=== PATIENT | female | born 1940 | race Caucasian/White ===

== ENCOUNTER → 2016-11-02 | Outpatient (REF) | payer MEDICARE ==
[2016-11-02 20:31] LABS: ALBUMIN 3.7 GM/DL (3.2-5.2); ALBUMIN/GLOBULIN RATIO 1.12 (1.00-1.93); ALKALINE PHOSPHATASE 172 U/L (45-117); ALT/SGPT 28 U/L (12-78); ANION GAP 11 MEQ/L (8-16); AST/SGOT 29 U/L (15-37); BILIRUBIN,TOTAL 0.3 MG/DL (0.2-1.0); BLOOD UREA NITROGEN 19 MG/DL (7-18); CALCIUM LEVEL 9.3 MG/DL (8.8-10.2); CARBON DIOXIDE LEVEL 28 MEQ/L (21-32); CHLORIDE LEVEL 103 MEQ/L (98-107); CHOLESTEROL LEVEL 142 MG/DL (<200); CREATININE FOR GFR 0.83 MG/DL (0.55-1.02); FREE T4 1.26 NG/DL (0.76-1.46); GLOMERULAR FILTRATION RATE > 60.0 (>39); GLUCOSE, FASTING 166 MG/DL (83-110); POTASSIUM SERUM 4.4 MEQ/L (3.5-5.1); SODIUM LEVEL 142 MEQ/L (136-145); TRIGLYCERIDES LEVEL 121 MG/DL (<150)
== END ==
LOC: M SFHCADAM 14:28
PROVIDERS: ATTEND Family Medicine
DX: E11.65 Type 2 diabetes mellitus with hyperglycemia (principal); Z68.42 Body mass index [BMI] 45.0-49.9, adult; E78.2 Mixed hyperlipidemia

== ENCOUNTER → 2016-11-02 | Outpatient (CLI) | payer MEDICARE ==
--- NOTE | 2016-11-02 18:19 | REP ---
RIGHT KNEE SERIES: Five views of the right knee are performed. There is a total knee prosthesis which appears to be in good position with no abnormal surrounding lucency. There is no fracture, dislocation, or malalignment. IMPRESSION: Total knee prosthesis, appears to be in good position. Signed by Denilson Lloyd MD 11/03/2016 04:55 P
== END ==
LOC: M ADAMS 14:32
PROVIDERS: ATTEND Family Medicine
DX: T84.84XA Pain due to internal orthopedic prosthetic devices, implants and grafts, initial encounter (principal); E11.9 Type 2 diabetes mellitus without complications; Z79.82 Long term (current) use of aspirin; Z79.84 Long term (current) use of oral hypoglycemic drugs; Z79.4 Long term (current) use of insulin; Z79.899 Other long term (current) drug therapy; Z96.651 Presence of right artificial knee joint
CPT/HCPCS: 73564; 80053; 80061; 82043; 83036; 84439; 84443; G0463

== ENCOUNTER → 2018-03-19 | Outpatient (REF) | payer MEDICARE ==
[2018-03-19 19:45] LABS: ALBUMIN 3.3 GM/DL (3.2-5.2); ALBUMIN/GLOBULIN RATIO 1.06 (1.00-1.93); ALKALINE PHOSPHATASE 143 U/L (45-117); ALT/SGPT 23 U/L (12-78); ANION GAP 9 MEQ/L (8-16); AST/SGOT 15 U/L (7-37); BILIRUBIN,TOTAL 0.3 MG/DL (0.2-1.0); BLOOD UREA NITROGEN 21 MG/DL (7-18); CARBON DIOXIDE LEVEL 27 MEQ/L (21-32); CHLORIDE LEVEL 107 MEQ/L (98-107); CHOLESTEROL LEVEL 122 MG/DL (<200); CHOLESTEROL RISK RATIO 2.033 (<5); CREATININE FOR GFR 0.85 MG/DL (0.55-1.30); GLOMERULAR FILTRATION RATE > 60.0 (>39); GLUCOSE, FASTING 151 MG/DL (70-100); HDL CHOLESTEROL 60 MG/DL (>40); LDL CHOLESTEROL 40.8 MG/DL (<100); NON-HDL-C 62 MG/DL; POTASSIUM SERUM 4.5 MEQ/L (3.5-5.1); SODIUM LEVEL 143 MEQ/L (136-145); TOTAL PROTEIN 6.4 GM/DL (6.4-8.2); TRIGLYCERIDES LEVEL 106 MG/DL (<150)
[2018-03-19 19:49] LABS: ESTIMATED AVERAGE GLUCOSE 157 MG/DL (60-110); HEMOGLOBIN A1c 7.1 %
[2018-03-19 19:52] LABS: HEMATOCRIT 36.2 % (36.0-47.0); HEMOGLOBIN 11.2 g/dl (12.0-15.5); MEAN CORPUSCULAR HEMOGLOBIN 28.6 pg (27.0-33.0); MEAN CORPUSCULAR HGB CONC 30.9 g/dl (32.0-36.5); MEAN CORPUSCULAR VOLUME 92.3 fl (80.0-96.0); PLATELET COUNT, AUTOMATED 213 10^3/uL (150-450); RED BLOOD COUNT 3.92 10^6/uL (4.00-5.40); RED CELL DISTRIBUTION WIDTH 13.9 % (11.5-14.5); WHITE BLOOD COUNT 8.1 10^3/uL (4.0-10.0)
[2018-03-19 20:26] LABS: MALB URINE SIEMENS 7.5 MG/L; MAU/CREAT RATIO 6.7 MCG/MG (0.0-30.0)
== END ==
LOC: M SFHCADAM 11:27
DX: M15.0 Primary generalized (osteo)arthritis (principal); E11.65 Type 2 diabetes mellitus with hyperglycemia; E78.2 Mixed hyperlipidemia
CPT/HCPCS: 80053

== ENCOUNTER 2018-06-03 10:44 | Emergency (ER) | payer MEDICARE | END 2018-06-03 13:51 | disposition home or self-care (01) | LOC: M ED 10:44 | DX: M16.11 Unilateral primary osteoarthritis, right hip (principal); R26.2 Difficulty in walking, not elsewhere classified; E11.9 Type 2 diabetes mellitus without complications; I10 Essential (primary) hypertension; E78.5 Hyperlipidemia, unspecified; Z88.2 Allergy status to sulfonamides; Z79.82 Long term (current) use of aspirin | CPT/HCPCS: 99283 ==

== ENCOUNTER 2018-08-02 01:55 | Emergency (ER) | payer MEDICARE ==
[2018-08-02 02:22] LABS: BASO % 0.4 % (0.0-1.0); EOS # 0.2 10^3/uL (0.0-0.50); EOS % 1.8 % (0.0-3.0); HEMATOCRIT 32.7 % (36.0-47.0); HEMOGLOBIN 10.7 g/dl (12.0-15.5); IMMATURE GRANULOCYTE % 0.2 % (0-3.0); LYMPH # 1.2 10^3/uL (1.5-4.5); LYMPH % 13.4 % (24.0-44.0); MEAN CORPUSCULAR HEMOGLOBIN 29.2 pg (27.0-33.0); MEAN CORPUSCULAR HGB CONC 32.7 g/dl (32.0-36.5); MEAN CORPUSCULAR VOLUME 89.3 fl (80.0-96.0); MONO # 0.9 10^3/uL (0.0-0.8); MONO % 9.9 % (0.0-5.0); NEUTROPHILS # 6.7 10^3/uL (1.8-7.7); NEUTROPHILS % 74.3 % (36.0-66.0); PLATELET COUNT, AUTOMATED 320 10^3/uL (150-450); RED BLOOD COUNT 3.66 10^6/uL (4.00-5.40); RED CELL DISTRIBUTION WIDTH 14.6 % (11.5-14.5)
[2018-08-02] MEDS: NS 500 ML IV ×2 (02:39→04:00)
[2018-08-02 02:55] LABS: LACTIC ACID SEPSIS PROTOCOL 2.2 MMOL/L (0.4-2.0)
[2018-08-02 03:24] LABS: ALBUMIN 3.1 GM/DL (3.2-5.2); ALBUMIN/GLOBULIN RATIO 0.97 (1.00-1.93); ALKALINE PHOSPHATASE 170 U/L (45-117); ALT/SGPT 18 U/L (12-78); ANION GAP 13 MEQ/L (8-16); AST/SGOT 26 U/L (7-37); BILIRUBIN,DIRECT 0.2 MG/DL (0.0-0.2); BILIRUBIN,TOTAL 0.5 MG/DL (0.2-1.0); BLOOD UREA NITROGEN 36 MG/DL (7-18); CALCIUM LEVEL 9.3 MG/DL (8.8-10.2); CARBON DIOXIDE LEVEL 24 MEQ/L (21-32); CHLORIDE LEVEL 101 MEQ/L (98-107); CPK CREATINE PHOSPHOKINASE 53 U/L (26-192); CREATININE FOR GFR 1.12 MG/DL (0.55-1.30); GLOMERULAR FILTRATION RATE 50.1 (>39); GLUCOSE, FASTING 90 MG/DL (70-100); LIPASE 54 U/L (73-393); MB/CK RELATIVE INDEX 2.83 (< OR =4); POTASSIUM SERUM 4.6 MEQ/L (3.5-5.1); SODIUM LEVEL 138 MEQ/L (136-145); TOTAL PROTEIN 6.3 GM/DL (6.4-8.2); TROPONIN I < 0.02 NG/ML (< 0.10)
[2018-08-02] MEDS: METOCLOPRAMIDE INJ 10MG/2ML VIAL (J2765) IV (04:00)
[2018-08-02 05:06] LABS: AMORPHOUS SEDIMENT RFX SMALL (NEGATIVE); KETONE, URINE AUTO RFX TRACE mg/dL (NEGATIVE); RBC, URINE AUTO RFX 12 /HPF (0-3); SPECIFIC GRAVITY UR AUTO RFX 1.017 (1.002-1.035); SQUAM EPITHELIAL CELL UR AURFX 4 /HPF (0-6)
[2018-08-02 05:07] LABS: LEUKOCYTE ESTERASE UR AUTO RFX 3+ (NEGATIVE); NITRITE, URINE AUTO RFX POSITIVE (NEGATIVE); WBC, URINE AUTO RFX 12 /HPF (0-3)
[2018-08-02] MEDS: cefTRIAXone SOD 1 GM in D5W MINI-BAG PLUS 50 ML IV (05:15)
== END 2018-08-02 06:46 | disposition home or self-care (01) ==
LOC: M ED 01:55
DX: N39.0 Urinary tract infection, site not specified (principal); R11.10 Vomiting, unspecified
CPT/HCPCS: J0696

== ENCOUNTER → 2018-08-09 | Outpatient (REF) | payer MEDICARE ==
[~2018-08-09] MED LIST: ASPI1CHW2 PO; CALC500T36 PO; CEPH500C PO; CIPR-249 PO; IRBE300T12 PO; IRBESAR/HCTZ PO; LANTINJ4 SC; LOVA10TA PO; LOVA40TA PO; METF500T13 PO; MULTCAP PO; NORCOTAB PO; NYST10CR TOP; ZOFR4TAB14 PO
[2018-08-09 12:06] LABS: BASO % 0.3 % (0.0-1.0); EOS # 0.2 10^3/uL (0.0-0.50); EOS % 2.5 % (0.0-3.0); HEMATOCRIT 35.5 % (36.0-47.0); HEMOGLOBIN 11.6 g/dl (12.0-15.5); LYMPH # 1.2 10^3/uL (1.5-4.5); LYMPH % 13.7 % (24.0-44.0); MEAN CORPUSCULAR HEMOGLOBIN 29.4 pg (27.0-33.0); MEAN CORPUSCULAR HGB CONC 32.7 g/dl (32.0-36.5); MEAN CORPUSCULAR VOLUME 89.9 fl (80.0-96.0); MONO # 0.9 10^3/uL (0.0-0.8); MONO % 10.6 % (0.0-5.0); NEUTROPHILS # 6.4 10^3/uL (1.8-7.7); NEUTROPHILS % 72.6 % (36.0-66.0); PLATELET COUNT, AUTOMATED 280 10^3/uL (150-450); RED BLOOD COUNT 3.95 10^6/uL (4.00-5.40); WHITE BLOOD COUNT 8.8 10^3/uL (4.0-10.0)
[2018-08-09 12:57] LABS: ALBUMIN 3.1 GM/DL (3.2-5.2); ALT/SGPT 22 U/L (12-78); BILIRUBIN,TOTAL 0.6 MG/DL (0.2-1.0); BLOOD UREA NITROGEN 27 MG/DL (7-18); CALCIUM LEVEL 9.4 MG/DL (8.8-10.2); CARBON DIOXIDE LEVEL 24 MEQ/L (21-32); CHLORIDE LEVEL 102 MEQ/L (98-107); CREATININE FOR GFR 0.85 MG/DL (0.55-1.30); FREE T4 1.69 NG/DL (0.76-1.46); GLOMERULAR FILTRATION RATE > 60.0 (>39); GLUCOSE, FASTING 57 MG/DL (70-100); POTASSIUM SERUM 4.2 MEQ/L (3.5-5.1); SODIUM LEVEL 137 MEQ/L (136-145); TOTAL PROTEIN 6.8 GM/DL (6.4-8.2)
== END ==
LOC: M SFHCPLAZ 09:23
PROVIDERS: ATTEND Family Medicine
DX: N39.0 Urinary tract infection, site not specified (principal); B96.20 Unspecified Escherichia coli [E. coli] as the cause of diseases classified elsewhere; I11.9 Hypertensive heart disease without heart failure; R25.1 Tremor, unspecified
CPT/HCPCS: 36415; 80053; 84439; 84443; 85025; G0463

== ENCOUNTER 2018-08-11 08:41 | Emergency (ER) | payer MEDICARE ==
[2018-08-11] MEDS ORDERED: DEXTROSE 50% 50 ML SYRINGE As Ordered (08:54)
[2018-08-11] MEDS: DEXTROSE 50% 50 ML SYRINGE IV (08:55)
[2018-08-11 09:16] LABS: BASO % 0.3 % (0.0-1.0); EOS # 0.2 10^3/uL (0.0-0.50); HEMATOCRIT 31.4 % (36.0-47.0); HEMOGLOBIN 10.1 g/dl (12.0-15.5); IMMATURE GRANULOCYTE % 0.3 % (0-3.0); LYMPH # 0.9 10^3/uL (1.5-4.5); LYMPH % 13.9 % (24.0-44.0); MEAN CORPUSCULAR HEMOGLOBIN 28.9 pg (27.0-33.0); MEAN CORPUSCULAR HGB CONC 32.2 g/dl (32.0-36.5); MONO # 0.7 10^3/uL (0.0-0.8); MONO % 10.5 % (0.0-5.0); NEUTROPHILS # 4.9 10^3/uL (1.8-7.7); PLATELET COUNT, AUTOMATED 197 10^3/uL (150-450); RED BLOOD COUNT 3.49 10^6/uL (4.00-5.40); RED CELL DISTRIBUTION WIDTH 14.4 % (11.5-14.5); WHITE BLOOD COUNT 6.8 10^3/uL (4.0-10.0)
[2018-08-11 09:29] LABS: KETONE, URINE AUTO RFX NEGATIVE (NEGATIVE); LEUKOCYTE ESTERASE UR AUTO RFX NEGATIVE (NEGATIVE); MUCUS, URINE RFX SMALL (NEGATIVE); NITRITE, URINE AUTO RFX NEGATIVE (NEGATIVE); RBC, URINE AUTO RFX 0 /HPF (0-3); SQUAM EPITHELIAL CELL UR AURFX 1 /HPF (0-6); WBC, URINE AUTO RFX 1 /HPF (0-3)
[2018-08-11 09:46] LABS: BEDSIDE GLUCOSE 45 MG/DL (83-110)
[2018-08-11 09:49] LABS: BEDSIDE GLUCOSE 146 MG/DL (83-110)
[2018-08-11] MEDS: NS 1,000 ML IV (09:49)
[2018-08-11 09:51] LABS: LACTIC ACID SEPSIS PROTOCOL 1.4 MMOL/L (0.4-2.0)
[2018-08-11 09:57] LABS: ALBUMIN 2.6 GM/DL (3.2-5.2); ALBUMIN/GLOBULIN RATIO 0.96 (1.00-1.93); ALKALINE PHOSPHATASE 146 U/L (45-117); ALT/SGPT 23 U/L (12-78); ANION GAP 9 MEQ/L (8-16); AST/SGOT 40 U/L (7-37); BILIRUBIN,DIRECT 0.2 MG/DL (0.0-0.2); BILIRUBIN,TOTAL 0.3 MG/DL (0.2-1.0); BLOOD UREA NITROGEN 29 MG/DL (7-18); CALCIUM LEVEL 7.9 MG/DL (8.8-10.2); CARBON DIOXIDE LEVEL 25 MEQ/L (21-32); CHLORIDE LEVEL 102 MEQ/L (98-107); CPK CREATINE PHOSPHOKINASE 73 U/L (26-192); CREATININE FOR GFR 0.82 MG/DL (0.55-1.30); GLOMERULAR FILTRATION RATE > 60.0 (>39); GLUCOSE, FASTING 202 MG/DL (70-100); LIPASE 83 U/L (73-393); MB/CK RELATIVE INDEX 2.47 (< OR =4); POTASSIUM SERUM 4.1 MEQ/L (3.5-5.1); SODIUM LEVEL 136 MEQ/L (136-145); TOTAL PROTEIN 5.3 GM/DL (6.4-8.2); TROPONIN I < 0.02 NG/ML (< 0.10)
[2018-08-11 10:58] LABS: BEDSIDE GLUCOSE 188 MG/DL (83-110)
== END 2018-08-11 12:20 | disposition home or self-care (01) ==
LOC: M ED 08:41
DX: E11.649 Type 2 diabetes mellitus with hypoglycemia without coma (principal); E66.9 Obesity, unspecified; I10 Essential (primary) hypertension; Z79.4 Long term (current) use of insulin; Z79.82 Long term (current) use of aspirin; Z79.899 Other long term (current) drug therapy; Z88.1 Allergy status to other antibiotic agents; Z88.2 Allergy status to sulfonamides
CPT/HCPCS: 82550

== ENCOUNTER 2018-08-27 08:34 | Emergency (ER) | payer MEDICARE ==
[~2018-08-27] VITALS: Ht 157.5 cm; Wt 90.9 kg
[~2018-08-27 08:34] MED LIST changes: -CEPH500C PO; -IRBESAR/HCTZ PO; -LOVA40TA PO; -MULTCAP PO; -NYST10CR TOP
[2018-08-27] MEDS ORDERED: ACETAMINOPHEN 325 MG TAB PO ONE (08:45)
[2018-08-27] MEDS ORDERED: METF500T13 PO (09:05)
[2018-08-27] MEDS ORDERED: CEPH500C PO (09:05)
[2018-08-27] MEDS ORDERED: MULTCAP PO (09:05)
[2018-08-27] MEDS ORDERED: NYST10CR TOP (09:05)
[2018-08-27] MEDS ORDERED: LOVA40TA PO (09:05)
[2018-08-27] MEDS ORDERED: IRBESAR/HCTZ PO (09:05)
[2018-08-27] MEDS ORDERED: CALC500T36 PO (09:05)
[2018-08-27 09:08] LABS: BASO % 0.6 % (0.0-1.0); EOS # 0.2 10^3/uL (0.0-0.50); EOS % 3.3 % (0.0-3.0); HEMATOCRIT 30.3 % (36.0-47.0); HEMOGLOBIN 9.7 g/dl (12.0-15.5); LYMPH # 0.8 10^3/uL (1.5-4.5); LYMPH % 11.8 % (24.0-44.0); MEAN CORPUSCULAR VOLUME 90.4 fl (80.0-96.0); MONO # 0.6 10^3/uL (0.0-0.8); MONO % 9.1 % (0.0-5.0); NEUTROPHILS % 74.8 % (36.0-66.0); PLATELET COUNT, AUTOMATED 262 10^3/uL (150-450); RED BLOOD COUNT 3.35 10^6/uL (4.00-5.40); WHITE BLOOD COUNT 6.7 10^3/uL (4.0-10.0)
[2018-08-27 09:35] LABS: ERYTHROCYTE SEDIMENTATION RATE 61 mm/hr (0-30)
[2018-08-27 09:36] LABS: BLOOD UREA NITROGEN 20 MG/DL (7-18); C REACTIVE PROTEIN QUANTITATIV 2.87 MG/DL (0.00-0.30); CALCIUM LEVEL 8.4 MG/DL (8.8-10.2); CARBON DIOXIDE LEVEL 24 MEQ/L (21-32); CHLORIDE LEVEL 104 MEQ/L (98-107); CREATININE FOR GFR 0.75 MG/DL (0.55-1.30); GLOMERULAR FILTRATION RATE > 60.0 (>39); GLUCOSE, FASTING 159 MG/DL (70-100); POTASSIUM SERUM 4.4 MEQ/L (3.5-5.1); SODIUM LEVEL 138 MEQ/L (136-145)
--- NOTE | 2018-08-27 09:40 | REP ---
Clinical: Right lower extremity pain . Technique: Lloyd scale and color Doppler evaluation using linear high frequency transducer. Findings: Ultrasound examination of the right lower extremity deep venous structures from the common femoral vein to the popliteal vein demonstrates normal compressibility flow and wave patterns in response to respiration and augmentation. There is no evidence for deep venous thrombosis. Impression: No evidence for deep venous thrombosis lower extremity. . Electronically Signed by Manfred Andino MD 08/27/2018 09:32 A
[2018-08-27 11:28] VITALS: BP 151/63
--- NOTE | 2018-08-27 11:59 | REP ---
Clinical: Pain without trauma. Technique: AP and lateral views of the right tibia / fibula. Comparison: Right knee dated 11/02/2016. Findings: Right knee replacement remains stable and unchanged in appearance. Degenerative changes at the ankle noted. No acute fracture or dislocation. Peripheral vascular disease identified. Impression: No obvious acute fracture dislocation. Degenerative changes. Electronically Signed by Manfred Andino MD 08/27/2018 09:20 A
== END 2018-08-27 11:30 | disposition home or self-care (01) ==
LOC: M ED 08:34
DX: M79.604 Pain in right leg (principal); G89.29 Other chronic pain; I10 Essential (primary) hypertension; E11.9 Type 2 diabetes mellitus without complications; E78.5 Hyperlipidemia, unspecified

== ENCOUNTER → 2018-09-06 | Outpatient (REF) | payer MEDICARE ==
[~2018-09-06] MED LIST changes: +CEPH500C PO; +IRBESAR/HCTZ PO; +LOVA40TA PO; +MULTCAP PO; +NYST10CR TOP
[2018-09-06 13:48] LABS: HEMATOCRIT 35.2 % (36.0-47.0); HEMOGLOBIN 11.3 g/dl (12.0-15.5); MEAN CORPUSCULAR HEMOGLOBIN 29.2 pg (27.0-33.0); MEAN CORPUSCULAR HGB CONC 32.1 g/dl (32.0-36.5); PLATELET COUNT, AUTOMATED 318 10^3/uL (150-450); RED BLOOD COUNT 3.87 10^6/uL (4.00-5.40); WHITE BLOOD COUNT 12.3 10^3/uL (4.0-10.0)
[2018-09-06 14:20] LABS: PERCENT SATURATION 19.4 % (13.2-45.0)
[2018-09-06 14:24] LABS: HEMOGLOBIN A1c 6.1 %
[2018-09-06 14:26] LABS: ERYTHROCYTE SEDIMENTATION RATE 58 mm/hr (0-30)
== END ==
LOC: M SFHCADAM 10:10
PROVIDERS: ATTEND Physician Assistant
DX: E11.65 Type 2 diabetes mellitus with hyperglycemia (principal); M25.511 Pain in right shoulder; D64.9 Anemia, unspecified
CPT/HCPCS: 82728; 83036; 83550; 85027; 85652; G0463

== ENCOUNTER → 2018-12-03 | Outpatient (REF) | payer MEDICARE ==
[~2018-12-03] MED LIST changes: +CALC12504 PO; -CALC500T36 PO; +HYDR-3715 PO; -NORCOTAB PO
[2018-12-03 13:18] LABS: HEMATOCRIT 32.4 % (36.0-47.0); HEMOGLOBIN 9.8 g/dl (12.0-15.5); MEAN CORPUSCULAR HEMOGLOBIN 28.2 pg (27.0-33.0); MEAN CORPUSCULAR HGB CONC 30.2 g/dl (32.0-36.5); MEAN CORPUSCULAR VOLUME 93.1 fl (80.0-96.0); PLATELET COUNT, AUTOMATED 205 10^3/uL (150-450); RED BLOOD COUNT 3.48 10^6/uL (4.00-5.40); WHITE BLOOD COUNT 9.4 10^3/uL (4.0-10.0)
[2018-12-03 13:34] LABS: ALBUMIN 3.5 GM/DL (3.2-5.2); ALT/SGPT 27 U/L (12-78); BILIRUBIN,TOTAL 0.5 MG/DL (0.2-1.0); BLOOD UREA NITROGEN 30 MG/DL (7-18); CALCIUM LEVEL 8.9 MG/DL (8.8-10.2); CARBON DIOXIDE LEVEL 28 MEQ/L (21-32); CHLORIDE LEVEL 104 MEQ/L (98-107); CREATININE FOR GFR 0.93 MG/DL (0.55-1.30); GLOMERULAR FILTRATION RATE > 60.0 (>39); GLUCOSE, FASTING 210 MG/DL (70-100); POTASSIUM SERUM 5.2 MEQ/L (3.5-5.1); SODIUM LEVEL 139 MEQ/L (136-145); TOTAL PROTEIN 6.6 GM/DL (6.4-8.2)
== END ==
LOC: M SFHCADAM 09:34
PROVIDERS: ATTEND Family Medicine
DX: E11.65 Type 2 diabetes mellitus with hyperglycemia (principal); I11.9 Hypertensive heart disease without heart failure
CPT/HCPCS: 80053; 83036; 85027; G0463

== ENCOUNTER 2019-03-06 08:28 | Day surgery (SDC) | payer MEDICARE ==
[~2019-03-06] VITALS: Ht 157.5 cm; Wt 88.4 kg
[~2019-03-06 08:28] MED LIST changes: +ACET-907 PO; +BALANCED SALT IRRIGATION SOLUTION 500ML BAG (FOR OR EYE MACHINE) As Ordered ONE; -CALC12504 PO; +CALC500T61 PO; +CEFUROXIME 1MG/0.1ML INTRACAMERAL INJ As Ordered ONE; +DUOVISC (0.50ML VISCOAT/0.55ML PROVISC) OPHTH KIT As Ordered ONE; +INSULANT SC; +LIDOCAINE 0.75%/EPINEPHRINE 0.025% IN BSS 1ML SYR INTRACAMERAL (OR ONLY) As Ordered ONE; +MIDAZOLAM INJ 2 MG/2 ML VIAL (J2250) As Ordered ONE; +OFLOXACIN 0.3 % (OCUFLOX) OPTH SOL 5ML OS ONE; +PHENYLEPHRINE 2.5% OPHTH SOL 2ML OS ONE; +POVIDONE-IODINE 5% OPHTH PREP SOL 30ML As Ordered ONE; +PROPARACAINE 0.5% OPHTH SOL 15ML OS ONE; +TROPICAMIDE 1% OPHTH SOLN 2ML OS ONE; +fentaNYL 100 MCG/2 ML INJECTION (J3010) As Ordered ONE
[2019-03-06 10:17] VITALS: BP 114/50
--- NOTE | 2019-03-07 20:52 | RO ---
DATE OF PROCEDURE: 03/06/2019 PREOPERATIVE DIAGNOSIS: 1. Visually significant nuclear sclerotic cataract left eye. POSTOPERATIVE DIAGNOSIS: 1. Visually significant nuclear sclerotic cataract left eye. PROCEDURE: 1. Cataract extraction with use of phacoemulsification and placement of intraocular lens, AU00T0, 18.0 D, left eye, placement of a capsular tension ring SURGEON: Cole Lomas DO SALT WASHER: None. ANESTHESIA: Local with monitored anesthesia care (MAC). COMPLICATIONS: None. POSTOPERATIVE CONDITION: Stable. INDICATIONS FOR SURGERY: 1. Blurred vision affecting patients activities of daily living. DESCRIPTION OF PROCEDURE: The patient was seen in the preoperative area and properly identified. The correct operative eye was identified and marked. The patient received topical anesthetic, antibiotics, and topical dilating drops. The patient was then transferred to the operating room. The correct side was re-identified, and a time-out was performed. The eye was prepped and draped in a sterile fashion. The eyelids were isolated with Tegaderm tape, and the lids were held open with an adjustable speculum. A 1.0 mm paracentesis incision was made. Intraocular preservative-free Shugarcaine was then injected into the anterior chamber. Viscoelastic was then injected into the anterior chamber through the paracentesis. Using a 2.4 mm sharp-tipped keratome, the anterior chamber was entered via a temporal clear cornea incision. A continuous curvilinear capsulorrhexis was created with Utrata forceps. Hydrodissection was performed with balanced salt solution (BSS) on a blunt cannula until the nucleus was able to rotate freely. The crystalline lens was phacoemulsified and aspirated. Irrigation/aspiration was used to remove the cortical material. Cohesive viscoelastic was placed into the capsular bag to deepen it. A capsular tension ring was placed to provide additional support to the capsular bag. The implant was placed into the capsular bag and allowed to unfold. Placement was confirmed by visualizing the anterior capsulorrhexis. Irrigation/aspiration was used to remove the viscoelastic. The clear corneal incision was hydrated with BSS on a blunt cannula. The lens was well positioned. The incisions were then tested for leaks and found to be negative. The eye was then palpated for appropriate pressure and adjusted accordingly with BSS. The eyelid speculum was then carefully removed. A shield was placed over the eye. The patient tolerated the procedure well and was discharged to the recovery unit in a stable condition. [facility]
== END 2019-03-06 10:25 | disposition home or self-care (01) ==
LOC: M SDC 08:28
PROVIDERS: ATTEND Ophthalmology
DX: H25.12 Age-related nuclear cataract, left eye (principal); I10 Essential (primary) hypertension; E78.5 Hyperlipidemia, unspecified; E11.9 Type 2 diabetes mellitus without complications; M12.9 Arthropathy, unspecified; Z88.2 Allergy status to sulfonamides; Z79.899 Other long term (current) drug therapy; Z79.4 Long term (current) use of insulin; Z79.82 Long term (current) use of aspirin; Z90.710 Acquired absence of both cervix and uterus; Z96.653 Presence of artificial knee joint, bilateral; Z96.641 Presence of right artificial hip joint
CPT/HCPCS: 66984; J2250; J3010; L8699; V2632

== ENCOUNTER → 2019-04-30 | Outpatient (CLI) | payer MEDICARE ==
[~2019-04-30] MED LIST changes: -BALANCED SALT IRRIGATION SOLUTION 500ML BAG (FOR OR EYE MACHINE) As Ordered ONE; -CEFUROXIME 1MG/0.1ML INTRACAMERAL INJ As Ordered ONE; -DUOVISC (0.50ML VISCOAT/0.55ML PROVISC) OPHTH KIT As Ordered ONE; -LIDOCAINE 0.75%/EPINEPHRINE 0.025% IN BSS 1ML SYR INTRACAMERAL (OR ONLY) As Ordered ONE; -MIDAZOLAM INJ 2 MG/2 ML VIAL (J2250) As Ordered ONE; -OFLOXACIN 0.3 % (OCUFLOX) OPTH SOL 5ML OS ONE; -PHENYLEPHRINE 2.5% OPHTH SOL 2ML OS ONE; -POVIDONE-IODINE 5% OPHTH PREP SOL 30ML As Ordered ONE; -PROPARACAINE 0.5% OPHTH SOL 15ML OS ONE; -TROPICAMIDE 1% OPHTH SOLN 2ML OS ONE; -fentaNYL 100 MCG/2 ML INJECTION (J3010) As Ordered ONE
--- NOTE | 2019-04-30 15:35 | REP ---
CT RIGHT SHOULDER: Axial CT right shoulder performed with sagittal and coronal reconstruction images, as well as 3D reconstruction images with humeral subtraction. Humeral head is high riding with an apparent full thickness tear of the supraspinatus tendon. Fluid density is seen in the region of the distal infraspinatus tendon with at least a partial full thickness tear of the infraspinatus tendon. There are moderate hypertrophic degenerative changes with joint space narrowing at the acromioclavicular joint. Acromion is type 1. There is no Hill-Sachs deformity. Fluid density extends into the posterolateral deltoid muscle suggesting a partial tear of that muscle. There is mild to moderate narrowing of the glenohumeral joint. Linear calcification is seen in the infraspinatus muscle having a length of 1 cm and a thickness of about 2 to 3 mm. No fracture is seen of the visualized osseous structures. There are diffuse degenerative changes of the spine. There appears to be a moderate joint effusion. This is predominately posteriorly located. IMPRESSION: Full thickness tear supraspinatus tendon. There is at least a partial full thickness tear of the infraspinatus tendon. Moderate hypertrophic degenerative changes acromioclavicular joint. Fluid density in the posterolateral deltoid suggests a partial muscle tear. Moderate joint effusion. Electronically Signed by Denilson Lloyd MD 04/30/2019 03:39 P
== END ==
LOC: M RAD 13:51
PROVIDERS: ATTEND Orthopaedic Surgery
DX: M75.101 Unspecified rotator cuff tear or rupture of right shoulder, not specified as traumatic (principal); M19.011 Primary osteoarthritis, right shoulder; M25.411 Effusion, right shoulder

== ENCOUNTER → 2019-06-23 | Outpatient (CLI) | payer MEDICARE ==
--- NOTE | 2019-06-23 12:29 | REP ---
Clinical: Lower back pain. Technique: AP, lateral, and coned-down views of the lumbosacral spine. Findings: Moderate chronic dextroconvex scoliosis along with moderate multilevel degenerative changes including endplate sclerosis, disc space narrowing, hypertrophic facet changes, and osteophytosis. Impression: Osteopenia and degenerative changes. Electronically Signed by Manfred Andino MD 06/23/2019 12:20 P
== END ==
LOC: M ADAMS 11:51
PROVIDERS: ATTEND Family Medicine
DX: M51.37 Other intervertebral disc degeneration, lumbosacral region (principal); M85.88 Other specified disorders of bone density and structure, other site; M54.5 Low back pain
CPT/HCPCS: 72100; G0463

== ENCOUNTER → 2019-07-01 | Outpatient (REF) | payer MEDICARE ==
[2019-07-01 14:00] LABS: HEMOGLOBIN A1c 6.8 %
[2019-07-01 14:01] LABS: BLOOD UREA NITROGEN 24 MG/DL (7-18); CALCIUM LEVEL 9.1 MG/DL (8.8-10.2); CARBON DIOXIDE LEVEL 25 MEQ/L (21-32); CHLORIDE LEVEL 104 MEQ/L (98-107); GLOMERULAR FILTRATION RATE > 60.0 (>39); GLUCOSE, FASTING 107 MG/DL (70-100); POTASSIUM SERUM 4.8 MEQ/L (3.5-5.1); SODIUM LEVEL 138 MEQ/L (136-145)
== END ==
LOC: M SFHCADAM 10:21
PROVIDERS: ATTEND Family Medicine
DX: E11.65 Type 2 diabetes mellitus with hyperglycemia (principal)
CPT/HCPCS: 80048; 83036; G0463

== ENCOUNTER → 2019-12-03 | Outpatient (REF) | payer MEDICARE ==
[2019-12-03 13:21] LABS: HEMATOCRIT 34.4 % (36.0-47.0); HEMOGLOBIN 10.7 g/dl (12.0-15.5); MEAN CORPUSCULAR HEMOGLOBIN 27.6 pg (27.0-33.0); MEAN CORPUSCULAR HGB CONC 31.1 g/dl (32.0-36.5); MEAN CORPUSCULAR VOLUME 88.7 fl (80.0-96.0); PLATELET COUNT, AUTOMATED 189 10^3/uL (150-450); RED BLOOD COUNT 3.88 10^6/uL (4.00-5.40); WHITE BLOOD COUNT 8.8 10^3/uL (4.0-10.0)
[2019-12-03 13:33] LABS: HEMOGLOBIN A1c 7.5 %
[2019-12-03 13:41] LABS: ALBUMIN 3.4 GM/DL (3.2-5.2); ALT/SGPT 20 U/L (12-78); BILIRUBIN,TOTAL 0.5 MG/DL (0.2-1.0); BLOOD UREA NITROGEN 28 MG/DL (7-18); CALCIUM LEVEL 9.3 MG/DL (8.8-10.2); CARBON DIOXIDE LEVEL 25 MEQ/L (21-32); CHLORIDE LEVEL 106 MEQ/L (98-107); CHOLESTEROL LEVEL 119 MG/DL (<200); CREATININE FOR GFR 0.93 MG/DL (0.55-1.30); FREE T4 1.33 NG/DL (0.76-1.46); GLOMERULAR FILTRATION RATE > 60.0 (>39); GLUCOSE, FASTING 121 MG/DL (70-100); HDL CHOLESTEROL 61 MG/DL (>40); LDL CHOLESTEROL 45 MG/DL (<100); NON-HDL-C 58 MG/DL; POTASSIUM SERUM 5.1 MEQ/L (3.5-5.1); SODIUM LEVEL 139 MEQ/L (136-145); TOTAL PROTEIN 6.8 GM/DL (6.4-8.2); TRIGLYCERIDES LEVEL 65 MG/DL (<150)
[2019-12-03 13:43] LABS: VITAMIN B12 LEVEL 178 PG/ML (247-911)
[2019-12-03 13:44] LABS: FOLATE > 24.0 NG/ML (>5.4)
== END ==
LOC: M SFHCADAM 09:14
PROVIDERS: ATTEND Family Medicine
DX: R41.3 Other amnesia (principal); E11.65 Type 2 diabetes mellitus with hyperglycemia; E78.2 Mixed hyperlipidemia

== ENCOUNTER → 2020-07-05 | Outpatient (REF) | payer MEDICARE ==
[2020-07-05 13:33] LABS: HEMATOCRIT 28.2 % (36.0-47.0); HEMOGLOBIN 7.7 g/dl (12.0-15.5); MEAN CORPUSCULAR HEMOGLOBIN 22.7 pg (27.0-33.0); MEAN CORPUSCULAR HGB CONC 27.3 g/dl (32.0-36.5); MEAN CORPUSCULAR VOLUME 83.2 fl (80.0-96.0); PLATELET COUNT, AUTOMATED 230 10^3/uL (150-450); RED BLOOD COUNT 3.39 10^6/uL (4.00-5.40); WHITE BLOOD COUNT 7.9 10^3/uL (4.0-10.0)
[2020-07-05 14:05] LABS: BLOOD UREA NITROGEN 24 MG/DL (7-18); CALCIUM LEVEL 9.5 MG/DL (8.8-10.2); CARBON DIOXIDE LEVEL 25 MEQ/L (21-32); CHLORIDE LEVEL 107 MEQ/L (98-107); CREATININE FOR GFR 0.82 MG/DL (0.55-1.30); GLOMERULAR FILTRATION RATE > 60.0 (>39); GLUCOSE, FASTING 78 MG/DL (70-100); POTASSIUM SERUM 4.9 MEQ/L (3.5-5.1); SODIUM LEVEL 139 MEQ/L (136-145); VITAMIN B12 LEVEL 763 PG/ML (247-911)
[2020-07-05 15:25] LABS: HEMOGLOBIN A1c 7.1 %
== END ==
LOC: M SFHCADAM 09:47
PROVIDERS: ATTEND Family Medicine
DX: E53.8 Deficiency of other specified B group vitamins (principal); E11.65 Type 2 diabetes mellitus with hyperglycemia

== ENCOUNTER → 2020-07-07 | Outpatient (CLI) | payer MEDICARE ==
[2020-07-07 16:33] LABS: PERCENT SATURATION 5.8 % (13.2-45.0)
== END ==
LOC: M WUC 14:28
PROVIDERS: ATTEND Family Medicine
DX: D50.9 Iron deficiency anemia, unspecified (principal)

== ENCOUNTER → 2020-07-29 | Outpatient (CLI) | payer MEDICARE ==
[2020-07-29 17:18] LABS: HEMATOCRIT 33.1 % (36.0-47.0); HEMOGLOBIN 9.3 g/dl (12.0-15.5); MEAN CORPUSCULAR HEMOGLOBIN 24.3 pg (27.0-33.0); MEAN CORPUSCULAR HGB CONC 28.1 g/dl (32.0-36.5); MEAN CORPUSCULAR VOLUME 86.4 fl (80.0-96.0); PLATELET COUNT, AUTOMATED 209 10^3/uL (150-450); RED BLOOD COUNT 3.83 10^6/uL (4.00-5.40); WHITE BLOOD COUNT 7.9 10^3/uL (4.0-10.0)
[2020-07-29 18:25] LABS: BLOOD UREA NITROGEN 24 MG/DL (7-18); CARBON DIOXIDE LEVEL 24 MEQ/L (21-32); CHLORIDE LEVEL 109 MEQ/L (98-107); CREATININE FOR GFR 0.94 MG/DL (0.55-1.30); FERRITIN 9 NG/ML (8-252); GLOMERULAR FILTRATION RATE > 60.0 (>32); GLUCOSE, FASTING 78 MG/DL (70-100); IRON (FE) 45 UG/DL (50-170); PERCENT SATURATION 10.6 % (13.2-45.0); POTASSIUM SERUM 4.9 MEQ/L (3.5-5.1); SODIUM LEVEL 140 MEQ/L (136-145); TOTAL IRON BINDING CAPACITY 423 UG/DL (250-450)
[2020-07-29 20:14] LABS: HEMOGLOBIN A1c 6.8 %
== END ==
LOC: M WUC 12:06
PROVIDERS: ATTEND Family Medicine
DX: D50.0 Iron deficiency anemia secondary to blood loss (chronic) (principal); E11.65 Type 2 diabetes mellitus with hyperglycemia

== ENCOUNTER 2020-10-17 22:17 | Emergency (ER) | payer MEDICARE ==
--- NOTE | 2020-10-17 22:59 | REPVR ---
PROCEDURE INFORMATION: Exam: CT Head Without Contrast Exam date and time: 10/17/2020 10:33 PM Age: 80 years old Clinical indication: Injury or trauma; Fall; Blunt trauma (contusions or hematomas) TECHNIQUE: Imaging protocol: Computed tomography of the head without contrast. Radiation optimization: All CT scans at this facility use at least one of these dose optimization techniques: automated exposure control; mA and/or kV adjustment per patient size (includes targeted exams where dose is matched to clinical indication); or iterative reconstruction. COMPARISON: No relevant prior studies available. FINDINGS: Brain: Nonspecific hypodensities of the periventricular and deep subcortical white matter, most likely secondary to chronic small vessel ischemic change. No intracranial hemorrhage or extra-axial fluid collection. No evidence of mass effect or midline shift. Lloyd-white matter differentiation is normal. Cerebral ventricles: Prominence of the ventricles and sulci, most likely attributed to parenchymal volume loss. Bones/joints: No acute calvarial fracture. Mastoid air cells: Unremarkable. Soft tissues: Small frontal scalp contusion. IMPRESSION: 1. No acute intracranial pathology. 2. Small frontal scalp contusion. 3. Chronic findings, as above. Electronically signed by: Dale Reid On 10/17/2020 22:59:38 PM
--- NOTE | 2020-10-17 23:00 | REPVR ---
PROCEDURE INFORMATION: Exam: CT Maxillofacial Without Contrast Exam date and time: 10/17/2020 10:33 PM Age: 80 years old Clinical indication: Injury or trauma; Fall; Blunt trauma (contusions or hematomas); Nose TECHNIQUE: Imaging protocol: Computed tomography images of the face without contrast. Radiation optimization: All CT scans at this facility use at least one of these dose optimization techniques: automated exposure control; mA and/or kV adjustment per patient size (includes targeted exams where dose is matched to clinical indication); or iterative reconstruction. COMPARISON: No relevant prior studies available. FINDINGS: Orbital cavity: Orbits are normal. Globes are unremarkable. Bones/joints: Acute nondisplaced nasal bridge fracture. Paranasal sinuses: Normal. No air-fluid levels. Soft tissues: Nasal soft tissue swelling. Left periorbital soft tissue swelling. IMPRESSION: Acute nondisplaced nasal bridge fracture. Electronically signed by: Dale Reid On 10/17/2020 23:01:19 PM
--- NOTE | 2020-10-17 23:01 | REPVR ---
PROCEDURE INFORMATION: Exam: CT Cervical Spine Without Contrast Exam date and time: 10/17/2020 10:33 PM Age: 80 years old Clinical indication: Injury or trauma; Fall; Blunt trauma TECHNIQUE: Imaging protocol: Computed tomography images of the cervical spine without contrast. Radiation optimization: All CT scans at this facility use at least one of these dose optimization techniques: automated exposure control; mA and/or kV adjustment per patient size (includes targeted exams where dose is matched to clinical indication); or iterative reconstruction. COMPARISON: No relevant prior studies available. FINDINGS: Bones/joints: Straightening of the cervical lordosis. Vertebral body heights are maintained. No locked or perched facets. Multilevel facet arthropathy. No acute cervical spine fracture. The dens is intact. Atlanto-axial intervals are normal. Discs/Spinal canal/Neural foramina: Multilevel degenerative changes with intervertebral disc height loss and osteophyte formation, with multilevel areas of mild canal stenosis. Lungs: Lung apices are clear. Soft tissues: Unremarkable. IMPRESSION: No acute cervical spine fracture. Electronically signed by: Dale Reid On 10/17/2020 23:02:14 PM
[2020-10-17] MEDS ORDERED: ACETAMINOPHEN TAB 650MG DOSE (2X325MG) PO ONE (23:30)
[2020-10-17] MEDS ORDERED: BOOSTRIX/ADACEL VACCINE (DIPHTH/PERTUSS/ACELL/TETANUS) 0.5ML SYR IM ONE (23:30)
--- OUTSIDE RECORDS SUMMARY | 2020-10-17 23:46 | CCD ---
Author Author [facility] Syst ems Organization [facility] ems Address Unknown Phone Unavailable Care Team Providers Care Knotter Name Role Phone Dale Winter Unavailable PROBLEMS Type Condition ICD9-CM Code [id number] Code Onset Dates Condition S tatus SNOMED Code Notes Problem Mixed hyperlipidemia E78.2 Active 612498986 Problem BMI 45.0-49.9, adult Z68.42 Active 556833457 Problem Encounter for immunization Z23 Active 78202 6002 Problem Type 2 diabetes mellitus with hyperglycemia E11.65 Active 185536132354005 Problem Other chronic pain G89.29 Active 24479069 Problem Hypertensive heart disease without heart failure I 11.9 Active 44675090 Problem Ulcer of abdomen wall, limited to breakdown of skin L98.491 Active 79511677 Problem Iron deficiency anemia due to chronic blood loss D 50.0 Active 531786451 Problem Presence of unspecified artificial knee joint Z96. 659 Active 448060433100 Problem Microcytic anemia D50.9 Active 540674605 Problem Primary generalized (osteo)arthritis M15.0 Act deanna 942756767 Problem Skin ulcer, limited to breakdown of skin L98.491 Active 28163989 Problem Medicare annual wellness visit, subsequent Z00.00 Active 483036128 Problem Memory loss R41.3 Active 61230572 Problem B12 deficiency E53.8 Active 014048378 prob fr om metformin; started oral B12 12/14, plan f/u level in~ 3 mo ALLERGIES Allergen (clinical drug ingredient) Drug/Non Drug Allergy do cumented on EMR Reaction Allergy Type Onset Date Status Cipro visual hallucinations, falls (08/13) Non Drug A llergy Active Sulfacet Hives Drug Allergy Active CHRIST INHiBITORS COUGH Non Drug Allergy Acti ve PRINIVIL COUGH Non Drug Allergy Active ENCOUNTERS from 1940 to 2020-08-05 Encounter Location Date Provider Diagnosis [facility] [place] [address] [place] [address] Jul, Orlin Winter IMMUNIZATIONS Vaccine Route Administration Date Status Influenza (High Dose 65 & up) IM Intramuscular Jun 21, 2017 A dministered Pneumococcal Adult 0.5mL (Pneumovax 23) IM Intramuscular January 25, 2016 Administered Pneumococcal 0.5mL (Prevnar 13) IM Intramuscular February 10, 2015 Administered Zoster 0.65mL (Zostavax) SC Subcutaneous Jul 25, 2011 Adminis tered Pneumococcal Adult 0.5mL (Pneumovax 23) Unknown Jul 30, 2003 Administered Influenza (6mo & up) Fluzone IM Intramuscular Jul 29, 2013 Ad ministered Influenza (18 yrs & older) Flublok IM Intramuscular Jun 27, 2018 Administered Influenza (6mo & up) Fluzone IM Intramuscular Aug 01, 2012 Ad ministered Influenza (18 yrs & older) Flublok IM Intramuscular Jun 17, 2020 Administered Influenza (6mo & up) Fluzone IM Intramuscular Jul 25, 2011 Ad ministered Influenza (6mo & up) Fluzone IM Intramuscular Jul 18, 2010 Ad ministered SOCIAL HISTORY Sex Assigned At : Social History Observation Description Sex Assigned At Unknown Audit Question Answer Notes Total Score: 1 Interpretation: Alcohol Education Sexual Hx: Question Answer Notes Had sex in the last 12 months (vaginal, oral, or anal)? No Have you ever had an STD? No Drug and Alcohol Question Answer Notes Total Score: 0 Interpretation: No problems reported Alcohol Screening: Question Answer Notes Did you have a drink containing alcohol in the past year? No Points 0 Interpretation Negative BMI Care Goal Follow-Up Question Answer Notes Above Normal BMI Follow-Up Lifestyle education regarding t REASON FOR REFERRAL No Information VITAL SIGNS No information MEDICATIONS Medication SIG (Take, Route, Frequency, Duration) Notes Start Da te End Date Status Nystatin 568451 UNIT/GM 1 application Externally twi ce daily to breast and abd/groin skin folds for 30 Acti ve Solus V2 Test - as directed In Vitro three t imes a day diagnosis e11.65 for 30 day(s) Jun, Active Acetaminophen Active Irbesartan-Hydrochlorothiazide 300-12.5 MG 1 tablet Orally Once a day for 30 Active Calcium 600 + D 600-400 mg 1 tablet twice a day Active Unifine Pentips 31G X 8 MM USE ONE WITH LANTUS PEN TWO TIMES A DAY UNDER THE SKIN for 50 Active Lantus SoloStar 100 UNIT/ML 20 units Subcutaneous once daily for 90 day(s) December, Active Lancet Devices - one touch ultra _daignos e11. bid e11.65 for 50 Active Diflucan 100 MG 1 tablet Orally bid for 7 day(s) Jul, 019 Not-Taking Cephalexin 500 MG 1 capsule Orally every 12 hrs for 7 day(s) Sep, Not-Taking Metformin HCl 1000 mg 1 1/2 tablets in the morning then 1 tablet in the evening Orally 2 times a day for 90 day(s) Active MiraLax - 1 capful Orally once daily as needed for 30 days May, Not-Taking Nystatin 956693 UNIT/GM 1 application to affected ar ea Externally Twice a day for 30 days Jul, Active Multi-Day OTC 1 tablet daily Active Aspir-81 81 mg 1 tablet daily Active One Touch Ultra 2 Lancet _ 1 each in vitro/diag code 2 50.02 three times a day for 90 day(s) Sep, Active Pen Avon 31G X 8 MM 1 each to be used with lantu s pen subcutaneously twice a day/250.02 for 90 day(s) Jun, Active Solus V2 Twist Lancets 30G - as directed _ three times a day diagnosis e11.65 for 30 day(s) Jun, Active iron 1 tab 27mg Oral Active Mevacor 40 mg 1 tablet Orally bedtime for 90 Active Fluconazole 150 MG 1 tablet Orally once weekly for 28 Not-Taking Vitamin B12 1000 MCG 1 tablet Orally Once a day for 90 day(s) Nov, Active WSO2Touch Ultra Test - USE TO TEST BLOOD SUGAR THREE TIMES A DAY for 9 0 Active PROCEDURES No Information RESULTS No Results REASON FOR VISIT iron meds MEDICAL (GENERAL) HISTORY Type Description Date Medical History HTN Medical History OA-- rt hip, Dr Jose Machado SOS Medical History DM2 Medical History hyperlipidemia Medical History morbid obesity Medical History recurrent intertrigo breasts/groin Medical History B12 deficiency 12/14 Surgical History L TKA x 2 1998, 2003 Surgical History R TKA 1997 Surgical History hysterectomy, uterus, cervix. 1968 Surgical History refuses colonoscopy Surgical History Right hip replacement 06/2018 Surgical History Bilateral shoulder steroid injections Surgical History R shoulder 05/19/19 Hospitalization History [facility] ED-N/V/D, UTI 08/02/2018 Goals Section No Information Health Concerns No Information MEDICAL EQUIPMENT No Information MENTAL STATUS No Information FUNCTIONAL STATUS No Information ASSESSMENTS No Information PLAN OF TREATMENT Medication Medication Name Sig Start Date Stop Date Pen Avon 31G X 8 MM 1 each to be used with lantu s pen subcutaneously twice a day/250.02 for 90 day(s) Jun, Lantus SoloStar 100 UNIT/ML 20 units Subcutaneous once daily for 90 day(s) December, Next Appt Details Provider Name:Dale Moy, 2020-10 11:00:00 AM, [address], [place], [address], Insurance Providers Payer Name Payer Address Payer Phone Insured Name Patient Relati onship to Insured Coverage Start Date Coverage End Date [employer] [facility] CLAIM DIV [address] [facility] [id number] SRIRAM JESSICA MEDICARE Part A and B [address] [facility] [address] SRIRAM JESSICA self
--- OUTSIDE RECORDS SUMMARY | 2020-10-17 23:46 | CCD ---
Author Author [facility] Syst ems Organization [facility] ems Address Unknown Phone Unavailable Care Team Providers Care Design Project Manager Name Role Phone Dale Winter Unavailable PROBLEMS Type Condition ICD9-CM Code [id number] Code Onset Dates Condition S tatus SNOMED Code Notes Problem Mixed hyperlipidemia E78.2 Active 041504903 Problem BMI 45.0-49.9, adult Z68.42 Active 146419640 Problem Encounter for immunization Z23 Active 58329 6002 Problem Type 2 diabetes mellitus with hyperglycemia E11.65 Active 406656303743849 Problem Other chronic pain G89.29 Active 94820577 Problem Hypertensive heart disease without heart failure I 11.9 Active 35508309 Problem Ulcer of abdomen wall, limited to breakdown of skin L98.491 Active 41862688 Problem Iron deficiency anemia due to chronic blood loss D 50.0 Active 072062395 Problem Presence of unspecified artificial knee joint Z96. 659 Active 133957005091 Problem Microcytic anemia D50.9 Active 173858142 Problem Primary generalized (osteo)arthritis M15.0 Act deanna 177364491 Problem Skin ulcer, limited to breakdown of skin L98.491 Active 42654486 Problem Medicare annual wellness visit, subsequent Z00.00 Active 871835492 Problem Memory loss R41.3 Active 64308490 Problem B12 deficiency E53.8 Active 514386342 prob fr om metformin; started oral B12 [...] Drug Allergy Active ENCOUNTERS from 1940 to 2020-08-04 Encounter Location Date Provider Diagnosis [facility] [place] [address] [place] [address] Jul, Orlin Winter Iron deficiency anemia due to chronic blood loss D50.0 ; Type 2 diabetes mellitus with hyperglycemia E11.65 and B12 deficiency E53.8 IMMUNIZATIONS Vaccine Route Administration Date Status Influenza (High Dose 65 & up) IM Intramuscular Jun 21, 2017 A dministered Zoster 0.65mL (Zostavax) SC Subcutaneous Jul 25, 2011 Adminis tered Pneumococcal Adult 0.5mL (Pneumovax 23) IM Intramuscular January 25, 2016 Administered Pneumococcal Adult 0.5mL (Pneumovax 23) Unknown Jul 30, 2003 Administered Pneumococcal 0.5mL (Prevnar 13) IM Intramuscular February 10, 2015 Administered Influenza (6mo & up) Fluzone IM [...] Assigned At Unknown Audit Question Answer Notes Interpretation: Alcohol Education Total Score: 1 Sexual Hx: Question Answer Notes Had sex in the last 12 months (vaginal, oral, or anal)? No Have you ever had an STD? No Drug and Alcohol Question Answer Notes Interpretation: No problems reported Total Score: 0 Alcohol Screening: Question Answer Notes Did you have a drink containing alcohol in the past year? No Points 0 Interpretation Negative BMI Care Goal Follow-Up Question Answer Notes Above Normal BMI Follow-Up Lifestyle education regarding t REASON FOR REFERRAL No Information VITAL SIGNS Weight 198 lbs Jul, Height 62 in Jul, BMI 36.21 kg/m2 Jul, Heart Rate 100 /min Jul, Respiratory Rate 18 /min Jul, Temperature 96.9 degrees Fahrenheit Jul, Oximetry 100 Jul, Blood pressure systolic 138 mm Hg Jul, Blood pressure diastolic 74 mm Hg Jul, MEDICATIONS Medication SIG (Take, Route, Frequency, Duration) Notes Start Da te End Date Status Nystatin 181409 UNIT/GM 1 application Externally twi ce daily to breast and abd/groin skin folds for 30 Acti ve Solus V2 Test - as directed In Vitro three t imes a day diagnosis e11.65 for 30 day(s) Jun, Active Acetaminophen Active Irbesartan-Hydrochlorothiazide 300-12.5 MG 1 tablet Orally Once a day for 30 Active Nystatin 702240 UNIT/GM 1 application to affected ar ea Externally Twice a day for 30 days Jul, Active Unifine Pentips 31G X 8 MM USE ONE WITH LANTUS PEN TWO TIMES A DAY UNDER THE SKIN for 50 Active Cephalexin 500 MG 1 capsule Orally every 12 hrs for 7 day(s) Sep, Not-Taking Lancet Devices - one touch ultra _daignos e11. bid e11.65 for 50 Active Diflucan 100 MG 1 tablet Orally bid for 7 day(s) Jul, 019 Not-Taking Pen Hancock 31G X 8 MM 1 each to be used with lantu s pen subcutaneously twice a day/250.02 for 90 day(s) Jun, Active Metformin HCl 1000 mg 1 1/2 tablets in the morning then 1 tablet in the evening Orally 2 times a day for 90 day(s) Active Solus V2 Twist Lancets 30G - as directed _ three times a day diagnosis e11.65 for 30 day(s) Jun, Active MiraLax - 1 capful Orally once daily as needed for 30 days May, Not-Taking Multi-Day OTC 1 tablet daily Active Aspir-81 81 mg 1 tablet daily Active One Touch Ultra 2 Lancet _ 1 each in vitro/diag code 2 50.02 three times a day for 90 day(s) Sep, Active Calcium 600 + D 600-400 mg 1 tablet twice a day Active Lantus SoloStar 100 UNIT/ML 20 units Subcutaneous once daily for 90 day(s) December, Active iron 1 tab 27mg Oral Active Mevacor 40 mg 1 tablet Orally bedtime for 90 Active Fluconazole 150 MG 1 tablet Orally once weekly for 28 Not-Taking Vitamin B12 1000 MCG 1 tablet Orally Once a day for 90 day(s) Nov, Active OneTouch Ultra Test - USE TO TEST BLOOD SUGAR THREE TIMES A DAY for 9 0 Active PROCEDURES No Information RESULTS No Results REASON FOR VISIT 3 week [phone] MEDICAL (GENERAL) HISTORY Type Description Date Medical [...] No Information FUNCTIONAL STATUS No Information ASSESSMENTS Encounter Date Diagnosis Assessment Notes Treatment Notes Treatm ent Clinical Notes Jul, Iron deficiency anemia due to chronic bl ood loss (ICD-10 - D50.0) has refused colonoscopy in past. Agrees today to see GI for EGD/colo. Dtr present/aware of my concerns Jul, Type 2 diabetes mellitus with hyperglycemia (ICD -10 - E11.65) Jul, B12 deficiency (ICD-10 - E53.8) prob fro m metformin; started oral B12 12/14, plan f/u level in~ 3 mo level sufficient on oral therapy PLAN OF TREATMENT Treatment Notes Assessment Notes Clinical Notes Iron deficiency anemia due to chronic blood loss has refused colonoscopy in past. Agrees today to see GI for EGD/colo. Dtr present/aware of my concerns B12 deficiency level sufficient on oral therapy Future Test Test Name Order Date CBC - Complete Blood Count 20201028 FERRITIN 20201028 Reticulocyte Count Sysmex [id number] TOTAL IRON BINDING CAPACIT [id number] HEMOGLOBIN A1c [id number] Comprehensive Metabolic Profile (CMP) 20201028 Next Appt Details 3 Months Reason: Provider Name:Dale Winter, 2020-10 11:00:00 AM, [address], [place], [address], Insurance Providers Payer Name Payer Address Payer Phone Insured Name Patient Relati onship to Insured Coverage Start Date Coverage End Date MEDICARE Part A and B [address] [facility] [phone] SRIRAM JESSICA [facility] HEALTH CARE [facility] CLAIM DIV [address] [facility] [id number] SRIRAM JESSICA self
--- OUTSIDE RECORDS SUMMARY | 2020-10-17 23:46 | CCD ---
Author Author [facility] ems Organization [facility] ems Address Unknown Phone Unavailable Care Team Providers Care Cogeneration Operator Name Role Phone Dale Winter Unavailable PROBLEMS Type Condition ICD9-CM Code [id number] Code Onset Dates Condition S tatus SNOMED Code Notes Problem Mixed hyperlipidemia E78.2 Active 879906652 Problem BMI 45.0-49.9, adult Z68.42 Active 189475304 Problem Encounter for immunization Z23 Active 91054 6002 Problem Type 2 diabetes mellitus with hyperglycemia E11.65 Active 447698433013843 Problem Other chronic pain G89.29 Active 05506873 Problem Hypertensive heart disease without heart failure I 11.9 Active 77500267 Problem Ulcer of abdomen wall, limited to breakdown of skin L98.491 Active 91339783 Problem Iron deficiency anemia due to chronic blood loss D 50.0 Active 141837585 Problem Presence of unspecified artificial knee joint Z96. 659 Active 450184016715 Problem Microcytic anemia D50.9 Active 119737952 Problem Primary generalized (osteo)arthritis M15.0 Act deanna 389348882 Problem Skin ulcer, limited to breakdown of skin L98.491 Active 12219746 Problem Medicare annual wellness visit, subsequent Z00.00 Active 038346874 Problem Memory loss R41.3 Active 33226076 Problem B12 deficiency E53.8 Active 459164480 prob fr om metformin; started oral B12 [...] Drug Allergy Active ENCOUNTERS from 1940 to 2020-08-06 Encounter Location Date Provider Diagnosis [facility] [place] [address] [place] [address] Jul, Orlin Winter Type 2 diabetes mellitus with hyperglycemia E11.65 IMMUNIZATIONS Vaccine Route Administration Date Status Influenza [...] Start Da te End Date Status Nystatin 443381 UNIT/GM 1 application Externally twi ce daily [...] needed for 30 days May, Not-Taking Nystatin 668151 UNIT/GM 1 application to affected ar ea Externally Twice a day for 30 days Jul, Active Multi-Day OTC 1 tablet daily Active Aspir-81 81 mg 1 tablet daily Active One Touch Ultra 2 Lancet _ 1 each in vitro/diag code 2 50.02 three times a day for 90 day(s) Sep, Active Pen [place] 31G X 8 MM 1 each to [...] a day for 90 day(s) Nov, Active Sagent PharmaceuticalsTouch Ultra Test - USE TO TEST BLOOD SUGAR THREE TIMES A DAY for 9 0 Active PROCEDURES No Information RESULTS No Results REASON FOR VISIT lant, needles for lantus MEDICAL (GENERAL) HISTORY Type Description Date Medical History HTN Medical History OA-- rt hip, Dr Jose Machado SOS Medical History DM2 Medical History hyperlipidemia Medical History morbid obesity Medical History recurrent intertrigo breasts/groin Medical History B12 deficiency 12/14 Surgical History L TKA x 2 2003 Surgical History R TKA 1997 Surgical History hysterectomy, uterus, cervix. 1968 Surgical History refuses colonoscopy Surgical History Right hip replacement 06/2018 Surgical History Bilateral shoulder steroid injections 20 19 Surgical History R shoulder 05/19/19 Hospitalization History [facility] ED-N/V/D, UTI 08/02/2018 Goals Section No Information Health Concerns No Information MEDICAL EQUIPMENT No Information MENTAL STATUS No Information FUNCTIONAL STATUS No Information ASSESSMENTS Encounter Date Diagnosis Assessment Notes Treatment Notes Treatm ent Clinical Notes Jul, Type 2 diabetes mellitus with hyperglycemia (ICD -10 - E11.65) PLAN OF TREATMENT Medication Medication Name Sig Start Date Stop Date Pen Allison 31G X 8 MM 1 each to be used with lantu s pen subcutaneously twice a day/250.02 for 90 day(s) Jun, Lantus SoloStar 100 UNIT/ML 20 units Subcutaneous once daily for 90 day(s) December, Next Appt Details Provider Name:Dale Winter, 2020-10 - 11:00:00 AM, [address], [place], [address], Insurance Providers Payer Name Payer Address Payer Phone Insured Name Patient Relati onship to Insured Coverage Start Date Coverage End Date MEDICARE Part A and B [address] [facility] [address] [phone] SRIRAM JESSICA [facility] HEALTH CARE OPTIONS [facility] CLAIM DIV [address] [facility] [address] SRIRAM JESSICA
--- OUTSIDE RECORDS SUMMARY | 2020-10-17 23:46 | CCD ---
Author Author [facility] ems Organization [facility] ems Address Unknown Phone Unavailable Care Team Providers Care Biofuels Manager Name Role Phone Dale Winter Unavailable PROBLEMS Type Condition ICD9-CM Code [id number] Code Onset Dates Condition S tatus SNOMED Code Notes Problem Mixed hyperlipidemia E78.2 Active 171863277 Problem BMI 45.0-49.9, adult Z68.42 Active 566344075 Problem Encounter for immunization Z23 Active 82196 6002 Problem Type 2 diabetes mellitus with hyperglycemia E11.65 Active 853577092903849 Problem Other chronic pain G89.29 Active 23792521 Problem Hypertensive heart disease without heart failure I 11.9 Active 95413573 Problem Ulcer of abdomen wall, limited to breakdown of skin L98.491 Active 93644864 Problem Iron deficiency anemia due to chronic blood loss D 50.0 Active 429813596 Problem Presence of unspecified artificial knee joint Z96. 659 Active 002871043818 Problem Microcytic anemia D50.9 Active 545154244 Problem Primary generalized (osteo)arthritis M15.0 Act deanna 694171023 Problem Skin ulcer, limited to breakdown of skin L98.491 Active 63997085 Problem Medicare annual wellness visit, subsequent Z00.00 Active 699658183 Problem Memory loss R41.3 Active 15799797 Problem B12 deficiency E53.8 Active 016163105 prob fr om metformin; started oral B12 [...] Drug Allergy Active ENCOUNTERS from 1940 to 2020-08-19 Encounter Location Date Provider Diagnosis [facility] [place] [address] [place] [address] [place] [address] Jul, Orlin Winter IMMUNIZATIONS Vaccine Route Administration [...] Notes Start Da te End Date Status Unifine Pentips 31G X 8 MM USE ONE WITH LANTUS PEN TWO TIMES A DAY UNDER THE SKIN for 50 Active Nystatin 919999 UNIT/GM 1 application Externally twi ce daily to breast and abd/groin skin folds for 30 Acti ve Pen [place] 31G X 8 MM 1 each to be used with lantu s pen subcutaneously twice a day/250.02 for 90 day(s) Jun, Active Lancet Devices - one touch ultra _daignos e11. bid e11.65 for 50 Active Nystatin 250392 UNIT/GM 1 application to affected ar ea Externally Twice a day for 30 days Jul, Active Irbesartan-Hydrochlorothiazide 300-12.5 MG 1 tablet Orally Once a day for 30 Active Lantus SoloStar 100 UNIT/ML 20 units Subcutaneous once daily for 90 day(s) December, Active iron 1 tab 27mg Oral Active Diflucan 100 MG 1 tablet Orally [...] Not-Taking Multi-Day OTC 1 tablet daily Active OneTouch Ultra Test - USE TO TEST BLOOD SUGAR THREE TIMES A DAY for 9 0 Active Mevacor 40 mg 1 tablet Orally bedtime for 90 Active Calcium 600 + D 600-400 mg 1 tablet twice a day Active Aspir-81 81 mg 1 tablet daily Active One Touch Ultra 2 Lancet _ 1 each in vitro/diag code 2 50.02 three times a day for 90 day(s) Sep, Active Acetaminophen Active Fluconazole 150 MG 1 tablet Orally once weekly for 28 Not-Taking Vitamin B12 1000 MCG 1 tablet Orally Once a day for 90 day(s) Nov, Active Solus V2 Test - as directed In Vitro three t imes a day diagnosis e11.65 for 30 day(s) Jun, Active PROCEDURES No Information RESULTS No Results REASON FOR VISIT refill MEDICAL (GENERAL) HISTORY Type Description Date Medical [...] Name Sig Start Date Stop Date Pen [place] 31G X 8 MM 1 each to be used with lantu s pen subcutaneously twice a day/250.02 for 90 day(s) Jun, Lantus SoloStar 100 UNIT/ML 20 units Subcutaneous once daily for 90 day(s) December, Next Appt Details Provider Name:Dale Moy, 2020-10 - 11:00:00 AM, [address], [place], [address], Insurance Providers Payer Name Payer Address Payer Phone Insured Name Patient Relati onship to Insured Coverage Start Date Coverage End Date [employer] OPTIONS [facility] CLAIM DIV [address] [facility] [address] SRIRAM JESSICA MEDICARE Part A and B [address] [facility] [phone] SRIRAM JESSICA
--- OUTSIDE RECORDS SUMMARY | 2020-10-17 23:46 | CCD ---
Author Author [facility] em[facility] Organization [facility] ems Address Unknown Phone Unavailable Care Team Providers Care Golf Ball Trimmer Name Role Phone Dede Bardales Unavailable PROBLEMS Type Condition ICD9-CM Code [id number] Code Onset Dates Condition S tatus SNOMED Code Notes Problem Mixed hyperlipidemia E78.2 Active 796583717 Problem BMI 45.0-49.9, adult Z68.42 Active 128380710 Problem Encounter for immunization Z23 Active 71906 6002 Problem Type 2 diabetes mellitus with hyperglycemia E11.65 Active 322683582498997 Problem Other chronic pain G89.29 Active 92501220 Problem Hypertensive heart disease without heart failure I 11.9 Active 48505208 Problem Ulcer of abdomen wall, limited to breakdown of skin L98.491 Active 35745826 Problem Iron deficiency anemia due to chronic blood loss D 50.0 Active 797161422 Problem Presence of unspecified artificial knee joint Z96. 659 Active 414574843300 Problem Microcytic anemia D50.9 Active 245870391 Problem Primary generalized (osteo)arthritis M15.0 Act deanna 883698734 Problem Skin ulcer, limited to breakdown of skin L98.491 Active 99999428 Problem Medicare annual wellness visit, subsequent Z00.00 Active 829919799 Problem Memory loss R41.3 Active 05566304 Problem B12 deficiency E53.8 Active 418342288 prob fr om metformin; started oral B12 [...] Drug Allergy Active ENCOUNTERS from 1940 to 2020-08-03 Encounter Location Date Provider Diagnosis [facility] Mai [address] [place] [phone] Jun, Dede Intorosa iselaia IMMUNIZATIONS Vaccine Route Administration Date Status Influenza [...] Start Da te End Date Status Nystatin 649923 UNIT/GM 1 application Externally twi ce daily to breast and abd/groin skin folds for 30 Acti ve Solus V2 Test - as directed In Vitro three t imes a day diagnosis e11.65 for 30 day(s) Jun, Active Acetaminophen Active Irbesartan-Hydrochlorothiazide 300-12.5 MG 1 tablet Orally Once a day for 30 Active Nystatin 991129 UNIT/GM 1 application to affected ar ea [...] for 7 day(s) Jul, 019 Not-Taking Pen [place] 31G X 8 MM 1 each to [...] a day for 90 day(s) Nov, Active [employer]Touch Ultra Test - USE TO TEST BLOOD SUGAR THREE TIMES A DAY for 9 0 Active PROCEDURES No Information RESULTS No Results REASON FOR VISIT regarding appt MEDICAL (GENERAL) HISTORY Type Description Date Medical [...] Information ASSESSMENTS No Information PLAN OF TREATMENT Next Appt Details Provider Name:Dale Winter, 2020-10 11:00:00 AM, [address], [place], [address], Insurance Providers Payer Name Payer Address Payer Phone Insured Name Patient Relati onship to Insured Coverage Start Date Coverage End Date MEDICARE Part A and B [address] [facility] [id number] [phone] SRIRAM JESSICA [facility] HEALTH CARE OPTIONS [facility] CLAIM DIV [address] [facility] [id number] SRIRAM JESSICA self
--- OUTSIDE RECORDS SUMMARY | 2020-10-17 23:47 | CCD ---
Author Author [facility] Organization [facility] Address Unknown Phone Unavailable Care Team Providers Care Pull Over Name Role Phone Ector BULLOCK Unavailable Unavailable BULLOCKEctor Unavailable Unavailable BULLOCKEctor Unavailable Unavailable BULLOCKEctor Unavailable Unavailable BULLOCKEctor Unavailable Unavailable BULLOCKEctor Unavailable Unavailable BULLOCKEctor Unavailable Unavailable BULLOCKEctor Unavailable Unavailable BULLOCKEctor Unavailable Unavailable Ector BULLOCK Unavailable Unavailable Ector BULLOCK Unavailable Unavailable Ector BULLOCK Unavailable Unavailable Ector BULLOCK Unavailable Unavailable Ector BULLOCK Unavailable Unavailable BULLOCKEctor Unavailable Unavailable BULLOCKEctro Unavailable Unavailable BULLOCK, C LEON PA Unavailable Unavailable BULLOCK, C LEON PA Unavailable Unavailable BULLOCK, C LEON PA Unavailable Unavailable BULLOCK, C LEON PA Unavailable Unavailable BULLOCK, C LEON PA Unavailable Unavailable BULLOCK, C LEON PA Unavailable Unavailable BULLOCK, C LEON PA Unavailable Unavailable BULLOCK, C LEON PA Unavailable Unavailable BULLOCK, C LEON PA Unavailable Unavailable BULLOCK, C LEON PA Unavailable Unavailable BULLOCK, C LEON PA Unavailable Unavailable BULLOCK, C LEON PA Unavailable Unavailable BULLOCK, C LEON PA Unavailable Unavailable BULLOCK, C LEON PA Unavailable Unavailable BULLOCK, C LEON PA Unavailable Unavailable BULLOCK, C LEON PA Unavailable Unavailable BULLOCK, C LEON PA Unavailable Unavailable BULLOCK, C LEON PA Unavailable Unavailable BULLOCK, C LEON PA Unavailable Unavailable BULLOCK, C LEON PA Unavailable Unavailable BULLOCK, C LEON PA Unavailable Unavailable BULLOCK, C LEON PA Unavailable Unavailable BULLOCK, C LEON PA Unavailable Unavailable BULLOCK, C LEON PA Unavailable Unavailable IRA, J PARADISE D[facility] Unavailable Unavailable IRA, J [facility] Unavailable Unavailable IRA, J [facility] Unavailable Unavailable IRA, J [facility] Unavailable Unavailable IRA, J [facility] Unavailable Unavailable IRA, J [facility] Unavailable Unavailable IRA, J [facility] Unavailable Unavailable IRA, J [facility] Unavailable Unavailable IRA, J [facility] Unavailable Unavailable IRA, J [facility] Unavailable Unavailable IRA, J [facility] Unavailable Unavailable IRA, J [facility] Unavailable Unavailable IRA, J [facility] Unavailable Unavailable IRA, J [facility] Unavailable Unavailable IRA, J [facility] Unavailable Unavailable IRA, J [facility] Unavailable Unavailable IRA, [facility] Unavailable Unavailable IRA, [facility] Unavailable Unavailable IRA, [facility] Unavailable Unavailable IRA, J [facility] Unavailable Unavailable IRA, J [facility] Unavailable Unavailable IRA, [facility] Unavailable Unavailable IRA, [facility] Unavailable Unavailable IRA, [facility] Unavailable Unavailable IRA, [facility] Unavailable Unavailable IRA, J [facility] Unavailable Unavailable Dale Winter MD Unavailable Unavailable Dale Winter MD Unavailable Unavailable Dale Winter MD Unavailable Unavailable Dael Winter MD Unavailable Unavailable Dale Winter MD Unavailable Unavailable Dale Winter MD Unavailable Unavailable Wetterhahn, Dale WILLSON Unavailable Unavailable Wetterhahn, Dale WILLSON Unavailable Unavailable Wetterhahn, Dale WILLSON Unavailable Unavailable Wetterhahn, Dale WILLSON Unavailable Unavailable Wetterhahn, Dale WILLSON Unavailable Unavailable Wetterhahn, Dale WILLSON Unavailable Unavailable Wetterhahn, Dale WILLSON Unavailable Unavailable Wetterhahn, Dale WILLSON Unavailable Unavailable Wetterhahn, Dale WILLSON Unavailable Unavailable Wetterhahn, Dale WILLSON Unavailable Unavailable Wetterhahn, Dale WILLSON Unavailable Unavailable Wetterhahn, Dale WILLSON Unavailable Unavailable Wetterhahn, Dale WILLSON Unavailable Unavailable Wetterhahn, Dale WILLSON Unavailable Unavailable Wetterhahn, Dale WILLSON Unavailable Unavailable Wetterhahn, Dale WILLSON Unavailable Unavailable Wetterhahn, Dale WILLSON Unavailable Unavailable Wetterhahn, Dale WILLSON Unavailable Unavailable Wetterhahn, Dale WILLSON Unavailable Unavailable Wetterhahn, Dale WILLSON Unavailable Unavailable Wetterhahn, Dale WILLSON Unavailable Unavailable WetterhahnDale MD Unavailable Unavailable WetterhahnDale MD Unavailable Unavailable Wetterhahn, Dale WILLSON Unavailable Unavailable Wetterhahn, Dale WILLSON Unavailable Unavailable Wetterhahn, Dale WILLSON Unavailable Unavailable Wetterhahn, Dale WILLSON Unavailable Unavailable Wetterhahn, Dale WILLSON Unavailable Unavailable Wetterhahn, Dale WILLSON Unavailable Unavailable Wetterhahn, Dale WILLSON Unavailable Unavailable Wetterhahn, Dale WILLSON Unavailable Unavailable Wetterhahn, Dale WILLSON Unavailable Unavailable Wetterhahn, Dale WILLSON Unavailable Unavailable Wetterhahn, Dale WILLSON Unavailable Unavailable Wetterhahn, Dale WILLSON Unavailable Unavailable WetterhahnDale MD Unavailable Unavailable WetterhahnDale MD Unavailable Unavailable WetterhahnDale MD Unavailable Unavailable Wetterhahn, Dale WILLSON Unavailable Unavailable Wetterhahn, Dale WILLSON Unavailable Unavailable Wetterhahn, Dale WILLSON Unavailable Unavailable Wetterhahn, Dale WILLSON Unavailable Unavailable WetterhahnDale MD Unavailable Unavailable Wetterhahn, Dale WILLSON Unavailable Unavailable Wetterhahn, Dale WILLSON Unavailable Unavailable Wetterhahn, Dale WILLSON Unavailable Unavailable Wetterhahn, Dale WILLSON Unavailable Unavailable Wetterhahn, Dale WILLSON Unavailable Unavailable Wetterhahn, Dale WILLSON Unavailable Unavailable Wetterhahn, Dale WILLSON Unavailable Unavailable WetterhahnDale MD Unavailable Unavailable WetterhahnDale MD Unavailable Unavailable WetterhahnDale MD Unavailable Unavailable WetterhahnDale MD Unavailable Unavailable Wetterhahn, Dale WILLSON Unavailable Unavailable Wetterhahn, Dale WILLSON Unavailable Unavailable Wetterhahn, Dale MD Unavailable Unavailable Dale Winter MD Unavailable Unavailable Dale Winter MD Unavailable Unavailable Dale Winter MD Unavailable Unavailable RaquelterDale hanna MD Unavailable Unavailable GREENKY, B NADIA MD Unavailable Unavailable GREENKY, B NADIA MD Unavailable Unavailable GREENKY, B NADIA MD Unavailable Unavailable GREENKY, B NADIA MD Unavailable Unavailable GREENKY, B NADIA MD Unavailable Unavailable GREENKY, B NADIA MD Unavailable Unavailable GREENKY, B NADIA MD Unavailable Unavailable GREENKY, B NADIA MD Unavailable Unavailable GREENKY, B NADIA MD Unavailable Unavailable GREENKY, B NADIA MD Unavailable Unavailable GREENKY, B NADIA MD Unavailable Unavailable GREENKY, B NADIA MD Unavailable Unavailable GREENKY, B NADIA MD Unavailable Unavailable GREENKY, B NADIA MD Unavailable Unavailable GREENKY, B NADIA MD Unavailable Unavailable GREENKY, B NADIA MD Unavailable Unavailable GREENKY, B NADIA MD Unavailable Unavailable GREENKY, B NADIA MD Unavailable Unavailable GREENKY, B NADIA MD Unavailable Unavailable GREENKY, B NADIA MD Unavailable Unavailable GREENKY, B NADIA MD Unavailable Unavailable GREENKY, B NADIA MD Unavailable Unavailable GREENKY, B NADIA MD Unavailable Unavailable GREENKY, B NADIA MD Unavailable Unavailable GREENKY, B NADIA MD Unavailable Unavailable GREENKY, B NADIA MD Unavailable Unavailable GREENKY, B NADIA MD Unavailable Unavailable GREENKY, B NADIA MD Unavailable Unavailable GREENKY, B NADIA MD Unavailable Unavailable GREENKY, B NADIA MD Unavailable Unavailable GREENKY, B NAIDA MD Unavailable Unavailable GREENKY, B NADIA MD Unavailable Unavailable GREENKY, B NADIA MD Unavailable Unavailable GREENKY, B NADIA MD Unavailable Unavailable GREENKY, B NADIA MD Unavailable Unavailable GREENKY, B NADIA MD Unavailable Unavailable GREENKY, B NADIA MD Unavailable Unavailable GREENKY, B NADIA MD Unavailable Unavailable GREENKY, B NADIA MD Unavailable Unavailable GREENKY, B NADIA MD Unavailable Unavailable GREENKY, B NADIA MD Unavailable Unavailable GREENKY, B NADIA MD Unavailable Unavailable GREENKY, B NADIA MD Unavailable Unavailable GREENKY, B NADIA MD Unavailable Unavailable GREENKY, B NADIA MD Unavailable Unavailable GREENKY, B NADIA MD Unavailable Unavailable GREENKY, B NADIA MD Unavailable Unavailable GREENKY, B NADIA MD Unavailable Unavailable GREENKY, B NADIA MD Unavailable Unavailable GREENKY, B NADIA MD Unavailable Unavailable GREENKY, B NADIA MD Unavailable Unavailable GREENKY, B NADIA MD Unavailable Unavailable GREENKY, B NADIA MD Unavailable Unavailable GREENKY, B NADIA MD Unavailable Unavailable GREENKY, B NADIA MD Unavailable Unavailable GREENKY, B NADIA MD Unavailable Unavailable GREENKY, B NADIA MD Unavailable Unavailable GREENKY, B NADIA MD Unavailable Unavailable GREENKY, B NADIA MD Unavailable Unavailable GREENKY, B NADIA MD Unavailable Unavailable GREENKY, B NADIA MD Unavailable Unavailable GREENKY, B NADIA MD Unavailable Unavailable GREENKY, B NADIA MD Unavailable Unavailable GREENKY, B NADIA MD Unavailable Unavailable GREENKY, B NADIA MD Unavailable Unavailable GREENKY, B NADIA MD Unavailable Unavailable GREENKY, B NADIA MD Unavailable Unavailable GREENKY, B NADIA MD Unavailable Unavailable GREENKY, B NADIA MD Unavailable Unavailable GREENKY, B NADIA MD Unavailable Unavailable GREENKY, B NADIA MD Unavailable Unavailable GREENKY, B NADIA MD Unavailable Unavailable GREENKY, B NADIA MD Unavailable Unavailable GREENKY, B NADIA MD Unavailable Unavailable GREENKY, B NADIA MD Unavailable Unavailable GREENKY, B NADIA MD Unavailable Unavailable GREENKY, B NADIA MD Unavailable Unavailable GREENKY, B NADIA MD Unavailable Unavailable GREENKY, B NADIA MD Unavailable Unavailable GREENKY, B NADIA MD Unavailable Unavailable GREENKY, B NADIA MD Unavailable Unavailable GREENKY, B NADIA MD Unavailable Unavailable GREENKY, B NADIA MD Unavailable Unavailable GREENKY, B NADIA MD Unavailable Unavailable GREENKY, B NADIA MD Unavailable Unavailable GREENKY, B NADIA MD Unavailable Unavailable GREENKY, B NADIA MD Unavailable Unavailable GREENKY, B NADIA MD Unavailable Unavailable GREENKY, B NADIA MD Unavailable Unavailable GREENKY, B NADIA MD Unavailable Unavailable EVERDING, Renan HARPER MD Unavailable Unavailable EVERDING, Renan HARPER MD Unavailable Unavailable EVERDING, Renan HARPER MD Unavailable Unavailable EVERDING, Renan HARPER MD Unavailable Unavailable EVERDING, Renan HARPER MD Unavailable Unavailable EVERDING, Renan HARPER MD Unavailable Unavailable EVERDING, Renan HARPER MD Unavailable Unavailable EVERDING, Renan HARPER MD Unavailable Unavailable EVERDING, Renan HARPER MD Unavailable Unavailable EVERDING, Renan HARPER MD Unavailable Unavailable EVERDING, Renan HARPER MD Unavailable Unavailable EVERDING, Renan HARPER MD Unavailable Unavailable EVERDING, Renan HARPER MD Unavailable Unavailable EVERDING, Renan HARPER MD Unavailable Unavailable EVERDING, Renan HARPER MD Unavailable Unavailable EVERDING, G MEREDITH MD Unavailable Unavailable EVERDING, G MEREDITH MD Unavailable Unavailable EVERDING, G MEREDITH MD Unavailable Unavailable EVERDING, G MEREDITH MD Unavailable Unavailable EVERDING, G MEREDITH MD Unavailable Unavailable EVERDING, G MEREDITH MD Unavailable Unavailable EVERDING, G MEREDITH MD Unavailable Unavailable EVERDING, G MEREDITH MD Unavailable Unavailable EVERDING, G MEREDITH MD Unavailable Unavailable EVERDING, G MEREDITH MD Unavailable Unavailable EVERDING, G MEREDITH MD Unavailable Unavailable EVERDING, G MEREDITH MD Unavailable Unavailable EVERDING, G MEREDITH MD Unavailable Unavailable EVERDING, G MEREDITH MD Unavailable Unavailable EVERDING, G MEREDITH MD Unavailable Unavailable EVERDING, G MEREDITH MD Unavailable Unavailable EVERDING, G MEREDITH MD Unavailable Unavailable EVERDING, G MEREDITH MD Unavailable Unavailable EVERDING, G MEREDITH MD Unavailable Unavailable EVERDING, G MEREDITH MD Unavailable Unavailable EVERDING, G MEREDITH MD Unavailable Unavailable EVERDING, G MEREDITH MD Unavailable Unavailable EVERDING, G MEREDITH MD Unavailable Unavailable EVERDING, G MEREDITH MD Unavailable Unavailable EVERDING, G MEREDITH MD Unavailable Unavailable EVERDING, G MEREDITH MD Unavailable Unavailable EVERDING, G MEREDITH MD Unavailable Unavailable EVERDING, G MEREDITH MD Unavailable Unavailable EVERDING, G MEREDITH MD Unavailable Unavailable EVERDING, G MEREDITH MD Unavailable Unavailable EVERDING, G MEREDITH MD Unavailable Unavailable EVERDING, G MEREDITH MD Unavailable Unavailable EVERDING, G MEREDITH MD Unavailable Unavailable EVERDING, G MEREDITH MD Unavailable Unavailable EVERDING, G MEREDITH MD Unavailable Unavailable EVERDING, G MEREDITH MD Unavailable Unavailable EVERDING, G MEREDITH MD Unavailable Unavailable EVERDING, G MEREDITH MD Unavailable Unavailable EVERDING, G MEREDITH MD Unavailable Unavailable EVERDING, G MEREDITH MD Unavailable Unavailable EVERDING, G MEREDITH MD Unavailable Unavailable EVERDING, G MEREDITH MD Unavailable Unavailable EVERDING, G MEREDITH MD Unavailable Unavailable EVERDING, G MEREDITH MD Unavailable Unavailable EVERDING, G MEREDITH MD Unavailable Unavailable EVERDING, G MEREDITH MD Unavailable Unavailable EVERDING, G MEREDITH MD Unavailable Unavailable EVERDING, G MEREDITH MD Unavailable Unavailable EVERDING, G MEREDITH MD Unavailable Unavailable EVERDING, G MEREDITH MD Unavailable Unavailable EVERDING, G MEREDITH MD Unavailable Unavailable EVERDING, G MEREDITH MD Unavailable Unavailable EVERDING, G MEREDITH MD Unavailable Unavailable EVERDING, G MEREDITH MD Unavailable Unavailable EVERDING, G MEREDITH MD Unavailable Unavailable EVERDING, G MEREDITH MD Unavailable Unavailable EVERDING, G MEREDITH MD Unavailable Unavailable EVERDING, Renan MEREDITH MD Unavailable Unavailable EVERDING, Renan MEREDITH WILLSON Unavailable Unavailable EVERDING, Renan MEREDITH WILLSON Unavailable Unavailable EVERDING, Renan MEREDITH MD Unavailable Unavailable EVERDING, Renan HARPER MD Unavailable Unavailable EVERDING, Renan HARPER MD Unavailable Unavailable Re-disclosure Warning The records that you are about to access may contain information from federally-assisted alcohol or drug abuse programs. If such information is present, then the following federally mandated warning applies: This information has been disclosed to you from records protected by federal confidentiality rules (42 CFR part 2). The federal rules prohibit you from making any further disclosure of this information unless further disclosure is expressly permitted by the written consent of the person to whom it pertains or as otherwise permitted by 42 CFR part 2. A general authorization for the release of medical or other information is NOT sufficient for this purpose. The Federal rules restrict any use of the information to criminally investigate or prosecute any alcohol or drug abuse patient.The records that you are about to access may contain highly sensitive health information, the redisclosure of which is protected by Article 27-F of the [facility] Public Health law. If you continue you may have access to information: Regarding HIV / AIDS; Provided by facilities licensed or operated by the [facility] Office of Mental Health; or Provided by the [facility] Office for People With Developmental Disabilities. If such information is present, then the following [facility] mandated warning applies: This information has been disclosed to you from confidential records which are protected by state law. State law prohibits you from making any further disclosure of this information without the specific written consent of the person to whom it pertains, or as otherwise permitted by law. Any unauthorized further disclosure in violation of state law may result in a fine or senior living sentence or both. A general authorization for the release of medical or other information is NOT sufficient authorization for further disc losure. Allergies and Adverse Reactions Type Description Substance Reaction Status Data Source(s ) Drug allergy Sulfacet Drug allergy Hives Active eCW1 ([facility]) PRINIVIL PRINIVIL PRINIVIL COUGH Active eCW1 ([facility]) CHRIST INHiBITORS CHRIST INHiBITORS CHRIST INHiBITORS COUGH Active eC W1 ([facility]) Cipro Cipro Ciprofloxacin 250 MG Oral Tablet [Cipro] visual hallucinations, falls (08/13) Active [facility]) PRINIVIL PRINIVIL PRINIVIL COUGH Active eCW1 ([facility]) CHRIST INHiBITORS CHRIST INHiBITORS CHRIST INHiBITORS COUGH Active eC W1 ([facility]) Cipro Cipro Cipro visual hallucinations, falls (08/13) Active eCW1 ([facility]) PRINIVIL PRINIVIL PRINIVIL COUGH Active eCW1 ([facility]) CHRIST INHiBITORS CHRIST INHiBITORS CHRIST INHiBITORS COUGH Active eC W1 ([facility]) Cipro Cipro Cipro visual hallucinations, falls (08/13) Active eCW1 ([facility]) Family History Family Member Name Family Member Gender Family Member Status Date o f Status Description Data Source(s) Unknown Female Problem MEDENT ([facility]) Unknown Male Problem MEDENT ([facility]) Encounters Encounter Providers Location Date Indications Data Source(s ) Unknown [address] [facility] [address] 08/18/2020 12:00:00 AM EST eCW1 ([facility]) [place] [address] [facility] [address] 08/04/2020 12:00:00 AM EST eCW1 ([facility]) Unknown [address] [facility] [address] 08/04/2020 12:00:00 AM EST eCW1 ([facility]) [place]patient [address] [facility] [address] 07/30/2020 12:00:00 AM EST eCW1 ([facility]) [place] [address] [facility] [place] [address] 07/16/2020 12:00:00 AM EST eCW1 ([facility]) Unknown [address] [facility] [place] [address] 07/09/2020 12:00:00 AM EST [facility]CW1 [facility]) Unknown [address] [facility] [place] [address] 07/08/2020 12:00:00 AM EST eCW1 ([facility]) Office Visit, Est Pt., Level 4 PC [address] [place] [address] 07/08/2020 12:00:00 AM EST eCW1 ([facility] the [facility]) Unknown [facility] [address] 07/06/2020 12:00:00 AM EST eCW1 ([facility]) Office Visit, Est Pt., Level 3 FC [address] [place] [address] 06/17/2020 12:00:00 AM EDT eCW1 ([facility] includes the [facility]) Outpatient Attender: MEREDITH ELLIOTTeferrer: Dale garcia MD 05/24/2020 08:40:00 PM EDT [facility] [address] [address] 03/30/2020 12:00:00 AM EDT [facility]1 [facility] Unknown [address] [place] [address] 03/15/2020 12:00:00 AM EDT eCW1 ([facility]) Outpatient Attender: PARADISE SWEENEY 02/12/2020 11:05:00 AM EDT - 02/12/2020 11:05:00 AM EDT [facility] Outpatient [address] [place] [phone] 02/02/2020 12:00:00 AM EDT eCW1 ([facility]) [address] [place] [address] 01/15/2020 12:00:00 AM EDT [facility]CW1 ([facility]) [address] [place] [address] 01/01/2020 12:00:00 AM EDT [facility]CW1 [facility] [place] [address] [address] 12/30/2019 12:00:00 AM EDT eCW1 ([facility]) [facility] [place] [address] [place] [address], [place] [address] 12/10/2019 12:00:00 AM EDT eCW1 ([facility]) [facility] [place] [address] [place] [address], [place] [address] 12/05/2019 12:00:00 AM EDT eCW1 ([facility]) [address] [address] 11/24/2019 12:00:00 AM EDT eCW1 ([facility]) [address] [address] 11/24/2019 12:00:00 AM EDT eCW1 ([facility]) [address] [address] 11/24/2019 12:00:00 AM EDT eCW1 ([facility]) [address] [address] 11/19/2019 12:00:00 AM EDT eCW1 ([facility]) Outpatient Attender: LEON BULLOCK PAReferrer: Dale benson MD 10/28/2019 12:47:56 PM EST [facility] Outpatient Attender: NADIA ELLIOTTeferrer: Dale ramirez MD 10/20/2019 01:40:37 PM EST [facility] [address] [address] 10/16/2019 12:00:00 AM EST eCW1 ([facility]) Recurring Patient Referrer: Dale Winter MD 0 12:52:22 PM EST [facility] [address] [address] 10/15/2019 12:00:00 AM EST eCW1 ([facility]) [address] [place] [address] 10/15/2019 12:00:00 AM EST eCW1 ([facility]) [facility] [place] [address] [facility] [address] 10/07/2019 12:00:00 AM EST eCW1 ([facility]) [facility] [place] [address] [facility] [address] 09/23/2019 12:00:00 AM EST eCW1 ([facility]) [facility] [place] [address] [place] [address], [place] [address] 09/16/2019 12:00:00 AM EST eCW1 ([facility]) [facility] Mai [address] [place] [address], [place] [address] 09/10/2019 12:00:00 AM EST eCW1 ([facility]) [facility] [address] [place] [address], [place] [address] 09/04/2019 12:00:00 AM EST eCW1 [facility]) [facility] [address] [place] [address], [place] [address] 08/28/2019 12:00:00 AM EST eCW1 ([facility]) Outpatient Attender: NADIA BAUM MDReferrer: Dale ramirez MD 02/13/2019 08:40:58 AM EDT [facility] Immunizations Vaccine Date Status Description Data Source(s) COVID-19 VACCINE, MRNA, [id number], LNP-S (PFIZER)/PF 10/16/19 12:00:00 AM EST completed [facility] COVID-19 VACCINE, MRNA, [id number], LNP-S (PFIZER)/PF 09/25/19 12:00:00 AM EST completed [facility] influenza, recombinant, quadrIvalent,injectable, prese rvative free 06/17/2020 02:38:00 PM EDT completed eCW1 ([facility]) influenza, recombinant, quadrIvalent,injectable, prese rvative free 06/17/2020 02:38:00 PM EDT completed eCW1 ([facility]) influenza, recombinant, quadrIvalent,injectable, prese rvative free 06/17/2020 02:38:00 PM EDT completed eCW1 ([facility]) influenza, recombinant, quadrIvalent,injectable, prese rvative free 06/17/2020 02:38:00 PM EDT completed eCW1 ([facility]) influenza, recombinant, quadrIvalent,injectable, prese rvative free 06/17/2020 02:38:00 PM EDT completed eCW1 ([facility]) influenza, recombinant, quadrIvalent,injectable, prese rvative free 06/17/2020 02:38:00 PM EDT completed eCW1 ([facility]) influenza, recombinant, quadrIvalent,injectable, prese rvative free 06/17/2020 02:38:00 PM EDT completed eCW1 ([facility]) influenza, recombinant, quadrIvalent,injectable, prese rvative free 06/17/2020 02:38:00 PM EDT completed eCW1 ([facility]) influenza, recombinant, quadrIvalent,injectable, prese rvative free 06/17/2020 02:38:00 PM EDT completed eCW1 ([facility]) influenza, recombinant, quadrIvalent,injectable, prese rvative free 06/17/2020 02:38:00 PM EDT completed eCW1 ([facility]) Medications Medication Brand Name Start Date Product Form Dose Route Admi nistrative Instructions Pharmacy Instructions Status Indications Reaction Description Data Source(s) Vitamin B12 1000 MCG Vitamin B12 1000 MCG 12/03/2019 12:00:00 AM ED T 1.0 {tablet} active Vitamin B12 1000 MCG eC W1 ([facility]) Vitamin B12 1000 MCG Vitamin B12 1000 MCG 12/03/2019 12:00:00 AM ED T 1.0 {tablet} active Vitamin B12 1000 MCG eC W1 ([facility]) Vitamin B12 1000 MCG Vitamin B12 1000 MCG 12/03/2019 12:00:00 AM ED T 1.0 {tablet} active Vitamin B12 1000 MCG eC W1 ([facility]) Vitamin B12 1000 MCG Vitamin B12 1000 MCG 12/03/2019 12:00:00 AM ED T 1.0 {tablet} active Vitamin B12 1000 MCG eC W1 ([facility]) Vitamin B12 1000 MCG Vitamin B12 1000 MCG 12/03/2019 12:00:00 AM ED T 1.0 {tablet} active Vitamin B12 1000 MCG eC W1 ([facility]) Vitamin B12 1000 MCG Vitamin B12 1000 MCG 12/03/2019 12:00:00 AM ED T 1.0 {tablet} active Vitamin B12 1000 MCG eC W1 ([facility]) Vitamin B12 1000 MCG Vitamin B12 1000 MCG 12/03/2019 12:00:00 AM ED T 1.0 {tablet} active Vitamin B12 1000 MCG eC W1 ([facility]) Vitamin B12 1000 MCG Vitamin B12 1000 MCG 12/03/2019 12:00:00 AM ED T 1.0 {tablet} active Vitamin B12 1000 MCG eC W1 ([facility]) Vitamin B12 1000 MCG Vitamin B12 1000 MCG 12/03/2019 12:00:00 AM ED T 1.0 {tablet} active Vitamin B12 1000 MCG eC W1 ([facility]) Vitamin B12 1000 MCG Vitamin B12 1000 MCG 12/03/2019 12:00:00 AM EDT active 1 tablet eCW1 ([facility]) Vitamin B12 1000 MCG Vitamin B12 1000 MCG 12/03/2019 12:00:00 AM ED T 1.0 {tablet} active Vitamin B12 1000 MCG eC W1 ([facility]) Vitamin B12 1000 MCG Vitamin B12 1000 MCG 12/03/2019 12:00:00 AM ED T 1.0 {tablet} active Vitamin B12 1000 MCG eC W1 ([facility]) Vitamin B12 1000 MCG Vitamin B12 1000 MCG 12/03/2019 12:00:00 AM ED T 1.0 {tablet} active Vitamin B12 1000 MCG eC W1 ([facility]) Cephalexin 500 MG Oral Capsule Cephalexin 500 MG 10/16/2019 12:00:0 0 AM EST 1.0 {capsule} suspended Cephalexin 500 M G eCW1 ([facility]) Cephalexin 500 MG Oral Capsule Cephalexin 500 MG 10/16/2019 12:00:0 0 AM EST 1.0 {capsule} suspended Cephalexin 500 M G eCW1 ([facility]) Nystatin 100 UNT/MG Topical Powder Nystatin 286749 UNI T/GM Nystatin 762922 UNIT/GM 10/16/2019 12:00:00 AM EST suspended 1 application eCW1 ([facility]) Cephalexin 500 MG Oral Capsule Cephalexin 500 MG 10/16/2019 12:00:0 0 AM EST 1.0 {capsule} suspended Cephalexin 500 M G eCW1 ([facility]) Cephalexin 500 MG Oral Capsule Cephalexin 500 MG 10/16/2019 12:00:0 0 AM EST 1.0 {capsule} suspended Cephalexin 500 M G eCW1 ([facility]) Cephalexin 500 MG Oral Capsule Cephalexin 500 MG 10/16/2019 12:00:0 0 AM EST 1.0 {capsule} suspended Cephalexin 500 M G eCW1 ([facility]) Cephalexin 500 MG Oral Capsule Cephalexin 500 MG 10/16/2019 12:00:0 0 AM EST 1.0 {capsule} suspended Cephalexin 500 M G eCW1 ([facility]) Cephalexin 500 MG Oral Capsule Cephalexin 500 MG 10/16/2019 12:00:0 0 AM EST 1.0 {capsule} suspended Cephalexin 500 M G eCW1 ([facility]) Cephalexin 500 MG Oral Capsule Cephalexin 500 MG 10/16/2019 12:00:0 0 AM EST 1.0 {capsule} suspended Cephalexin 500 M G eCW1 ([facility]) Cephalexin 500 MG Oral Capsule Cephalexin 500 MG 10/16/2019 12:00:0 0 AM EST 1.0 {capsule} suspended Cephalexin 500 M G eCW1 ([facility]) Cephalexin 500 MG Oral Capsule Cephalexin 500 MG 10/16/2019 12:00:00 AM EST active 1 capsule eCW1 ([facility]) Cephalexin 500 MG Oral Capsule Cephalexin 500 MG 10/16/2019 12:00:00 AM EST suspended 1 capsule eCW1 ([facility]) Nystatin 100 UNT/MG Topical Powder Nystatin 077517 UNI T/GM Nystatin 404928 UNIT/GM 10/16/2019 12:00:00 AM EST 1.0 {application} active Nystatin 035998 UNIT/GM eCW1 ([facility]) Cephalexin 500 MG Oral Capsule Cephalexin 500 MG 10/16/2019 12:00:0 0 AM EST 1.0 {capsule} suspended Cephalexin 500 M G eCW1 ([facility]) Cephalexin 500 MG Oral Capsule Cephalexin 500 MG 10/16/2019 12:00:0 0 AM EST 1.0 {capsule} suspended Cephalexin 500 M G eCW1 ([facility]) Nystatin 100 UNT/MG Topical Powder Nystatin 137895 UNI T/GM Nystatin 245246 UNIT/GM 10/16/2019 12:00:00 AM EST active 1 application eCW1 ([facility]) Nystatin 100 UNT/MG Topical Powder Nystatin 793895 UNI T/GM Nystatin 580974 UNIT/GM 10/16/2019 12:00:00 AM EST 1.0 {application} active Nystatin 096480 UNIT/GM eCW1 ([facility]) Nystatin 100 UNT/MG Topical Powder Nystatin 594551 UNI T/GM Nystatin 825447 UNIT/GM 10/16/2019 12:00:00 AM EST active 1 application eCW1 ([facility]) Cephalexin 500 MG Oral Capsule Cephalexin 500 MG 10/16/2019 12:00:0 0 AM EST 1.0 {capsule} suspended Cephalexin 500 M G eCW1 ([facility]) Insurance Providers Payer name Policy type / Coverage type Policy ID Covered constitution party ID Covered constitution party's relationship to stafford Policy Stafford Plan Information MEDICARE [id number] SP [id number] [employer] OPTIONS [id number] SP [id number] MEDICARE PART A [facility] [id number] 18 [id number] [facility] [place] [id number] 18 [id number] MEDICARE PART A [facility] UNAVAILABLE 18 UNAVAILABLE DME Jurisdiction A NHIC C [id number] SELF [id number] Medicare C [id number] SELF [id number] [facility] AAR Supplemental F [id number] SELF [id number] MEDICARE PART A [facility] [id number] 18 [id number] [facility] [id number] [facility] [id number] Medicare Part B [facility] [id number] AARP O [id number] S [id number] MEDICARE C [id number] S [id number] AARP O [id number] S [id number] [employer] C[employer] OPTIONS [id number] SP [id number] [facility] [id number] Julia [id number] [facility] [id number] MEDICARE [id number] ANSI-Medicare Part B [id number] ANSI-Commercial [id number]-[id number]-[id number]-[id number] ANSI-Commercial [id number]-je89-7e3a-5zi5-[id number] ae5zw378-jx65-8d5i-5cm5-[id number] ANSI-Medicare Part B [id number] ANSI-Medicare Part B [id number] ANSI-Commercial [id number]-36b3-816t-631t-[id number]-43w7-857z-937k-[id number] ANSI-Medicare Part B [id number]-[id number]-807q-626y-[id number] ANSI-Commercial xs7t6zg0-x55d-[id number]-[id number] az7x5kb8-l70d-2x70-0y54-n7clz5760z07 ANSI-Commercial [id number] [id number]63ul3n9 ANSI-Medicare Part B [id number]-l5l5-06799b4yzby9 ANSI-Commercial 725v90g9-e7kb-7x1v-75bd-bi74q2y4075c 943g99m9-u2rg-9a9u-81hu-ah11r6e9933q ANSI-Medicare Part B [id number]-[id number]-30u7-0809786p20us ANSI-Medicare Part B [id number] jh6ze53m-1im7-6046-onkg-0130l5i6k7z0 ANSI-Commercial 93peq224-orp8-8736-c36j-0q52obg43833 94kcc806-qvf4-3555-p29i-7p07hjo01518 ANSI-Medicare Part B [id number]-fnxm-[id number] ANSI-Commercial 20b5r24k-c8l6-45ak-bl2l-6dh568e7j80y 06q6y49f-v8x7-88xa-cq4s-4uy681g7e46d ANSI-Commercial 8vfe31s9-1063-058o-39r5-58a72342sp30 1yvd30f0-6874-777c-17e5-42n52631gk48 ANSI-Medicare Part B [id number]-5012-[id number]-615r-0618-[id number] ANSI-Commercial 01kog94m-534v-7482-o276-p7v320c3a1x4 96qnz03y-035e-3865-o897-q0c737l0r4s3 ANSI-Medicare Part B [id number]-[id number] [id number]-gf2946j19dk9 ANSI-Commercial 24z6r84u-2d91-7a6u-l7v8-3zi3o11f1q01 78q9z32g-8m02-1h6g-a3f5-4qj0v64g0t48 ANSI-Medicare Part B [id number] [id number]-l0y2-[id number] [facility] Health Care Options [facility] Part B [id number] Self [id number] Medicare Natl Gov't Servi Medicare Primary [id number] Self [id number] ANSI-Medicare Part B [id number] ANSI-Commercial 44cl2013-61jn-4sac-129a-dm78762v8rk9 01cq0818-19vb-0clz-093e-mc82973a2wh3 ANSI-Commercial 4853b89v-8q5x-34i1-ekkg-n72a2z115p0e 2209m73t-2s9x-46w8-kpyd-s80j0a633k6e ANSI-Medicare Part B [id number]-[id number]-6on9-6o4d-[id number] ANSI-Medicare Part B [id number]-la500e5g7y6s v3e389w0-9n52-7875-4133-bs889n5x3j7v ANSI-Commercial 38tg2k6p-ch36-4528-0111-p6n7335504yv 06fw6n3d-fs44-6205-0681-x3b4851894co ANSI-Medicare Part B [id number]-hh70-6xw4252tk69a 3643r231-9q06-0z88-fy50-8lo5914kq64i ANSI-Commercial lk7858m5-1e2k-09v5-3cqw-6a4glxlmz3f1 su9835h9-0k5x-14b4-7whh-9q1fxnzyi2z5 ANSI-Commercial 3yve9ue1-lg05-416e-qaq0-w70wl15g6h3e 0pnx8um5-fh96-774s-slt0-e98dh12b1y1a ANSI-Medicare Part B [id number]-2pe9-03a6092x2d6q 7884x509-8o72-8owo-9zx7-16f5309n7b1z ANSI-Medicare Part B 7nemo1el-639i-38h7-fd28-0x61v7k58u13 3wleb8ge-184t-84n5-pt35-4r99x1n64z49 ANSI-Commercial 2m09778b-755s-75pk-wps9-l2003f9x7803 5p32320t-692z-91cl-mjl4-l4190e3q9719 ANSI-Commercial 64a29o23-3552-4ar4-4m76-24cpp425l969 87d35n97-6522-1sp5-2y74-70pmu738r606 ANSI-Medicare Part B [id number]-[id number] 648ku481-79lg-2485-6208-3hul530559k7 ANSI-Medicare Part B [id number]-3i90-l166-3177x6m07m4d 630f8d82-160f-5i14-v466-6666f9a48s4k ANSI-Commercial 50q264s3-02ba-7630-t2l9-63li42b87284 47g975s1-23ze-4396-u4i0-40yx99t38217 [facility] PI PI MEDICARE PI PI ANSI-Commercial 2284u0m6-6wlu-6773-a3k3-0w8r46kk95s5 0253c8c9-6sxm-3152-k5t8-6f0h33vk13a5 ANSI-Medicare Part B c85kb009-w7w4-8a66-d197-8p3v4h425w3u s09kh395-n3g8-8n67-u869-0n6u0u197m7x ANSI-Medicare Part B [id number]-z9826lky75p1 7uvyo649-8554-2121-6ma5-b2864edl42t2 ANSI-Commercial 78971v7h-5e40-2qgd-1624-znr4k5q38832 08075z4k-5d34-9tro-0411-vxj3i3h88790 ANSI-Commercial 57hxv673-7144-983w-u51k-822i8jcxd64o 20mvn941-6411-371o-d97l-467l0mhiy41x ANSI-Medicare Part B [id number]-83i4-ojyz-3589c633gq14 5n29s841-i53m-15j7-uqea-0191a203tu65 ANSI-Medicare Part B [id number]-e1wc-45qw-ihju-e1im37550176 835357s6-o1bc-41yl-nodh-b7sd12211559 ANSI-Commercial 6e1l21z8-503c-39k1-60k3-z81214rt4253 4z6f75i4-432n-81y2-89x7-s11105jd3011 ANSI-Commercial r06p8n0t-615e-1x6l-7539-nx63625p4nm9 f77y2u5t-041u-7n4s-1085-fk22415j5eq7 ANSI-Medicare Part B ly3gj09w-pb7j-84oq-6840-6j4xy583u113 vl8oi73n-zk8m-56lj-7287-8p3al879u932 ANSI-Medicare Part B [id number]-a74b-4gy602292293 68482852-3543-2l35-k60u-0nr019253359 ANSI-Commercial 8si1903y-171r-20hq-m1i3-89e94i88995h 9cx1674y-319i-76fo-u6k7-06i64o58055y ANSI-Medicare Part B [id number]-lvf2-94ym-fa80-xp3kvc059mb3 18234073-fzd7-20dg-yg52-ek4zvp574nf4 ANSI-Commercial 9c71579j-a072-7433-k45y-z5rrrp1pn463 1z43442s-d328-7706-a68z-z5zfng8ta236 ANSI-Commercial 6c53dul1-z01x-02x7-wq9f-r2l00qe98lop 1y21bnu4-q93e-88c4-sj3t-s5v74pc28iqy ANSI-Medicare Part B [id number]-9pf3-9033-h143-6mx761hv2353 98d0o86i-9pw2-9480-m978-5sl927yp2505 ANSI-Medicare Part B [id number]-qo76-98o1-51fa-2420x3053c80 2e46j2bt-jo65-64f0-48dx-0713u8964e87 ANSI-Commercial 93vi8189-2813-8yg9-7sn3-72s923k0217i 92sd7545-2846-3us9-6wd9-32h829x9173l ANSI-Medicare Part B [id number]-971d-97kqw97lw517 [id number]-1737-3w1r-377y-58eel01ye342 ANSI-Commercial dbhl991w-11i1-83a1-4c59-j426s0s4qfag jbbf228z-39x2-09m8-2f31-m759g9s6yguy ANSI-Commercial 8ri0k427-3jo4-8250-6e59-r7234382vv8s 6mw0m168-6di3-7397-5m87-l7746679mx5i ANSI-Medicare Part B [id number]-0j4d-86r7-7m1c-583ogd26jmy7 5zh08brh-4n9n-97g3-9s9c-342veg80nyt0 ANSI-Medicare Part B [id number]-[id number] 3013924q-3n43-9n78-4275-k734341900n7 ANSI-Commercial v747g032-b3j0-327n-9t05-8pwge2t58jv5 n343v510-u0q6-793b-7b09-0vjdr9a22ge3 ANSI-Medicare Part B lmou40v5-7974-5985-s290-cxgc6i4s7229 kuey97g7-2671-0250-q926-hjha5i2e9128 ANSI-Commercial 564ffx72-8ga2-24m2-jhni-n404u207q2g1 550ayj93-7yw1-20b6-zcxx-v254m558b2b2 MEDICARE [id number] ANSI-Commercial tb3esi0s-h133-95a5-u695-w9uuztld9g84 jd0qut5f-z059-60h8-f346-y3lviqpb1t80 ANSI-Medicare Part B [id number]-[id number] cp2f29t0-22q2-8uh7-e012-56lpr8990445 ANSI-Medicare Part B [id number] [id number]-pbx5-82e1-1i59-4562kjo94148 ANSI-Commercial o98va3t8-4w35-80g6-9uju-2bbg2528378k x08vt0n5-6g81-28p5-3olz-8fcv9764347c DME Jurisdiction A [facility] C [id number] SELF [id number] Medicare C [id number] SELF [id number] D [place] Primary Self BS Ifacets Medigap Part B Self EXCELLUS BCBS [id number] Julia VYW [id number] MEDICARE [id number] Julia [id number] A Medicare C [id number] SELF [id number] D DME Jurisdiction A IDIC C [id number] SELF [id number] [facility] AARP Supplemental F [id number] SELF [id number] Medicare C [id number] SELF [id number] B [employer]ARP HE[employer] CARE OPTIONS -O/P [id number] 18 [id number] MEDICARE PART A -O/P [id number] 18 [id number] [employer] C[employer] OPTIONS [id number] SP [id number] B MEDICARE OUTPATIENT M [id number] S [id number] BCBS CNY O [id number] S [id number] MEDICARE 4 [id number] 1 [id number] A [employer]UE [place]OSS CNY 1 [id number] VY [id number] SELFPAY 5 UNAVAILABLE 1 UNAVAILA BLE EXCELLUS C [id number] Self 41 MEDICARE [id number] Julia [id number] MEDICARE A [id number] Self [id number] A EXCELLUS H [id number] Self [id number] BCBS Ppo Medigap Part B Self Medicare Medicare Primary Self [employer] (SECOND[employer]) [id number] BCBS Ppo Medigap Part B Self [employer] HMO/PPO/POS [id number] [employer] [place] HMO/PPO/POS [id number] [facility]POS [id number] Problems, Conditions, and Diagnoses Code Display Name Description Problem Type Effective Dates Data Source(s) D50.0 079217884 Iron deficiency anemia due to chronic blo od loss Problem 07/08/2020 12:00:00 AM EST eCW1 ([facility]) D50.9 528757980 Microcytic anemia Problem 07/06/2020 12:00:0 0 AM EST eCW1 ([facility]) E53.8 438016377 B12 deficiency Problem 12/03/2019 12:00:00 A M EDT eCW1 ([facility]) E53.8 270604195 B12 deficiency Problem 12/03/2019 12:00:00 A M EDT eCW1 ([facility]) R41.3 44426894 Memory loss Problem 09/23/2019 12:00:[address] eCW1 ([facility]) R41.3 83557928 Memory loss Problem 09/23/2019 12:00:[address] eCW1 ([facility]) T04863 Bunion of left foot Bunion of left foot Diagnosis 0 02/12/2020 11:05:00 AM EDT [facility] N97470 Bunion of right foot Bunion of right foot Diagnosis 02/12/2020 11:05:00 AM EDT [facility] 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 Nail dystrophy Diagnosis 02/12/2020 11:05: 00 AM EDT [facility] B351 Tinea unguium Tinea unguium Diagnosis 02/12/2020 11:05:00 AM EDT [facility] L84 Corns and callosities Corns and callosities Diagnosis 02/12/2020 11:05:00 AM EDT [facility] 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 Pt. Level 3 12/03/2019 12:00:00 AM E DT eCW1 ([facility]) TeleMedicine For a follow up visit or re assessment, hquk-sc-reil, 15 minutes per unit 11/24/2019 12:00:00 AM EDT eCW1 ([facility]) Office Visit, Est Pt., Level 3 PC 10/16/2019 12:00:00 AM EST eCW1 ([facility]) Office Visit, Est Pt., Level 2 FC 10/16/2019 12:00:00 AM EST eCW1 ([facility]) MED NUTRITION INDIV SUBSEQ 10/15/2019 12:00:00 AM EST eCW1 ([facility]) Office Visit, Est Pt., Level 4 PC 09/23/2019 12:00:00 AM EST eCW1 ([facility]) Results ID Date Data Source [id number] 05/24/2020 08:40:00 PM EDT [facility] PC[facility]: Angelia Avalos: 1940Provider: Juice Yu: 05/20/2020 History of Present IllnessCHIEF COMPLAINT Follow-up status post right reverse shoulder a rthroplasty.HISTORY OF PRESENT ILLNESSThe patient is a 79-year-old xmeth-xdlt-keuxakxf female who comes in today for follow-up status post right reverse shoulder arthroplasty. This was performed on 05/19/2019. She is currently 1 year status post surgery. The patient states the right shoulder is good. She states she is not experiencing pain in her right shoulder. She notes she is able to perform all activities with the right shoulder.Of note, the patient states she experiences pain in her back. Results/DataX-rays ordered, obtained and interpreted today include 4 views of the right shoulder for the indication of arthroplasty. This includes AP, Grashey, outlet, and axillary views. Radiographic findings demonstrate a reverse shoulder arthroplasty in good position. There are no signs of loosening or failure of the components. The glenohumeral joint is well aligned. There are no fractures or dislocations. AssessmentSOS Assessment Dragon Form: ASSESSMENTStatus post right reverse shoulder arthroplasty. Plan X-Ray I Shoulder - 2 views (XRays were ordered, obtained and interpreted today in theoffice. Indication: pain/dysfunction.); Status:Complete; Done: [id number] Perform:SOS19 (Hand); Due:[id number]; Last Updated By:Casimiro Cadet; 05/20/2020 11:01:00 AM;Ordered; For:Right shoulder pain; Ordered By:Meredith Yu;jkLaterality: : Right PLANThe patient is a 79-year-old qjkdm-xbos-vrgrnhvn female status post right reverse shoulder arthroplasty performed on 05/19/2019. The patient is 1 year status post surgery and is doing well. She has good return of strength, function, and motion. She cronin s excellent relief of pain. The patient will continue with activities as tolerated. The patient will return to see me on an as-needed basis.At this time, we feel that Angelia Jessica is no longer in need of follow-up by us for this condition. The patient understands that there is no follow-up appointment being made to be seen for treatment of right reverse shoulder arthroplasty, but also understands that if the condition changes in the future, they should call to make a follow-up appointment. The patient also understands that they should feel free to be seen at [facility] for any additional orthopedic condition that may arise in the future. Scribed by Yvon Washington on 05/20/2020 at 05:46 PM for Meredith Yu Signatures Electronically signed by : Yvon Washington MA; May 20 2020 5:46PM EST (Author) Electronically signed by : Meredith Yu M.D.; May 24 2020 8:39PM EST Name Value Range Interpretation Code Description Data Elaine rce(s) Supporting Document(s) ID Date Data Source [id number] 10/28/2019 12:47:56 PM EST [facility] PCName: Angelia SreekanthDOB: 1940Provider: Juan Jose Bullock: 10/28/2019 History of Present IllnessRight shoulder pain here for a follow-up visit 6 months status post reverse shoulder replacement doing well. She still complains of weakness, but admits to not doing exercises on her own. Results/DataXRays were ordered, obtained and interpreted today in the office. Indication: pain/dysfunction. Side: Right Site: Shoulder Views: 4 Views AP/Grashey/Outlet/Axillary Findings: No fractures, dislocations, or other significant abnormalities. hardware is in good position. no evidence of implant loosening. AssessmentSOS Assessment Dragon Form: 6 months status post right reverse shoulder replacement Plan X-Ray I Shoulder - 2 views (XRays were ordered, obtained and interpreted today in theoffice. Indication: pain/dysfunction.); Status:Complete; Done: 28Oct2019 Perform:SOS19 (Hand); Due:11Nov2019; Last Updated By:Asia Butler; 10/28/2019 10:58:06 AM;Ordered; For:Rotator cuff tear arthropathy of right shoulder; Ordered By:Leon Bullock;Laterality: : Right Plan, Assessment and Recommendation(s) The plan for the patient is HEP. Schedule Appointment: Months: 6 6 months status post right reverse shoulder replacement doing well. She'll continue to advance activities as tolerated. She really should start working on home exercises with strengthening for her deltoid. She understands this. She will follow-up in 6 months for a recheck with x-rays. Work / School Note Angelia Jessica is retired. This document was dictated and electronically signed using [employer] Speaking software. A reasonable attempt at proof reading has been made to minimize errors. Please call with any questions. Signatures Electronically signed by : Leon Bullock PA-C; Oct 28 2019 11:08AM EST (Author) Electronically signed by : Meredith Yu M.D.; Oct 28 2019 12:47PM EST Name Value Range Interpretation Code Description Data Elaine rce(s) Supporting Document(s) ID Date Data Source [id number] 10/20/2019 01:40:37 PM EST [facility], PCName: Angelia JessicaDOB: 1940Provider: Mer Baum: 10/15/2019 AssessmentREASON FOR VISIT:Angelia Jessica is in today complaining of pain and soreness in her left buttock. She is about 1.5 years after successful right hip replacement surgery, done by me. Her pain really isn't in the groin on the left side, rather the lumbar spine. This has been getting worse over the past month. She has lateral pain in the trochanter and buttock's area, which radiates down the back of the leg.PHYSICAL EXAMINATION:The patient is awake alert and oriented x3. The patient has appropriate mood and affect. The upper extremities have normal strength, sensation, reflexes, muscle tone and coordination. There are no skin lesions in either upper extremity. There are normal pulses in both wrists. These characteristics are important in the event that the patient may need crutches for ambulation in the future. Both hip joints have 120 of flexion. There is both 30 of internal and 30 of external rotation. There is 30 of abduction and 30 of abduction of both hips. There is no leg length inequality. There is no tenderness over the trochanters. No thigh discomfort is present. The patient ambulates without significant antalgia or Trendelenburg characteristics to the gait. There is no instability of the hips demonstrable. Lumbar spine: Patient ambulates with a stooped gait. Lumbar motion is markedly restricted. Forward flexion is at its 60. The patient can barely extend to neutral in the lumbar spine. There is some lumbar scoliosis present when viewed from the posterior aspect. There is a negative straight leg raising sign in both lower extremities. Painless range of motion in both hips is present with minor restriction. There is no groin pain. There are good pulses in both feet. Tenderness is present at SI joint locations of both the right and left lumbar spines with tenderness also present over both the right and left trochanteric bursa. Neurological exam does not reveal any significant weakness in either lower extremity X-RAYS:AP and lateral views of the lumbar spine were ordered, taken and interpreted by me today. They show quite severe lumbar spondylosis with a 26-ts-72-degree scoliosis convexity on the painful left side. The lateral views shows a degenerative spondylolisthesis at the L4-5 level and quite severe degenerative disc disease at the lower 6 lumbar segments.DIAGNOSIS:Spondylosis with left- sided low back painTREATMENT:I put her on Meloxicam and Flexeril. She will begin doing a Jerman's exercise program in physical therapy. We will consider sending her to the spine team if symptoms persist. Plan Start: Cyclobenzaprine HCl - 5 MG Oral Tablet; TAKE 1 TABLET AT BEDTIME NEEDED Rx By: Nadia Baum; Dispense: 30 Days ; #:30 Tablet; Refill: 0;For: Lower back pain; ANGELI = N; Verified Transmission to [facility]; Last Updated By: Tiffanie Camara; 10/15/2019 2:05:02 PM Start: Meloxicam 7.5 MG Oral Tablet (Mobic); TAKE 1 TABLET DAILY Rx By: Nadia Baum; Dispense: 30 Days ; #:30 Tablet; Refill: 0;For: Lower back pain; ANGELI = N; Verified Transmission to [facility]; Last Updated By: Tiffanie Camara; 10/15/2019 2:05:01 PM X-Ray I Lumbosacral - 2 views (XRays were ordered, obtained and interpreted today inthe office. Indication: pain/dysfunction.); Status:Complete; Done: [id number] Perform:SOS29; Due:04M [id number]; Last Updated By:Naz Flores; 10/15/2019 1:47:29 PM;Ordered; For:Lower back pain; Ordered By:Nadia Baum; Signatures Electronically signed by : Selam Watkins, ; Oct 20 2019 11:01AM EST (Author) Electronically signed by : Nadai Baum M.D.; Oct 20 2019 1:40PM EST Name Value Range Interpretation Code Description Data Elaine rce(s) Supporting Document(s) Procedure Vital Signs ID Date Data Source UNK Name Value Range Interpretation Code Description Data Source(s) Diastolic blood pressure 74 mm[Hg] 74 mm[Hg] eCW1 ([facility]) Systolic blood pressure 138 mm[Hg] 138 mm[Hg] e CW1 ([facility]) Body temperature 96.9 [degF] 96.9 [degF] eCW1 ( [facility]) Respiratory rate 18 /min 18 /min eCW1 ([facility]) Heart rate 100 /min 100 /min eCW1 ([facility]) Body mass index (BMI) [Ratio] 36.21 kg/m2 36.21 kg/m2 W1 ([facility]) Body height 62 [in_i] 62 [in_i] eCW1 ([facility]) Body weight 198 [lb_av] 198 [lb_av] eCW1 ([facility]) Diastolic blood pressure 76 mm[Hg] 76 mm[Hg] eCW1 ([facility]) Systolic blood pressure 132 mm[Hg] 132 mm[Hg] e CW1 ([facility]) Body temperature 97.6 [degF] 97.6 [degF] eCW1 ( [facility]) Respiratory rate 18 /min 18 /min eCW1 ([facility]) Heart rate 88 /min 88 /min eCW1 ([facility]) Body mass index (BMI) [Ratio] 36.58 kg/m2 36.58 kg/m2 eCW1 ([facility]) Body height 62 [in_i] 62 [in_i] eCW1 ([facility]) Body weight 200 [lb_av] 200 [lb_av] eCW1 ([facility]) Diastolic blood pressure 72 mm[Hg] 72 mm[Hg] eCW1 ([facility]) Systolic blood pressure 130 mm[Hg] 130 mm[Hg] e CW1 ([facility]) Body temperature 97.9 [degF] 97.9 [degF] eCW1 ( [facility]) Respiratory rate 18 /min 18 /min eCW1 ([facility]) Heart rate 87 /min 87 /min eCW1 ([facility]) Body mass index (BMI) [Ratio] 35.33 kg/m2 35.33 kg/m2 eCW1 ([facility]) Body height 62 [in_i] 62 [in_i] eCW1 ([facility]) Body weight 193.2 [lb_av] 193.2 [lb_av] eCW1 [facility] Diastolic blood pressure 60 mm[Hg] 60 mm[Hg] eCW1 ([facility]) Systolic blood pressure 122 mm[Hg] 122 mm[Hg] e CW1 ([facility]) Body temperature 98.1 [degF] 98.1 [degF] eCW1 ( [facility]) Respiratory rate 18 /min 18 /min eCW1 ([facility]) Heart rate 88 /min 88 /min eCW1 ([facility]) Body mass index (BMI) [Ratio] 34.13 kg/m2 34.13 kg/m2 eCW1 ([facility]) Body height 62 [in_us] 62 [in_us] eCW1 ([facility]) Body weight Measured 186.6 [lb_av] 186.6 [lb_av ] eCW1 ([facility]) Body mass index (BMI) [Ratio] 33.98 kg/m2 33.98 kg/m2 eCW1 ([facility]) Body height 62 [in_us] 62 [in_us] eCW1 ([facility] includes the [facility]) Body weight Measured 185.8 [lb_av] 185.8 [lb_av ] eCW1 ([facility]) Diastolic blood pressure 78 mm[Hg] 78 mm[Hg] eCW1 ([facility]) Systolic blood pressure 152 mm[Hg] 152 mm[Hg] e CW1 ([facility]) Body temperature 97.6 [degF] 97.6 [degF] eCW1 ( [facility]) Respiratory rate 20 /min 20 /min eCW1 ([facility]) Heart rate 91 /min 91 /min eCW1 ([facility]) Body mass index (BMI) [Ratio] 33.47 kg/m2 33.47 kg/m2 eCW1 ([facility]) Body height 62 [in_us] 62 [in_us] eCW1 ([facility]) Body weight Measured 183 [lb_av] 183 [lb_av] eC W1 ([facility]) Patient Treatment Plan of Care Planned Activity Planned Date Details Description Data Source (s) Vitamin B12 1000 MCG 12/03/2019 12:00:00 AM EDT eCW1 ([facility]) Nystatin 100 UNT/MG Topical Powder 10/16/2019 12:00:00 AM EST eCW1 ([facility]) Nystatin 100 UNT/MG Topical Powder 10/16/2019 12:00:00 AM EST eCW1 ([facility]) Nystatin 100 UNT/MG Topical Powder 10/16/2019 12:00:00 AM EST eCW1 ([facility]) Nystatin 100 UNT/MG Topical Powder 10/16/2019 12:00:00 AM EST eCW1 ([facility]) Cephalexin 500 MG Oral Capsule 10/16/2019 12:00:00 AM EST eCW1 ([facility])
[2020-10-18 00:25] VITALS: BP 154/82
== END 2020-10-18 00:26 | disposition home or self-care (01) ==
LOC: M ED 22:17 → EDBD 22:17 → M ED 10-18 00:26
DX: S02.2XXA Fracture of nasal bones, initial encounter for closed fracture (principal); S00.03XA Contusion of scalp, initial encounter; W00.9XXA Unspecified fall due to ice and snow, initial encounter; Y92.099 Unspecified place in other non-institutional residence as the place of occurrence of the external cause; Y93.9 Activity, unspecified; Y99.9 Unspecified external cause status; E11.9 Type 2 diabetes mellitus without complications; I10 Essential (primary) hypertension; M19.90 Unspecified osteoarthritis, unspecified site; E66.9 Obesity, unspecified; D53.8 Other specified nutritional anemias; Z79.82 Long term (current) use of aspirin; Z79.4 Long term (current) use of insulin; Z79.899 Other long term (current) drug therapy; Z88.2 Allergy status to sulfonamides

== ENCOUNTER → 2020-11-03 | Outpatient (REF) | payer MEDICARE ==
[~2020-11-03] MED LIST changes: +CYAN100050 PO; +METF-877 PO; +METF10004 PO; +THERTAB21 PO
[2020-11-03 14:00] LABS: HEMATOCRIT 36.1 % (36.0-47.0); HEMOGLOBIN 10.8 g/dl (12.0-15.5); MEAN CORPUSCULAR HEMOGLOBIN 27.1 pg (27.0-33.0); MEAN CORPUSCULAR HGB CONC 29.9 g/dl (32.0-36.5); MEAN CORPUSCULAR VOLUME 90.5 fl (80.0-96.0); PLATELET COUNT, AUTOMATED 214 10^3/uL (150-450); RED BLOOD COUNT 3.99 10^6/uL (4.00-5.40); WHITE BLOOD COUNT 7.9 10^3/uL (4.0-10.0)
[2020-11-03 14:08] LABS: HEMOGLOBIN A1c 7.3 %
[2020-11-03 14:25] LABS: ALBUMIN 3.3 GM/DL (3.2-5.2); BILIRUBIN,TOTAL 0.3 MG/DL (0.2-1.0); CALCIUM LEVEL 9.3 MG/DL (8.8-10.2); CHOLESTEROL RISK RATIO 1.907 (<5); CREATININE FOR GFR 1.04 MG/DL (0.55-1.30); GLOMERULAR FILTRATION RATE 54.3 (>32); PERCENT SATURATION 23.7 % (13.2-45.0); POTASSIUM SERUM 5.5 MEQ/L (3.5-5.1); TOTAL PROTEIN 6.5 GM/DL (6.4-8.2)
== END ==
LOC: M SFHCADAM 11:29
PROVIDERS: ATTEND Family Medicine
DX: D50.0 Iron deficiency anemia secondary to blood loss (chronic) (principal); E11.65 Type 2 diabetes mellitus with hyperglycemia; E78.2 Mixed hyperlipidemia
CPT/HCPCS: 80053; 80061; 82728; 83036; 83550; 85027; 85046; G0463

== ENCOUNTER 2020-11-15 08:03 | Inpatient (IN) | payer MEDICARE ==
[~2020-11-15] VITALS: Ht 157.5 cm; Wt 116.2 kg
[~2020-11-15 08:03] MED LIST changes: -CYAN100050 PO; -METF-877 PO; -METF10004 PO; -THERTAB21 PO
[2020-11-15] MEDS ORDERED: CYAN100050 PO (08:15)
[2020-11-15] MEDS ORDERED: IRBE300T12 PO (08:15)
--- NOTE | 2020-11-15 08:42 | ED PDOC ---
Post-Departure Follow-Up [facility] accessed. Pt. informed. Rafael Cormier M.D. Nov 15, 2020 08:42
--- NOTE | 2020-11-15 08:57 | REP ---
INDICATION: Syncope/near-syncope. COMPARISON: No comparison chest x-ray. TECHNIQUE: Portable upright AP chest radiograph. FINDINGS: The lungs are well inflated and clear. Pleural angles are sharp. The heart is enlarged. Monitoring electrodes are seen. There is a prosthetic right shoulder joint. Pulmonary vasculature is not increased. No acute bony abnormality.. IMPRESSION: Cardiomegaly. Otherwise no acute disease.. <Electronically signed by Torin Land > 11/15/20 0800
[2020-11-15] MEDS ORDERED: ASPIRIN 81 MG CHEW TABLET PO SCH (09:00)
[2020-11-15 09:14] LABS: HEMATOCRIT 31.1 % (36.0-47.0); HEMOGLOBIN 9.8 g/dl (12.0-15.5); MEAN CORPUSCULAR HEMOGLOBIN 27.9 pg (27.0-33.0); MEAN CORPUSCULAR HGB CONC 31.5 g/dl (32.0-36.5); MEAN CORPUSCULAR VOLUME 88.6 fl (80.0-96.0); PLATELET COUNT, AUTOMATED 178 10^3/uL (150-450); RED BLOOD COUNT 3.51 10^6/uL (4.00-5.40); WHITE BLOOD COUNT 23.8 10^3/uL (4.0-10.0)
--- NOTE | 2020-11-15 09:14 | REP ---
INDICATION: altered mental status. COMPARISON: Comparison head CT study October 17, 2020.. TECHNIQUE: Helical scanning is acquired. 5 mm axial images were reformatted. Coronal MPR images were generated. FINDINGS: Bone window settings demonstrate an intact bony calvarium. There is no evidence of skull fracture or incidental bony calvarial lesion. The visualized paranasal sinuses appear clear. No intraorbital abnormality is seen. On soft tissue window setting images; the lateral, third, and fourth ventricles are normal in size and position. Lloyd-white differentiation pattern is normal above and below the tentorium. There are is no evidence of intracranial hemorrhage. No mass, edema, infarction, or midline shift is seen. No extra-axial fluid collection is appreciated. There is moderate generalized volume loss. Mild small vessel changes are seen. Vascular calcification is noted at the skull base. IMPRESSION: Vascular calcification, generalized volume loss as seen on prior CT study. No acute intracranial abnormality.. <Electronically signed by Torin Land > 11/15/20 0911
[2020-11-15 09:33] LABS: LYMPHOCYTES 4 % (16-44); MONOCYTES 4 % (0-5); NEUTROPHILS 76 % (28-66)
[2020-11-15 09:34] LABS: HYPOCHROMASIA 2+; PLATELET ESTIMATE NORMAL (NORMAL)
[2020-11-15 09:51] LABS: CALCIUM LEVEL 8.8 MG/DL (8.8-10.2); CREATININE FOR GFR 1.23 MG/DL (0.55-1.30); GLOMERULAR FILTRATION RATE 44.7 (>32); MAGNESIUM LEVEL 1.4 MG/DL (1.8-2.4); POTASSIUM SERUM 3.9 MEQ/L (3.5-5.1); THYROID STIMULATING HORMONE 1.71 uIU/ML (0.358-3.740)
[2020-11-15] MEDS ORDERED: ISOVUE-370 76% 100ML VIAL As Ordered ONE (10:11)
--- NOTE | 2020-11-15 10:52 | REP ---
INDICATION: ELEVATED WBC, POSSIBLE INFXN, NAUSEA, VOMITING. COMPARISON: None. TECHNIQUE: Abdomen/pelvis CT with IV contrast, without bowel contrast FINDINGS: The visualized lung burton are unremarkable except for minor atelectasis posteriorly/inferiorly in the lingula. There are multiple confluent small calcifications in the gallbladder neck. There is no gallbladder distention. No pericholecystic fluid or gallbladder wall thickening. There is no biliary duct dilatation. The hepatic parenchyma is unremarkable. There is fatty atrophy of the pancreas. Spleen is normal size and unremarkable. There is a 5.3 cm hiatal hernia. The adrenals are unremarkable. There is no hydronephrosis. No renal calculus. No renal masses or cysts are identified. No perinephric fluid collection or perinephric stranding. The kidneys are unremarkable. The abdominal aorta is unremarkable. There is no periaortic adenopathy or mass. There is wall thickening of the sigmoid colon and rectosigmoid colon, nonspecific, but could represent infectious versus inflammatory colitis in the appropriate clinical setting. There is no bowel obstruction. There is no ascites. The appendix is unremarkable. Pelvis: There is a hysterectomy. The vaginal cuff and adnexa are grossly unremarkable. They are partially obscured from beam hardening artifact arising from the right hip arthroplasty. The visualized portions of the bladder are unremarkable. There is no pelvic ascites or adenopathy. There is grade 1 compression deformity of the L4 superior endplate and mild/moderate lumbar spine degenerative disc disease. IMPRESSION: Numerous a small gallbladder calculi. No CT evidence of acute cholecystitis or biliary duct dilatation. The kidneys are unremarkable. Wall thickening of the sigmoid colon and rectosigmoid colon, nonspecific, but could represent infectious versus inflammatory colitis in the appropriate clinical setting. 5.3 cm hiatal hernia. Appendix is unremarkable. Hysterectomy. Right hip arthroplasty. Grade 1 compression deformity of the L4 superior endplate and lumbar spine degenerative disc disease. <Electronically signed by Denilson Flores > 11/15/20 1049
[2020-11-15 11:18] LABS: ALBUMIN 2.8 GM/DL (3.2-5.2); BILIRUBIN,DIRECT 0.5 MG/DL (0.0-0.2); BILIRUBIN,TOTAL 0.9 MG/DL (0.2-1.0)
[2020-11-15 11:58] LABS: RSV AMPLIFICATION NEGATIVE (NEGATIVE)
--- NOTE | 2020-11-15 11:59 | REP ---
INDICATION: HIGH WBC. COMPARISON: None. TECHNIQUE: CT chest performed without the use of intravenous contrast. Sagittal and coronal reconstruction images are performed. FINDINGS: Lungs: Mild scattered interstitial fibrotic changes are seen diffusely bilaterally. In the right upper lobe there is a 3 mm nodule posteriorly on image 32. There is a tiny calcified granuloma in the right lower lobe on image 45. There also few calcified granulomas in the left lower lobe. There is a 5 mm nodule in the left lower lobe on image 54. Mediastinum: No gross adenopathy. Shira: No gross adenopathy. Axilla: No gross adenopathy. Pleura: No effusion. Heart: Not enlarged. Thoracic aorta: No aneurysm. Upper abdominal structures: There is a moderate-sized hiatal hernia. Visualized osseous structures: There are degenerative changes of the spine without compression deformity. IMPRESSION: Chronic changes without acute infiltrate or pleural effusion. 5 mm nodule left lower lobe, recommend follow-up CT chest in 6-12 months. <Electronically signed by Denilson Lloyd > 11/15/20 [id number]
[2020-11-15] MEDS ORDERED: METOPROLOL TART 25 MG TABLET PO ONE (12:55)
[2020-11-15] MEDS ORDERED: MAG SULF 1GM/100ML (MAG RUN) 1 GM in IV 1 EA IV ONE (13:10)
[2020-11-15] MEDS ORDERED: THERTAB21 PO (13:14)
[2020-11-15] MEDS ORDERED: METF10004 PO (13:14)
[2020-11-15] MEDS ORDERED: METF-877 PO (13:14)
[2020-11-15] MEDS: METOPROLOL 5 MG/5 ML VIAL IV SCH ×3 (13:34→13:52)
[2020-11-15 14:19] LABS: CLOSTRIDIUM DIFFICILE PCR NEGATIVE (NEGATIVE)
[2020-11-15] MEDS ORDERED: DEXTROSE 50% 50 ML SYRINGE IV PRN (14:50)
[2020-11-15] MEDS ORDERED: GLUCOSE 4GM CHEW TABLET PO PRN (14:50)
[2020-11-15] MEDS ORDERED: GLUCAGON INJ 1MG VIAL SC PRN (14:50)
[2020-11-15 15:18] LABS: FREE T4 1.89 NG/DL (0.76-1.46)
[2020-11-15] MEDS ORDERED: KCL 20MEQ in NS 1000ML 1,000 ML IV SCH (15:30)
--- NOTE | 2020-11-15 15:44 | HPE ---
HISTORY AND PHYSICAL DATE OF ADMISSION: 11/15/2020 CHIEF COMPLAINT: Fall, syncope, atrial fibrillation, right ventricular response of new onset and leukocytosis. HISTORY OF PRESENT ILLNESS: Angelia Stack is an 80-year-old. She was found by family on the floor. She might have been there for over 4 hours. When she was brought to the Emergency Room she was found to be in atrial fibrillation with rapid ventricular response, rate of 130s and also had a severe significant leukocytosis with a significant left shift. She is being admitted for further evaluation. She has no recollection of the fall. She has had no palpitations or chest pain. She does have some mild memory loss but her mental status seems at baseline. She has been having some lower abdominal pain particularly on the left side. She cannot remember if she has had any diarrhea. She denies any rectal bleeding. No frequency, urgency or dysuria, cough or shortness of breath. In the Emergency Room, a CT scan of the abdomen and pelvis showed some wall thickening in the sigmoid colon and rectosigmoid, nonspecific, possible colitis, nothing else was particularly actionable. She did have a Grade 1 compression deformity of L4, does not say whether this was acute or not. CT scan of the chest shows small 5 mm left lower lobe nodule, another CT in 12 months is planned. She was just seen in the office by me on 11/03/2020. She had lab work done then in which she had a normal white blood cell count, hemoglobin was 10.8, normal renal function. Creatinine was 1.0. PAST MEDICAL HISTORY: She has diabetes under good control, hemoglobin A1c 7.3%. History of hypertensive heart disease, hyperlipidemia, osteoarthritis status post right hip replacement, vitamin B12 deficiency on oral therapy, history of some memory loss, had a mini-mental status exam done on 11/14/2020 in which she scored 28 out of 30 points. PAST SURGICAL HISTORY: Left total knee in 1998, revised in 2003, right total knee in 1997, hysterectomy in 1968, right hip replacement in 07/14. Surgery on the right shoulder in 05/15. She has refused a colonoscopy in the past. FAMILY HISTORY: Father at 80 of COPD, mother at 42 of uterine cancer. Has one son and a daughter who of breast cancer. SOCIAL HISTORY: She does not smoke or drink any alcohol. She was for 52 years, was in 2016. ALLERGIES: Sulfa causes hives. CHRIST inhibitors caused a cough. Cipro caused visual hallucinations where she fell. She had to be brought to the Emergency Room for that. REVIEW OF SYSTEMS: She thinks she might have had some loose stool, she is not sure. No frequency, urgency or dysuria. No rectal bleeding. She has mild abdominal pain. No fever. No chills. No cough or shortness of breath. No palpitations. HOME MEDICATIONS: 1. Calcium. 2. Vitamin D. 3. Multivitamin. 4. Aspirin 81 mg daily. 5. Nystatin to intertrigo areas twice daily. 6. Vitamin B12 1000 mcg p.o. daily. 7. Mevacor 40 mg daily. 8. Iron [id number] daily. 9. Lantus insulin 20 units daily. 10.Metformin 1500 mg in the morning, 1000 mg in the evening. 11.Irbesartan/Hydrochlorothiazide 300/12.5 one daily. PHYSICAL EXAMINATION: VITAL SIGNS: Blood pressure is currently 111/89, heart rate has come down to 103, respiratory rate is 18, 97% O2 saturation. She is afebrile at 98.1 degrees. GENERAL APPEARANCE: She is alert, conversant, in no distress. There is some ecchymosis in the lower right eye. HEENT: Head is normocephalic, atraumatic. Pupils equal and reactive to light. Normal oropharynx. NECK: No masses. LUNGS: Clear. HEART: Regular rate and rhythm. There is a 1/6 systolic ejection murmur. ABDOMEN: Soft, tender in the left side. No guarding or rebound. No referred pain. No CVA tenderness. EXTREMITIES: Full range of motion of both hips. No cyanosis or clubbing. Trace peripheral edema. Moves arms and legs with equal strength. There is no focal weakness. NEUROLOGIC: She recognizes me and her mental status exam seems at baseline. LABORATORY DATA: Sodium is 137, potassium is 3.9, BUN 27, creatinine is 1.2, glucose 158. CPK is 600. White count is 23,000 with 76 neutrophils, 16 bands. Hemoglobin is 8, platelets are 178,000. C. Diff was negative. COVID test is negative. Initial lactate is 2.8. IMPRESSION: 1. Atrial fibrillation, rapid ventricular response, new onset, etiology is unknown, it might have contributed to the fall or may be a consequence of that. Will get an echocardiogram, thyroid functions have been ordered. She will receive magnesium in the Emergency Room for some mild hypomagnesemia, rehydrate her with some potassium containing IV fluids. Serial enzymes have been ordered. Toprol 50 mg q. 6 hours ordered. If she does not convert to sinus rhythm, will need to start on anticoagulant tomorrow. 2. Leukocytosis. The etiology is unknown. The only finding is the left sided abdominal pain which correlates with the CT finding. I will start her on Cipro IV daily, stool is negative for C. Diff, blood and urine cultures have been obtained. Repeat CBC ordered. 3. Diabetes, hold her basal insulin and Metformin, sliding scale and insulin ordered. 4. Chronic kidney disease, she has mild renal function, slightly down from baseline. She is going to be hydrated, will recheck her labs in the morning. 5. Found on floor, CK is only mildly elevated. Will order serial cardiac markers and will have CPK as part of the panel. I believe the hydration will be all she needs. I am surprised that she does not have higher CKs for having been on the floor that long.
[2020-11-15] MEDS ORDERED: cefTRIAXone SOD 1 GM in D5W MINI-BAG PLUS 50 ML IV SCH (16:00)
[2020-11-15 17:06] VITALS: BP 151/68
[2020-11-15] MEDS ORDERED: NS 500 ML IV ONE (17:10)
[2020-11-15] MEDS: METOPROLOL TART 50 MG TAB PO SCH (17:36)
[2020-11-15] MEDS: HumaLOG INSULIN (NovoLOG) PER UNIT SC SCH ×2 (17:37→20:20)
[2020-11-15] MEDS: ENOXAPARIN 80MG/0.8ML SYRINGE (J1650 PER 10MG) SC SCH (17:37)
[2020-11-15 20:00] VITALS: BP 147/61
[2020-11-15] MEDS: ACETAMINOPHEN 500 MG TAB PO PRN (20:14)
[2020-11-15] MEDS: ONDANSETRON 4MG/2ML VIAL IV PRN (20:19)
[2020-11-15] MEDS ORDERED: SIMVASTATIN 40 MG TAB PO SCH (21:00)
--- NOTE | 2020-11-15 22:48 | REPVR ---
PROCEDURE INFORMATION: Exam: CT Lumbar Spine Without Contrast Exam date and time: 11/15/2020 10:02 PM Age: 80 years old Clinical indication: Low back pain; Additional info: Compression FX TECHNIQUE: Imaging protocol: Computed tomography images of the lumbar spine without contrast. Radiation optimization: All CT scans at this facility use at least one of these dose optimization techniques: automated exposure control; mA and/or kV adjustment per patient size (includes targeted exams where dose is matched to clinical indication); or iterative reconstruction. COMPARISON: DX SPINE LUMBOSACRAL PARTIAL 06/23/2019 11:43 AM FINDINGS: Vertebrae: Chronic mild compression deformity of the superior endplate of L4. Remaining lumbar vertebral body heights are intact. Lumbar lordosis is preserved. Multilevel facet arthropathy. No acute lumbar spine fracture. 0.3 cm grade 1 anterolisthesis of L3 on L4 and L4 on L5. Discs/Spinal canal/Neural foramina: Multilevel degenerative changes with intervertebral disc height loss and osteophyte formation. Soft tissues: Worsening intramuscular gas extending into the left iliacus and psoas muscles, which overall these muscles appear asymmetrically thickened when compared with the right. IMPRESSION: 1. Worsening intramuscular gas extending into the left iliacus and psoas muscles, which overall these muscles appear asymmetrically thickened when compared with the right. Cannot exclude possibility of intramuscular abscess and/or hematoma in the setting of recent trauma. It is possible that this gas is extending from the level of the left SI joint, though no definite sacral fracture is identified. Recommend orthopedic consultation. 2. Other chronic findings, as above. Please refer to CT abdomen pelvis for additional findings in the abdomen and pelvis. Electronically signed by: Dale Reid On 11/15/2020 22:48:14 PM
[2020-11-15 22:49] LABS: CK-MB VALUE MASS 56.5 NG/ML (<3.6); MB/CK RELATIVE INDEX 0.36 (< OR =4); TROPONIN I 0.16 NG/ML (< 0.10)
[2020-11-16] VITALS (35 sets, daily range): BP systolic 68–115; BP diastolic 31–61
[2020-11-16] MEDS ORDERED: NS 1,000 ML IV ONE (01:05)
[2020-11-16 01:35] LABS: AMORPHOUS SEDIMENT SMALL (NEGATIVE); APPEARANCE, URINE HAZY (CLEAR); BACTERIA, URINE AUTO NEGATIVE (NEGATIVE); BILIRUBIN, URINE AUTO NEGATIVE (NEGATIVE); BLOOD, URINE BLOOD 3+ (NEGATIVE); COLOR, URINE YELLOW (YELLOW); GLUCOSE, URINE (UA) AUTO NEGATIVE (NEGATIVE); KETONE, URINE AUTO NEGATIVE (NEGATIVE); LEUKOCYTE ESTERASE, URINE AUTO NEGATIVE (NEGATIVE); MUCUS, URINE SMALL (NEGATIVE); NITRITE, URINE AUTO NEGATIVE (NEGATIVE); PROTEIN, URINE AUTO 1+ mg/dL (NEGATIVE); RBC, URINE AUTO 2 /HPF (0-3); SPECIFIC GRAVITY URINE AUTO 1.044 (1.002-1.035); SQUAMOUS EPITHELIAL CELL UR AU 1 /HPF (0-6); UROBILINOGEN, URINE AUTO 0.2 mg/dL (0.0-2.0); WBC, URINE AUTO 2 /HPF (0-3)
[2020-11-16 02:41] LABS: ALBUMIN 2.1 GM/DL (3.2-5.2); BILIRUBIN,TOTAL 0.8 MG/DL (0.2-1.0); CALCIUM LEVEL 7.6 MG/DL (8.8-10.2); CREATININE FOR GFR 1.93 MG/DL (0.55-1.30); GLOMERULAR FILTRATION RATE 26.6 (>32); POTASSIUM SERUM 6.1 MEQ/L (3.5-5.1); TOTAL PROTEIN 5.7 GM/DL (6.4-8.2); TROPONIN I 0.24 NG/ML (< 0.10)
[2020-11-16] MEDS ORDERED: DEXTROSE 50% 50 ML SYRINGE IV STA (02:51)
[2020-11-16] MEDS ORDERED: SOD POLYSTYRENE SULFONATE SUSP 15 GM/60 ML UD PO STA (02:51)
[2020-11-16] MEDS ORDERED: HumuLIN R (REGULAR) INSULIN (NovoLIN R) **100U/ML** PER UNIT IV STA (02:51)
[2020-11-16] MEDS ORDERED: CALCIUM GLUCONATE 1,000 MG in D5W MINI-BAG PLUS 100 ML IV ONE ×3 (02:55→22:30)
--- NOTE | 2020-11-16 03:21 | IPNPDOC ---
Text Note Date of Service The patient was seen on 11/16/20. NOTE Paged by nursing staff at 2030 for urinary retention. I examined patient at this time who was uncomfortable and experiencing abdominal pain and bloating due to not being able to spontaneously void. Nursing staff subsequently straight cathed patient for 800mL. I was concerned at this time for spinal cord syndrome as nursing staff also let me know that she had episodes of fecal incontinence and has a L4 compression fracture on CT scan that was not specified as being acute or chronic. At this time I ordered a ct lumbar spine to rule this out. Findings of CT are as follows: Vertebrae: Chronic mild compression deformity of the superior endplate of L4. Remaining lumbar vertebral body heights are intact. Lumbar lordosis is preserved. Multilevel facet arthropathy. No acute lumbar spine fracture. 0.3 cm grade 1 anterolisthesis of L3 on L4 and L4 on L5. Discs/Spinal canal/Neural foramina: Multilevel degenerative changes with intervertebral disc height loss and osteophyte formation. Soft tissues: Worsening intramuscular gas extending into the left iliacus and psoas muscles, which overall these muscles appear asymmetrically thickened when compared with the right. IMPRESSION: 1. Worsening intramuscular gas extending into the left iliacus and psoas muscles, which overall these muscles appear asymmetrically thickened when compared with the right. Cannot exclude possibility of intramuscular abscess and/or hematoma in the setting of recent trauma. It is possible that this gas is extending from the level of the left SI joint, though no definite sacral fracture is identified. Recommend orthopedic consultation.2. Other chronic findings, as above. Please refer to CT abdomen pelvis for additional findings in the abdomen and pelvis. I spoke on the phone with Dr. Manley, orthopaedics, who states that this finding would be better suited for management by a general surgeon and is not something he would deal with. Will leave to discretion of day team of whether or not to consult surgery for this. I was paged at 0014 that patient's bp dropped from 140s/90s to 97/47. At this time, patient seemed to be more confused upon exam. I bolused the fluids she was receiving at the time and ordered a 1L normal saline bolus. Nursing staff had issues with vascular access and recommended central line but were eventually able to secure two 22g peripheral lines. A central line can be considered by day team. Fluids raised blood pressure adequately. [place] [address] and 0.16 respectively. Patient also found to be in AMIRA. I repeated these labs and found critical potassium of 6.1, drop in sodium from 136 to 125, [place] [address], and again an increase of troponin to 0.26. At this time (329)I ordered stat ekg and calcium, insulin and kayaxelate for acute treatment for her potassium. I called nephrology, Dr. Stevenson Zimmerman, for urgent consult for help with electrolyte imbalances and fluid replacement in the setting of acute kidney failure on rhabdomyolysis. They recommended beginning D5W with 150meQ of sodium bicarb at 150/hr, and will see them in the morning. I thank them for the help. VS,Noemy, I+O VS, Noemy, I+O Laboratory Tests 11/15/20 08:57 11/16/20 01:17 Vital Signs Date Time Temp Pulse Resp B/P (MAP) Pulse Ox O2 Delivery O2 Flow Rate FiO2 11/16/20 02:00 112/56 (74) 11/16/20 00:00 70 11/16/20 00:00 96.9 20 96 Room Air I&O- Last 24 Hours up to 6 AM 11/16/20 05:59 Intake Total 2270 ml Output Total 1600 ml Balance 670 ml GINO SELLERS Nov 16, 2020 03:21 HERB VALDES MD Nov 24, 2020 19:13
[2020-11-16] MEDS ORDERED: SODIUM BICARBONATE 150 MEQ in D5W 1,000 ML IV STA (03:39)
[2020-11-16] MEDS: METOPROLOL TART 50 MG TAB PO SCH ×2 (04:04)
[2020-11-16 04:27] LABS: HEMATOCRIT 31.9 % (36.0-47.0); HEMOGLOBIN 9.9 g/dl (12.0-15.5); MEAN CORPUSCULAR VOLUME 86.9 fl (80.0-96.0); PLATELET COUNT, AUTOMATED 199 10^3/uL (150-450); RED BLOOD COUNT 3.67 10^6/uL (4.00-5.40); WHITE BLOOD COUNT 7.3 10^3/uL (4.0-10.0)
[2020-11-16] MEDS: ENOXAPARIN 80MG/0.8ML SYRINGE (J1650 PER 10MG) SC SCH ×2 (04:32→17:41)
--- NOTE | 2020-11-16 05:12 | ECGEPIP ---
[facility] - ED Test Date: 2020-11-15 Pat Name: SRIRAM JESSICA Department: Room: - Gender: Female Bead Picker: DENILSON : [phone] Requested By: Eliel Azevedo Order Number: [id number] Reading MD: Rafael Cormier Measurements Intervals [place] Rate: 121 P: MT: QRS: 76 QRSD: 78 T: 63 QT: 288 QTc: 408 Interpretive Statements Atrial fibrillation with rapid ventricular response BASELINE ARTIFACT AFFECTS INTERPRETATION NO PRIORS FOR COMPARISON Electronically Signed on 11-16-2020 5:12:02 EDT by Rafael Cormier
[2020-11-16 05:15] LABS: ATYPICAL LYMPH 4 % (0-5); LYMPHOCYTES 16 % (16-44); MONOCYTES 9 % (0-5); NEUTROPHILS 39 % (28-66)
[2020-11-16 05:16] LABS: ANISOCYTOSIS 1+; PLATELET CLUMPS SMALL AMT; PLATELET ESTIMATE NORMAL (NORMAL)
[2020-11-16 05:17] LABS: POIKILOCYTOSIS 1+; POLYCHROMASIA 1+
[2020-11-16 05:34] LABS: ALBUMIN 2.1 GM/DL (3.2-5.2); BILIRUBIN,DIRECT 0.5 MG/DL (0.0-0.2); BILIRUBIN,TOTAL 0.8 MG/DL (0.2-1.0); CALCIUM LEVEL 7.1 MG/DL (8.8-10.2); CK-MB VALUE MASS 96.4 NG/ML (<3.6); CREATININE FOR GFR 2.04 MG/DL (0.55-1.30); GLOMERULAR FILTRATION RATE 24.9 (>32); MB/CK RELATIVE INDEX 0.29 (< OR =4); TOTAL PROTEIN 4.8 GM/DL (6.4-8.2); TROPONIN I 0.23 NG/ML (< 0.10)
[2020-11-16 08:16] LABS: SODIUM,RANDOM URINE 13 MEQ/L
[2020-11-16 08:55] LABS: OSMOLALITY URINE 324 MOSM/KG (50-1400)
[2020-11-16] MEDS ORDERED: metroNIDAZOLE 500 MG in IV 1 EA IV SCH (09:00)
[2020-11-16] MEDS: LACTOBACILLUS ACIDOPHILUS CAP (BACID) PO SCH ×2 (09:29→17:41)
[2020-11-16] MEDS: ASPIRIN 81 MG CHEW TABLET PO SCH (09:29)
[2020-11-16] MEDS: HumaLOG INSULIN (NovoLOG) PER UNIT SC SCH ×4 (09:31→21:59)
[2020-11-16 10:09] LABS: HEMATOCRIT 33.1 % (36.0-47.0); HEMOGLOBIN 10.8 g/dl (12.0-15.5); MEAN CORPUSCULAR HEMOGLOBIN 28.1 pg (27.0-33.0); MEAN CORPUSCULAR HGB CONC 32.6 g/dl (32.0-36.5); PLATELET COUNT, AUTOMATED 214 10^3/uL (150-450); RED BLOOD COUNT 3.85 10^6/uL (4.00-5.40); WHITE BLOOD COUNT 10.1 10^3/uL (4.0-10.0)
[2020-11-16 10:39] LABS: ALBUMIN 2.1 GM/DL (3.2-5.2); BILIRUBIN,TOTAL 1.1 MG/DL (0.2-1.0); CALCIUM LEVEL 7.2 MG/DL (8.8-10.2); CREATININE FOR GFR 2.43 MG/DL (0.55-1.30); GLOMERULAR FILTRATION RATE 20.4 (>32); POTASSIUM SERUM 5.4 MEQ/L (3.5-5.1); TOTAL PROTEIN 5.1 GM/DL (6.4-8.2)
[2020-11-16] MEDS: PIPERACILLIN/TAZOBACTAM SOD 3.375 GM in D5W MINI-BAG PLUS 50 ML IV SCH ×3 (11:41→23:00)
[2020-11-16] MEDS ORDERED: METOPROLOL TART 25 MG TABLET PO SCH (12:00)
--- NOTE | 2020-11-16 12:46 | ECHO ---
DATE OF PROCEDURE: 11/15/2020 Age: 80 Gender: Female Height: 155 cm Weight: 92 kg REFERRING PHYSICIAN: Dale Winter MD. INDICATION: Atrial fibrillation. MEASUREMENTS: Aorta 3.1 cm LA 4.4 cm RV 2.9 cm IVS 0.9 cm LV 5.2 cm LVPW 1.0 cm IVC 2.0 cm Mitral E wave velocity 130 Mitral A wave 77 E prime septal 9.0 E prime lateral 8.8 FINDINGS: This study is of acceptable technical quality. The patient is in sinus rhythm. Left ventricle has normal size and systolic function. I estimate LVEF approximately 65% to 70%. Right ventricle appears mildly dilated and hypokinetic. There is biatrial enlargement. The aortic valve has three cusps. It is mildly sclerotic, but mobility is preserved. There are degenerative abnormalities of the mitral valve with calcifications in the base of the posterior mitral leaflet, but also there are notable calcifications in chordal apparatus. Mobility of leaflets is preserved. Tricuspid valve appears normal. Pulmonic valve was not seen. No pericardial effusion is noted. Inferior vena cava is dilated and there is limited collapse with inspiration, indicative of high central venous pressure. Aortic root is normal. Abdominal aorta also appears normal. Aortic arch was not seen. Doppler interrogation of the aortic valve reveals no stenosis or insufficiency. There is mild mitral insufficiency and mild tricuspid insufficiency. Calculated pulmonary artery pressure is markedly elevated with estimated pulmonary artery pressure in the mid 60s corresponding to moderately severe pulmonary hypertension. Mitral inflow pattern and tissue Doppler imaging of the mitral annulus revealed likely grade 2 diastolic dysfunction. CONCLUSIONS: 1. Study is of acceptable technical quality, patient is in sinus rhythm. 2. Normal LV size with preserved LV systolic function and grade 2 diastolic dysfunction. 3. Dilated hypokinetic right ventricle. 4. No hemodynamically significant valvular disease. 5. Likely elevated central venous pressure and moderately severe pulmonary hypertension. Results of this study were communicated to Dr. Winter. [facility]
[2020-11-16 14:16] LABS: CK-MB VALUE MASS 83.3 NG/ML (<3.6); MB/CK RELATIVE INDEX 0.32 (< OR =4); TROPONIN I 0.25 NG/ML (< 0.10)
[2020-11-16] MEDS ORDERED: SODIUM BICARBONATE 150 MEQ in D5W 1,000 ML IV SCH (16:00)
--- NOTE | 2020-11-16 16:41 | IPNPDOC ---
Date Seen The patient was seen on 11/16/20. Progress Note SUBJECTIVE: Worsening labs, poor u/o despite fluids. Consulted surgery with nephrology following closely. On bicarb gtt, worsening lactic acidosis, started on zosyn for sepsis poss 2/2 to colitis vs. findings on CT lumbar spine. Transferring to ICU for further management of low BP, levophed for hypotension. Surgery consulted for trialysis catheter placement. Patient denies chest pain, n/v/d, shortness of breath. OBJECTIVE: PHYSICAL EXAMINATION: VITAL SIGNS: Please see below GENERAL APPEARANCE: NAD, resting in bed. HEENT: bruising under right eye, mild. No increased swelling NECK: No masses. LUNGS: CTAB, no wheezing, rhonchi, wheezing HEART: Regular rate and rhythm. There is a 1/6 systolic ejection murmur. No rubs or gallops ABDOMEN: Soft, nontender. No guarding or rebound. No referred pain. No CVA tenderness. EXTREMITIES: Pain of left upper thigh, flank. Some bruising seen. Full range of motion of both hips. No cyanosis or clubbing. Trace peripheral edema. Moves arms and legs with equal strength. Generally weak today on exam. : macias catheter in place NEUROLOGIC: CN 2-12 intact, no focal deficits PSYCH: flat affect LABORATORY DATA: Please see below MICROBIOLOGY: BCx x 2 sets NG UCx pending IMAGING: CXR: Chronic changes without acute infiltrate or pleural effusion. 5 mm nodule left lower lobe, recommend follow-up CT chest in 6-12 months. Echocardiogram 11/15/20: EF 65-70% Study is of acceptable technical quality, patient is in sinus rhythm. Normal LV size with preserved LV systolic function and grade 2 diastolic dysfunction. Dilated hypokinetic right ventricle. No hemodynamically significant valvular disease. Likely elevated central venous pressure and moderately severe pulmonary hypertension. CT lumbar spine: 1. Worsening intramuscular gas extending into the left iliacus and psoas muscles, which overall these muscles appear asymmetrically thickened when compared with the right. Cannot exclude possibility of intramuscular abscess and/or hematoma in the setting of recent trauma. It is possible that this gas is extending from the level of the left SI joint, though no definite sacral fracture is identified. Recommend orthopedic consultation. 2. Other chronic findings, as above. CT abd/pelvis: Numerous a small gallbladder calculi. No CT evidence of acute cholecystitis or biliary duct dilatation. The kidneys are unremarkable. Wall thickening of the sigmoid colon and rectosigmoid colon, nonspecific, but could represent infectious versus inflammatory colitis in the appropriate clinical setting. 5.3 cm hiatal hernia. Appendix is unremarkable. Hysterectomy. Right hip arthroplasty. Grade 1 compression deformity of the L4 superior endplate and lumbar spine degenerative disc disease. CT chest: Chronic changes without acute infiltrate or pleural effusion. 5 mm nodule left lower lobe, recommend follow-up CT chest in 6-12 months. IMPRESSION/PLAN: Hypotension, r/o septic shock 2/2 to colitis vs. gas seen in abd muscles vs. left lower ext/thigh cellulitis -Improved slightly after one bicarb 500 cc bolus; however, decreased again. Remains on bicarb gtt -Lactic acid worsening, WBC improved but worsened bandemia -Discussed imaging above with surgery: no pain on palpation of abdomen but pain on area of likely cellulitis of upper thigh of left leg. Cannot r/o area of gas left iliacus and psoas muscles, which overall these muscles appear asymmetrically thickened when compared with the right. Cannot exclude p ossibility of intramuscular abscess and/or hematoma in the setting of recent trauma. -Central line to be placed, will check CVP -Started on zosyn, vancomycin today -C/w bicarb fluids- nephrology on board due to low U/O and careful management of fluids. Levophed to help maintain MAP >65 mmHg -F/u labs, serial lactic acids, fluid status Elevated troponins possibly cytokine induced, cannot r/o Type II event -Trop remain slightly elevated at 0.24- 0.25, ECG showed NSR today repeated -Echo above -Trop Q8H -Discussed case with Dr. Aamto, cardiology. At this time, not acute STEMI, NSTEMI, no indication for cardiac catheterization -Monitor closely Acute rhabdomyolysis -Peaked CK at 32K, decreasing with worsening renal fx -On bicarb gtt, continued acidosis -Follow up CMP BID, daily CK -Nephrology following, CRRT to start today Oliguric AMIRA likely multifactorial 2/2 to hypotension, acute rhabdomyolysis, cannot r/o contrast nephropathy, medications -Cr worsened throughout day despite IVFs with worsening sepsis -Trialysis catheter placed today, CRRT to start tonight -Daily labs, repeat CMP at 1800 tonight -Monitor u/o closely, on bicarb gtt -F/u nephrology recommendations Transaminitis, acute poss 2/2 to hypotension -AST/ALT elevated daily -Tx for hypotension above -CMP 1800 and daily after Atrial fibrillation with RVR- resolved but likely 2/2 to sepsis -Resolved with HR controlled, currently sinus rhythm on repeat ECG and tele -Stopped BB due to hypotension -Watch for reoccurence Hyperkalemia likely 2/2 to AMIRA -Slightly improved s/p kayexalate and insulin -F/u regular labs -Nephrology managing Elevated BNP likely 2/2 to atrial fibrillation with RVR, HFpEF / mod-severe pulmonary HTN -Echocardiogram above -CXR neg for acute changes -Saturating well on RA -Stopped BB, no diuretics currently -Discussd case with cardiology. C/w current management above DM type II -BS stable -ISS, AC/HS, consistent carb DVT px -Enoxaparin renally dosed DISPOSITION: Moved to ICU to start CRRT tonight. Daughter updated by myself and nephrology per patient's request. Full Code. TOTAL AMOUNT OF ICU TIME SPENT ON PATIENT'S CARE TODAY (nonprocedural): 90 MINS VS, I&O, [facility]H, [facility] Vital Signs/I&O Vital Signs Date Time Temp Pulse Resp B/P (MAP) Pulse Ox O2 Delivery O2 Flow Rate FiO2 11/16/20 16:00 98.1 68 20 95/40 (58) 97 Room Air I&O- Last 24 Hours up to 6 AM 11/16/20 06:00 Intake Total 4280 ml Output Total 1600 ml Balance 2680 ml Laboratory Data 24H LABS Laboratory Tests 2 11/15/20 17:11: Bedside Glucose (Misc Panel) 198H 11/15/20 20:19: Bedside Glucose (Misc Panel) 172H 11/15/20 20:58: Total Creatine Kinase 23703#H, Creatine Kinase MB 56.5H, Creatine Kinase MB Relative Index 0.36, Troponin I 0.16H 11/15/20 21:40: Urine Color YELLOW, Urine Appearance HAZY, Urine pH 5.0, Urine Specific [place] 1.044, Urine Protein 1+H, Urine Glucose (Auto)(UA) NEGATIVE, Urine Ketones (Auto) NEGATIVE, Urine Blood 3+H, Urine Nitrite NEGATIVE, Urine Bilirubin NEGATIVE, Urine Urobilinogen 0.2, Urine Leukocyte Esterase (Auto) NEGATIVE, Uri ne WBC (Auto) 2, Urine RBC (Auto) 2, Urine Hyaline Casts (Auto) 1, Urine Bacteria (Auto) NEGATIVE, Urine Squamous Epithelial Cells 1, Urine Amorphous Sediment (Auto) SMALLH, Urine Mucus (Auto) SMALL, Urine Sperm (Auto) 11/16/20 01:17: Anion Gap 11, Glomerular Filtration Rate 26.6L, Calcium Level 7.6L, Total Bilirubin 0.8, Aspartate Amino Transf (AST/SGOT) 593H, Alanine Aminotransferase (ALT/SGPT) 119H, Alkaline Phosphatase 132H, Total Creatine Kinase 28070#H, Troponin I 0.24#H, Total Protein 5.7L, Albumin 2.1#L, Albumin/Globulin Ratio 0.6L 11/16/20 03:27: Anion Gap 15, Glomerular Filtration Rate 24.9L, Calcium Level 7.1L, Total Bilirubin 0.8, Aspartate Amino Transf (AST/SGOT) 629H, Alanine Aminotransferase (ALT/SGPT) 133H, Alkaline Phosphatase 125H, Total Creatine Kinase 06160K, Troponin I 0.23H, Total Protein 4.8L, Albumin 2.1L, Albumin/Globulin Ratio 0.8L, Neutrophils (%) (Auto) , Nucleated Red Blood Cells % (auto) 0.0, Neutrophils 39, Band Neutrophils 32H, Lymphocytes (Manual) 16, Monocytes (Manual) 9H, Atypical Lymphocytes 4, Polychromasia 1+, Poikilocytosis 1+, Anisocytosis 1+, Platelet Estimate NORMAL, Clumped Platelets SMALL AMT, Direct Bilirubin 0.5H, Creatine Kinase MB 96.4H, Creatine Kinase MB Relative Index 0.29, [id number]-Type Natriuretic Peptide 30710G 11/16/20 06:50: Urine Osmolality 324, Urine Random Sodium 13 11/16/20 08:09: Troponin I 0.24H 11/16/20 09:04: Bedside Glucose (Misc Panel) 245H 11/16/20 09:54: Nucleated Red Blood Cells % (auto) 0.0, Anion Gap 11, Glomerular Filtration Rate 20.4L, Lactic Acid Level 4.7*H, Calcium Level 7.2L, Total Bilirubin 1.1H, Aspartate Amino Transf (AST/SGOT) 796H, Alanine Aminotransferase (ALT/SGPT) 188H, Alkaline Phosphatase 124H, Total Protein 5.1L, Albumin 2.1L, Albumin/Globulin Ratio 0.7L 11/16/20 11:38: Bedside Glucose (Misc Panel) 188H 11/16/20 12:44: Total Creatine Kinase 29636Y, Creatine Kinase MB 83.3H, Creatine Kinase MB Relative Index 0.32, Troponin I 0.25H 11/16/20 14:49: Lactic Acid Followup at 4 Hours 6.1*H CBC/BMP Laboratory Tests 11/16/20 01:17 11/16/20 03:27 11/16/20 09:54 Microbiology Microbiology 11/15/20 Urine Culture, Received Pending 11/15/20 Blood Culture - Preliminary, Resulted No growth after 24 hours . All specim... 11/15/20 Blood Culture - Preliminary, Resulted No growth after 24 hours . All specim... Current Medications Current Medications Medications (Trade) Dose Ordered Sig/Sendy Route PRN Reason Start Time Stop Time Status Last Admin Dose Admin Acetaminophen (Tylenol Tab) 1,000 mg Q6HP PRN PO PAIN / FEVER 11/15/20 18:50 11/15/20 20:14 Aspirin (Aspirin Chewable) 81 mg DAILY PO 11/15/20 09:00 Cancel Aspirin (Aspirin Chewable) 81 mg DAILY PO 11/16/20 09:00 11/16/20 09:29 Ceftriaxone Sodium 1 gm/ Dextrose 50 ml @ 100 mls/hr Q24H IV 11/15/20 16:00 11/16/20 08:46 DC 11/15/20 16:53 Dextrose (Dextrose 50%) 25 ml ASDIRECTED PRN IV SEE LABEL COMMENTS 11/15/20 14:50 Dextrose (Dextrose 50%) 50 ml STAT STAT IV 11/16/20 02:51 11/16/20 02:57 DC 11/16/20 03:16 Enoxaparin Sodium (Lovenox) 80 mg Q12H SC 11/15/20 18:00 11/16/20 17:41 Glucagon (Glucagon) 1 mg ASDIRECTED PRN SC SEE LABEL COMMENTS 11/15/20 14:50 Glucose (Glucose) 16 GM ASDIRECTED PRN PO SEE LABEL COMMENTS 11/15/20 14:50 Heparin Sodium (Heparin) dose as per volume indica... ASDIRECTED PRN IV SEE LABEL COMMENTS 11/16/20 18:00 11/16/20 18:31 DC 11/16/20 18:22 Home Med (Med Rec Complete!) ASDIRECTED XX 11/15/20 13:20 11/15/20 13:22 DC Insulin Human Lispro (HumaLOG INSULIN) SEE PROTOCOL TABLE AC SC 11/15/20 17:30 11/16/20 17:30 Insulin Human Lispro (HumaLOG INSULIN) SEE PROTOCOL TABLE QHS SC 11/15/20 21:00 Insulin Human Regular (HumuLIN R INSULIN) 10 units STAT STAT IV 11/16/20 02:51 11/16/20 02:57 DC 11/16/20 03:17 Lactobacillus Acidophilus (Bacid) 1 ea BIDWM PO 11/16/20 08:00 11/16/20 17:41 Metoprolol Tartrate (Lopressor) 5 mg Q5M IV 11/15/20 12:55 11/15/20 13:06 DC 11/15/20 13:52 Metoprolol Tartrate (Lopressor) 25 mg Q6H PO 11/16/20 12:00 11/16/20 16:02 DC Metoprolol Tartrate (Lopressor) 50 mg Q6H PO 11/15/20 18:00 11/16/20 11:56 DC 11/15/20 17:36 Metronidazole 500 mg/IV Miscellaneous Supplies 100 ml @ 100 mls/hr Q8H IV 11/16/20 09:00 11/16/20 12:34 DC 11/16/20 10:13 Norepinephrine Bitartrate 8 mg/ Dextrose 500 ml @ 37.5 mls/hr [id number] IV 11/16/20 18:00 11/16/20 18:31 Ondansetron HCl (ZOFRAN INJection) 4 mg Q6HP PRN IV NAUSEA OR VOMITING 11/15/20 18:50 11/15/20 20:19 Piperacillin Sod/ Tazobactam Sod 3.375 gm/Dextrose 50 ml @ 50 mls/hr Q6H IV 11/16/20 10:00 11/16/20 17:19 Potassium Chloride/Sodium Chloride 1,000 ml @ 125 mls/hr Q8H IV 11/15/20 15:30 11/16/20 02:57 DC 11/15/20 17:35 Simvastatin (Zocor) 40 mg QHS PO 11/15/20 21:00 11/16/20 08:49 DC 11/15/20 20:15 Sodium Bicarbonate 150 meq/Dextrose/Water 1,150 ml @ 150 mls/hr Q7H40M IV 11/16/20 16:00 11/16/20 16:05 Sodium Bicarbonate 150 meq/Dextrose/Water 1,150 ml @ 150 mls/hr Q7H40M STAT IV 11/16/20 03:39 11/16/20 11:18 DC 11/16/20 04:03 Sodium Polystyrene Sulfonate (Kayexalate) 30 gm NOW STAT PO 11/16/20 02:51 11/16/20 03:05 DC 11/16/20 04:32 Allergies Coded Allergies: Sulfa (Sulfonamide Antibiotics) (Verified Allergy, Unknown, 11/15/20) ciprofloxacin (Verified Adverse Reaction, Intermediate, visual hallucinations, falls, 11/15/20) CHRIST Inhibitors (Verified Adverse Reaction, Mild, cough, 11/15/20) Mayra Damico MD Nov 16, 2020 16:41
[2020-11-16] MEDS: NOREPINEPHRINE BITARTRATE 8 MG in D5W 492 ML IV SCH (18:31)
--- NOTE | 2020-11-16 18:44 | REP ---
INDICATION: S/P Right IJ Trialysis Catheter Placement. COMPARISON: Comparison chest x-ray November 15, 2020. TECHNIQUE: Portable upright AP chest radiograph. FINDINGS: A right internal jugular central venous line is seen inserted into position consistent with the superior vena cava. There is no evidence of pneumothorax or hydrothorax. Mild cardiomegaly is again observed. Monitoring electrodes are seen. Right shoulder arthroplasty is noted. The aorta is somewhat calcific.. The IMPRESSION: No active disease. Right IJ line in good position. No complication seen.. <Electronically signed by Torin Land > 11/16/20 [id number]
[2020-11-16 19:05] LABS: HEMATOCRIT 30.4 % (36.0-47.0); HEMOGLOBIN 9.8 g/dl (12.0-15.5); MEAN CORPUSCULAR HEMOGLOBIN 27.1 pg (27.0-33.0); MEAN CORPUSCULAR HGB CONC 32.2 g/dl (32.0-36.5); MEAN CORPUSCULAR VOLUME 84.2 fl (80.0-96.0); PLATELET COUNT, AUTOMATED 199 10^3/uL (150-450); RED BLOOD COUNT 3.61 10^6/uL (4.00-5.40); WHITE BLOOD COUNT 15.4 10^3/uL (4.0-10.0)
[2020-11-16 19:20] LABS: INR 1.85; PROTHROMBIN TIME 21.7 SECONDS (12.5-14.3)
[2020-11-16 19:21] LABS: PARTIAL THROMBOPLASTIN TIME 50.4 SECONDS (24.2-38.5)
[2020-11-16 19:38] LABS: MAGNESIUM LEVEL 1.7 MG/DL (1.8-2.4); PHOSPHORUS LEVEL 4.8 MG/DL (2.5-4.9)
[2020-11-16 19:40] LABS: ALBUMIN 1.8 GM/DL (3.2-5.2); BILIRUBIN,TOTAL 1.1 MG/DL (0.2-1.0); CALCIUM LEVEL 6.5 MG/DL (8.8-10.2); CREATININE FOR GFR 2.8 MG/DL (0.55-1.30); GLOMERULAR FILTRATION RATE 17.3 (>32); POTASSIUM SERUM 4.9 MEQ/L (3.5-5.1); TOTAL PROTEIN 4.4 GM/DL (6.4-8.2)
[2020-11-16] MEDS ORDERED: VANCOMYCIN HCL 750 MG, VIAL MATE ADAPTER 1 EACH in NS 250 ML IV ONE ×2 (20:00→21:00)
--- NOTE | 2020-11-16 20:37 | ECGEPIP ---
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
--- NOTE | 2020-11-16 20:43 | ECGEPIP ---
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
[2020-11-16] MEDS ORDERED: SODIUM CHLORIDE 0.9% INJ 10 ML SYR IV PRN (20:45)
[2020-11-16] MEDS ORDERED: MAG SULF 1GM/100ML (MAG RUN) 1 GM in IV 1 EA IV ONE (20:45)
[2020-11-16] MEDS ORDERED: NS 1,000 ML IV SCH (21:00)
[2020-11-16] MEDS: ONDANSETRON 4MG/2ML VIAL IV PRN (21:59)
--- NOTE | 2020-11-16 22:46 | CR ---
CONSULTATION DATE: 11/16/2020 REASON FOR CONSULTATION: Psoas muscle inflammation. HISTORY OF PRESENT ILLNESS: The patient is an 80-year-old female. She was found down at home with unknown length of time, suspected to be roughly 4 hours. She was subsequently found to have atrial fibrillation with rapid ventricular response and was brought to the hospital on the . She has been treated by the Medical Service. She has had leukocytosis as well as the atrial fibrillation, acute renal failure over the last 12 hours or so. Her labs have been getting worse. Repeat imaging of her lumbar spine shows that there is increased air within the psoas muscle along the left side, raising concern for a questionable abscess. She has been slightly hypotensive as well, raising concerns for possible sepsis. Because of this, I was asked to evaluate. On exam the patient denies any abdominal pains whatsoever. Her only complaint is pain with around the knee and behind the knee on both sides. She is having a difficult time moving her legs. She also has pain along the left side of her left leg. She does not remember falling and does not remember which side she was laying on when she fell. PAST MEDICAL HISTORY: The patient's past medical history is significant for: 1. Diabetes. 2. Hypertension. 3. Hyperlipidemia. 4. Arthritis. 5. B-12 deficiency. PAST SURGICAL HISTORY: The patient's past surgical history is significant for: 1. Left total knee. 2. Right total knee. 3. Hysterectomy. 4. Right hip replacement. 5. Right toe surgery. FAMILY HISTORY: Noncontributory. SOCIAL HISTORY: Denies drug, alcohol or tobacco abuse. ALLERGIES: 1. Sulfa. 2. Mike inhibitors. 3. Cipro. REVIEW OF SYSTEMS: Pertinent positives and negatives as stated in the HPI. HOME MEDICATIONS: Please see Med Rec. PHYSICAL EXAMINATION: GENERAL APPEARANCE: The patient is alert and oriented x3, in no acute distress. VITAL SIGNS: Temperature 97.5, pulse 64, respirations 20, blood pressure 112/52, pulse oximetry 98% on room air. HEENT: Pupils are equal, round and reactive to light and accommodation. HEART: S1, S2, regular rate and rhythm. LUNGS: Clear to auscultation bilaterally. ABDOMEN: Soft, nontender, nondistended, no pain to palpation specifically over the left psoas muscle and in the left lower quadrant. EXTREMITIES: Bilateral lower extremity edema on the left lateral thigh extending from the hip all the way down to the knee. There is a large area of erythema with edema and even a couple of very small blisters starting to form up on the proximal thigh as well. This entire area is very tender to palpation. LABORATORY STUDIES: White count 10.1, hemoglobin 10.8, platelet count 214, lactic acid 6.1, creatinine 2.43, potassium 5.4, albumin 2.1, AST 796, ALT 188, alkaline phosphatase 124. IMAGING DATA: CT abdomen and pelvis was completed yesterday around 10:00 a.m. which showed some slight thickening around the sigmoid colon. No signs of any surrounding inflammation. No free fluid in the abdomen. A lumbar spine CT was then done today which does show worsening intramuscular gas extending into the left iliac and psoas muscles, which overall, these muscles appear thickened compared to the right. Cannot exclude the possibility of an intramuscular abscess or hematoma. It is possible this gas extending from the level of the left S.I. joint though no definite sacral fracture is identified. Recommend orthopedic consult. ASSESSMENT AND PLAN: The patient is again, an 80-year-old female currently with acute renal failure, likely has rhabdomyolysis secondary to a fall with prolonged downtime. She has leukocytosis, lactic acidosis, and erythema along the left lateral thigh as well as air in the left psoas muscle, now concerning for questionable hematoma versus abscess. At this time there is no need for any urgent surgical intervention. Left psoas muscle is not easily reachable for a percutaneous approach unless it is image guided. There is no indication for any intraabdominal acute process at this time. 1. Recommend to treat the left lateral thigh as cellulitis for now with antibiotics. 2. Can consider the psoas air as abscess until proven otherwise as well. 3. Recommend a possible I.R. aspiration of this area for diagnosis purposes tomorrow if possible.
[2020-11-17] VITALS (33 sets, daily range): BP systolic 67–165; BP diastolic 34–91
[2020-11-17] MEDS ORDERED: HYDROmorphone 2 MG TAB PO ONE (00:15)
[2020-11-17] MEDS ORDERED: HYDROMORPHONE HCL 0.5 MG/ 0.5 ML SYRINGE (J1170 PER 1) IV PRN (00:50)
[2020-11-17] MEDS ORDERED: LIDOCAINE 1% MDV 20ML VIAL As Ordered ONE (02:54)
[2020-11-17] MEDS: PIPERACILLIN/TAZOBACTAM SOD 3.375 GM in D5W MINI-BAG PLUS 50 ML IV SCH (03:49)
[2020-11-17] MEDS: NOREPINEPHRINE BITARTRATE 8 MG in D5W 492 ML IV SCH ×3 (04:00→17:44)
[2020-11-17] MEDS: ONDANSETRON 4MG/2ML VIAL IV PRN (04:22)
[2020-11-17 05:24] LABS: HEMATOCRIT 34.4 % (36.0-47.0); HEMOGLOBIN 10.8 g/dl (12.0-15.5); MEAN CORPUSCULAR HEMOGLOBIN 27.1 pg (27.0-33.0); MEAN CORPUSCULAR HGB CONC 31.4 g/dl (32.0-36.5); MEAN CORPUSCULAR VOLUME 86.4 fl (80.0-96.0); PLATELET COUNT, AUTOMATED 213 10^3/uL (150-450); RED BLOOD COUNT 3.98 10^6/uL (4.00-5.40); WHITE BLOOD COUNT 18.4 10^3/uL (4.0-10.0)
[2020-11-17] MEDS ORDERED: LIDOCAINE 1% MDV 20ML VIAL IM ONE (05:30)
--- NOTE | 2020-11-17 05:32 | IPNPDOC ---
Date Seen The patient was seen on 11/17/20. Progress Note SUBJECTIVE: Began CRRT last evening, on levophed and added vasopressin this AM. Possible drainage of ? abscess vs. hematoma seen on CT lumbar spine unable to be done due to location of area- radiologist further suggested CT guided biopsy when patient more stable. Went back into atrial fib with RVR, started on amiodarone gtt this AM. Discussed with ID, started meropenem instead of zosyn and ID will consult on 11/18/20. Patient has no acute complaints, updated MOLST in chart indicating DNR/DNI. OBJECTIVE: PHYSICAL EXAMINATION: VITAL SIGNS: Please see below GENERAL APPEARANCE: NAD, resting, AAOx 3 HEENT: bruising under right eye, mild. No increased swelling NECK: No masses, trialysis catheter in place LUNGS: CTAB, no wheezing, rhonchi, wheezing HEART: irregularly irregular rhythm, rapid. There is a 1/6 systolic ejection murmur. No rubs or gallops ABDOMEN: Soft, nontender. No guarding or rebound. No referred pain. No CVA tenderness. EXTREMITIES: Pain of left upper thigh, flank. Full range of motion of both hips. No cyanosis or clubbing. Trace peripheral edema. Moves arms and legs with equal strength. Generally weak INTEGUMENTARY: large left upper thigh redness, swelling improved compared to 11/16/20 extending from left knee to upper thigh/below hip- mildly tender to to uch. : macias catheter in place NEUROLOGIC: CN 2-12 intact, no focal deficits PSYCH: flat affect LABORATORY DATA: Please see below MICROBIOLOGY: BCx x 2 sets: NG at 48 hours -Repeat BCx x 2 sets ordered today UCx pending IMAGING: CXR: Chronic changes without acute infiltrate or pleural effusion. 5 mm nodule left lower lobe, recommend follow-up CT chest in 6-12 months. Echocardiogram 11/15/20: EF 65-70% Study is of acceptable technical quality, patient is in sinus rhythm. Normal LV size with preserved LV systolic function and grade 2 diastolic dysfunction. Dilated hypokinetic right ventricle. No hemodynamically significant valvular disease. Likely elevated central venous pressure and moderately severe pulmonary hypertension. CT lumbar spine: 1. Worsening intramuscular gas extending into the left iliacus and psoas muscles, which overall these muscles appear asymmetrically thickened when compared with the right. Cannot exclude possibility of intramuscular abscess an d/or hematoma in the setting of recent trauma. It is possible that this gas is extending from the level of the left SI joint, though no definite sacral fracture is identified. Recommend orthopedic consultation. 2. Other chronic findings, as above. CT abd/pelvis: Numerous a small gallbladder calculi. No CT evidence of acute cholecystitis or biliary duct dilatation. The kidneys are unremarkable. Wall thickening of the sigmoid colon and rectosigmoid colon, nonspecific, but could represent infectious versus inflammatory colitis in the appropriate clinical setting. 5.3 cm hiatal hernia. Appendix is unremarkable. Hysterectomy. Right hip arthroplasty. Grade 1 compression deformity of the L4 superior endplate and lumbar spine degenerative disc disease. CT chest: Chronic changes without acute infiltrate or pleural effusion. 5 mm nodule left lower lobe, recommend follow-up CT chest in 6-12 months. IMPRESSION/PLAN: Hypotension likely septic shock 2/2 to colitis vs. abscess/gas seen in left iliacus and psoas muscles vs. left lower ext/thigh cellulitis -WBC incr to 18K, LA >8, low CVP on last check -Given 1500 mL in boluses today due increased hypotension despite high dose levophed -IR consulted for possible drainage of area of ? abscess vs. hematoma in left iliacus/psoas muscles ;however, due to location of area of concern, unable to do by ultrasound. Recommended CT guided drainage when more stable. -F/u daily labs, LA, all cultures above. When able will get CT guided studies, will do. -Discussed case with ID who is consulted to see on 11/18/20. Agreed with plan. D/boom zosyn, started meropenem in addition to vancomycin. Atrial fibrillation with RVR 2/2 to sepsis -HR improved with amiodarone IV x 2, now on amio gtt -Echo above -Goal HR < 110 bpm -C/w treatment of sepsis above -Tele Hypocalcemia, acute -S/p 2 doses calcium gluconate, -Following lytes closely with CRRT Hypomagnesemia, acute -S/p mag run 11/16/20 -Following lytes closely with CRRT Elevated troponins possibly cytokine induced, cannot r/o Type II event -Trop trending down -Echo above -Trop Q8H -Discussed case with Dr. Amato, cardiology. At this time, not acute STEMI, NSTEMI, no indication for cardiac catheterization -Monitor closely Acute rhabdomyolysis -Peaked CK at 32K, trending down -bicarb gtt stopped, on NS -Follow up CMP regularly , daily CK -Nephrology following, CRRT Oliguric AMIRA likely multifactorial 2/2 to hypotension, acute rhabdomyolysis, cannot r/o contrast nephropathy, medications -CRRT began evening 11/16/20, -S/p multiple fluid boluses with no improvement of u/o, U/o remains poor -F/u labs regularly -Monitor u/o closely, on NS -F/u nephrology recommendations Transaminitis, acute poss 2/2 to hypotension -AST/ALT elevated, trending upwards -Tx for hypotension above -Following CMP daily Hyperkalemia likely 2/2 to AMIRA- improved -Resolved with CRRT -F/u regular labs -Nephrology managing Elevated BNP likely 2/2 to atrial fibrillation with RVR, HFpEF / mod-severe pulmonary HTN -Echocardiogram above -CXR neg for acute changes -Saturating well on RA -Stopped BB, no diuretics currently -Discussd case with cardiology. C/w current management above DM type II -BS stable -ISS, AC/HS, consistent carb DVT px -Enoxaparin renally dosed Resolved issues: Atrial fibrillation with RVR- resolved but likely 2/2 to sepsis DISPOSITION: Critcal care, ID, nephrology and surgery following. Daughter updated on current status which is critical. MOLST form needing to be filled out. TOTAL AMOUNT OF ICU TIME SPENT ON PATIENT'S CARE TODAY (nonprocedural): 70 MINS VS, I&O, 24H, Fishbone Vital Signs/I&O Vital Signs Date Time Temp Pulse Resp B/P (MAP) Pulse Ox O2 Delivery O2 Flow Rate FiO2 11/17/20 01:30 22 11/16/20 19:00 99.5 77 87/43 (58) 98 Nasal Cannula 2.0 I&O- Last 24 Hours up to 6 AM 11/17/20 06:00 Intake Total 2675 ml Output Total 20 ml Balance 2655 ml Laboratory Data 24H LABS Laboratory Tests 2 11/16/20 06:50: Urine Osmolality 324, Urine Random Sodium 13 11/16/20 08:09: Troponin I 0.24H 11/16/20 09:04: Bedside Glucose (Misc Panel) 245H 11/16/20 09:54: Nucleated Red Blood Cells % (auto) 0.0, Anion Gap 11, Glomerular Filtration Rate 20.4L, Lactic Acid Level 4.7*H, Calcium Level 7.2L, Total Bilirubin 1.1H, Aspartate Amino Transf (AST/SGOT) 796H, Alanine Aminotransferase (ALT/SGPT) 188H, Alkaline Phosphatase 124H, Total Protein 5.1L, Albumin 2.1L, Albumin/Globulin Ratio 0.7L 11/16/20 11:38: Bedside Glucose (Misc Panel) 188H 11/16/20 12:44: Total Creatine Kinase 23616Q, Creatine Kinase MB 83.3H, Creatine Kinase MB Relative Index 0.32, Troponin I 0.25H 11/16/20 14:49: Lactic Acid Followup at 4 Hours 6.1*H 11/16/20 17:24: Bedside Glucose (Misc Panel) 187H 11/16/20 18:49: Nucleated Red Blood Cells % (auto) 0.0, Prothrombin Time 21.7H, Prothromb Time International Ratio 1.85, Activated Partial Thromboplast Time 50.4H, Anion Gap 11, Glomerular Filtration Rate 17.3L, Lactic Acid Level 4.9*H, Calcium Level 6.5L, Whole Blood Ionized Calcium 3.4*L, Phosphorus Level 4.8, Magnesium Level 1.7L, Total Bilirubin 1.1H, Aspartate Amino Transf (AST/SGOT) 680H, Alanine Aminotransferase (ALT/SGPT) 195H, Alkaline Phosphatase 97, Troponin I 0.22H, Total Protein 4.4L, Albumin 1.8L, Albumin/Globulin Ratio 0.7L 11/16/20 21:21: Bedside Glucose (Misc Panel) 155H 11/17/20 05:00: Whole Blood Ionized Calcium 3.9L CBC/BMP Laboratory Tests 11/16/20 09:54 11/16/20 18:49 Microbiology Microbiology 11/15/20 Urine Culture, Received Pending 11/15/20 Blood Culture - Preliminary, Resulted No growth after 24 hours . All specim... 11/15/20 Blood Culture - Preliminary, Resulted No growth after 24 hours . All specim... Current Medications Current Medications Medications (Trade) Dose Ordered Sig/Sendy Route PRN Reason Start Time Stop Time Status Last Admin Dose Admin Acetaminophen (Tylenol Tab) 1,000 mg Q6HP PRN PO PAIN / FEVER 11/15/20 18:50 11/15/20 20:14 Amiodarone HCl 150 mg/IV Miscellaneous Supplies 100 ml @ 600 mls/hr STAT STAT IV 11/17/20 08:58 11/17/20 09:07 DC 11/17/20 09:18 Amiodarone HCl 360 mg/IV Miscellaneous Supplies 200 ml @ 17 mls/hr [id number] IV 11/17/20 16:00 11/18/20 10:00 11/18/20 04:29 Amiodarone HCl 360 mg/IV Miscellaneous Supplies 200 ml @ 33.333 mls/ hr Q6H IV 11/17/20 10:00 11/17/20 10:05 DC 11/17/20 11:11 Aspirin (Aspirin Chewable) 81 mg DAILY PO 11/15/20 09:00 Cancel Aspirin (Aspirin Chewable) 81 mg DAILY PO 11/16/20 09:00 11/16/20 09:29 Calcium Gluconate 1000 mg/IV Miscellaneous Supplies 1 each/ Sodium Chloride 110 ml @ 110 mls/hr 0600,0700 IV 11/17/20 06:00 11/17/20 10:00 DC 11/17/20 09:18 Calcium Gluconate 1000 mg/IV Miscellaneous Supplies 1 each/ Sodium Chloride 110 ml @ 110 mls/hr 2200,2300 IV 11/17/20 22:00 11/18/20 02:00 DC 11/18/20 02:19 Ceftriaxone Sodium 1 gm/ Dextrose 50 ml @ 100 mls/hr Q24H IV 11/15/20 16:00 11/16/20 08:46 DC 11/15/20 16:53 Dextrose (Dextrose 50%) 25 ml ASDIRECTED PRN IV SEE LABEL COMMENTS 11/15/20 14:50 Dextrose (Dextrose 50%) 50 ml STAT STAT IV 11/16/20 02:51 11/16/20 02:57 DC 11/16/20 03:16 Enoxaparin Sodium (Lovenox) 80 mg Q12H SC 11/15/20 18:00 11/16/20 19:06 DC 11/16/20 17:41 Enoxaparin Sodium (Lovenox) 90 mg Q24H SC 11/17/20 18:00 Hold 11/17/20 17:59 Glucagon (Glucagon) 1 mg ASDIRECTED PRN SC SEE LABEL COMMENTS 11/15/20 14:50 Glucose (Glucose) 16 GM ASDIRECTED PRN PO SEE LABEL COMMENTS 11/15/20 14:50 Heparin Sodium (Heparin) ASDIRECTED PRN IV SEE LABEL COMMENTS 11/16/20 20:45 11/17/20 15:24 DC Heparin Sodium (Heparin) ASDIRECTED PRN IV SEE LABEL COMMENTS 11/17/20 15:30 Heparin Sodium (Heparin) dose as per volume indica... ASDIRECTED PRN IV SEE LABEL COMMENTS 11/16/20 18:00 11/16/20 18:31 DC 11/16/20 18:22 Home Med (Med Rec Complete!) ASDIRECTED XX 11/15/20 13:20 11/15/20 13:22 DC Hydromorphone HCl (Dilaudid) 0.3 mg Q3HP PRN IV MILD PAIN (PS 1-4) 11/17/20 00:50 11/17/20 12:31 DC 11/17/20 01:07 Insulin Human Lispro (HumaLOG INSULIN) SEE PROTOCOL TABLE AC SC 11/15/20 17:30 11/16/20 17:30 Insulin Human Lispro (HumaLOG INSULIN) SEE PROTOCOL TABLE QHS SC 11/15/20 21:00 Insulin Human Regular (HumuLIN R INSULIN) 10 units STAT STAT IV 11/16/20 02:51 11/16/20 02:57 DC 11/16/20 03:17 Lactobacillus Acidophilus (Bacid) 1 ea BIDWM PO 11/16/20 08:00 11/17/20 17:59 Meropenem 2 gm/ Sodium Chloride 100 ml @ 200 mls/hr Q8H IV 11/17/20 12:15 11/17/20 12:24 DC Meropenem 500 mg/ IV Miscellaneous Supplies 50 ml @ 100 mls/hr Q12H IV 11/17/20 13:00 11/18/20 01:28 Metoprolol Tartrate (Lopressor) 5 mg Q5M IV 11/15/20 12:55 11/15/20 13:06 DC 11/15/20 13:52 Metoprolol Tartrate (Lopressor) 25 mg Q6H PO 11/16/20 12:00 11/16/20 16:02 DC Metoprolol Tartrate (Lopressor) 50 mg Q6H PO 11/15/20 18:00 11/16/20 11:56 DC 11/15/20 17:36 Metronidazole 500 mg/IV Miscellaneous Supplies 100 ml @ 100 mls/hr Q8H IV 11/16/20 09:00 11/16/20 12:34 DC 11/16/20 10:13 Morphine Sulfate (Morphine Sulfate Inj) 1 mg Q4H PRN IV MODERATE PAIN (PS 5-7) 11/17/20 12:30 Morphine Sulfate (Morphine Sulfate Inj) 2 mg Q6H PRN IV SEVERE PAIN (PS 8-10) 11/17/20 12:30 11/17/20 18:24 Norepinephrine Bitartrate 8 mg/ Dextrose 500 ml @ 93.7 mls/hr Q5H21M IV 11/16/20 18:00 11/18/20 00:26 Ondansetron HCl (ZOFRAN INJection) 4 mg Q6HP PRN IV NAUSEA OR VOMITING 11/15/20 18:50 11/17/20 04:22 Piperacillin Sod/ Tazobactam Sod 3.375 gm/Dextrose 50 ml @ 50 mls/hr Q6H IV 11/16/20 10:00 11/17/20 12:16 DC 11/17/20 03:49 Potassium Chloride/Sodium Chloride 1,000 ml @ 125 mls/hr Q8H IV 11/15/20 15:30 11/16/20 02:57 DC 11/15/20 17:35 Simvastatin (Zocor) 40 mg QHS PO 11/15/20 21:00 11/16/20 08:49 DC 11/15/20 20:15 Sodium Bicarbonate 150 meq/Dextrose/Water 1,150 ml @ 150 mls/hr Q7H40M IV 11/16/20 16:00 11/16/20 20:56 DC 11/16/20 16:05 Sodium Bicarbonate 150 meq/Dextrose/Water 1,150 ml @ 150 mls/hr Q7H40M STAT IV 11/16/20 03:39 11/16/20 20:56 DC 11/16/20 04:03 Sodium Polystyrene Sulfonate (Kayexalate) 30 gm NOW STAT PO 11/16/20 02:51 11/16/20 03:05 DC 11/16/20 04:32 Sodium Chloride 1,000 ml @ 50 mls/hr Q20H IV 11/16/20 21:00 11/17/20 16:43 DC 11/16/20 22:00 Sodium Chloride (Saline Lock Flush) 10ML IN EACH LISANDRO... ASDIRECTED PRN IV SEE LABEL COMMENTS 11/16/20 20:45 11/17/20 15:24 DC Sodium Chloride (Saline Lock Flush) 10ML IN EACH LISANDRO... ASDIRECTED PRN IV SEE LABEL COMMENTS 11/17/20 15:30 Vancomycin HCl 500 mg/Dextrose 110 ml @ 110 mls/hr Q24H IV 11/17/20 21:00 11/17/20 23:21 Vancomycin HCl 1000 mg/IV Miscellaneous Supplies 1 each/ Sodium Chloride 270 ml @ 270 mls/hr Q24H IV 11/17/20 20:00 11/17/20 21:09 Vasopressin 20 units/Sodium Chloride 501 ml @ 60 mls/hr Q8H21M IV 11/17/20 06:03 11/18/20 00:22 Allergies Coded Allergies: Sulfa (Sulfonamide Antibiotics) (Verified Allergy, Unknown, 11/15/20) ciprofloxacin (Verified Adverse Reaction, Intermediate, visual hallucinations, falls, 11/15/20) CHRIST Inhibitors (Verified Adverse Reaction, Mild, cough, 11/15/20) Mayra Damico MD Nov 17, 2020 05:32
[2020-11-17 05:39] LABS: CALCIUM LEVEL 8.1 MG/DL (8.8-10.2); CREATININE FOR GFR 2.08 MG/DL (0.55-1.30); GLOMERULAR FILTRATION RATE 24.4 (>32); MAGNESIUM LEVEL 2.1 MG/DL (1.8-2.4); PHOSPHORUS LEVEL 4.4 MG/DL (2.5-4.9); POTASSIUM SERUM 4.9 MEQ/L (3.5-5.1); TROPONIN I 0.2 NG/ML (< 0.10)
[2020-11-17] MEDS ORDERED: AMIODARONE HCL 150 MG in IV 1 EA IV ONE (06:20)
[2020-11-17] MEDS: VASOPRESSIN INJ 20 UNITS in NS 500 ML IV SCH ×2 (06:40→16:39)
[2020-11-17] MEDS ORDERED: NS 1,000 ML IV ONE (07:15)
[2020-11-17] MEDS: HumaLOG INSULIN (NovoLOG) PER UNIT SC SCH ×4 (07:30→21:00)
[2020-11-17] MEDS: LACTOBACILLUS ACIDOPHILUS CAP (BACID) PO SCH ×2 (08:00→17:59)
[2020-11-17 08:05] LABS: ABG BASE EXCESS -8.3 (-2.0-2.0); ABG HCO3 15.4 MEQ/L (22.0-26.0); ABG O2 SATURATION 98.5 % (95.0-99.0); ABG PARTIAL PRESSURE CO2 26.7 mmHg (35.0-45.0); ABG PARTIAL PRESSURE O2 117.4 mmHg (75.0-100.0); ABG STANDARD HCO3 17.7 MEQ/L (22.0-26.0); ABG TOTAL CO2 16.2 MEQ/L (23.0-31.0); ABG pH (ARTERIAL) 7.379 UNITS (7.350-7.450)
--- NOTE | 2020-11-17 08:26 | IPNPDOC ---
Text Note Date of Service The patient was seen on 11/17/20. NOTE At about 615AM I was informed by the patient's RN that the pt's HR increased to the 170s. Of note her metoprolol had been held bc of low BP. I ordered one dose of amiodarone for rapid afib. VS,Fishbone, I+O VS, Fishbone, I+O Laboratory Tests 11/16/20 09:54 11/16/20 18:49 11/17/20 05:00 Vital Signs Date Time Temp Pulse Resp B/P (MAP) Pulse Ox O2 Delivery O2 Flow Rate FiO2 11/17/20 07:00 81 93/80 (84) 11/17/20 04:00 96.8 22 96 Nasal Cannula 2.0 I&O- Last 24 Hours up to 6 AM 11/17/20 06:00 Intake Total 2675 ml Output Total 20 ml Balance 2655 ml HERB VALDES MD Nov 17, 2020 08:26
[2020-11-17] MEDS: CALCIUM GLUCONATE 1,000 MG, VIAL MATE ADAPTER 1 EACH in NS 100 ML IV SCH ×2 (08:30→09:18)
[2020-11-17] MEDS: ASPIRIN 81 MG CHEW TABLET PO SCH (08:33)
[2020-11-17] MEDS ORDERED: AMIODARONE HCL 150 MG in IV 1 EA IV STA (08:58)
[2020-11-17] MEDS ORDERED: NS 500 ML IV ONE (09:00)
--- NOTE | 2020-11-17 09:29 | RO ---
OPERATIVE NOTE DATE OF OPERATION: 11/16/2020 PREOPERATIVE DIAGNOSIS: Acute renal failure. POSTOPERATIVE DIAGNOSIS: Acute renal failure. SURGEON: Dunia Torres MD INDICATION: Hemodialysis and venous access. CONSENT: Consent was obtained from the patient and her daughter prior to the procedure. Indication, risks and benefits were explained at length. ANESTHESIA: DESCRIPTION OF PROCEDURE: A central line insertion practice form was completed by independent observer. A timeout was performed. Full sterile technique was maintained throughout the procedure, including surgical cap, mask, protective eyewear, sterile gown and sterile gloves. The patient was placed in Trendelenburg position. The right neck region was prepped using chlorhexidine scrub and draped in sterile fashion using a full drape and sterile probe cover employed. The right internal jugular vein was identified using ultrasound. Anesthesia was achieved using 1% lidocaine. Using real-time [id number] guidance, the introducer needle was inserted into the internal jugular vein under direct ultrasound visualization. Venous blood was withdrawn. The syringe was removed and a guidewire was advanced into the introducer needle. The introducer needle was removed over the guidewire. A small incision was made at the skin surface with a scalpel, and a dilator was exchanged over the wire. After appropriate double-dilation was obtained, the dilator was exchanged with a wire for a Trialysis hemodialysis catheter. The wire was removed and the catheter was sutured in place at 18 cm. A sterile chlorhexidine-impregnated dressing was placed over the catheter at the insertion site. The patient tolerated the procedure without any hemodynamic compromise. At the time of procedure completion, all ports were aspirated and flushed properly. Heparin was then distilled in the appropriate ports. Post-procedure chest x-ray showed no pneumothorax and the line in satisfactory position. Estimated blood loss is less than 2 mL. MTDD
[2020-11-17] MEDS ORDERED: AMIODARONE HCL 360 MG in IV 1 EA IV SCH (10:00)
[2020-11-17 11:00] LABS: ANISOCYTOSIS 1+; ATYPICAL LYMPH 1 % (0-5); LYMPHOCYTES 3 % (16-44); METAMYELOCYTES 1 % (0-0); MONOCYTES 5 % (0-5); NEUTROPHILS 89 % (28-66); PLATELET ESTIMATE NORMAL (NORMAL)
[2020-11-17 11:05] LABS: BURR CELLS 1+
--- NOTE | 2020-11-17 11:29 | CR ---
INPATIENT CONSULTATION DATE: 11/16/2020 REQUESTING PHYSICIAN: Brian Kelly, Physician [employer] Machine Tender. CONSULTING PHYSICIAN: Tomas Zimmerman DO. REASONS FOR CONSULTATION: Acute renal failure with hyperkalemia and metabolic acidosis. HISTORY OF PRESENT ILLNESS: Ms. Angelia Stack is previously unknown to me. She is an 80-year-old female with a past medical history of CKD stage 2 with baseline creatinine around 1, hypertensive heart disease, dyslipidemia, osteoarthritis, insulin-dependent diabetes mellitus and other comorbid conditions mentioned below. Patient was admitted on November 15, 2020. She was found on the floor by her family members and was there reportedly for more than 4 hours. She was brought to the Emergency Room and found to be in afib with rapid ventricular response with heart rate in the 130s and also had severe leukocytosis with bandemia. The patient herself has no recollection of falling to the floor. She denies any chest pain or shortness of breath. Her only complaint is of fatigue. In the Emergency Room the patient had blood work which revealed leukocytosis as mentioned previously and admission creatinine was 1.2 and initial creatinine kinase was 600. She had an I.V. contrast CT of the abdomen and pelvis and a non-contrast CT of the chest and imaging reports are mentioned further below. The patient was initially placed by the primary service on normal saline with 40 mEq of potassium chloride running at 125 mL an hour and repeat laboratory studies overnight showed significant rise in creatinine kinase from 600 up to 15,000 and then 30,000. Also worsening LFTs and potassium went up to 6.1 and the patient had a significant fall in renal function and I was called overnight by the physician lpn medical assistant after the 1:00 a.m. labs resulted to discuss fluid administration for this patient and for further management of her renal failure, rhabdomyolysis, electrolyte imbalances and metabolic acidosis. PAST MEDICAL HISTORY: 1. CKD stage 2; baseline creatinine 1. 2. Insulin-dependent diabetes mellitus. 3. Hypertension. 4. Hypertensive heart disease. 5. Hyperlipidemia. 6. Osteoarthritis. 7. Vitamin B12 deficiency. 8. Some memory impairment. 9. Obesity. PAST SURGICAL HISTORY: 1. Left total knee arthroplasty. 2. Right total knee arthroplasty. 3. Hysterectomy. 4. Right hip replacement. 5. Shoulder surgery (right sided). Patient has refused colonoscopy in the past. ALLERGIES: 1. SULFA. 2. CHRIST INHIBITOR. 3. CIPROFLOXACIN. SOCIAL HISTORY: She is a . She does not smoke or drink and there is no reported alcohol. She lives with her daughter. FAMILY HISTORY: She has a sibling of cancer and mother was also in 40s of endometrial cancer. REVIEW OF SYSTEMS: Constitutional: Denies fevers, chills. Eyes: Denies visual changes or tearing. ENT: Denies epistaxis, rhinorrhea. Cardiac: Denies chest pain or palpitations. Respiratory: Denies shortness of breath or cough. Gastrointestinal: Denies abdominal pain. She is not sure if she had had any diarrhea issues. Genitourinary: She is oliguric. She has a Macias catheter. Endocrine: Reports diabetes. She denies thyroid issues. Hematologic: Denies easy bleeding or bruising or anticoagulant use. Musculoskeletal: Reports bilateral knee replacements and also a hip replacement. She denies any acute myalgias or arthralgias. Neurologic: She cannot recall the fall that she had at home. Skin: there is redness at left hip but pt is unaware of the same Physical Exam: Vital signs: Temp 97.9, pulse 72, RR 18, BP 84/55, pulse ox 99% room air General: awake alert oriented x 3, anxious but in no acute distress HEENT: eomi, perrl, moist tongue Neck - supple, no jvd Cardiac - s1, s2, no edema, weak peripheral pulses lungs - clear bilaterally, no rales, rhonchus. on room air. abd - soft, nontender, hypoactive bowel sounds - macias with minimal to no urine in tubing extremities - no edema, no clubbing. weak peripheral pulses skin - redness at left thigh otherwise no ulcers noted, no rashes neuro - oriented to person, place, situation. follows commands. LABORATORY DATA: Blood culture no growth for 24 hours times 2 sets. Urine culture is pending. RADIOLOGY STUDIES: CT abdomen and pelvis November 15 with I.V. contrast shows unremarkable kidneys and wall thickening of the sigmoid and rectosigmoid colon which is nonspecific. Chest CT non-contrast done yesterday shows chronic changes without acute infiltrate or pleural effusion. Lumbar spine CT done yesterday without contrast shows intramuscular gas extending into the left iliacus and psoas muscles. INPATIENT MEDICATIONS: 1. She was receiving normal saline with 40 mEq of potassium chloride running at 125 mL an hour. This was discontinued. 2. She is now on sodium bicarbonate 150 mEq in D5W running at 150 mL an hour. 3. Calcium gluconate 1 gram I.V. times 1. 4. Magnesium sulfate 1 gram I.V. times 1. 5. She has received 1 liter normal saline bolus. 6. Zosyn 3.375 gram I.V. q6h. 7. Vancomycin 1 gram I.V. daily. 8. Tylenol 1 gram by mouth q6h p.r.n. 9. Aspirin 81 mg by mouth daily. 10. Lovenox 90 mg subcutaneously daily. 11. Insulin. 12. She was on metoprolol 50 mg by mouth q6h. She received 1 dose. This was discontinued. 13. Kayexalate 30 gram by mouth times 1. PROBLEMS: 1. Acute oligoanuric renal failure in this patient with rhabdomyolysis and I.V. contrast exposure and sepsis: Patient had received aggressive hydration initially with normal saline bolus and normal saline with potassium (which was promptly discontinued when she became hyperkalemic) and is now receiving aggressive sodium bicarbonate I.V. fluids; however, she is not responding to the I.V. fluids. Given the concomitant contrast induced nephropathy and her urine output for a 12 hour period this day was less than 100 mL and the patient is acidotic and hypotensive and she is having urgent Trialysis placed and is being transferred to the Intensive Care Unit and plan is for CRRT initiation while on Levophed pressor support tondharmesh and I discussed the plan of care both with the patient and with her daughter Salud Kendrick over the phone. 2. Rhabdomyolysis: Peak creatinine kinase level was 32,000. It is down to 25,900 on the latest labs. I would continue with I.V. fluids at this time. Her CVP in the ICU after central line placement was only 4. We will continue I.V. fluids while she is receiving CRRT. She will be dialyzed for clearance only without any fluid removal overnight at this time. Continue with serial creatinine kinase monitoring. 3. Sepsis: Patient has significant leukocytosis with severe bandemia. Her blood cultures were negative for 24 hours times 2 sets. Her urinalysis does not look suspicious for a UTI. I am concerned about her abnromal left thigh imaging on CT scan. Another possibility is some sort of colonic issue. Primary team is calling general surgery to evaluate the patient's imaging and she is already on broad spectrum antibiotics with vancomycin and ceftriaxone and she is requiring Levophed pressor support as well. Titrate for MAP of greater than 65. No fluid removal with CRRT overnight tonight. 4. Hyperkalemia: It is secondary to renal failure and potassium administration. She did improve with a dose of Kayexalate and with correction of her acidosis and bicarbonate containing I.V. fluids and she is going to receive CRRT overnight. 5. Lactic acidosis and metabolic acidosis: It is secondary to sepsis, hypotension and renal failure. Her peak lactic acid was 6.1. Continue sodium bicarbonate drip at this time and orders for CRRT are written for correction of her metabolic and lactic acidosis. Repeat lactic is requested. 6. Acute hyponatremia: It is secondary to renal failure and gentle orders for CRRT are written and I would continue with the sodium bicarbonate isotonic fluids at this time. 7. History of diastolic congestive heart failure and dilated and hypokinetic right ventricle and severe pulmonary hypertension: Echocardiogram is reviewed. Central line was placed for pressor administration and ICU nurse reports CVP of 4. Continue I.V. fluids at this time with close watch on patient's respiratory status. 8. Hypocalcemia: Orders are written for I.V. calcium supplementation. Critical Care Time spent in the management of this patient was 1 hour and plan of care was discussed throughout the day with the Hospitalist Service Dr. Damico. STEPH
[2020-11-17 11:45] LABS: HEMATOCRIT 23.3 % (36.0-47.0)
[2020-11-17 11:50] LABS: HEMOGLOBIN 7.4 g/dl (12.0-15.5); PLATELET COUNT, AUTOMATED 125 10^3/uL (150-450)
[2020-11-17 11:54] LABS: ALBUMIN 1.9 GM/DL (3.2-5.2); BILIRUBIN,DIRECT 1.3 MG/DL (0.0-0.2); BILIRUBIN,TOTAL 1.8 MG/DL (0.2-1.0); TOTAL PROTEIN 5.4 GM/DL (6.4-8.2)
[2020-11-17 11:55] LABS: INR 1.65; PROTHROMBIN TIME 19.9 SECONDS (12.5-14.3)
[2020-11-17 11:56] LABS: FIBRINOGEN 633 MG/DL (221-452); PARTIAL THROMBOPLASTIN TIME 51.7 SECONDS (24.2-38.5)
[2020-11-17 12:12] LABS: D-DIMER QUANT > 4000.0 ng/ml (<500)
[2020-11-17] MEDS ORDERED: MEROPENEM INJ 2 GM in NS 100 ML IV SCH (12:15)
--- NOTE | 2020-11-17 12:21 | IPN ---
PROGRESS NOTE DATE: 11/17/2020 SUBJECTIVE: I again attended to Ms. Stack at the bedside in the intensive care unit. The ICU nurse updated me overnight in regards to the patient's ongoing CRRT, hypotension, and increase in pressor requirements. CVP yesterday evening after central line was placed was low at 4. The patient was continued on IV fluids over the course of the night, and there has been no fluid removal with dialysis. Unfortunately, lab work does show a poor prognostic sign. Her lactic acid this morning is worse despite being on dialysis throughout the night. The patient continues to mentate well and is highly anxious, but denies any shortness of breath, chest pain, palpitations, nausea, vomiting, diarrhea, or abdominal pain. She complains of left hip and thigh discomfort especially with palpation. The patient also has gone into AFib with RVR overnight secondary to the IV pressors and has been bolused amiodarone. The case was discussed by myself with Dr. Damico again this morning, and the patient is now also going to be seen by infectious disease and access representative. OBJECTIVE: VITAL SIGNS: T-max 100.3, T-current 96.8, pulse 117, respiratory rate 18, blood pressure 116/54, saturating 93% on 2 liters nasal cannula. INTAKE AND OUTPUT: Intake yesterday was 5 liters. There was no urine output to the Ware catheter. Levophed is presently at 10 mcg/min. Vasopressin is presently at 4 units. GENERAL: The patient is seen in the intensive care unit awake, alert, oriented x3, interactive, conversational, and highly anxious appearing, but in no acute distress. HEENT: Extraocular muscles are intact. Tongue is moist. NECK: Supple. There is a Trialysis catheter in the right IJ. HEART: Sounds are tachycardic and regular. Heart rate is in the 110s. There is no dependent edema nor peripheral edema. LUNGS: Show fair symmetric air entry. No crackle or rhonchus. ABDOMEN: Soft and nontender. There are bowel sounds. GENITOURINARY: Shows Ware catheter with no urine. The Ware was also flushed. There is tenderness to palpation of the left hip, but the erythema she had yesterday seems to be reduced. NEUROLOGIC: She is oriented x3 and conversational. SKIN: Warm and dry. LABORATORY DATA: Show sodium 129, potassium 4.9, bicarbonate 20, BUN 35, creatinine 2.0. Repeat lactic acid this morning was 8.5 at 5 a.m. and another lactic acid at 11 a.m. is pending. Creatinine kinase is pending. White count is 18.4, but her bandemia has significantly improved as compared to yesterday. Blood cultures no growth for 48 hours x2 sets. Urine culture is pending. IMAGING DATA: Chest x-ray done yesterday evening shows no acute cardiopulmonary process. INPATIENT MEDICATIONS: 1. Levophed 10 mcg/min. 2. Vasopressin at 4 units. 3. She is receiving normal saline at 15 mL/hour. 4. She also received 1.5 liter normal saline bolus again this morning. 5. She also received amiodarone bolus and she is now on amiodarone infusion. 6. She received 1 gram of IV magnesium sulfate. 7. She received 2 grams of IV calcium gluconate. 8. Vancomycin. 9. Zosyn. 10. Aspirin 81 mg p.o. daily. 11. Lovenox 90 mg subcutaneously daily. PROBLEMS: 1. Acute anuric renal failure in this patient with septic shock, recent contrast administration, and acute rhabdomyolysis. The patient was urgently transferred to the intensive care unit (ICU) yesterday evening and a Trialysis catheter was kindly placed by the access representative. Then, she was promptly started on continuous renal replacement therapy (CRRT) with an effluent dose of 23 mL/kg/hour. Because she is hypotensive, hypovolemic, and in septic shock we removed no fluid with dialysis; rather, she was continued on normal saline throughout the course of the night. She was bolused with 1.5 liter again this morning. I am in agreement with fluid administration, but we need to keep a close eye on her respiratory status given the she is anuric. If she develops any signs of hypervolemia, I will start removing fluid with dialysis. At the time being, there is no such issue. There are absolutely no signs of renal recovery and the patient probably has an acute tubular necrosis (ATN) along with contrast nephropathy at this point given her severe hypotension. 2. Septic shock. Source is still being worked up. Blood cultures were negative. Her urine also does not look suspicious. Her abdominal and chest imaging were also fairly benign. The left hip and thigh is a possible source. She is on vancomycin and Zosyn. Infectious disease input was also requested. She is for possible interventional radiology (IR) guided drainage of any collection in the left hip and thigh. A differential was added onto the blood work and her bandemia is much improved. She continues to have significant pressor requirements on both Levophed at 10 mcg/min along with vasopressin at 4 units. Continue IV fluids at this time as well. 3. Rhabdomyolysis. Continue with dialysis. Repeat creatinine kinase level is pending. 4. Hyperkalemia. This has improved and resolved with CRRT. 5. Persistent lactic acidosis. It is a very poor prognostic sign to have ongoing lactic acidosis despite being on CRRT. It is a sign of overwhelming sepsis and hypoperfusion. Primary team is in discussion with infectious disease and surgical service to see if anything further needs to be done for the patient's abnormal left hip imaging with possible gas gangrene (?). 6. Atrial fibrillation with rapid ventricular response (RVR). The patient has been having ectopy and it is secondary to her significant pressor requirement. She was bolused amiodarone. She is on an amiodarone drip now. We will continue to try and optimize electrolytes with CRRT. She is receiving calcium and magnesium supplementation along with close monitoring of her electrolytes. 7. High anion gap metabolic acidosis. It is secondary to lactic acidosis, which is secondary to septic shock. It is a poor prognostic sign to have ongoing lactic acidosis and acidemia despite continuous renal replacement therapy. Repeat lactic acid level is pending this morning. If her bicarbonate is 20 on the latest labs, no need for carbonate-containing fluids at present. 8. Hyponatremia. It is secondary to renal failure; it is mild, and continue with CRRT prescription. Her sodium levels are slowly improving. TOTAL CRITICAL CARE TIME: 40 minutes. The case was discussed with Dr. Daimco and the patient's daughter, Salud Stack, was updated by myself yesterday evening and again this morning,
--- NOTE | 2020-11-17 13:18 | REP ---
INDICATION: r/o CVA. COMPARISON: 11/15/2020. TECHNIQUE: CT BRAIN PERFORMED IN THE AXIAL PLANE. CORONAL RECONSTRUCTION IMAGES ARE PERFORMED. FINDINGS: Once again there is moderate atrophy. There is no midline shift or mass effect. There are mild periventricular small vessel ischemic changes which are stable. There is no acute intracranial hemorrhage or extra-axial fluid collection. Vascular calcifications are seen in the carotid siphons. Paranasal sinuses and mastoid air cells are clear with no abnormal opacification. IMPRESSION: Stable exam with no acute findings. <Electronically signed by Denilson Lloyd > 11/17/20 [id number]
[2020-11-17] MEDS: MEROPENEM INJ 500 MG in IV 1 EA IV SCH (13:34)
[2020-11-17] MEDS ORDERED: SODIUM CHLORIDE 0.9% INJ 10 ML SYR IV PRN (15:30)
[2020-11-17] MEDS: AMIODARONE HCL 360 MG in IV 1 EA IV SCH (16:39)
[2020-11-17] MEDS ORDERED: ENOXAPARIN 100MG/1ML SYRINGE (J1650 PER 10MG) SC SCH (18:00)
[2020-11-17] MEDS: MORPHINE 2 MG/ML 1ML VIAL (J2270) IV PRN (18:24)
--- NOTE | 2020-11-17 19:04 | CR ---
CONSULTATION DATE: 11/17/2020 CHIEF COMPLAINT: Shock. HISTORY OF PRESENT ILLNESS: Mrs. Stack is an 80-year-old female with a past medical history of CKD, hypertension, hyperlipidemia, insulin-dependent diabetes, and osteoarthritis who had presented initially on November 15, after being found on the floor by her family members for reportedly more than four hours. In the ED initially, the patient was found to be in atrial fibrillation with rapid ventricular response. She also had leukocytosis and bandemia and there was concern for sepsis. The patient had denied any significant chest pain at the time. No shortness of breath or cough. She had tenderness to palpation and was complaining of pain around her left hip and thigh area where she had been laying down. She had erythema there and there was concern initially for cellulitis. The patient was started on broad-spectrum antibiotics. There was also questionable colitis on her imaging initially as well. She had significant lactic acidosis, which had minimal improvement despite IV fluid boluses. She was also noted to have evidence of significantly elevated CPK and acute renal failure with oliguria and then subsequently was becoming more anuric. The patient was also noted to have a metabolic acidosis and was on a bicarbonate infusion. She had evidence also of demand ischemia with mildly elevated troponin. The patient was transferred to the ICU due to worsening lactic acidosis, as well as hypotension. She was started on Levophed for vasopressor administration and due to her worsening renal failure and oliguria with rhabdomyolysis, she was started on CRRT overnight. Overnight, the patient was requiring an increasing amount of pressors and this morning was up to 25 mcg/min of Levophed and vasopressin. Anesthesia was also consulted overnight and she had placement of an arterial line in the right brachial artery, although somewhat poor waveform. She had multiple attempts on the left arm, which were unsuccessful. She did get IV fluid bolus yesterday and was on 50 mL of normal saline for maintenance overnight with zero fluid removal with dialysis. Her lactic acid had increased despite being on CRRT throughout the night, although her metabolic acidosis and creatinine had improved. The patient did also go into atrial fibrillation with rapid ventricular response again this morning. She was given amiodarone 150 mg with some improvement in her heart rate. The patient this morning denies any worsening shortness of breath or dyspnea and no chest pain. She is anxious and complaining of pain still in her left hip area, as well as thigh. She denies any abdominal pain. No nausea or vomiting and has not had any fevers overnight. PAST MEDICAL AND SURGICAL HISTORY: 1. Diabetes. 2. Hypertension. 3. Hyperlipidemia. 4. Osteoarthritis status post right hip replacement. 5. Vitamin B12 deficiency. 6. Iron deficiency anemia. 7. Memory loss. 8. Hypertensive heart disease. 9. Left knee surgery and revision. 10. Right knee surgery. 11. Hysterectomy. 12. Right shoulder surgery. FAMILY HISTORY: Father with history of COPD. Mother with history of uterine cancer. A daughter with a history of breast cancer. SOCIAL HISTORY: Denies any smoking or alcohol use. HOME MEDICATIONS: 1. Calcium, vitamin D, and multivitamin. 2. Aspirin. 3. Vitamin B12. 4. Iron. 5. Mevacor. 6. Lantus. 7. Metformin. 8. Irbesartan/hydrochlorothiazide. ALLERGIES: SULFA, CHRIST INHIBITORS causing a cough, CIPROFLOXACIN. PHYSICAL EXAMINATION: VITAL SIGNS: Temperature 96.8, pulse 127, respirations 22, blood pressure 81/56, O2 sat 94% on 2 liters nasal cannula. INTAKE AND OUTPUT: In 5.1 liters, out 50 mL. GENERAL: The patient is a morbid obesity female. She is lying in bed and appears anxious, but is not in any acute respiratory distress. She is not tachypneic and is not using any accessory muscles for respiration. HEENT: Normocephalic, atraumatic. Pupils reactive to light bilaterally. NECK: Supple. Trachea is midline. No JVD noted. There is a right IJ Trialysis catheter in place. CARDIAC: Irregularly irregular. Normal S1, S2. Unable to clearly appreciate any murmurs. PULMONARY: Diminished air entry bilaterally. There is no wheezing or rhonchi noted. ABDOMEN: Morbidly obese, soft, and nondistended. There is mild tenderness in the very bottom left lower quadrant. There is tenderness to palpation in the left hip area extending down to the thigh with an area of erythema and cellulitis, although is less today than previous. LABORATORY DATA: WBC 18.4, hemoglobin 10.8, platelets 213,000. Chemistries with sodium of 129, potassium 4.9, chloride 95, bicarb 20, BUN 35, creatinine 2.08, glucose 150. Lactic acid 8.5. Calcium is 8.1. Total bilirubin 1.8. AST and ALT 840 and 291. CPK 08385. Troponin 0.20. Albumin is 1.9. INR yesterday 1.85, PTT 15.4. ABG with pH of 7.379, pCO2 of 26.7, and pO2 of 117.4. IMAGING DATA: Chest x-ray 11/16/2020, showed satisfactory position of a right IJ central line. There was cardiomegaly. There was no pleural effusion. There was no focal opacity or infiltrate. CT abdomen and pelvis from 11/15/2020, showed multiple small calcifications of the gallbladder neck, but no gallbladder distention or wall thickening. There was no biliary duct dilation. There was fatty atrophy of the pancreas. There is a 5.3 cm hiatal hernia. There is possible colitis in the sigmoid colon and rectosigmoid colon. There is a right hip arthroplasty. Lumbar spine CT from 11/15/2020, showed there is worsening intramuscular gas extending into the left iliacus and psoas muscles, which overall the muscles appear thickened when compared to the right. Cannot exclude the possibility of intramuscular abscess or hematoma. There is no definite sacral fracture noted. ASSESSMENT AND PLAN: Ms. Stack is an 83-year-old female with a past medical history of hypertension, hyperlipidemia, insulin-dependent diabetes, and osteoarthritis who presented initially after being found on the floor by the family for more than four hours. The patient was noted to be in atrial fibrillation with rapid ventricular response. She was also noted to have leukocytosis with concern for sepsis secondary to cellulitis versus a colitis. She was also noted to have acute renal failure and rhabdomyolysis with metabolic acidosis and a severe lactic acidosis. The patient was given fluid repletion with minimal improvement in her renal function, as well as in her acidosis. She was oliguric and was transferred to the ICU yesterday due to hypotension and her oliguric renal failure. She had a Trialysis catheter placed yesterday and she was started on CRRT by nephrology. She was also started on Levophed initially for vasopressor support, but overnight had required increased amounts of vasopressors and was on 25 mcg/min of Levophed and also vasopressin. The patient also had another episode of atrial fibrillation and rapid ventricular response early this morning and was given amiodarone. Critical care was consulted due to her worsening shock and pressor requirements. Patient with shock thought to be in the setting of septic shock secondary to colitis versus a cellulitis. There was also on her CT possible abscess, as well as some gas noted in the left iliacus and psoas muscle. - The patient had severe lactic acidosis and leukocytosis secondary to sepsis from the previously stated possible sources. She was on Zosyn initially, but then was brought into meropenem, as well as vancomycin. The patient had previously been given IV fluid boluses with no improvement in her lactic acid. She was given one liter normal saline yesterday in the evening and then continued on maintenance fluids at 50 mL/hour. She also had no fluid removal with CRRT. Her central venous pressure (CVP) was very low yesterday and despite her previous echocardiogram showing evidence of pulmonary hypertension and some diastolic dysfunction, her internal jugular (IJ) was also very compressed. She is very significantly net positive, but does not clinically appear to be fluid overloaded. The patient instead was thought to be intravascular depleted still and so was given another bolus of normal saline this morning and her pressor requirements did decrease. She was still fluid responsive. - The patient's lactic acid will be repeated after she receives the additional IV fluid boluses. - As the patient is still fluid responsive despite receiving adequate resuscitation, there is concern for possible bleeding. With the initial CT read, there is the possibility of a hematoma and given her obesity, it is difficult to assess clinically by exam. Her hemoglobin and hematocrit (H&H) have not trended down so far, but we will repeat another H&H to see if she has worsening anemia. She is on anticoagulation, which was started during her admission due to her atrial fibrillation, as well as her evidence of demand ischemia. The patient does have a decline in her H&H and would likely hold her anticoagulation, as it was started more for her atrial fibrillation it appears. - Will continue pressors to maintain a mean arterial pressure (MAP) above 65. - Would consider repeat imaging with ultrasound to assess if there is increasing fluid collection in her left psoas area and iliacus. Given her fall and being on anticoagulation, there is the possibility that she may have a retroperitoneal bleed there. Atrial fibrillation with rapid ventricular response. - The patient was given amiodarone 150 mg overnight with another 150 mg load and the further loading dose of amiodarone. She is unable to get beta-blockers given her shock. - The patient's initial echocardiogram did show normal ejection fraction (EF) with grade 2 diastolic dysfunction. She also had dilated and mildly hyperkinetic right ventricle and evidence of moderately severe pulmonary hypertension. Despite the echocardiogram, however, she clinically did not appear to be fluid overloaded and her CVP was still low and her IJ was very compressible. - The patient does have mild troponin secondary to demand ischemia as well from her renal failure. She is on aspirin, which we can continue for now still. - The patient is also on anticoagulation with Lovenox. Would consider holding if there is concern for bleeding. Acute renal failure likely multifactorial due to shock, as well as rhabdomyolysis and possibility of the additional contrast nephropathy and her home medications. - Appreciate nephrology consult. She did have severe metabolic acidosis and oliguria and given concern for her worsening renal function, she was started on continuous renal replacement therapy (CRRT) yesterday. She is having some improvement in her metabolic acidosis, as well as in her creatinine with the CRRT, but has not had improvement yet with her lactic acidosis. She is off of the bicarbonate infusion. - Will continue CRRT as per nephrology. There is no fluid removal currently given her shock and hypotension. - Will monitor electrolytes and manage as per nephrology. She does have hyponatremia. Transaminitis likely shock liver as well as a degree secondary to her rhabdomyolysis and elevated CK. Will continue to monitor her transaminitis. - Will also check repeat coags with a disseminated intravascular coagulation (DIC) panel. Will continue diabetes management as per primary team. Deep vein thrombosis (DVT) prophylaxis. Was on full dose Lovenox. Code status: The patient was made DO NOT RESUSCITATE (DNR) / DO NOT INTUBATE (DNI) after discussion yesterday evening. TOTAL CRITICAL CARE TIME SPENT: Not including any procedures approximately one hour and 55 minutes.
--- NOTE | 2020-11-17 19:58 | REP ---
INDICATION: r/o retroperitoneal bleed, abscess in psoas muscle. COMPARISON: Abdomen/pelvis CT dated 11/15/2020 TECHNIQUE: Multiple sonographic images of the retroperitoneum to evaluate for retroperitoneal hematoma. FINDINGS: There are images of the right renal area right lower retroperitoneum, midline retroperitoneum, left renal area and left lower retroperitoneal area. The examination is technically difficult and very limited because of patient body habitus and bowel gas. The examination is mostly 9 diagnostic. No large fluid collections are identified. The aorta is not optimally demonstrated. The IVC could not be visualized. IMPRESSION: Suboptimal examination. If felt clinically indicated consider CT for further evaluation. Results were discussed with the ICU nurse. The ICU nurse is contacting Dr. Damico this evening. <Electronically signed by Denilson Flores > 11/17/201952
[2020-11-17] MEDS ORDERED: VANCOMYCIN HCL 1,000 MG, VIAL MATE ADAPTER 1 EACH in NS 250 ML IV SCH (20:00)
[2020-11-17 20:45] LABS: HEMATOCRIT 30.9 % (36.0-47.0); MEAN CORPUSCULAR HEMOGLOBIN 27.6 pg (27.0-33.0); MEAN CORPUSCULAR HGB CONC 31.7 g/dl (32.0-36.5); PLATELET COUNT, AUTOMATED 149 10^3/uL (150-450); RED BLOOD COUNT 3.55 10^6/uL (4.00-5.40); WHITE BLOOD COUNT 16.2 10^3/uL (4.0-10.0)
[2020-11-17 20:50] LABS: HEMOGLOBIN 9.8 g/dl (12.0-15.5)
[2020-11-17] MEDS ORDERED: VANCOMYCIN HCL 500 MG in D5W MINI-BAG PLUS 100 ML IV SCH (21:00)
[2020-11-17 21:10] LABS: LYMPHOCYTES 3 % (16-44); MONOCYTES 6 % (0-5); NEUTROPHILS 90 % (28-66)
[2020-11-17 21:11] LABS: ANISOCYTOSIS 1+; BURR CELLS 1+; PLATELET ESTIMATE NORMAL (NORMAL); POLYCHROMASIA 1+
[2020-11-17 21:14] LABS: ALBUMIN 1.7 GM/DL (3.2-5.2); BILIRUBIN,TOTAL 2.1 MG/DL (0.2-1.0); CALCIUM LEVEL 7.3 MG/DL (8.8-10.2); CREATININE FOR GFR 1.47 MG/DL (0.55-1.30); GLOMERULAR FILTRATION RATE 36.4 (>32); PHOSPHORUS LEVEL 3.5 MG/DL (2.5-4.9); POTASSIUM SERUM 4.7 MEQ/L (3.5-5.1); TOTAL PROTEIN 4.9 GM/DL (6.4-8.2)
--- NOTE | 2020-11-17 21:41 | IPNPDOC ---
Text Note Date of Service The patient was seen on 11/17/20. NOTE Overnight she has developed increased hypotension as well as renal failure. She is on continuous dialysis now and still requiring more pressors, but is showing signs of response to fluids. Denies nausea, emesis, and abd pains. Only complaint is left leg pains. afebrile, BP stable on pressors, HR 80-120, 94% on 2LNC NAD abd - soft, nt, nd, obese ext - left lateral thigh is edematous and very tender to palpation, but the erythema has resolved. labs - below A) 80y/o female s/p prolonged down time s/p possible fall with shock from unknown cause left psoas pneumatosis P) continue with current treatment there is no indication of any acute intraabdominal process at this time to warrant surgery radiology can aspirate the left psoas for diagnostic purposes, but she needs to be stable enough for CT to have that done. The area is too deep to access with US. I did speak with the radiologist and he does not see any fluid there. Once she is off of pressors we will plan on repeat abd CT and aspiration . will follow. Drew Stein DO VS,Noemy, I+O VSNoemy, I+O Laboratory Tests 11/17/20 05:00 11/17/20 11:05 11/17/20 20:10 Vital Signs Date Time Temp Pulse Resp B/P (MAP) Pulse Ox O2 Delivery O2 Flow Rate FiO2 11/17/20 20:00 99.0 116 18 129/49 (75) 98 Nasal Cannula 2.0 I&O- Last 24 Hours up to 6 AM 11/17/20 06:00 Intake Total 4168 ml Output Total 50 ml Balance 4118 ml JOON STEIN DO Nov 17, 2020 21:41
[2020-11-18] VITALS (27 sets, daily range): BP systolic 85–194; BP diastolic 50–126
[2020-11-18] MEDS: CALCIUM GLUCONATE 1,000 MG, VIAL MATE ADAPTER 1 EACH in NS 100 ML IV SCH ×4 (00:22→10:14)
[2020-11-18] MEDS: VASOPRESSIN INJ 20 UNITS in NS 500 ML IV SCH ×3 (00:22→14:48)
[2020-11-18] MEDS: NOREPINEPHRINE BITARTRATE 8 MG in D5W 492 ML IV SCH ×6 (00:26→16:33)
[2020-11-18] MEDS: MEROPENEM INJ 500 MG in IV 1 EA IV SCH ×2 (01:28→12:16)
[2020-11-18] MEDS: AMIODARONE HCL 360 MG in IV 1 EA IV SCH (04:29)
[2020-11-18 06:38] LABS: HEMATOCRIT 28.7 % (36.0-47.0); MEAN CORPUSCULAR HEMOGLOBIN 27.1 pg (27.0-33.0); MEAN CORPUSCULAR HGB CONC 31.4 g/dl (32.0-36.5); MEAN CORPUSCULAR VOLUME 86.4 fl (80.0-96.0); PLATELET COUNT, AUTOMATED 104 10^3/uL (150-450); RED BLOOD COUNT 3.32 10^6/uL (4.00-5.40); WHITE BLOOD COUNT 15.2 10^3/uL (4.0-10.0)
[2020-11-18 07:08] LABS: LYMPHOCYTES 3 % (16-44); MONOCYTES 4 % (0-5); NEUTROPHILS 85 % (28-66); PLATELET ESTIMATE DECREASED (NORMAL)
[2020-11-18 07:09] LABS: POLYCHROMASIA 1+
[2020-11-18 07:10] LABS: ALBUMIN 1.6 GM/DL (3.2-5.2); BILIRUBIN,TOTAL 1.9 MG/DL (0.2-1.0); CALCIUM LEVEL 7.9 MG/DL (8.8-10.2); CREATININE FOR GFR 1.08 MG/DL (0.55-1.30); POTASSIUM SERUM 3.9 MEQ/L (3.5-5.1); TOTAL PROTEIN 4.6 GM/DL (6.4-8.2)
[2020-11-18 07:28] LABS: MAGNESIUM LEVEL 2.1 MG/DL (1.8-2.4); PHOSPHORUS LEVEL 2.6 MG/DL (2.5-4.9)
[2020-11-18] MEDS: HumaLOG INSULIN (NovoLOG) PER UNIT SC SCH ×4 (07:48→20:35)
[2020-11-18] MEDS: LACTOBACILLUS ACIDOPHILUS CAP (BACID) PO SCH ×2 (07:49→17:07)
[2020-11-18] MEDS: ASPIRIN 81 MG CHEW TABLET PO SCH (07:49)
[2020-11-18] MEDS: MORPHINE 2 MG/ML 1ML VIAL (J2270) IV PRN ×4 (07:50→23:51)
[2020-11-18 08:39] LABS: VANCOMYCIN RANDOM 18.2 UG/ML
[2020-11-18] MEDS ORDERED: PANTOPRAZOLE 20 MG TAB PO SCH (09:00)
[2020-11-18] MEDS ORDERED: AMIODARONE 200 MG TAB (PACERONE) PO SCH (09:00)
--- NOTE | 2020-11-18 09:13 | ECGEPIP ---
[facility] Test Date: 2020-11-17 Pat Name: SRIRAM JESSICA Department: Room: [place] [address] Gender: Female Broker Assistant: ICU : 1940 Requested By: KRYSTEN NEUMANN Order Number: [id number] Reading MD: Lewis Toth Measurements Intervals [place] Rate: 79 P: DC: QRS: 69 QRSD: 82 T: 47 QT: 368 QTc: 421 Interpretive Statements Baseline artifact makes rhythm interpretation difficult Atrial fibrillation with controlled ventricular response Nonspecific ST-T wave abnormalities Compared to prior tracing of 11/16/2020, atrial fibrillation is new but was also p present on 11/15/2020 tracing Electronically Signed on 11-18-2020 9:12:37 EDT by Lewis Toth
[2020-11-18] MEDS: VANCOMYCIN HCL 1,000 MG, VIAL MATE ADAPTER 1 EACH in NS 250 ML IV SCH ×2 (10:14→21:37)
[2020-11-18] MEDS ORDERED: KCL 20MEQ IN 100ML SWI (KRUN) 20 MEQ in IV 1 EA IV ONE ×2 (11:00)
[2020-11-18] MEDS ORDERED: SODIUM CHLORIDE 0.9% INJ 10 ML SYR IV PRN (12:00)
--- NOTE | 2020-11-18 12:06 | IPNPDOC ---
Text Note Date of Service The patient was seen on 11/18/20. NOTE General Surgery Dr Stein. The pt is seen in the ICU with Dr Stein, is still on continuous dialysis and still requiring pressors. Denies nausea, emesis, and abd pain. States she still has some pain left hip area but not as bad as it had been. afebrile, BP 112/51, HR 102-134, 94% on 2LNC resting in bed and easily aroused. Abdomen soft, nt, nd, obese Left lateral thigh is still edematous but less tender with palpation, no erythema/warmth. WBC 15.2, dec slightly Hgb 9.0 Plt 104 SCr 1.08/GFR 52 A/P 80y/o female s/p prolonged down time s/p possible fall with shock from unknown cause, left psoas pneumatosis. Plan to continue with current treatment, no indication of any acute intraabdominal process at this time to warrant surgery. Dr Stein d/w radiology 11/17, can aspirate the left psoas for diagnostic purposes, but she would need to be stable enough for CT to have that done. The area is too deep to access with US. Radiologist did not see any fluid there. Once she is off of pressors could plan on repeat abd CT and re consider aspiration. Continue to follow. VS,Geraldobone, I+O VS, Fishbone, I+O Laboratory Tests 11/17/20 20:10 11/18/20 06:04 Vital Signs Date Time Temp Pulse Resp B/P (MAP) Pulse Ox O2 Delivery O2 Flow Rate FiO2 11/18/20 11:00 141/57 11/18/20 10:00 134 17 94 Room Air 11/18/20 09:00 2.0 11/18/20 08:00 98.4 I&O- Last 24 Hours up to 6 AM 11/18/20 05:59 Intake Total 7618.7 ml Output Total 314 ml Balance 7304.7 ml Meron Jacobs Nov 18, 2020 12:06
--- NOTE | 2020-11-18 12:16 | IPNPDOC ---
Date Seen The patient was seen on 11/18/20. Progress Note SUBJECTIVE: Decreased levophed amount to 13 mcg, remains on vasopressin. Holding off on CT guided drainage of ? abscess due to instability currently. US done to r/o bleed was suboptimal. Remains on amiodarone gtt, HR fluctuating to within goal (<110) and above at times. Received 1 unit PRBC for low H/H and showed to be improved some this AM. Redness of left thigh improved, tenderness remains with deep palpation. ID to see today. Patient had right side facial droop 11/17/20, CT head neg for CVA, neuro symptoms resolved within 1 hour. OBJECTIVE: PHYSICAL EXAMINATION: VITAL SIGNS: Please see below GENERAL APPEARANCE: NAD, resting, AAOx 3 HEENT: bruising under right eye, mild. No increased swelling NECK: No masses, right trialysis catheter in place LUNGS: CTAB, no wheezing, rhonchi, wheezing HEART: irregularly irregular rhythm, rapid. There is a 1/6 systolic ejection murmur. No rubs or gallops ABDOMEN: Soft, nontender. No guarding or rebound. No referred pain. No CVA tenderness. EXTREMITIES: Pain of left upper thigh. Full range of motion of both hips. No cyanosis or clubbing. Trace peripheral edema. Moves arms and legs with equal strength. Generally weak INTEGUMENTARY: large left upper thigh redness, swelling much decreased. extending from left knee to upper thigh/below hip- mildly tender to touch. : macias catheter in place NEUROLOGIC: CN 2-12 intact, no focal deficits PSYCH: mood and affect appropriate LABORATORY DATA: Please see below MICROBIOLOGY: BCx x 2 sets: NG at 48 hours Repeat BCx x 2 sets: pending UCx NG IMAGING: CT head 11/17/20: Stable exam, no acute findings US abdomen: Suboptimal examination. If felt clinically indicated consider CT for further evaluation. CXR: Chronic changes without acute infiltrate or pleural effusion. 5 mm nodule left lower lobe, recommend follow-up CT chest in 6-12 months. Echocardiogram 11/15/20: EF 65-70% Study is of acceptable technical quality, patient is in sinus rhythm. Normal LV size with preserved LV systolic function and grade 2 diastolic dysfunction. Dilated hypokinetic right ventricle. No hemodynamically significant valvular disease. Likely elevated central venous pressure and moderately severe pulmonary hypertension. CT lumbar spine: 1. Worsening intramuscular gas extending into the left iliacus and psoas muscles, which overall these muscles appear asymmetrically thickened when compared with the right. Cannot exclude possibility of intramuscular abscess and/or hematoma in the setting of recent trauma. It is possible that this gas is extending from the level of the left SI joint, though no definite sacral fracture is identified. Recommend orthopedic consultation. 2. Other chronic findings, as above. CT abd/pelvis: Numerous a small gallbladder calculi. No CT evidence of acute cholecystitis or biliary duct dilatation. The kidneys are unremarkable. Wall thickening of the sigmoid colon and rectosigmoid colon, nonspecific, but could represent infectious versus inflammatory colitis in the appropriate clinical setting. 5.3 cm hiatal hernia. Appendix is unremarkable. Hysterectomy. Right hip arthroplasty. Grade 1 compression deformity of the L4 superior endplate and lumbar spine degenerative disc disease. CT chest: Chronic changes without acute infiltrate or pleural effusion. 5 mm nodule left lower lobe, recommend follow-up CT chest in 6-12 months. IMPRESSION/PLAN: Hypotension likely septic shock 2/2 to colitis vs. abscess/gas seen in left iliacus and psoas muscles vs. left lower ext/thigh cellulitis. Also concern for possible hematoma/bleed from initial CT scan and was on enoxaparin -WBC improved to 15.2, bandemia persists at 8, LA 3.8 (peaked 11/17/20 at 8.5) -Received 1500 mL, 1 unit PRBC over past 24 hours -H/H low at 7.4/23, improved s/p 1 unit PRBC. US above did not show teresa blood ;h owever, poor study -Decreased pressor support with levophed at 13 mcg, remains on vasopressin -At this time, too unstable to take for CT guided bx of ? abscess vs. hematoma in left iliacus/psoas muscles -F/u daily labs, LA, all cultures above. When able will get CT guided studies, will do. -Discussed case with ID who is consulted to see on 11/18/20. C/w meropenem, vancomycin. Anemia, r/o 2/2 to hematoma, bleed vs. dilutional effect -No s/s of obvious bleeding but cannot r/o on current imaging, see initial CT above -Please see above -CBC Q12H Atrial fibrillation with RVR 2/2 to sepsis -HR 106-134, mostly <110 -Echo above -Goal HR < 110 bpm -C/w treatment of sepsis above, amiodarone gtt stopped and transitioned to PO TID -Tele TIA vs. transient focal deficits 2/2 to hypotension- resolved -Right side facial droop, resolved within 1 hr -CT head neg -Neuro exam normal today, no deficits -On ASA, stopped statin 2/2 to transaminitis Hypocalcemia, acute -S/p calcium gluconate today -Following lytes closely with CRRT Elevated troponins possibly cytokine induced, cannot r/o Type II event -Trop trending down and last was wnl -Echo above -Discussed case with Dr. Amato, cardiology. At this time, not acute STEMI, N STEMI, no indication for cardiac catheterization -Monitor closely Acute rhabdomyolysis -Peaked CK at 32K, trending down -Follow up CMP regularly -Nephrology following, CRRT AMIRA likely multifactorial 2/2 to hypotension, acute rhabdomyolysis, cannot r/o contrast nephropathy, medications -CRRT began evening 11/16/20, u/o 10-20 mL/hr -Cr improved to 1.08 -F/u labs regularly -Monitor u/o closely, not on IVFs -F/u nephrology recommendations Acute transaminitis poss 2/2 to hypotension -AST/ALT elevated, trending down -Tx for hypotension above -Following CMP daily Elevated BNP likely 2/2 to atrial fibrillation with RVR, HFpEF / mod-severe pulmonary HTN -Echocardiogram above -CXR neg for acute changes -Saturating well on RA -Stopped BB, no diuretics currently -Discussd case with cardiology. C/w current management above DM type II -BS stable -ISS, AC/HS, consistent carb GERD/GI px -PPI DVT px -Stopped lovenox with concern for bleed. teds, scd Resolved issues: Hypomagnesemia, acute Hyperkalemia likely 2/2 to AMIRA DISPOSITION: Critical care, ID, nephrology and surgery following. Will need PT/OT when medically improved. TOTAL AMOUNT OF ICU TIME SPENT ON PATIENT'S CARE TODAY (nonprocedural): 50 MINS VS, I&O, 24H, Fishbone Vital Signs/I&O Vital Signs Date Time Temp Pulse Resp B/P (MAP) Pulse Ox O2 Delivery O2 Flow Rate FiO2 11/18/20 11:00 141/57 11/18/20 10:00 134 17 94 Room Air 11/18/20 09:00 2.0 11/18/20 08:00 98.4 I&O- Last 24 Hours up to 6 AM 11/18/20 06:00 Intake Total 7746.8 ml Output Total 324 ml Balance 7422.8 ml Laboratory Data 24H LABS Laboratory Tests 2 11/17/20 12:26: Bedside Glucose (Misc Panel) 70L 11/17/20 16:59: Bedside Glucose (Misc Panel) 132H 11/17/20 19:00: Vancomycin Level Trough 8.5L 11/17/20 20:10: Neutrophils (%) (Auto) , Nucleated Red Blood Cells % (auto) 0.2H, Neutrophils 90H, Band Neutrophils 1, Lymphocytes (Manual) 3L, Monocytes (Manual) 6H, Polychromasia 1+, Anisocytosis 1+, [place] Cells 1+, Platelet Estimate NORMAL, Anion Gap 7L, Glomerular Filtration Rate 36.4, Lactic Acid Followup at 4 Hours 3.8*H, Calcium Level 7.3L, Whole Blood Ionized Calcium 3.9L, Phosphorus Level 3.5#, Magnesium Level 2.0, Total Bilirubin 2.1H, Aspartate Amino Transf (AST/SGOT) 1409H, Alanine Aminotransferase (ALT/SGPT) 559H, Alkaline Phosphatase 126H, Troponin I 0.10#, Total Protein 4.9L, Albumin 1.7L, Albumin/Globulin Ratio 0.5L 11/17/20 20:14: Bedside Glucose (Misc Panel) 178H 11/17/20 20:16: Bedside Glucose (Misc Panel) 126H 11/18/20 06:04: Neutrophils (%) (Auto) , Nucleated Red Blood Cells % (auto) 0.3H, Neutrophils 85H, Band Neutrophils 8, Lymphocytes (Manual) 3L, Monocytes (Manual) 4, Polychromasia 1+, Platelet Estimate DECREASED, Anion Gap 6L, Glomerular Filtration Rate 52.0, Calcium Level 7.9L, Phosphorus Level 2.6#, Magnesium Level 2.1, Total Bilirubin 1.9H, Aspartate Amino Transf (AST/SGOT) 1048H, Alanine Ami notransferase (ALT/SGPT) 501H, Alkaline Phosphatase 131H, Total Creatine Kinase 5139H, Total Protein 4.6L, Albumin 1.6L, Albumin/Globulin Ratio 0.5L, Random Vancomycin Level 18.2 11/18/20 07:55: Whole Blood Ionized Calcium 4.2L CBC/BMP Laboratory Tests 11/17/20 20:10 11/18/20 06:04 Microbiology Microbiology 11/18/20 Blood Culture, Received Pending 11/18/20 Blood Culture, Received Pending 11/15/20 Urine Culture - Final, Complete 11/15/20 Blood Culture - Preliminary, Resulted No Growth after 72 hours. All specime... 11/15/20 Blood Culture - Preliminary, Resulted No Growth after 72 hours. All specime... Current Medications Current Medications Medications (Trade) Dose Ordered Sig/Sendy Route PRN Reason Start Time Stop Time Status Last Admin Dose Admin Acetaminophen (Tylenol Tab) 1,000 mg Q6HP PRN PO PAIN / FEVER 11/15/20 18:50 11/15/20 20:14 Amiodarone HCl (Pacerone, Cordarone) 200 mg TID PO 11/18/20 16:00 UNV Amiodarone HCl 150 mg/IV Miscellaneous Supplies 100 ml @ 600 mls/hr STAT STAT IV 11/17/20 08:58 11/17/20 09:07 DC 11/17/20 09:18 Amiodarone HCl 360 mg/IV Miscellaneous Supplies 200 ml @ 17 mls/hr [id number] IV 11/17/20 16:00 11/18/20 10:00 DC 11/18/20 04:29 Amiodarone HCl 360 mg/IV Miscellaneous Supplies 200 ml @ 33.333 mls/ hr Q6H IV 11/17/20 10:00 11/17/20 10:05 DC 11/17/20 11:11 Aspirin (Aspirin Chewable) 81 mg DAILY PO 11/15/20 09:00 Cancel Aspirin (Aspirin Chewable) 81 mg DAILY PO 11/16/20 09:00 11/18/20 07:49 Calcium Gluconate 1000 mg/IV Miscellaneous Supplies 1 each/ Sodium Chloride 110 ml @ 110 mls/hr 0600,0700 IV 11/17/20 06:00 11/17/20 10:00 DC 11/17/20 09:18 Calcium Gluconate 1000 mg/IV Miscellaneous Supplies 1 each/ Sodium Chloride 110 ml @ 110 mls/hr 2200,2300 IV 11/17/20 22:00 11/18/20 02:00 DC 11/18/20 02:19 Calcium Gluconate 1000 mg/IV Miscellaneous Supplies 1 each/ Sodium Chloride 110 ml @ 110 mls/hr Q1H IV 11/18/20 09:00 11/18/20 10:59 DC 11/18/20 10:14 Ceftriaxone Sodium 1 gm/ Dextrose 50 ml @ 100 mls/hr Q24H IV 11/15/20 16:00 11/16/20 08:46 DC 11/15/20 16:53 Dextrose (Dextrose 50%) 25 ml ASDIRECTED PRN IV SEE LABEL COMMENTS 11/15/20 14:50 Dextrose (Dextrose 50%) 50 ml STAT STAT IV 11/16/20 02:51 11/16/20 02:57 DC 11/16/20 03:16 Enoxaparin Sodium (Lovenox) 80 mg Q12H SC 11/15/20 18:00 11/16/20 19:06 DC 11/16/20 17:41 Enoxaparin Sodium (Lovenox) 90 mg Q24H SC 11/17/20 18:00 11/17/20 17:59 Glucagon (Glucagon) 1 mg ASDIRECTED PRN SC SEE LABEL COMMENTS 11/15/20 14:50 Glucose (Glucose) 16 GM ASDIRECTED PRN PO SEE LABEL COMMENTS 11/15/20 14:50 Heparin Sodium (Heparin) ASDIRECTED PRN IV SEE LABEL COMMENTS 11/16/20 20:45 11/17/20 15:24 DC Heparin Sodium (Heparin) ASDIRECTED PRN IV SEE LABEL COMMENTS 11/17/20 15:30 Heparin Sodium (Heparin) dose as per volume indica... ASDIRECTED PRN IV SEE LABEL COMMENTS 11/16/20 18:00 11/16/20 18:31 DC 11/16/20 18:22 Home Med (Med Rec Complete!) ASDIRECTED XX 11/15/20 13:20 11/15/20 13:22 DC Hydromorphone HCl (Dilaudid) 0.3 mg Q3HP PRN IV MILD PAIN (PS 1-4) 11/17/20 00:50 11/17/20 12:31 DC 11/17/20 01:07 Insulin Human Lispro (HumaLOG INSULIN) SEE PROTOCOL TABLE AC SC 11/15/20 17:30 11/18/20 07:48 Insulin Human Lispro (HumaLOG INSULIN) SEE PROTOCOL TABLE QHS SC 11/15/20 21:00 Insulin Human Regular (HumuLIN R INSULIN) 10 units STAT STAT IV 11/16/20 02:51 11/16/20 02:57 DC 11/16/20 03:17 Lactobacillus Acidophilus (Bacid) 1 ea BIDWM PO 11/16/20 08:00 11/18/20 07:49 Meropenem 2 gm/ Sodium Chloride 100 ml @ 200 mls/hr Q8H IV 11/17/20 12:15 11/17/20 12:24 DC Meropenem 500 mg/ IV Miscellaneous Supplies 50 ml @ 100 mls/hr Q12H IV 11/17/20 13:00 11/18/20 01:28 Metoprolol Tartrate (Lopressor) 5 mg Q5M IV 11/15/20 12:55 11/15/20 13:06 DC 11/15/20 13:52 Metoprolol Tartrate (Lopressor) 25 mg Q6H PO 11/16/20 12:00 11/16/20 16:02 DC Metoprolol Tartrate (Lopressor) 50 mg Q6H PO 11/15/20 18:00 11/16/20 11:56 DC 11/15/20 17:36 Metronidazole 500 mg/IV Miscellaneous Supplies 100 ml @ 100 mls/hr Q8H IV 11/16/20 09:00 11/16/20 12:34 DC 11/16/20 10:13 Morphine Sulfate (Morphine Sulfate Inj) 1 mg Q4H PRN IV MODERATE PAIN (PS 5-7) 11/17/20 12:30 Morphine Sulfate (Morphine Sulfate Inj) 2 mg Q6H PRN IV SEVERE PAIN (PS 8-10) 11/17/20 12:30 11/18/20 07:50 Norepinephrine Bitartrate 8 mg/ Dextrose 500 ml @ 93.7 mls/hr Q5H21M IV 11/16/20 18:00 11/18/20 07:48 Ondansetron HCl (ZOFRAN INJection) 4 mg Q6HP PRN IV NAUSEA OR VOMITING 11/15/20 18:50 11/17/20 04:22 Piperacillin Sod/ Tazobactam Sod 3.375 gm/Dextrose 50 ml @ 50 mls/hr Q6H IV 11/16/20 10:00 11/17/20 12:16 DC 11/17/20 03:49 Potassium Chloride/Sodium Chloride 1,000 ml @ 125 mls/hr Q8H IV 11/15/20 15:30 11/16/20 02:57 DC 11/15/20 17:35 Simvastatin (Zocor) 40 mg QHS PO 11/15/20 21:00 11/16/20 08:49 DC 11/15/20 20:15 Sodium Bicarbonate 150 meq/Dextrose/Water 1,150 ml @ 150 mls/hr Q7H40M IV 11/16/20 16:00 11/16/20 20:56 DC 11/16/20 16:05 Sodium Bicarbonate 150 meq/Dextrose/Water 1,150 ml @ 150 mls/hr Q7H40M STAT IV 11/16/20 03:39 11/16/20 20:56 DC 11/16/20 04:03 Sodium Polystyrene Sulfonate (Kayexalate) 30 gm NOW STAT PO 11/16/20 02:51 11/16/20 03:05 DC 11/16/20 04:32 Sodium Chloride 1,000 ml @ 50 mls/hr Q20H IV 11/16/20 21:00 11/17/20 16:43 DC 11/16/20 22:00 Sodium Chloride (Saline Lock Flush) 10ML IN EACH LISANDRO... ASDIRECTED PRN IV SEE LABEL COMMENTS 11/16/20 20:45 11/17/20 15:24 DC Sodium Chloride (Saline Lock Flush) 10ML IN EACH LISANDRO... ASDIRECTED PRN IV SEE LABEL COMMENTS 11/17/20 15:30 Vancomycin HCl 500 mg/Dextrose 110 ml @ 110 mls/hr Q24H IV 11/17/20 21:00 11/18/20 08:55 DC 11/17/20 23:21 Vancomycin HCl 1000 mg/IV Miscellaneous Supplies 1 each/ Sodium Chloride 270 ml @ 270 mls/hr Q12H IV 11/18/20 09:00 11/18/20 10:14 Vancomycin HCl 1000 mg/IV Miscellaneous Supplies 1 each/ Sodium Chloride 270 ml @ 270 mls/hr Q24H IV 11/17/20 20:00 11/18/20 08:55 DC 11/17/20 21:09 Vasopressin 20 units/Sodium Chloride 501 ml @ 60 mls/hr Q8H21M IV 11/17/20 06:03 11/18/20 07:48 Allergies Coded Allergies: Sulfa (Sulfonamide Antibiotics) (Verified Allergy, Unknown, 11/15/20) ciprofloxacin (Verified Adverse Reaction, Intermediate, visual hallucinations, falls, 11/15/20) CHRIST Inhibitors (Verified Adverse Reaction, Mild, cough, 11/15/20) Mayra Damico MD Nov 18, 2020 12:16
[2020-11-18] MEDS: PANTOPRAZOLE 20 MG TAB PO SCH (12:18)
--- NOTE | 2020-11-18 12:24 | CCN ---
CRITICAL CARE NOTE DATE: 11/18/2020 SUBJECTIVE: The patient was seen and examined this morning during bedside rounds. Yesterday in the afternoon, the patient was given one unit of PRBC transfusion as her H&H had trended down. With the transfusion, her blood pressure did improve and she was able to be weaned down on the Levophed slightly. Overnight, her labs had shown appropriate response to the transfusion and she was continued to be weaned down on the Levophed throughout the night and into this morning. She has been continued on CVVH with zero removal, so she is significantly net positive still. She has had some slight increased urine output now at about 10 mL/hour. The patient has been continued as well on the amiodarone IV loading dose, which she will be completing later this morning. She is still in atrial fibrillation, but her heart rate has remained in the one-teens for the most part overnight. This morning, the patient states that she has been feeling slightly better. Her hip pain on the left side and her lateral thigh is less painful today, although still quite tender to palpation. She feels her breathing is also somewhat easier today. She has not had any chest pain. She denies any significant coughing or wheezing. She has some occasional epigastric discomfort she notices after eating and she is burping frequently, which she has been doing. The patient does report a history of GERD and heartburn at home. OBJECTIVE: VITAL SIGNS: Temperature 98, pulse 112, respirations 16, blood pressure 112/81, O2 saturation 94% on 2 liters nasal cannula. She was taken off of nasal cannula a liter in the morning and was satting well on room air. INTAKE AND OUTPUT: In 7.3 liters, out 245 mL. GENERAL: The patient is a morbidly obese female. She is lying in the bed and appears slightly less anxious today. She also appears more comfortable than yesterday. She is not tachypneic and is not using any accessory muscles for respiration. HEENT: Normocephalic, atraumatic. Pupils reactive to light bilaterally. NECK: Supple. Trachea is midline. There is a right IJ Trialysis catheter in place. CARDIAC: Irregularly irregular. Normal S1, S2. Unable to clearly appreciate any murmur. PULMONARY: There is some diminished air entry bilaterally. There is no significant wheezing or rhonchi noted. There are mild crackles at the bases. ABDOMEN: Morbid obesity, soft, and nondistended. She has very minimal tenderness in the very bottom left lower quadrant near her left hip area. She does have tenderness to palpation in the left hip area down the lateral thigh. The previous areas of erythema and cellulitis are improved. She does have some evidence of bruising in that area now. LABORATORY DATA: WBC is 15.2, hemoglobin 9.0, platelets 104,000. Chemistries: Sodium 130, potassium 3.9, chloride 99, bicarb 25, BUN 23, creatinine 1.08, glucose 184. Lactic acid trended down to 3.8. Total bilirubin 1.9. AST and ALT 1045 and 501. CK 5139. Albumin is 1.6. IMAGING DATA: Abdominal ultrasound 11/17/2020, was a very limited suboptimal examination due to the patient's body habitus and bowel gas. It was mostly nondiagnostic. There was no large fluid collections identified. The IVC was not able to be visualized. ASSESSMENT AND PLAN: Ms. Stack is an 80-year-old female with a past medical history of hypertension, hyperlipidemia, insulin-dependent diabetes, and osteoarthritis who had presented initially after being found on the floor by her family and had reportedly been there for more than four hours. She was in atrial fibrillation with rapid ventricular response on presentation. She was also noted to have leukocytosis with concern for sepsis secondary to cellulitis, although there was questionable colitis as well on imaging. There was also the possibility of an abscess or gas formation in her left iliacus and psoas muscle, which overlying she had evidence of cellulitis initially. The patient was also found to have a metabolic acidosis and a severe lactic acidosis with acute renal failure and rhabdomyolysis. She was transferred to the ICU as well due to hypotension and with her oliguric renal failure. She was started on CRRT by nephrology and she was also on vasopressors at quite a significant amount initially for her shock. 1. Shock thought to be in the setting of septic shock from her cellulitis with a possible abscess as well on the iliacus and psoas muscle. There was also questionable colitis on her initial imaging. - The patient was also noted to have worsening lactic acidosis despite intravenous (IV) fluid repletion and despite being on CRRT. She did continue to be fluid response in terms of her blood pressure and there was concern for possible bleeding; perhaps a retroperitoneal bleed, given her previous fall and injury and being on anticoagulation since her admission. Her hemoglobin and hematocrit (H&H) yesterday did trend down, and she was given one unit of packed red blood cells (PRBC) with improvement in her blood pressure. - The patient's lactic acidosis has been trending down now and her pressor requirements are also decreasing. She will likely be able to be weaned off the vasopressin entirely and perhaps also the Levophed. She is on continuous renal replacement therapy (CRRT) still, which she is tolerating much better than previous in terms of her blood pressure. - Will continue to monitor her H&H. She did have appropriate response after the one unit of PRBC, although it is trending down again. She did have an ultrasound done for evaluation of possible retroperitoneal bleed, which was nondiagnostic due to her body habitus. She will likely be able to have a CT of the abdomen and pelvis done when she is off pressors, as well as the possibility of a needle drainage for the previous suspected abscess; although could also potentially be a hematoma there. - The patient was on anticoagulation for her atrial fibrillation with full dose Lovenox, which was started on her admission. Given the concern for bleeding, would hold anticoagulation at this time. - Will continue to monitor blood pressure to maintain a mean arterial pressure (MAP) above 65. She did have an arterial line placed yesterday by anesthesia, although she was very difficult for access, and her A-line was then nonfunctioning later in the day and was removed. 2. The patient does have evidence of thrombocytopenia, which may be multifactorial in the setting of her sepsis, as well as from antibiotic use and with the CRRT itself. - Will continue to monitor her platelets and transfuse as needed. Would keep an active type and screen as well. 3. Atrial fibrillation with rapid ventricular response. - The patient was given IV amiodarone loading dose x2 and then continued with the IV loading protocol. She is still in atrial fibrillation, but her heart rate is now in the one-teens instead of the previous 130s to 140s. - Beta-blockers are on hold given her hypotension and shock. I would therefore, continue with amiodarone p.o. at 200 mg t.i.d. to continue with the loading dose. She would need about 10 grams for loading dose, which would be approximately 15 days and then can lower to the maintenance dose if she is to continue on amiodarone as an outpatient. - The patient's echocardiogram initially did show normal ejection fraction (EF) with grade 2 diastolic dysfunction. She also had mildly hypokinetic right ventricle and evidence of moderately severe pulmonary hypertension. The patient is at risk for volume overload. She is very significantly negative positive at this time and so, will discuss with renal about keeping her net negative or perhaps gentle fluid removal if tolerated with her blood pressure. - The patient did have mild troponin elevation initially secondary to demand ischemia, as well as from her renal failure. This is a likely a type 2 myocardial infarction (CA) related to her septic shock. - The patient is on aspirin, which we can continue for now. - The patient was on anticoagulation with Lovenox for her atrial fibrillation. Would hold for now given concern for bleeding. 4. Acute renal failure likely multifactorial due to shock, as well as with rhabdomyolysis and the possibility of additional contrast nephropathy contributing. - Appreciate renal consult and recommendations. She was started on CRRT due to her severe metabolic acidosis and oliguric renal failure. She has been tolerating the CRRT well, but she was getting zero fluid removal and so has been significantly net positive. Will discuss with renal about keeping her at least net even now and consider the possibility of gentle fluid removal, perhaps 50 mL/hour if tolerated. Her lactic acidosis and her pressor requirements have significantly improved today. - Will continue to monitor electrolytes and manage as per nephrology. 5. Transaminitis likely shock liver, as well as a degree due to her rhabdomyolysis and elevated CK. - The patient's CPK is trending down and her LFTs are also trending down. - The patient did have a disseminated intravascular coagulation (DIC) panel checked yesterday, which did not show evidence of DIC. Will continue the rest of the home medications as per primary team; particularly management of her diabetes. Deep vein thrombosis (DVT) prophylaxis with TEDs and SCDs. Code status: DO NOT RESUSCITATE/DO NOT INTUBATE / DO NOT INTUBATE (DNI). TOTAL CRITICAL CARE TIME SPENT: Not including procedures approximately 45 minutes.
[2020-11-18] MEDS ORDERED: DIGOXIN INJ 0.5 MG/2 ML AMP (J1160) IV STA ×3 (15:33→18:10)
[2020-11-18] MEDS ORDERED: DIGOXIN INJ 0.5 MG/2 ML AMP (J1160) As Ordered ONE (15:56)
[2020-11-18] MEDS: AMIODARONE 200 MG TAB (PACERONE) PO SCH ×2 (17:07→20:32)
[2020-11-18] MEDS: ONDANSETRON 4MG/2ML VIAL IV PRN (18:22)
[2020-11-18 18:31] LABS: HEMATOCRIT 29.3 % (36.0-47.0); HEMOGLOBIN 9.2 g/dl (12.0-15.5); MEAN CORPUSCULAR HEMOGLOBIN 27.3 pg (27.0-33.0); MEAN CORPUSCULAR HGB CONC 31.4 g/dl (32.0-36.5); MEAN CORPUSCULAR VOLUME 86.9 fl (80.0-96.0); RED BLOOD COUNT 3.37 10^6/uL (4.00-5.40); WHITE BLOOD COUNT 13.8 10^3/uL (4.0-10.0)
[2020-11-18 18:50] LABS: BLOOD UREA NITROGEN 18 MG/DL (7-18); CALCIUM LEVEL 8.1 MG/DL (8.8-10.2); CARBON DIOXIDE LEVEL 26 MEQ/L (21-32); CHLORIDE LEVEL 101 MEQ/L (98-107); CREATININE FOR GFR 0.86 MG/DL (0.55-1.30); GLOMERULAR FILTRATION RATE > 60.0 (>32); GLUCOSE, FASTING 165 MG/DL (70-100); MAGNESIUM LEVEL 2.1 MG/DL (1.8-2.4); PHOSPHORUS LEVEL 1.5 MG/DL (2.5-4.9); SODIUM LEVEL 133 MEQ/L (136-145)
[2020-11-18] MEDS ORDERED: CALCIUM GLUCONATE 1,000 MG, VIAL MATE ADAPTER 1 EACH in NS 100 ML IV ONE (19:00)
[2020-11-18 19:12] LABS: PLATELET COUNT, AUTOMATED 71 10^3/uL (150-450)
[2020-11-18 19:17] LABS: EOSINOPHILS 1 % (0-3); LYMPHOCYTES 2 % (16-44); MONOCYTES 3 % (0-5); NEUTROPHILS 85 % (28-66); PLATELET ESTIMATE DECREASED (NORMAL)
[2020-11-18 19:19] LABS: POLYCHROMASIA 1+
[2020-11-18] MEDS ORDERED: POTASSIUM PHOSPHATE INJ 30 MMOL in D5W 500 ML IV ONE (21:00)
--- NOTE | 2020-11-18 21:28 | IPN ---
NEPHROLOGY PROGRESS NOTE DATE: 11/18/2020 SUBJECTIVE: Mrs. Stack is seen this morning at her bedside in the Intensive Care Unit. She remains on CRRT with minimal urine output. She has been in atrial fibrillation with rapid ventricular rate which has not responded well to intravenous Amiodarone. She has been now switched to oral Amiodarone this morning. She is still on Levophed and Vasopressin has been just turned off a few minutes ago. Her blood pressure has improved. The patient is awake, very anxious and asking multiple questions. She denies any dyspnea, chest pain, nausea or vomiting. She does have pain in her left lower extremity and back. She had multiple imaging studies done yesterday and there was a concern about a retroperitoneal hematoma and some abscess collection in her leg, however she was not felt to be stable enough to consider a drainage under CT guidance. It has been postponed until tomorrow. OBJECTIVE: PHYSICAL EXAMINATION: GENERAL APPEARANCE: The patient is awake, able to answer questions and asking multiple questions. VITAL SIGNS: Her temperature is 97.8 degrees Fahrenheit, heart rate in the 130's and irregular in rhythm. Respiratory rate is about 18 per minute, blood pressure has been about 120/60 mm of mercury up to 160/79 mm of mercury during the last couple of hours. Her pressors are now being weaned off. HEENT: Head is atraumatic. NECK: Supple and jugular venous distention is not abnormally elevated. HEART: Tachycardic and irregular in rhythm. There is no pericardial friction rub. LUNGS: Slightly diminished breath sounds and basilar rales bilaterally. ABDOMEN: Soft and with minimal tenderness in the left upper quadrant area. Bowel sounds are present. EXTREMITIES: Without any cyanosis or clubbing. She is tender in her left hip area. Cyanosis is present on her hands. There is no clubbing. NEUROLOGICAL: She is awake and grossly intact without any focal deficits. LABORATORY STUDIES: Blood cultures have remained negative so far. Today's labs are reviewed and white blood cell count this morning is up to 15.2, hemoglobin is 9.0 and hematocrit 28.7, platelet count 104. A random Vancomycin level this morning is 18.2, while yesterday evening trough Vancomycin level was 8.5. Her lactic acid level came down to 3.8 last evening. This morning her sodium is 130, potassium 3.9, CO2 25, BUN 23 and creatinine 1.08, glucose 184 and calcium 7.9. AST 1,048, ALT 501, alkaline phosphatase 131 and CPK 5,139. Total protein 4.6 and albumin 1.6. PROBLEMS: 1. Oliguric acute renal failure related to septic shock she has minimal urine output and still oliguric despite improvement in her blood pressure. We will continue with the CRRT for the next 24 hours. We will also try to remove fluid as tolerated once she gets weaned off her pressors. 2. Septic shock source of sepsis is still unclear. There is a concern about possible abscess in her left thigh. She remains on intravenous Vancomycin with levels that are appropriate in addition to Meropenem 500 mg every 12 hours for broad spectrum coverage. She is also on pressors and is currently in the process of being weaned off. 3. Hyponatremia her sodium level is slightly low and likely to improve with ongoing CRRT. Adjustments are being made. 4. Lactic acidosis most likely this is related to sepsis and the use of pressors. Lactic acid level is gradually improving. 5. Abnormal liver enzymes and rhabdomyolysis she has mild rhabdomyolysis and elevated liver enzymes, particularly her transaminases, most likely related to septic shock and we will continue to follow and monitor closely. 6. Anemia her anemia is stable at this point since she has been transfused. There is no urgent need for a transfusion at this point. I do not feel that she has any active blood loss. The case was discussed with the nursing staff and attending physicians. I also answered all the questions that the patient had at her bedside. Forty-two minutes of critical care time spent at the bedside during which no procedures were performed.
[2020-11-19] VITALS (24 sets, daily range): BP systolic 79–132; BP diastolic 39–72
[2020-11-19] MEDS: MEROPENEM INJ 500 MG in IV 1 EA IV SCH ×2 (01:04→13:29)
[2020-11-19 06:14] LABS: RED BLOOD COUNT 3.16 10^6/uL (4.00-5.40); WHITE BLOOD COUNT 11.2 10^3/uL (4.0-10.0)
[2020-11-19 06:15] LABS: HEMATOCRIT 27.5 % (36.0-47.0); HEMOGLOBIN 8.8 g/dl (12.0-15.5); MEAN CORPUSCULAR HEMOGLOBIN 27.8 pg (27.0-33.0)
[2020-11-19 06:25] LABS: PLATELET COUNT, AUTOMATED 49 10^3/uL (150-450)
[2020-11-19 06:30] LABS: LYMPHOCYTES 8 % (16-44); MONOCYTES 1 % (0-5); NEUTROPHILS 87 % (28-66); PLATELET ESTIMATE MARKED DECREASE (NORMAL)
[2020-11-19 06:31] LABS: POLYCHROMASIA 1+
[2020-11-19 06:45] LABS: BLOOD UREA NITROGEN 14 MG/DL (7-18); CALCIUM LEVEL 7.9 MG/DL (8.8-10.2); CARBON DIOXIDE LEVEL 29 MEQ/L (21-32); CHLORIDE LEVEL 102 MEQ/L (98-107); CREATININE FOR GFR 0.67 MG/DL (0.55-1.30); GLOMERULAR FILTRATION RATE > 60.0 (>32); GLUCOSE, FASTING 144 MG/DL (70-100); MAGNESIUM LEVEL 2.1 MG/DL (1.8-2.4); PHOSPHORUS LEVEL 2.4 MG/DL (2.5-4.9); SODIUM LEVEL 135 MEQ/L (136-145)
[2020-11-19] MEDS ORDERED: CALCIUM GLUCONATE 1,000 MG in D5W MINI-BAG PLUS 100 ML IV ONE (06:55)
[2020-11-19] MEDS: HumaLOG INSULIN (NovoLOG) PER UNIT SC SCH ×4 (07:20→20:39)
[2020-11-19] MEDS: PANTOPRAZOLE 20 MG TAB PO SCH (08:34)
[2020-11-19] MEDS: AMIODARONE 200 MG TAB (PACERONE) PO SCH ×4 (08:34→20:36)
[2020-11-19] MEDS: ASPIRIN 81 MG CHEW TABLET PO SCH (08:34)
[2020-11-19] MEDS: LACTOBACILLUS ACIDOPHILUS CAP (BACID) PO SCH ×2 (08:35→17:05)
[2020-11-19] MEDS ORDERED: POTASSIUM PHOSPHATE INJ 15 MMOL in D5W 250 ML IV ONE (09:00)
[2020-11-19] MEDS ORDERED: CALCIUM GLUCONATE 1,000 MG, VIAL MATE ADAPTER 1 EACH in NS 100 ML IV ONE (09:00)
--- NOTE | 2020-11-19 09:20 | CR ---
"INFECTIOUS DISEASE CONSULTATION DATE: 11/18/2020 ATTENDING PHYSICIAN: Tere Lui MD REQUESTING PHYSICIAN: Mayra Damico MD REASON FOR CONSULTATION: Septic shock possibly secondary to intramuscular abscess. HISTORY OF PRESENT ILLNESS: Ayesha is an 80-year-old female with notable past medical history of insulin dependent diabetes mellitus, chronic kidney disease and hypertension, who presented to the [facility] ED after she was found down on the ground at home by family. It was estimated that she was on the ground for at least 4 hours. Patient herself reports that she was walking back in her home from the bathroom and subsequently had a fall. The patient herself was unsure of how long that she was down when the family found her and EMS was called. After the family found her and called EMS, she was found to be in atrial fibrillation with a rapid ventricular response. Upon presentation to the Emergency Department, she had leukocytosis with bandemia and was complaining of pain around her left thigh and hip, which was the area of her body that she was found lying on. Other notable labs upon presentation were an elevated CPK and acute renal failure with oliguria that steadily progressed, becoming more anuric. She was also found to have both metabolic acidosis and lactic acidosis. Imaging showed intramuscular gas extending along the left iliopsoas muscle and this muscle appeared to be thicker compared to her right side. There is also possible colitis. She was started on Ceftriaxone initially and administered I.V. fluid boluses. Despite the boluses, she continued to become more anuric with worsening lactic acidosis and hypotensive. She was subsequently transferred to the Intensive Care Unit on the evening of 11/16/2020, and started on Levophed. Continuous renal replacement therapy (CRRT) was also started. Throughout the overnight of 11/16 to 11/17, an increased dose of pressors were needed and Vasopressin was also added as a second agent. On the morning of 11/17, she again had an episode of atrial fibrillation with rapid ventricular response, and was given the intravenous three-step dosing of Amiodarone. As far as antimicrobials, after receiving Ceftriaxone for one day on 11/15, she also received one day of Metronidazole on 11/16, two days of Zosyn 11/16 to 11/17. She was also started on vancomycin on 11/16. Currently, she is still on vancomycin as well as Meropenem. Her pressures have steadily begun to improve and since 11:00 a.m. this morning, she has been off of vasopressors. Of note; central access was gained via a trialysis catheter through the right internal jugular vein. Due to her improved pressures, she is now having fluid taken off with the CRRT. yAesha was subsequently seen and examined for the first time by the infectious disease service this afternoon in her ICU bed. She is just in the process of being repositioned. She is still complaining of some moderate discomfort and pain along her left flank, left hip and left proximal lower extremity. She is eating and drinking without any issues. She remains on CRRT with 400 cc of fluid being removed per hour. She appears quite anxious when we are discussing with her her medical state. On review, she denies any current or recent fever, chills, night sweats, chest pain, palpitations, shortness of breath, pleuritic chest pain, cough, abdominal pain, nausea, vomiting, blood in stool. She does report some intermittent reflux, but states this is decently well controlled with her current Protonix. PAST MEDICAL HISTORY: 1. Insulin dependent diabetes mellitus. 2. Hypertension. 3. Hypertensive heart disease. 4. Hyperlipidemia. 5. Vitamin B12 deficiency on oral therapy. 6. History of iron deficiency anemia. 7. Osteoarthritis; status post right hip replacement, left knee replacement with revision and right knee replacement. 8. Memory loss per PCP. PAST SURGICAL HISTORY: 1. Hysterectomy 1968. 2. Left total knee arthroplasty in 1998 with revision in 2003. 3. Right knee total arthroplasty in 1997. 4. Right hip total arthroplasty June of 2018. 5. Right shoulder surgery April 2019. FAMILY HISTORY: Mother-history of uterine cancer. Father-history of COPD. Daughter-history of breast cancer. SOCIAL HISTORY: Denies any alcohol or tobacco use. She was for 52 years and was 5 years ago. She has a daughter named Val, who will be coming to visit her later today. ALLERGIES: Ciprofloxacin-visual hallucinations which lead to a fall and subsequent ED presentation. Sulfa, antibiotics-urticaria. CHRIST inhibitors-cough. HOME MEDICATIONS: 1. Lantus 20 units daily. 2. Metformin 1500 mg in the morning and 100 mg in the evening. 3. Irbesartan/Hydrochlorothiazide 300/12.5 daily. 4. Aspirin 81 mg daily. 5. Nystatin. 6. Afuc-nur-qwfxyxw iron. 7. Vitamin B12 1,000 mcg p.o. daily. 8. Calcium. 9. Vitamin D. 10.Multivitamin. 11.Mevacor. CURRENT INPATIENT MEDICATIONS: 1. She is on day #3 of vancomycin I.V. every 12 hours. 2. She is day #2 of Meropenem I.V. every 12 hours. 3. Morphine sulfate p.r.n. for pain. 4. She recently had both her vasopressor and Norepinephrine held. 5. Aspirin 81 mg. 6. Zofran 4 mg p.r.n. I.V. 7. Sliding scale insulin. 8. Pantoprazole 40 mg p.o. daily. 9. Amiodarone 200 mg q.i.d. p.o. 10.Potassium phosphate and dextrose I.V. 1 to 2 mL per hour; this is to start at 9:00 p.m. this evening. PHYSICAL EXAMINATION: VITALS: Temperature 97.8, heart rate 139, respiratory rate 16, blood pressure 123/70 with a MAP of 87, SPO2 of 95% on room air. GENERAL: An elderly male lying in bed. She is anxious appearing at times during the exam. Alert and oriented x3. HEENT: Normocephalic, atraumatic. Non-injected and anicteric sclerae. Significant conjunctival pallor. Mucous membranes are moist. There is no pharyngeal erythema or exudate. She has both upper and lower dentures in place. There is a trialysis catheter in her right internal jugular vein connected to CRRT. CARDIOVASCULAR: Irregularly irregular rhythm, tachycardic rate. No murmurs or rubs are appreciated. Capillary refill between 2 to 3 seconds. 2+ radial pulses bilaterally. RESPIRATORY: Patient was auscultated only on the anterior and lateral aspects. Diminished breath sounds bilaterally with some mild crackles on the right lung base, otherwise no adventitious breath sounds were appreciated. Breathing on room air. Speaking full sentences. Symmetric chest expansion. ABDOMEN: Obese, nontender, non-distended. Hypoactive bowel sounds present. EXTREMITIES: There is roughly a 5 inch long section from the left hip running medially into the left inguinal area that is warm to the touch compared to the right side as well as having some moderate induration and erythema. It is tender. There is bilateral lower extremity edema 1 to 2+. There appears to be some mild cyanosis of her fingers bilaterally. There are surgical scars over both knees as well as her right anterior shoulder. There is significant ecchymosis over the right shoulder as well as left upper extremity. GENITOURINARY: Ware catheter in place with approximately 350 to 400 cc of dark yellow to brown collected urine. She is attached to CRRT currently with fluid removal. NEUROLOGIC: Alert and oriented x3. No focal deficits. Non-dysarthric speech. LABORATORY STUDIES: CBC: WBC 15.2, hemoglobin 9, hematocrit 28.7, platelet count 104,000, 8% bands. CMP: Sodium 130, chloride 99, potassium 3.9, bicarb 25, BUN 23, creatinine 1.08, glucose 184. Serum calcium 7.9. Ionized calcium 4.2. AST 1,048, ALT 501, alkaline phosphatase 131. Lactic acid repeat 3.8. Creatine kinase 5139. Through the 24-hour [id number], she has urinated 78 cc with an additional 156 cc since midnight this morning. She was transfused 1 unit of packed red blood cells yesterday (11/17). MICROBIOLOGY; Two initial blood cultures on 11/15 showed no growth after 72 hours. Urine culture from 11/15 showed no growth. There were repeat blood cultures x2 ordered this morning; those results are pending. IMAGING: CT abdomen and pelvis, 11/15/2020, showed no gallbladder distention or wall thickening, with multiple small complications of the gallbladder neck. There was no biliary duct dilation. There was fatty atrophy of the pancreas. There was a 5.3 cm hiatal hernia. There is possible colitis in the sigmoid colon and rectosigmoid colon. Patient is status post right total hip arthroplasty. Lumbar spine CT from 11/15/2020, this showed a worsening intramuscular |gas extending into the left iliac and psoas muscles, which overall the muscles appear thickened when compared to the right. You cannot exclude the possibility of intramuscular abscess or hematoma. There is no definite sacral fracture noted. Chest x-ray from 11/16/2020, showed satisfactory position of right internal jugular central line. There was cardiomegaly with no pleural effusion. There was no focal opacity or infiltrates. IMPRESSION/PLAN: Septic shock secondary to possible iliopsoas abscess. Ninety percent of the time, the most common cause of primary psoas muscle abscess is Staphylococcus Aureus, and is usually associated with some trauma. This would align with the patient's history of falling as well, being down for an extended time. and the visualized intramuscular gas. Infectious disease service went down and spoke with radiology directly this afternoon. We collectively viewed the imaging again, which showed intramuscular air tracking all the way down to the insertion point of the iliopsoas near the knee. Overall, this is an extensive amount of intramuscular gas. On discussion, radiology does not believe that there is fluid (i.e. hematoma). Since the most common cause is psoas muscle abscess or Staph Aureus, we agree with the continued treatment with vancomycin. Patient had been on Zosyn and was switched to Meropenem, which would cover for ESBL bacteria. We suggest continuing both of these medications. It is important to note that there is potential concern with the nearby left knee hardware s/p total arthroplasty. Repeat blood cultures were ordered today, with the initial 2-3 days ago showing no growth. On speaking with nursing, they informed us that patient remain off of vasopressors through the rest of the day and into the overnight. She will go for repeat CT imaging tomorrow. This will show if there has been significant change in the intramuscular gas. Acute renal failure superimposed on chronic kidney disease, improving. She continues to be on CRRT and now fluid is being taken off as he is currently normotensive. She is now producing more urine. Atrial fibrillation with rapid ventricular response. She is now currently on oral Amiodarone. She remains in atrial fibrillation on exam and continues to be tachycardic. She denies any chest pain or palpitations. Per discussion with nursing, the hospitalist service will be starting a beta-lily shortly. Thank you for the opportunity to participate in the care of Angelia. The infectious disease service will continue to follow along and welcome any questions or concerns should they arise. STEPH"
[2020-11-19] MEDS: VANCOMYCIN HCL 1,000 MG, VIAL MATE ADAPTER 1 EACH in NS 250 ML IV SCH ×2 (09:45→20:36)
[2020-11-19] MEDS ORDERED: ISOVUE-370 76% 100ML VIAL As Ordered ONE (11:02)
[2020-11-19] MEDS ORDERED: SODIUM CHLORIDE 0.9% INJ 10 ML SYR IV PRN (11:10)
--- NOTE | 2020-11-19 11:38 | REP ---
INDICATION: r/o abdominal bleed/retroperitoneal bleed/? psoas abscess. COMPARISON: Comparison CT study November 15, 2020.. TECHNIQUE: Contrast dose: 100 ML of Isovue [address] technique: Helical scanning is acquired and contiguous 3 mm axial images are reformatted. MPR images are provided in coronal and sagittal imaging planes. Pre and postcontrast imaging is included. FINDINGS: Digital preliminary co teacher radiograph demonstrates an ileus pattern in the bowel gas with moderate gaseous distention of small bowel and large bowel loops throughout the abdomen. And there is a right hip prosthesis. There is soft tissue emphysema lateral to the proximal femur on the left. On axial CT images, the lung bases show mild bibasilar fibrosis. No pleural effusion is seen. The liver and the spleen are normal in size and homogeneous in texture. Opaque gallstones appear to be present in the neck of the gallbladder. There is no evidence of portal venous or biliary air. No abnormality is noted in the pancreas. Normal adrenal glands are seen. The kidneys enhance symmetrically postcontrast. No mass or hydronephrosis is seen. No retroperitoneal mass, adenopathy, or free intraperitoneal air is seen. On pelvic CT images, there is soft tissue emphysema tracking within and adjacent to the left iliopsoas musculature up to the level of the superior pelvis. This is compatible with gas-forming organism/gangrene. No mass or fluid collection is appreciated. No intraperitoneal air or intraperitoneal ascites is seen. A Ware catheter is noted in place. The uterus is surgically absent. Small and large bowel loops are unremarkable other than air and fluid levels diffusely present. There is soft tissue edema and dermal thickening consistent with cellulitis and fasciitis in the proximal hip and femur region on the left. Extensive soft tissue emphysema is seen in the proximal thigh musculature on the left again consistent with gas gangrene/myofasciitis with gas-forming organism. IMPRESSION: Extensive soft tissue emphysema with edema and dermal thickening in the quadriceps musculature of the proximal thigh on the left extending along the left pelvic sidewall in the iliopsoas muscle. These findings are compatible with gas-forming organism causing myofasciitis/gas growing green. These are new findings compared with the November 15, 2020 study. Gallstones are seen. An abdominal ileus pattern is noted in the bowel gas. <Electronically signed by Torin Land > 11/19/20 [id number]
--- NOTE | 2020-11-19 11:44 | REP ---
INDICATION: pain w/ tense blisters . COMPARISON: No comparison left femur imaging.. TECHNIQUE: 100 mL of intravenous Isovue 370 is administered he. Helical scanning is acquired and 3 mm axial images re-formatted. Coronal and sagittal MPR images are generated. FINDINGS: Digital preliminary beef splitter radiograph demonstrates extensive soft tissue emphysema in the soft tissues immediately lateral to the left femoral diaphysis. On axial CT images, soft tissue emphysema is confirmed along the myofascial interfaces of the proximal quad musculature. This is extensive beginning just above the knee and extending up to the hip and into the left pelvis a it within the left iliopsoas musculature. No bony erosive changes seen. There is a prosthetic left knee joint in place. There is extensive diffuse inflammation and edema in the subcutaneous fat layer of the left thigh with multiple areas of dermal thickening and some nodular dermal changes likely related to the vesicular changes described in the history. No teresa soft tissue fluid collection is seen. IMPRESSION: Extensive intramuscular myofascial and soft tissue emphysema along the left thigh from just above the knee to the hip and into the left pelvis consistent with mild fasciitis with gas-forming organism/gas gangrene. No teresa abscess is seen. Diffuse cellulitis pattern. Ileus pattern in the abdominal bowel gas. <Electronically signed by Torin Land > 11/19/20 [id number]
--- NOTE | 2020-11-19 12:09 | IPNPDOC ---
Date Seen The patient was seen on 11/19/20. Progress Note SUBJECTIVE: HR 110's throughout the evening, on digoxin daily. Worsened CT of femur, abd/pelvis without abscess identified, no hematoma or bleed noted. Discussed with Dr. Stein (gen surgery) who will talk with covering weekend gen surgeon Dr. Franco about case. Still poor u/o, not taking fluid off with CRRT currently, remains off pressors but is borderline with needing to restart. H/H and PLTs lower. Had daughter come in for meeting at bedside with patient, nurse to give update. Patient has been telling people she does not 'want to do this anymore', has been seeing 'herself ' and seeing herself in a 'casket'. Patient reiterated that she wants to "live" and to continue with our current treatment. She denies increased LLE pain, chest pain, incr shortness of breath, n/v/d, abdominal pain. OBJECTIVE: PHYSICAL EXAMINATION: VITAL SIGNS: Please see below GENERAL APPEARANCE: NAD, resting, AAOx 3 HEENT: bruising under right eye, mild and healing well. No increased swelling NECK: No masses, right trialysis catheter in place LUNGS: CTAB, no wheezing, rhonchi, wheezing HEART: irregularly irregular rhythm, rapid. There is a 1/6 systolic ejection murmur. No rubs or gallops ABDOMEN: obese, soft, nontender. No guarding or rebound. No referred pain. No CVA tenderness. EXTREMITIES: Pain of left upper thigh- 3/10 on palpatation . Full range of motion of both hips. No cyanosis or clubbing. Trace peripheral edema. Moves arms and legs with equal strength. Generally weak INTEGUMENTARY: large left upper thigh redness, swelling much decreased. extending from left knee to upper thigh/below hip- mildly tender to touch. : macias catheter in place NEUROLOGIC: CN 2-12 intact, no focal deficits PSYCH: mood and affect appropriate LABORATORY DATA: Please see below MICROBIOLOGY: BCx x 2 sets: NG at 48 hours Repeat BCx x 2 sets: NG at 24 H UCx NG IMAGING: CT femur with contrast 11/19/20: Extensive intramuscular myofascial and soft tissue emphysema along the left thigh from just above the knee to the hip and into the left pelvis consistent with mild fasciitis with gas-forming organism/gas gangrene. No etresa abscess is seen. Diffuse cellulitis pattern. Ileus pattern in the abdominal bowel gas CT abd/pelvis with contrast 11/19/20: Extensive soft tissue emphysema with edema and dermal thickening in the quadriceps musculature of the proximal thigh on the left extending along the left pelvic sidewall in the iliopsoas muscle. 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 These are new findings compared with the November 15, 2020 study. Gallstones are seen. An abdominal ileus pattern is noted in the bowel gas. CT head 11/17/20: Stable exam, no acute findings US abdomen: Suboptimal examination. If felt clinically indicated consider CT for further evaluation. CXR: Chronic changes without acute infiltrate or pleural effusion. 5 mm nodule left lower lobe, recommend follow-up CT chest in 6-12 months. Echocardiogram 11/15/20: EF 65-70% Study is of acceptable technical quality, patient is in sinus rhythm. Normal LV size with preserved LV systolic function and grade 2 diastolic dysfunction. Dilated hypokinetic right ventricle. No hemodynamically significant valvular disease. Likely elevated central venous pressure and moderately severe pulmonary hypertension. CT lumbar spine: 1. Worsening intramuscular gas extending into the left iliacus and psoas muscles, which overall these muscles appear asymmetrically thickened when compared with the right. Cannot exclude possibility of intramuscular abscess and/or hematoma in the setting of recent trauma. It is possible that this gas is extending from the level of the left SI joint, though no definite sacral fracture is identified. Recommend orthopedic consultation. 2. Other chronic findings, as above. CT abd/pelvis: Numerous a small gallbladder calculi. No CT evidence of acute cholecystitis or biliary duct dilatation. The kidneys are unremarkable. Wall thickening of the sigmoid colon and rectosigmoid colon, nonspecific, but could represent infectious versus inflammatory colitis in the appropriate clinical setting. 5.3 cm hiatal hernia. Appendix is unremarkable. Hysterectomy. Right hip arthroplasty. Grade 1 compression deformity of the L4 superior endplate and lumbar spine degenerative disc disease. CT chest: Chronic changes without acute infiltrate or pleural effusion. 5 mm nodule left lower lobe, recommend follow-up CT chest in 6-12 months. IMPRESSION/PLAN: Hypotension likely septic shock 2/2 gas/necrotizing fascitis/myofascitis seen in musculature of the proximal thigh on the left extending along the left pelvic sidewall in the iliopsoas muscle and left lower ext/thigh cellulitis. -Less concern for hematoma/bleed from initial CT scan and was on enoxaparin -WBC improved to 11K, bandemia improving, LA wnl(peaked 11/17/20 at 8.5) -Off pressor support today, CRRT not taking off fluid today -CT left femur/ abd/pelvis above -General surgery (Dr. Franco) reviewed scans, would like orthopedic surgery to review as he feels this may be originating from left hip area. Dr. Hagan (orthopedic surgery) to review scans, officially consulted. Would appreciate all surgical consults opinion on options for treatment -ID following closely, c/w meropenem, vancomycin. -F/u daily labs Anemia possibly 2/2 to dilutional effect, sepsis -No s/s of obvious bleeding -S/p 1 unit PRBC this admission -No hemorrhage, bleeding seen on CT above -Follow CBC closely Acute thrombocytopenia, r/o HIT vs. 2/2 to sepsis -PLTs lower today at 49, no increased bleeding seen. -Lovenox started on 11/15/20, stopped 11/18/20 -CBC Q12 H -HIT ab, fibrinogen, PT/PTT/INR, peripheral smear ordered -Heme/onc consulted, f/u suggestios Atrial fibrillation with RVR 2/2 to sepsis -HR 120's today, mostly in 110's overnight -S/p amiodarone QID, digoxin total of 1 g IV on 11/18/20 and to get digoxin 0.25 mg IV today -Echo above -Goal HR < 120 for this patient -C/w treatment of sepsis above -Tele Oliguric AMIRA likely multifactorial 2/2 to hypotension/septic shock, acute rhabdomyolysis, poss contrast nephropathy, medications -CRRT began evening 11/16/20, currently u/o 5 mL/hr -Was taking fluid off, stopped and currently being kept even due to -Cr 0.67 -F/u labs regularly -Monitor u/o closely -F/u nephrology recommendations Hypocalcemia, acute -S/p calcium gluconate today -Following lytes closely with CRRT Elevated troponins possibly cytokine induced, cannot r/o Type II event -Trop trending down and last was wnl -Echo above -Discussed case with Dr. Amato, cardiology. At this time, not acute STEMI, NSTEMI, no indication for cardiac catheterization -Monitor closely Acute transaminitis poss 2/2 to hypotension -AST/ALT elevated, trending down -Tx for hypotension above -Following CMP daily Elevated BNP likely 2/2 to atrial fibrillation with RVR, HFpEF / mod-severe pulmonary HTN -Echocardiogram above -CXR neg for acute changes -Saturating well on RA -Stopped BB, no diuretics currently -Discussed case with cardiology. C/w current management above Acute rhabdomyolysis-improving -Peaked CK at 32K, trending down -Follow up CMP regularly -Nephrology following, CRRT DM type II -BS stable -ISS, AC/HS, consistent carb GERD/GI px -PPI DVT px -Stopped lovenox with worsening PLTs. Teds, scd Resolved issues: Hypomagnesemia, acute Hyperkalemia likely 2/2 to AMIRA TIA vs. transient focal deficits 2/2 to hypotension DISPOSITION: Critical care signed off . ID, nephrology, general and orthopedic surgery consulted. Condition is very guarded. TOTAL AMOUNT OF ICU TIME SPENT ON PATIENT'S CARE TODAY (nonprocedural): 90 MINS VS, I&O, 24H, Fishbone Vital Signs/I&O Vital Signs Date Time Temp Pulse Resp B/P (MAP) Pulse Ox O2 Delivery O2 Flow Rate FiO2 11/19/20 11:20 116 18 124/60 (81) 95 Room Air 11/19/20 08:00 97.2 11/18/20 12:00 2.0 I&O- Last 24 Hours up to 6 AM 11/19/20 06:00 Intake Total 4439.2 ml Output Total 3725 ml Balance 714.2 ml Laboratory Data 24H LABS Laboratory Tests 2 11/18/20 13:15: Lactic Acid Level 3.8*H 11/18/20 16:57: Bedside Glucose (Misc Panel) 131H 11/18/20 18:05: Immature Granulocyte % (Auto) , Neutrophils (%) (Auto) , Nucleated Red Blood Cells % (auto) 0.3H, Neutrophils 85H, Band Neutrophils 9, Lymphocytes (Manual) 2L, Monocytes (Manual) 3, Eosinophils (Manual) 1, Polychromasia 1+, Platelet Estimate DECREASED, Immature Platelet Fraction 7.6, Anion Gap 6L, Glomerular Filtration Rate > 60.0, Lactic Acid Followup at 4 Hours 3.2*H, Calcium Level 8.1L, Whole Blood Ionized Calcium 4.4L, Phosphorus Level 1.5#L, Magnesium Level 2.1 11/18/20 20:34: Bedside Glucose (Misc Panel) 137H 11/19/20 06:00: Immature Granulocyte % (Auto) , Neutrophils (%) (Auto) , Nucleated Red Blood Cells % (auto) 0.2H, Neutrophils 87H, Band Neutrophils 4, Lymphocytes (Manual) 8L, Monocytes (Manual) 1, Polychromasia 1+, Platelet Estimate MARKED DECREASE, Anion Gap 4L, Glomerular Filtration Rate > 60.0, Calcium Level 7.9L, Whole Blood Ionized Calcium 4.4L, Phosphorus Level 2.4#L, Magnesium Level 2.1, Total Creati ne Kinase 1956H, C-Reactive Protein, Quantitative 15.80H 11/19/20 08:37: Lactic Acid Level 1.9, Vancomycin Level Trough 17.7 11/19/20 11:31: Bedside Glucose (Misc Panel) 131H CBC/BMP Laboratory Tests 11/18/20 18:05 11/19/20 06:00 Microbiology Microbiology 11/18/20 Blood Culture - Preliminary, Resulted No growth after 24 hours . All specim... 11/18/20 Blood Culture - Preliminary, Resulted No growth after 24 hours . All specim... 11/15/20 Urine Culture - Final, Complete 11/15/20 Blood Culture - Preliminary, Resulted No Growth after 72 hours. All specime... 11/15/20 Blood Culture - Preliminary, Resulted No Growth after 72 hours. All specime... Current Medications Current Medications Medications (Trade) Dose Ordered Sig/Sendy Route PRN Reason Start Time Stop Time Status Last Admin Dose Admin Acetaminophen (Tylenol Tab) 1,000 mg Q6HP PRN PO PAIN / FEVER 11/15/20 18:50 11/15/20 20:14 Amiodarone HCl (Pacerone, Cordarone) 200 mg QID PO 11/18/20 17:00 11/19/20 12:47 Amiodarone HCl (Pacerone, Cordarone) 200 mg TID PO 11/18/20 09:00 11/18/20 15:56 DC 11/18/20 12:16 Amiodarone HCl 150 mg/IV Miscellaneous Supplies 100 ml @ 600 mls/hr STAT STAT IV 11/17/20 08:58 11/17/20 09:07 DC 11/17/20 09:18 Amiodarone HCl 360 mg/IV Miscellaneous Supplies 200 ml @ 17 mls/hr [id number] IV 11/17/20 16:00 11/18/20 10:00 DC 11/18/20 04:29 Amiodarone HCl 360 mg/IV Miscellaneous Supplies 200 ml @ 33.333 mls/ hr Q6H IV 11/17/20 10:00 11/17/20 10:05 DC 11/17/20 11:11 Aspirin (Aspirin Chewable) 81 mg DAILY PO 11/15/20 09:00 Cancel Aspirin (Aspirin Chewable) 81 mg DAILY PO 11/16/20 09:00 11/19/20 08:34 Calcium Gluconate 1000 mg/IV Miscellaneous Supplies 1 each/ Sodium Chloride 110 ml @ 110 mls/hr 0600,0700 IV 11/17/20 06:00 11/17/20 10:00 DC 11/17/20 09:18 Calcium Gluconate 1000 mg/IV Miscellaneous Supplies 1 each/ Sodium Chloride 110 ml @ 110 mls/hr 2200,2300 IV 11/17/20 22:00 11/18/20 02:00 DC 11/18/20 02:19 Calcium Gluconate 1000 mg/IV Miscellaneous Supplies 1 each/ Sodium Chloride 110 ml @ 110 mls/hr Q1H IV 11/18/20 09:00 11/18/20 10:59 DC 11/18/20 10:14 Ceftriaxone Sodium 1 gm/ Dextrose 50 ml @ 100 mls/hr Q24H IV 11/15/20 16:00 11/16/20 08:46 DC 11/15/20 16:53 Dextrose (Dextrose 50%) 25 ml ASDIRECTED PRN IV SEE LABEL COMMENTS 11/15/20 14:50 Dextrose (Dextrose 50%) 50 ml STAT STAT IV 11/16/20 02:51 11/16/20 02:57 DC 11/16/20 03:16 Digoxin (Lanoxin) 0.25 mg DAILY IV 11/19/20 12:15 11/19/20 12:47 Digoxin (Lanoxin) 0.25 mg STAT STAT IV 11/18/20 16:53 11/18/20 16:54 DC 11/18/20 17:07 Digoxin (Lanoxin) 0.25 mg STAT STAT IV 11/18/20 18:10 11/18/20 18:11 DC 11/18/20 18:22 Digoxin (Lanoxin) 0.5 mg STAT STAT IV 11/18/20 15:33 11/18/20 15:59 DC 11/18/20 15:59 Enoxaparin Sodium (Lovenox) 80 mg Q12H SC 11/15/20 18:00 11/16/20 19:06 DC 11/16/20 17:41 Enoxaparin Sodium (Lovenox) 90 mg Q24H SC 11/17/20 18:00 11/18/20 12:11 DC 11/17/20 17:59 Glucagon (Glucagon) 1 mg ASDIRECTED PRN SC SEE LABEL COMMENTS 11/15/20 14:50 Glucose (Glucose) 16 GM ASDIRECTED PRN PO SEE LABEL COMMENTS 11/15/20 14:50 Heparin Sodium (Heparin) ASDIRECTED PRN IV SEE LABEL COMMENTS 11/16/20 20:45 11/17/20 15:24 DC Heparin Sodium (Heparin) ASDIRECTED PRN IV SEE LABEL COMMENTS 11/17/20 15:30 11/18/20 11:57 DC Heparin Sodium (Heparin) ASDIRECTED PRN IV SEE LABEL COMMENTS 11/18/20 12:00 Heparin Sodium (Heparin) ASDIRECTED PRN IV SEE LABEL COMMENTS 11/19/20 11:10 Heparin Sodium (Heparin) dose as per volume indica... ASDIRECTED PRN IV SEE LABEL COMMENTS 11/16/20 18:00 11/16/20 18:31 DC 11/16/20 18:22 Home Med (Med Rec Complete!) ASDIRECTED XX 11/15/20 13:20 11/15/20 13:22 DC Hydromorphone HCl (Dilaudid) 0.3 mg Q3HP PRN IV MILD PAIN (PS 1-4) 11/17/20 00:50 11/17/20 12:31 DC 11/17/20 01:07 Insulin Human Lispro (HumaLOG INSULIN) SEE PROTOCOL TABLE AC SC 11/15/20 17:30 11/19/20 11:49 Insulin Human Lispro (HumaLOG INSULIN) SEE PROTOCOL TABLE QHS SC 11/15/20 21:00 Insulin Human Regular (HumuLIN R INSULIN) 10 units STAT STAT IV 11/16/20 02:51 11/16/20 02:57 DC 11/16/20 03:17 Lactobacillus Acidophilus (Bacid) 1 ea BIDWM PO 11/16/20 08:00 11/19/20 08:35 Meropenem 2 gm/ Sodium Chloride 100 ml @ 200 mls/hr Q8H IV 11/17/20 12:15 11/17/20 12:24 DC Meropenem 500 mg/ IV Miscellaneous Supplies 50 ml @ 100 mls/hr Q12H IV 11/17/20 13:00 11/19/20 13:29 Metoprolol Tartrate (Lopressor) 5 mg Q5M IV 11/15/20 12:55 11/15/20 13:06 DC 11/15/20 13:52 Metoprolol Tartrate (Lopressor) 25 mg Q6H PO 11/16/20 12:00 11/16/20 16:02 DC Metoprolol Tartrate (Lopressor) 50 mg Q6H PO 11/15/20 18:00 11/16/20 11:56 DC 11/15/20 17:36 Metronidazole 500 mg/IV Miscellaneous Supplies 100 ml @ 100 mls/hr Q8H IV 11/16/20 09:00 11/16/20 12:34 DC 11/16/20 10:13 Morphine Sulfate (Morphine Sulfate Inj) 1 mg Q4H PRN IV MODERATE PAIN (PS 5-7) 11/17/20 12:30 Morphine Sulfate (Morphine Sulfate Inj) 2 mg Q6H PRN IV SEVERE PAIN (PS 8-10) 11/17/20 12:30 11/18/20 23:51 Norepinephrine Bitartrate 8 mg/ Dextrose 500 ml @ 93.7 mls/hr Q5H21M IV 11/16/20 18:00 Hold 11/18/20 07:48 Ondansetron HCl (ZOFRAN INJection) 4 mg Q6HP PRN IV NAUSEA OR VOMITING 11/15/20 18:50 11/18/20 18:22 Pantoprazole Sodium (Protonix) 20 mg DAILY PO 11/18/20 09:00 11/18/20 12:13 DC Pantoprazole Sodium (Protonix) 40 mg DAILY PO 11/18/20 12:15 11/19/20 08:34 Piperacillin Sod/ Tazobactam Sod 3.375 gm/Dextrose 50 ml @ 50 mls/hr Q6H IV 11/16/20 10:00 11/17/20 12:16 DC 11/17/20 03:49 Potassium Chloride/Sodium Chloride 1,000 ml @ 125 mls/hr Q8H IV 11/15/20 15:30 11/16/20 02:57 DC 11/15/20 17:35 Simvastatin (Zocor) 40 mg QHS PO 11/15/20 21:00 11/16/20 08:49 DC 11/15/20 20:15 Sodium Bicarbonate 150 meq/Dextrose/Water 1,150 ml @ 150 mls/hr Q7H40M IV 11/16/20 16:00 11/16/20 20:56 DC 11/16/20 16:05 Sodium Bicarbonate 150 meq/Dextrose/Water 1,150 ml @ 150 mls/hr Q7H40M STAT IV 11/16/20 03:39 11/16/20 20:56 DC 11/16/20 04:03 Sodium Polystyrene Sulfonate (Kayexalate) 30 gm NOW STAT PO 11/16/20 02:51 11/16/20 03:05 DC 11/16/20 04:32 Sodium Chloride 1,000 ml @ 50 mls/hr Q20H IV 11/16/20 21:00 11/17/20 16:43 DC 11/16/20 22:00 Sodium Chloride (Saline Lock Flush) 10ML IN EACH LISANDRO... ASDIRECTED PRN IV SEE LABEL COMMENTS 11/16/20 20:45 11/17/20 15:24 DC Sodium Chloride (Saline Lock Flush) 10ML IN EACH LISANDRO... ASDIRECTED PRN IV SEE LABEL COMMENTS 11/17/20 15:30 11/18/20 11:57 DC Sodium Chloride (Saline Lock Flush) 10ML IN EACH LISANDRO... ASDIRECTED PRN IV SEE LABEL COMMENTS 11/18/20 12:00 Sodium Chloride (Saline Lock Flush) 10ML IN EACH LISANDRO... ASDIRECTED PRN IV SEE LABEL COMMENTS 11/19/20 11:10 Vancomycin HCl 500 mg/Dextrose 110 ml @ 110 mls/hr Q24H IV 11/17/20 21:00 11/18/20 08:55 DC 11/17/20 23:21 Vancomycin HCl 1000 mg/IV Miscellaneous Supplies 1 each/ Sodium Chloride 270 ml @ 270 mls/hr Q12H IV 11/18/20 09:00 11/19/20 09:45 Vancomycin HCl 1000 mg/IV Miscellaneous Supplies 1 each/ Sodium Chloride 270 ml @ 270 mls/hr Q24H IV 11/17/20 20:00 11/18/20 08:55 DC 11/17/20 21:09 Vasopressin 20 units/Sodium Chloride 501 ml @ 60 mls/hr Q8H21M IV 11/17/20 06:03 Hold 11/18/20 07:48 Allergies Coded Allergies: Sulfa (Sulfonamide Antibiotics) (Verified Allergy, Unknown, 11/15/20) ciprofloxacin (Verified Adverse Reaction, Intermediate, visual hallucinations, falls, 11/15/20) CHRIST Inhibitors (Verified Adverse Reaction, Mild, cough, 11/15/20) Mayra Damico MD Nov 19, 2020 12:09
[2020-11-19] MEDS: DIGOXIN INJ 0.5 MG/2 ML AMP (J1160) IV SCH (12:47)
[2020-11-19] MEDS: MORPHINE 2 MG/ML 1ML VIAL (J2270) IV PRN ×2 (13:58→19:13)
[2020-11-19 14:58] LABS: INR 1.26
[2020-11-19 14:59] LABS: PARTIAL THROMBOPLASTIN TIME 37.8 SECONDS (24.2-38.5)
--- NOTE | 2020-11-19 15:22 | CR.PDOC ---
General Date of Consultation: Nov 19, 2020 Referring Provider: Mayra Damico MD Consultation REASON FOR CONSULTATION/CHIEF COMPLAINT: Right thigh pain and swelling with CT findings suggesting new extensive of intramuscular myofascial and soft tissue emphysema along the left thigh from just proximal to the knee to the hip and into the left pelvis along the iliopsoas. History of CT scan showing iliopsoas involvement, earlier in the week. Note: The history in this consultation is derived from the chart, as well as speaking to the hospitalist and the ICU nursing staff. HISTORY OF PRESENT ILLNESS: Angelia Stack is an 80-year-old, Who was found on the floor by her family. She may have been on the ground for more than four hours. She was brought to the ED in AFib with rapid ventricular response, rate of 130s and also had a severe significant leukocytosis with a significant left shift. She was admitted to the hospitalist service. The fall was unwitnessed and she had reportedly no recollection of it. I was originally contacted about this patient on November 15, for a non urgent discussion, as per the hospitalist. The hospitalist I spoke with by telephone, described the CT findings to me and the concern for a possible iliopsoas abcess and gas present in this region, possibly associated with the SI joint. I had advised the hospitalist that an iliopsoas abcess should be referred to General Surgery and if there was concern about involvement of the SI joint or spine, the patient would best be referred to a larger hospital center, in [place]. I was contacted today, by another member of the hospitalist team, Dr. Damico, for concern over new findings of the right thigh showing new extensive intr amuscular myofascial and soft tissue emphysema along the left thigh from just proximal to the knee up to the hip. There was still noted to be involvment of the left pelvis region along the iliopsoas. Multiple hospital specialty services have been consulted and an orthopedic opinion was requested prior to presenting the family with options. Of note, in discussion with the nurse at the bedside, the erythema and edema to the left lower extremity cellulitis reportedly has been improving on the antibiotics. Current medical issues as per hospitalist note: Hypotension likely septic shock 2/2 gas/necrotizing fascitis/myofascitis seen in musculature of the proximal thigh on the left extending along the left pelvic sidewall in the iliopsoas muscle and left lower ext/thigh cellulitis. -Less concern for hematoma/bleed from initial CT scan and was on enoxaparin -WBC improved to 11K, bandemia improving, LA wnl(peaked 11/17/20 at 8.5) -Off pressor support today, CRRT not taking off fluid today -CT left femur/ abd/pelvis above -General surgery (Dr. Franco) reviewed scans, would like orthopedic surgery to review as he feels this may be originating from left hip area. Dr. Henderson (orthopedic surgery) to review scans, officially consulted. Would appreciate all surgical consults opinion on options for treatment -ID following closely, c/w meropenem, vancomycin. -F/u daily labs Anemia possibly 2/2 to dilutional effect, sepsis -No s/s of obvious bleeding -S/p 1 unit PRBC this admission -No hemorrhage, bleeding seen on CT above -Follow CBC closely Acute thrombocytopenia, r/o HIT vs. 2/2 to sepsis -PLTs lower today at 49, no increased bleeding seen. -Lovenox started on 11/15/20, stopped 11/18/20 -CBC Q12 H -HIT ab, fibrinogen, PT/PTT/INR, peripheral smear ordered -Heme/onc consulted, f/u suggestios Atrial fibrillation with RVR 2/2 to sepsis -HR 120's today, mostly in 110's overnight -S/p amiodarone QID, digoxin total of 1 g IV on 11/18/20 and to get digoxin 0.25 mg IV today -Echo above -Goal HR < 120 for this patient -C/w treatment of sepsis above -Tele Oliguric AMIRA likely multifactorial 2/2 to hypotension/septic shock, acute rhabdomyolysis, poss contrast nephropathy, medications -CRRT began evening 11/16/20, currently u/o 5 mL/hr -Was taking fluid off, stopped and currently being kept even due to -Cr 0.67 -F/u labs regularly -Monitor u/o closely -F/u nephrology recommendations Hypocalcemia, acute -S/p calcium gluconate today -Following lytes closely with CRRT Elevated troponins possibly cytokine induced, cannot r/o Type II event -Trop trending down and last was wnl -Echo above -Discussed case with Dr. Amato, cardiology. At this time, not acute STEMI, NSTEMI, no indication for cardiac catheterization -Monitor closely Acute transaminitis poss 2/2 to hypotension -AST/ALT elevated, trending down -Tx for hypotension above -Following CMP daily Elevated BNP likely 2/2 to atrial fibrillation with RVR, HFpEF / mod-severe pulmonary HTN -Echocardiogram above -CXR neg for acute changes -Saturating well on RA -Stopped BB, no diuretics currently -Discussed case with cardiology. C/w current management above Acute rhabdomyolysis-improving -Peaked CK at 32K, trending down -Follow up CMP regularly -Nephrology following, CRRT DM type II -BS stable -ISS, AC/HS, consistent carb GERD/GI px -PPI DVT px -Stopped lovenox with worsening PLTs. Teds, scd Resolved issues: Hypomagnesemia, acute Hyperkalemia likely 2/2 to AMIRA TIA vs. transient focal deficits 2/2 to hypotension PAST MEDICAL HISTORY: She has diabetes under good control, hemoglobin A1c 7.3%. History of hypertensive heart disease, hyperlipidemia, osteoarthritis status post right hip replacement, vitamin B12 deficiency on oral therapy, history of some memory loss, had a mini-mental status exam done on 11/14/2020 in which she scored 28 out of 30 points. PAST SURGICAL HISTORY: Left total knee in 1998, revised in 2003, right total knee in 1997, hysterectomy in 1968, right hip replacement in 07/14. Surgery on the right shoulder in 05/15. She has refused a colonoscopy in the past. FAMILY HISTORY: Father at 80 of COPD, mother at 42 of uterine cancer. Has one son and a daughter who of breast cancer. SOCIAL HISTORY: She does not smoke or drink any alcohol. She was for 52 years, was in 2016. ALLERGIES: Please see below. HOME MEDICATIONS: Please see below. REVIEW OF SYSTEMS: Please refer to the HPI. PHYSICAL EXAMINATION: VITAL SIGNS: Please see below. GENERAL APPEARANCE: Patient is lying in bed in the ICU. The patient is able to communicate. She appears to be frightened and there is possible confusion as w ell. The patient demonstrates an obese body habitus. EXTREMITIES: The right lower extremity was examined. There was a demarcated area of erythema and edema, which appeared to be improving slightly, which was demarcated on November 17. Erythema and edema to this area and at the level of the lateral thigh junction of the hip and torso. There was evidence of several bullae, variable in size, measuring 1 to several centimeters in length and diameter. This redness involving the patient's lower abdomen and was present under the pannus. This area. In particular, was tender to touch as per the patient. Of note, the patient does have a large soft tissue envelope surrounding her thigh and leg. The right lower extremity demonstrated a palpable posterior tibial and dorsalis pedis pulse. On instruction, the patient was able to move her toes and pump her ankle up and down. She reported that she had intact sensation to L4 - S1 dermatomes. Physical examination was limited secondary to the patient's discomfort and pain. Imaging summary as per hospitalist note: CT femur with contrast 11/19/20: Extensive intramuscular myofascial and soft tissue emphysema along the left thigh from just above the knee to the hip and into the left pelvis consistent with mild fasciitis with gas-forming organism/gas gangrene. No teresa abscess is seen. Diffuse cellulitis pattern. Ileus pattern in the abdominal bowel gas CT abd/pelvis with contrast 11/19/20: Extensive soft tissue emphysema with edema and dermal thickening in the quadriceps musculature of the proximal thigh on the left extending along the left pelvic sidewall in the iliopsoas muscle. 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 These are new findings compared with the November 15, 2020 study. Gallstones are seen. An abdominal ileus pattern is noted in the bowel gas. CT head 11/17/20: Stable exam, no acute findings US abdomen: Suboptimal examination. If felt clinically indicated consider CT for further evaluation. CXR: Chronic changes without acute infiltrate or pleural effusion. 5 mm nodule left lower lobe, recommend follow-up CT chest in 6-12 months. Echocardiogram 11/15/20: EF 65-70% Study is of acceptable technical quality, patient is in sinus rhythm. Normal LV size with preserved LV systolic function and grade 2 diastolic dysfunction. Dilated hypokinetic right ventricle. No hemodynamically significant valvular disease. Likely elevated central venous pressure and moderately severe pulmonary hypertension. CT lumbar spine: 1. Worsening intramuscular gas extending into the left iliacus and psoas muscles, which overall these muscles appear asymmetrically thickened when compared with the right. Cannot exclude possibility of intramuscular abscess and/or hematoma in the setting of recent trauma. It is possible that this gas is extending from the level of the left SI joint, though no definite sacral fracture is identified. Recommend orthopedic consultation. 2. Other chronic findings, as above. CT abd/pelvis: Numerous a small gallbladder calculi. No CT evidence of acute cholecystitis or biliary duct dilatation. The kidneys are unremarkable. Wall thickening of the sigmoid colon and rectosigmoid colon, nonspecific, but could represent infectious versus inflammatory colitis in the appropriate clinical setting. 5.3 cm hiatal hernia. Appendix is unremarkable. Hysterectomy. Right hip arthroplasty. Grade 1 compression deformity of the L4 superior endplate and lumbar spine degenerative disc disease. LABORATORY DATA: Please see below. ASSESSMENT/PLAN: 1. This is a patient with a complex medical history and complex history of present illness with multiple medical issues and comorbidities. Review of the recent thigh and femur CT scan demonstrates extensive intramuscular myofascial and soft tissue emphysema along the left thigh, extending from just proximal to the knee through the hip and up into the left hemipelvis and iliopsoas consistent with mild fasciitis with gas-forming organism. There is also diffuse cellulitis associated with the left thigh as well. There does not appear to be any obvious involvement of the left hip or left knee joint on the imaging. The original imaging did not mention any involvement of the thigh or femur. Origina lly, there was involvement of the iliopsoas only, on imaging. This extension into the thigh is described as new. As there is no involvement of the hip joint itself, specifically, I think this would suggest that possibly this emphysema signal originated in the iliopsoas area and has traveled into the left thigh musculature. It is important to note that a debridement of this area would involve an extensive incision along the entire aspect of the thigh with disruption of the musculature as this appears to be intramuscular and not simply along the fascial plane. There would also be a requirement of debridement along the involved iliopsoas. This fasciitis and intramuscular myofascial and soft tis samuel emphysema associated with a gas-forming organism is unlikely to resolve without physical debridement. This is beyond the surgical services that I can provide and there is also a consideration with the patient's significant past medical history and current medical issues as to whether or not she would be a candidate for such a highly invasive surgical procedure. There is certainly a high risk of morbidity and mortality associated with operative or nonoperative treatment. I've spoken to the hospitalist, Dr. Damico and suggested that if surgical intervention is to be pursued, then this would better be referred down to a larger Center in [place]. Dr. Damico will reportedly confer with involved services to present the options to the patient and her family to see how they would like to proceed. Vital Signs/I&O Vital Signs Date Time Temp Pulse Resp B/P (MAP) Pulse Ox O2 Delivery O2 Flow Rate FiO2 11/19/20 15:00 117 18 122/56 (78) 11/19/20 14:08 95 Room Air 11/19/20 13:00 97.2 11/18/20 12:00 2.0 I&O- Last 24 Hours up to 6 AM 11/19/20 06:00 Intake Total 4439.2 ml Output Total 3725 ml Balance 714.2 ml Laboratory Data Labs 24H Laboratory Tests 2 11/18/20 16:57: Bedside Glucose (Misc Panel) 131H 11/18/20 18:05: Immature Granulocyte % (Auto) , Neutrophils (%) (Auto) , Nucleated Red Blood Cells % (auto) 0.3H, Neutrophils 85H, Band Neutrophils 9, Lymphocytes (Manual) 2L, Monocytes (Manual) 3, Eosinophils (Manual) 1, Polychromasia 1+, Platelet Estimate DECREASED, Immature Platelet Fraction 7.6, Anion Gap 6L, Glomerular Filtration Rate > 60.0, Lactic Acid Followup at 4 Hours 3.2*H, Calcium Level 8.1L, Whole Blood Ionized Calcium 4.4L, Phosphorus Level 1.5#L, Magnesium Level 2.1 11/18/20 20:34: Bedside Glucose (Misc Panel) 137H 11/19/20 06:00: Immature Granulocyte % (Auto) , Neutrophils (%) (Auto) , Nucleated Red Blood Cells % (auto) 0.2H, Neutrophils 87H, Band Neutrophils 4, Lymphocytes (Manual) 8L, Monocytes (Manual) 1, Polychromasia 1+, Platelet Estimate MARKED DECREASE, Anion Gap 4L, Glomerular Filtration Rate > 60.0, Calcium Level 7.9L, Whole Blood Ionized Calcium 4.4L, Phosphorus Level 2.4#L, Magnesium Level 2.1, Total Creatine Kinase 1956H, C-Reactive Protein, Quantitative 15.80H 11/19/20 08:37: Lactic Acid Level 1.9, Vancomycin Level Trough 17.7 11/19/20 11:31: Bedside Glucose (Misc Panel) 131H 11/19/20 13:46: 11/19/20 14:36: Differential Slide Review Report, Peripheral Blood Smear Path Consult PERIPHERAL SMEAR, Prothrombin Time 16.0H, Prothromb Time International Ratio 1.26, Activated Partial Thromboplast Time 37.8, Lactate Dehydrogenase 521H CBC/BMP Laboratory Tests 11/18/20 18:05 11/19/20 06:00 Microbiology Microbiology 11/18/20 Blood Culture - Preliminary, Resulted No growth after 24 hours . All specim... 11/18/20 Blood Culture - Preliminary, Resulted No growth after 24 hours . All specim... 11/15/20 Urine Culture - Final, Complete 11/15/20 Blood Culture - Preliminary, Resulted No Growth after 72 hours. All specime... 11/15/20 Blood Culture - Preliminary, Resulted No Growth after 72 hours. All specime... Allergies Coded Allergies: Sulfa (Sulfonamide Antibiotics) (Verified Allergy, Unknown, 11/15/20) ciprofloxacin (Verified Adverse Reaction, Intermediate, visual hallucinations, falls, 11/15/20) CHRIST Inhibitors (Verified Adverse Reaction, Mild, cough, 11/15/20) Home Medications Scheduled Aspirin (Aspirin) 81 Mg Chw, 81 MG PO DAILY, (Reported) Calcium Carbonate (Calcium Carbonate) 500 Mg Tab, 1,000 MG PO DAILY, (Reported) Cyanocobalamin (Vitamin B-12) (Vitamin B-12) 1,000 Mcg Tablet, 1,000 MCG PO DAILY, (Reported) Insulin Glargine (Lantus) 100 Unit/1 Ml Vial, 20 UNITS SC QHS, (Reported) HOLD IF BS UNDER 120 Irbesartan/Hydrochlorothiazide (Irbesartan-Hctz 300-12.5 mg Tb) 1 Each Tablet, 1 TAB PO DAILY, (Reported) Lovastatin (Lovastatin) 40 Mg Tab, 40 MG PO DAILY, (Reported) Metformin HCl (Metformin HCl) 1,000 Mg Tablet, 1,500 MG PO DAILY, (Reported) Metformin HCl (Metformin HCl) 1,000 Mg Tablet, 1,000 MG PO QHS, (Reported) Multivit,Calc,Mins/Iron/Folic (Thera-M Tablet) 1 Each Tablet, 1 TAB PO DAILY, (Reported) Scheduled PRN Acetaminophen (Tylenol) 325 Mg Tablet, 325 MG PO Q4HP PRN for PAIN, (Reported) PRISCILLA HENDERSON MD Nov 19, 2020 15:22
[2020-11-19 18:35] LABS: HEMOGLOBIN 9.1 g/dl (12.0-15.5); MEAN CORPUSCULAR HEMOGLOBIN 27.4 pg (27.0-33.0); MEAN CORPUSCULAR HGB CONC 31.4 g/dl (32.0-36.5); MEAN CORPUSCULAR VOLUME 87.3 fl (80.0-96.0); RED BLOOD COUNT 3.32 10^6/uL (4.00-5.40); WHITE BLOOD COUNT 14.1 10^3/uL (4.0-10.0)
[2020-11-19 18:43] LABS: PLATELET COUNT, AUTOMATED 45 10^3/uL (150-450)
--- NOTE | 2020-11-19 18:57 | CR.PDOC ---
General Date of Consultation: Nov 19, 2020 Referring Provider: Mayra Damico MD Primary Care Physician: A Attending Physician: ENDY FISHER MD Consultation REASON FOR CONSULTATION/CHIEF COMPLAINT: [Dropping platelet count during that admission.]. HISTORY OF PRESENT ILLNESS: [I had the pleasure of seeing Miss Angelia Stack in consultation off dropping platelet count for last 5 days. As you know Mrs. Stack is an 80 years old white female was admitted and October as she was found on the floor by her family members where she was for more than 4 hours. In emergency room she was found to have leukocytosis and was found to be having atrial fibrillation with RVR. Patient was also found to have extensive intramuscular myofascial and soft tissue emphysema along the left thigh from just proximal to the knee up to the hip and into the left pelvis around daily as sauce. Patient was started on subcutaneous heparin and received 2 doses of 5000 and I U each. On patient received 90 mg of Lovenox at 6 PM 1 dose and then it was discontinued. Patient platelet count was 149 on 11/17/2020 and on the it went down to 104 at 6 AM and October 6 PM platelet count was 71 and today on October platelet count is 49. Patient was also found to have high d-dimer. She was found to have gangrenous changes and was started on antibiotics. Her hemoglobin dropped down from 9.8-8.8 today. Patient was found to have rhabdomyolysis with AMIRA and was started on dialysis. Acute NH was ruled out. Patient was found to have right lower extremity erythema and emphysema on CT scan with infection and also involving the lower abdomen. Currently patient is able to talk normally although she is hard of hearing. Her breathing is good. She has no major cough or wheezing. She does not have any chest pain or palpitation. Denies headache or dizziness. ALLERGIES: Please see below. HOME MEDICATIONS: Please see below. PAST MEDICAL HISTORY: 1. [Hypertension]. 2. [Hyperlipidemia 3. Vitamin B12 deficiency]. 4. Osteoarthritis 5. Morbid obesity PAST SURGICAL HISTORY: 1. [Left total knee arthroplasty] 2. [Right total knee arthroplasty 3. Right hip replacement 4. Hysterectomy] FAMILY HISTORY: Mother: [ of endometrial cancer] Siblings: [One sibling of cancer] SOCIAL HISTORY: Marital status and/or living arrangements: [Patient is and lives with her daughter] Children: Tobacco use:[None] ETOH: [Denies] Illicit drug use: [None] IV drug use: [None] Other relevant social factors: REVIEW OF SYSTEMS: CONSTITUTIONAL: [No fever chills or rigors]. HEENT: [Denies epistaxis or sneezing]. CARDIOVASCULAR: [Your chest pain palpitations PND or orthopnea.]. RESPIRATORY: [Denies cough, wheezing]. GENITOURINARY: [No burning urination]. MUSCULOSKELETAL: [Pain in the right leg]. GASTROINTESTINAL: [Denies nausea vomiting abdominal pain or diarrhea]. SKIN: [No lesion]. NEUROLOGICAL: [No history of loss of motor power]. PSYCHIATRIC: [Does not have depression or anxiety]. ENDOCRINE: [Is a known diabetic]. HEMATOLOGIC/LYMPHATIC: [Denies any blood loss ALLERGIC/IMMUNOLOGIC: . PHYSICAL EXAMINATION: VITAL SIGNS: Please see below. GENERAL APPEARANCE: [Moderately obese female in no acute distress with DrCarlos alcantara at the site of dialysis catheter insertion]. HEENT: [ oral cavity clear without mucositis or thrush]. RESPIRATORY: [Lungs are clear to auscultation]. CARDIOVASCULAR: [Has taken diarrhea due to atrial fibrillation]. ABDOMEN: Obese no major tenderness. EXTREMITIES: [Has some swelling of the right leg and redness and blistering]. NEUROLOGICAL: [Moving all 4 limbs no gross sensory or motor deficit]. PSYCHIATRIC: [Slightly anxious]. LABORATORY DATA: Please see below. ASSESSMENT/PLAN: Angelia is an 80-year-old white female was admitted as she was found to be on the ground. She was found to have rhabdomyolysis and sepsis. Patient developed AMIRA and was started on hemodialysis. She received couple of days of Lovenox and was found to have dropping platelet count. Platelet count dropped down from 149 on 10/28/2020 to 49 today on October. Patient or her daughter have no knowledge of exposure to heparin in the past. Her d-dimer is high which may be due to sepsis and septic shock with hypotension. According to risk calculation for HIT she has 8-29% likelihood of heparin-induced thrombocytopenia. She might have been exposed to heparin in the past while she had both knee replacement in the past and also had one hip replacement in the past. Ideally patient should be started on argatroban or Arixtra but if there is a plan for surgery I would not like to start any anticoagulation at this point. Patient platelet need to be watched closely twice daily and if platelets go up to 50,000 surgery can be contemplated with a unit of pheresed platelets on hand and may be transfused if platelets go down during surgery. Heparin-induced from cytopenia is associated with this cough DVDs for which patient should be on diagnosis compression stocking on intermittent compression if surgery allows it. HIT antibodies has been sent out and results are pending. Vital Signs/I&O Vital Signs Date Time Temp Pulse Resp B/P (MAP) Pulse Ox O2 Delivery O2 Flow Rate FiO2 11/19/20 18:00 118 15 89/47 (61) 11/19/20 16:00 97.7 95 Room Air 11/18/20 12:00 2.0 I&O- Last 24 Hours up to 6 AM 11/19/20 05:59 Intake Total 4567.3 ml Output Total 3677 ml Balance 890.3 ml Laboratory Data Labs 24H Laboratory Tests 2 11/18/20 20:34: Bedside Glucose (Misc Panel) 137H 11/19/20 06:00: Immature Granulocyte % (Auto) , Neutrophils (%) (Auto) , Nucleated Red Blood Cells % (auto) 0.2H, Neutrophils 87H, Band Neutrophils 4, Lymphocytes (Manual) 8L, Monocytes (Manual) 1, Polychromasia 1+, Platelet Estimate MARKED DECREASE, Anion Gap 4L, Glomerular Filtration Rate > 60.0, Calcium Level 7.9L, Whole Blood Ionized Calcium 4.4L, Phosphorus Level 2.4#L, Magnesium Level 2.1, Total Creatine Kinase 1956H, C-Reactive Protein, Quantitative 15.80H 11/19/20 08:37: Lactic Acid Level 1.9, Vancomycin Level Trough 17.7 11/19/20 11:31: Bedside Glucose (Misc Panel) 131H 11/19/20 13:46: 11/19/20 14:36: Differential Slide Review Report, Peripheral Blood Smear Path Consult PERIPHERAL SMEAR, Prothrombin Time 16.0H, Prothromb Time International Ratio 1.26, Activated Partial Thromboplast Time 37.8, Lactate Dehydrogenase 521H 11/19/20 16:48: Bedside Glucose (Misc Panel) 57L 11/19/20 17:24: Bedside Glucose (Misc Panel) 111H CBC/BMP Laboratory Tests 11/19/20 06:00 Microbiology Microbiology 11/18/20 Blood Culture - Preliminary, Resulted No growth after 24 hours . All specim... 11/18/20 Blood Culture - Preliminary, Resulted No growth after 24 hours . All specim... 11/15/20 Urine Culture - Final, Complete 11/15/20 Blood Culture - Preliminary, Resulted No Growth after 72 hours. All specime... 11/15/20 Blood Culture - Preliminary, Resulted No Growth after 72 hours. All specime... Allergies Coded Allergies: Sulfa (Sulfonamide Antibiotics) (Verified Allergy, Unknown, 11/15/20) ciprofloxacin (Verified Adverse Reaction, Intermediate, visual hallucinations, falls, 11/15/20) CHRIST Inhibitors (Verified Adverse Reaction, Mild, cough, 11/15/20) Home Medications Scheduled Aspirin (Aspirin) 81 Mg Chw, 81 MG PO DAILY, (Reported) Calcium Carbonate (Calcium Carbonate) 500 Mg Tab, 1,000 MG PO DAILY, (Reported) Cyanocobalamin (Vitamin B-12) (Vitamin B-12) 1,000 Mcg Tablet, 1,000 MCG PO DAILY, (Reported) Insulin Glargine (Lantus) 100 Unit/1 Ml Vial, 20 UNITS SC QHS, (Reported) HOLD IF BS UNDER 120 Irbesartan/Hydrochlorothiazide (Irbesartan-Hctz 300-12.5 mg Tb) 1 Each Tablet, 1 TAB PO DAILY, (Reported) Lovastatin (Lovastatin) 40 Mg Tab, 40 MG PO DAILY, (Reported) Metformin HCl (Metformin HCl) 1,000 Mg Tablet, 1,500 MG PO DAILY, (Reported) Metformin HCl (Metformin HCl) 1,000 Mg Tablet, 1,000 MG PO QHS, (Reported) Multivit,Calc,Mins/Iron/Folic (Thera-M Tablet) 1 Each Tablet, 1 TAB PO DAILY, (Reported) Scheduled PRN Acetaminophen (Tylenol) 325 Mg Tablet, 325 MG PO Q4HP PRN for PAIN, (Reported) ENDY FISHER MD Nov 19, 2020 18:57
[2020-11-19] MEDS ORDERED: CALCIUM GLUCONATE 1,000 MG in NS 100 ML IV ONE (19:00)
[2020-11-19 19:04] LABS: ALBUMIN 1.5 GM/DL (3.2-5.2); ALT/SGPT 457 U/L (12-78); BLOOD UREA NITROGEN 13 MG/DL (7-18); CALCIUM LEVEL 7.6 MG/DL (8.8-10.2); CARBON DIOXIDE LEVEL 26 MEQ/L (21-32); CHLORIDE LEVEL 101 MEQ/L (98-107); CREATININE FOR GFR 0.74 MG/DL (0.55-1.30); GLOMERULAR FILTRATION RATE > 60.0 (>32); GLUCOSE, FASTING 159 MG/DL (70-100); PHOSPHORUS LEVEL 2.2 MG/DL (2.5-4.9); POTASSIUM SERUM 4.2 MEQ/L (3.5-5.1); SODIUM LEVEL 132 MEQ/L (136-145)
[2020-11-19 19:24] LABS: ATYPICAL LYMPH 3 % (0-5); LYMPHOCYTES 3 % (16-44); METAMYELOCYTES 2 % (0-0); MONOCYTES 2 % (0-5); MYELOCYTES 2 % (0-0); NEUTROPHILS 87 % (28-66)
[2020-11-19 19:25] LABS: ANISOCYTOSIS 1+; PLATELET ESTIMATE DECREASED (NORMAL); POIKILOCYTOSIS 1+
[2020-11-19] MEDS: ACETAMINOPHEN 500 MG TAB PO PRN (20:36)
[2020-11-19] MEDS ORDERED: POTASSIUM PHOSPHATE INJ 30 MMOL in D5W 500 ML IV ONE (21:00)
[2020-11-20] VITALS (38 sets, daily range): BP systolic 77–118; BP diastolic 46–78
--- NOTE | 2020-11-20 00:36 | IPN ---
CRITICAL CARE PROGRESS NOTE DATE: 11/19/2020 SUBJECTIVE: Mrs. Stack is seen this morning on her bedside in the Intensive Care Unit. Her daughter is present in the room. Patient remains on CRRT due to oliguric acute renal failure. Her blood pressure is soft, however, she has been off pressors since yesterday. Source of her sepsis is still unclear and a repeat CAT scan of abdomen and pelvis is being considered to rule out any retroperitoneal hematoma and possible psoas abscess. On her prior CAT scan, there was a concern about some gas in the iliopsoas area and there was no other source of sepsis identified so far. She has been seen by surgery, however, there is no definitive plan of surgical intervention. She has been on broad spectrum antibiotics and is currently afebrile. She remains in atrial fibrillation with heart rate in the one-teens to one-twenties. She has minimal urine output. Patient is awake and alert and able to answer questions. PHYSICAL EXAMINATION: VITALS: Temperature 97.7 degrees Fahrenheit, heart rate 123 per minute, respiratory rate 18 per minute, blood pressure 98/54 mmHg and oxygen saturation 95% on room air. INTAKE AND OUTPUT: Records from yesterday show a positive fluid balance of about 2,100 mL. She weighed 103.6 kilograms today. HEENT: Head is atraumatic. Neck is supple and JVD is difficult to be assessed. Dialysis catheter in right internal jugular vein is currently being used for CRRT. LUNGS: Diminished breath sounds at dependent parts. HEART: Sounds are tachycardic and irregular in rhythm due to atrial fibrillation. ABDOMEN: Soft and nontender. Bowel sounds are normal. EXTREMITIES: No cyanosis or clubbing. She has large areas of ecchymosis on her right shoulder and left upper arm and forearm. NEUROLOGIC: She is awake and alert. LABORATORY STUDIES: Today's labs show WBC 11.2, hemoglobin 8.8, hematocrit 27.5, platelets 49,000. Vancomycin level 17.7 this morning. Chemistries this morning showed sodium 135, potassium 4.0, chloride 102, CO2 29, BUN 14, creatinine 0.67, glucose 144. Lactic acid 1.9. Calcium level 7.9. Phosphorus 2.4. C-reactive protein 15.8. PROBLEMS: 1. Oliguric acute renal failure: The patient remains oliguric with minimal urine output. She has been off pressors, but her urine output has not significantly changed over the last 24 hours. We will continue with the CRRT at this point until her urine output improves. 2. Septic shock: Patient remains on broad spectrum antibiotics and blood pressure is low, however, she has been off pressors for at least about 24 hours now. She is scheduled for a repeat CAT scan of the abdomen and pelvis to assess for retroperitoneal hematoma versus abscess. 3. Thrombocytopenia: Her thrombocytopenia is getting worse and she has large areas of ecchymosis. There is no drop in her hemoglobin or hematocrit over the last 24 hours, so I feel that she does not have any active bleeding at this point. 4. Hypervolemia: Patient has been weighed and remains oliguric with difficulty in fluid removal by CRRT due to low blood pressure. At this point, we will continue our efforts to remove any fluid if she could tolerate. 5. Nutrition: Patient has not been eating much and likely to develop low albumin. We will continue to encourage her for nutritional intake. It is likely that she might require TPN. Patient and her daughter had several questions, which were answered to the best of my ability. Case discussed with other providers and care plan is discussed. At this point, we will continue CRRT from a renal standpoint and try to manage her electrolytes, fluid, acid based balance and uremia. 38 minutes of critical care time spent, during which no procedures were performed.
[2020-11-20] MEDS: MORPHINE 2 MG/ML 1ML VIAL (J2270) IV PRN ×3 (02:00→21:21)
[2020-11-20] MEDS: MEROPENEM INJ 1 GM in IV 1 EA IV SCH ×2 (03:00→12:23)
[2020-11-20 04:52] LABS: HEMATOCRIT 26.8 % (36.0-47.0); HEMOGLOBIN 8.3 g/dl (12.0-15.5); MEAN CORPUSCULAR HEMOGLOBIN 26.9 pg (27.0-33.0); RED BLOOD COUNT 3.08 10^6/uL (4.00-5.40); WHITE BLOOD COUNT 12.5 10^3/uL (4.0-10.0)
[2020-11-20 04:53] LABS: PLATELET COUNT, AUTOMATED 32 10^3/uL (150-450)
[2020-11-20] MEDS ORDERED: CALCIUM GLUCONATE 1,000 MG in D5W MINI-BAG PLUS 100 ML IV ONE (05:00)
[2020-11-20 05:05] LABS: ATYPICAL LYMPH 3 % (0-5); EOSINOPHILS 3 % (0-3); LYMPHOCYTES 11 % (16-44); MONOCYTES 3 % (0-5); MYELOCYTES 2 % (0-0); NEUTROPHILS 77 % (28-66); PLATELET ESTIMATE MARKED DECREASE (NORMAL); POIKILOCYTOSIS 1+
[2020-11-20 05:06] LABS: HYPOCHROMASIA 1+; POLYCHROMASIA 1+
[2020-11-20 05:40] LABS: ALBUMIN 1.4 GM/DL (3.2-5.2); ALT/SGPT 387 U/L (12-78); BILIRUBIN,TOTAL 2.5 MG/DL (0.2-1.0); BLOOD UREA NITROGEN 12 MG/DL (7-18); CALCIUM LEVEL 7.1 MG/DL (8.8-10.2); CARBON DIOXIDE LEVEL 28 MEQ/L (21-32); CHLORIDE LEVEL 103 MEQ/L (98-107); CPK CREATINE PHOSPHOKINASE 1081 U/L (26-192); CREATININE FOR GFR 0.61 MG/DL (0.55-1.30); GLOMERULAR FILTRATION RATE > 60.0 (>32); GLUCOSE, FASTING 140 MG/DL (70-100); POTASSIUM SERUM 4.2 MEQ/L (3.5-5.1); SODIUM LEVEL 136 MEQ/L (136-145); TOTAL PROTEIN 3.6 GM/DL (6.4-8.2)
[2020-11-20] MEDS: HumaLOG INSULIN (NovoLOG) PER UNIT SC SCH ×4 (08:30→21:00)
[2020-11-20] MEDS: LACTOBACILLUS ACIDOPHILUS CAP (BACID) PO SCH ×2 (08:31→17:20)
[2020-11-20] MEDS: ASPIRIN 81 MG CHEW TABLET PO SCH (08:31)
[2020-11-20] MEDS: PANTOPRAZOLE 20 MG TAB PO SCH (08:31)
[2020-11-20] MEDS: AMIODARONE 200 MG TAB (PACERONE) PO SCH ×4 (08:31→21:21)
[2020-11-20] MEDS: DIGOXIN INJ 0.5 MG/2 ML AMP (J1160) IV SCH (08:31)
[2020-11-20] MEDS: VANCOMYCIN HCL 750 MG, VIAL MATE ADAPTER 1 EACH in NS 250 ML IV SCH ×2 (10:19→22:32)
[2020-11-20] MEDS ORDERED: SODIUM CHLORIDE 0.9% INJ 10 ML SYR IV PRN (12:05)
--- NOTE | 2020-11-20 13:56 | IPN ---
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 HISTORY: Patient was admitted on November 15. She had suffered a fall at home and was apparently down on the floor for several hours at least. She was found to be in atrial fibrillation with a rapid ventricular response and had a marked leukocytosis at the time of her admission. She has had evidence of significant sepsis during her stay with shock requiring pressors. She has had marked elevations of her liver function tests as a result with marked renal impairment. She is being supported with continuous renal replacement therapy. Her pressors were apparently discontinued yesterday, and she has maintained an acceptable blood pressure. Imaging studies earlier on in her stay showed a few small air bubbles in the retroperitoneum in the iliopsoas region. She had a repeat CT scan of the abdomen and pelvis with a CT of the left thigh yesterday, which showed extensive air bubbles throughout a muscular area in the lateral aspect of the left thigh. She had a few more small air bubbles in the retroperitoneum on the iliopsoas region on the left as well. Dr. Damico has asked for my impression and recommendations regarding this patient's treatment. Partly this is a question of whether she would be able to tolerate the surgery that might be necessary to approach this infected area. Patient was seen by Dr. Hagan of orthopedics yesterday, who felt that drainage of her infection was beyond the capabilities of [facility] and that transfer should be considered if drainage was desired. Vital signs: Patient has been afebrile for days. Her pulse today has been between 102-118 and irregular. Blood pressure has been about 100 systolic, giving a mean arterial pressure of approximately 65-70. Her room air pulse oximetry is in the low to mid 90s. Intake and output yesterday showed 2600 in with 1700 out. She had 1500 removed with renal replacement therapy and 130 mL of urine. PHYSICAL EXAMINATION: The patient is awake and alert. She appears to be oriented. She denies any pain at rest and was just starting her breakfast when I interrupted her. Skin is warm and dry. Sclerae are anicteric. Heart exam shows an irregular tachycardia. The lungs seem clear to auscultation bilaterally. Is sitting up in bed. The abdomen is obese. She has bowel sounds present. The abdomen is soft, and there is no definite tenderness identified. Examination of the left thigh shows a few bullae on the anterolateral thigh proximally. There is some faint redness of the left groin fold and the lateral aspect of her thigh. There appears to be some edema in this area, but I cannot feel any definite crepitance. She appears to have adequate circulation to the feet. Laboratory studies today show a white count of 12, hemoglobin of 8, hematocrit 27, and a platelet count of 32,000. Her differential count showed 77% neutrophils, 1 band, 11 lymphocytes. Chemistry profile showed normal electrolytes with a BUN 12, creatinine 0.6, and a glucose of 140. Total bilirubin is 2.5 with an AST of 468, ALT 387, and an alkaline phosphatase of 239. Her total CK is 1081. Total protein is 3.6 with an albumin of 1.4. A vancomycin trough level today is 20.2. Fingerstick blood sugars over the past 24 hours have ranged between 57-131. Blood cultures have been no growth, first on November 15 and also on November 18, but these are preliminary. IMPRESSION: Patient has stabilized quite a bit over the last few days. This is the first time that I have actually seen her personally, but in review of her history and labs, she is now off pressors. She had developed marked elevations of her liver function tests, peaking on or about November 17. Her renal function had failed, and she peaked her creatinine late on November 16 or . She had a marked rise in her CK, which had then fallen gradually over several days. Overall she has improved quite a bit, but she does have these little bubbles of gas along the left lateral thigh with some extension up into the iliopsoas muscles and the retroperitoneum on the left. We certainly must assume that this represents an infectious process. She is on potent antibiotics with meropenem and vancomycin. RECOMMENDATIONS: At this point, the patient has made significant progress, I think, over the last few days with antibiotic therapy. The serial CT scans have shown a slight increase in the amount of gas in the retroperitoneum on the left. Her CT of the left thigh yesterday showed more extensive gas bubbles along the lateral aspect of the thigh within the muscle and fascia. This is quite deep and therefore not something that can be assessed on physical exam. I note Dr. Lui's recommendations regarding antibiotic therapy and the likely underlying organism for this process. Under ideal circumstances, we would certainly wish to open these infected tissues to debride any nonviable tissue or destroyed fascia and to drain the infection. The involved area in the lateral thigh is certainly more easily amenable to exploration and debridement than is the retroperitoneum. This patient is still in fairly tenuous status right now. Dr. Hagan did not feel that exploration of the thigh was something that would be appropriate for our institution. I think the choices at this point come down to either continuing antibiotics and continuing to monitor her, and at this point she has seemed to improve with just antibiotic therapy. The alternative would be to consider transfer to a higher level of care institution so they could consider exploration and debridement of the thigh and possibly the retroperitoneum. I did speak with Dr. Damico after seeing the patient and discussed these varius options. She indicated that she would be having a meeting with the family to discuss their wishes for their family member. She did contact me after that family meeting was held and reported that the family would like to keep her here in [place] and continue the antibiotics for now. I will continue to follow the patient and assess her for changes in care as time goes on. STEPH
[2020-11-20] MEDS: ARGATROBAN 250 MG/250 ML IV SCH ×2 (14:03)
--- NOTE | 2020-11-20 15:40 | IPNPDOC ---
Date Seen The patient was seen on 11/20/20. Progress Note SUBJECTIVE: After receiving orthopedic surgery and general surgery's input 11/19 and 11/20, a family meeting was held again this morning with the patient and her daughter. It is clear the patient is intermittently confused at times. Patient is often repeating what she says and will tell us after discussion that she doesn't understand as she "feels better" despite simple breakdown. The 2 choices presented to the patient/patient's family was to either 1. continue antibiotics with close monitoring or 2. transfer to a higher level of care if they were to accept her. We talked at great length between the patient and her daughter about these 2 options. Risks of not having an operation or undergoing debridement of infected tissue were discussed. Risks of choosing surgery were also discussed at great length. At this time, with patient having possible HIT starting argatroban gtt, remaining on CRRT and having lower than normal BP's may prevent surgery from even being done. I offered to call and see if this was an option at another facility but family ultimately chose to keep patient here to see what may or may not evolve/improve. Dr. Fragoso (heme/onc) is also following patient closely at this time. The patient denies increased LLE pain, chest pain, incr shortness of breath, n/v/d, abdominal pain. OBJECTIVE: PHYSICAL EXAMINATION: VITAL SIGNS: Please see below GENERAL APPEARANCE: NAD, resting, AAOx 3 HEENT: AT/NC, EOMI, PERRLA NECK: No masses, right trialysis catheter in place LUNGS: CTAB, no wheezing, rhonchi, wheezing HEART: irregularly irregular rhythm, rapid. There is a 1/6 systolic ejection murmur. No rubs or gallops ABDOMEN: obese, soft, nontender. No guarding or rebound. No referred pain. No CVA tenderness. EXTREMITIES: Pain of left upper thigh- 2/10 on palpation . ROM not tested. No cyanosis or clubbing. Trace peripheral edema. Moves arms and legs with equal strength. Generally weak INTEGUMENTARY: Large left thigh scar extending from knee to high thigh, improved redness with some mild tenderness on palpation. No crepitus : macias catheter in place NEUROLOGIC: CN 2-12 intact, no focal deficits PSYCH: confused at times LABORATORY DATA: Please see below MICROBIOLOGY: BCx x 2 sets: NG 5 days Repeat BCx x 2 sets: NG at 48 H UCx NG IMAGING: CT femur with contrast 11/19/20: Extensive intramuscular myofascial and soft tissue emphysema along the left thigh from just above the knee to the hip and into the left pelvis consistent with mild fasciitis with gas-forming organism/gas gangrene. No teresa abscess is seen. Diffuse cellulitis pattern. Ileus pattern in the abdominal bowel gas CT abd/pelvis with contrast 11/19/20: Extensive soft tissue emphysema with edema and dermal thickening in the quadriceps musculature of the proximal thigh on the left extending along the left pelvic sidewall in the iliopsoas muscle. 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 These are new findings compared with the November 15, 2020 study. Gallstones are seen. An abdominal ileus pattern is noted in the bowel gas. CT head 11/17/20: Stable exam, no acute findings US abdomen: Suboptimal examination. If felt clinically indicated consider CT for further evaluation. CXR: Chronic changes without acute infiltrate or pleural effusion. 5 mm nodule left lower lobe, recommend follow-up CT chest in 6-12 months. Echocardiogram 11/15/20: EF 65-70% Study is of acceptable technical quality, patient is in sinus rhythm. Normal LV size with preserved LV systolic function and grade 2 diastolic dysfunction. Dilated hypokinetic right ventricle. No hemodynamically significant valvular disease. Likely elevated central venous pressure and moderately severe pulmonary hypertension. CT lumbar spine: 1. Worsening intramuscular gas extending into the left iliacus and psoas muscles, which overall these muscles appear asymmetrically thickened when compared with the right. Cannot exclude possibility of intramuscular abscess and/or hematoma in the setting of recent trauma. It is possible that this gas is extending from the level of the left SI joint, though no definite sacral fracture is identified. Recommend orthopedic consultation. 2. Other chronic findings, as above. CT abd/pelvis: Numerous a small gallbladder calculi. No CT evidence of acute cholecystitis or biliary duct dilatation. The kidneys are unremarkable. Wall thickening of the sigmoid colon and rectosigmoid colon, nonspecific, but co uld represent infectious versus inflammatory colitis in the appropriate clinical setting. 5.3 cm hiatal hernia. Appendix is unremarkable. Hysterectomy. Right hip arthroplasty. Grade 1 compression deformity of the L4 superior endplate and lumbar spine degenerative disc disease. CT chest: Chronic changes without acute infiltrate or pleural effusion. 5 mm nodule left lower lobe, recommend follow-up CT chest in 6-12 months. IMPRESSION/PLAN: Hypotension likely septic shock 2/2 gas/necrotizing fascitis/myofascitis seen in musculature of the proximal thigh on the left extending along the left pelvic sidewall in the iliopsoas muscle and left lower ext/thigh cellulitis. -WBC 12.5 K, bandemia improving, LA wnl (peaked 11/17/20 at 8.5) -CRRT intermittently taking off fluid -CT left femur/ abd/pelvis 11/19/20 above -General surgery (Dr. Franco) and orthopedic surgery (Dr. Hagan) reviewed sca ns, patient and case. Per general surgery, under ideal circumstances, the choice would be to take to surgery and debride any nonviable tissue or destroyed fascia and to drain the infection. The involved area in the lateral thigh is certainly more easily amenable to exploration and debridement than is the retroperitoneum. Dr. Hagan felt that if this were to be done it was best done at a larger [facility] ility. -Two options suggested by general surgery were presented to patient and family: 1. c/w abx and monitor or 2. attempt to transfer to institution with higher level of care to consider exploration and debridement of the thigh and possibly the retroperitoneum. Risks of doing and NOT doing both discussed in detail with family and patient. Ultimately family chose to keep here and c/w current callie atment, monitoring. -Surgery to continue to follow -ID following closely, c/w meropenem, vancomycin. -F/u daily labs Anemia possibly 2/2 to dilutional effect, sepsis -No s/s of obvious bleeding, H/H 8.3/26.8 -S/p 1 unit PRBC this admission -No hemorrhage, bleeding seen on CT above -Follow CBC closely. If Hgb <8, consider transfusing Acute thrombocytopenia, r/o HIT vs. 2/2 to sepsis -PLTs lower today at 32, no increased bleeding seen -Lovenox started on 11/15/20, stopped 11/18/20. Likely prior exposures with prior surgeries, hospitalizations -Starting argatroban gtt today -F/u CBC/PT/PTT/INR Q12 H , HIT ab, peripheral smear -Heme/onc consulted and following -Tranfuse PLTs if bleed or if PLTs <20 Atrial fibrillation with RVR 2/2 to sepsis -HR 99-118; however, mostly <110 bpm -S/p amiodarone QID, digoxin total of 1 g IV on 11/18/20 -Echo above -[place] goal HR < 110 but <120 ok with current sepsis -C/w treatment of sepsis above -Tele Oliguric AMIRA likely multifactorial 2/2 to hypotension/septic shock, acute rhabdomyolysis, poss contrast nephropathy, medications -CRRT began evening 11/16/20, poor u/o -Taking fluid off intermittently -Cr 0.67 -Replace lytes PRN -F/u labs regularly, nephrology recs -Monitor u/o closely Hypocalcemia, acute -S/p calcium gluconate today -Following lytes closely with CRRT Acute transaminitis poss 2/2 to hypotension -AST/ALT improving -Tx for hypotension above -Following CMP daily Elevated BNP likely 2/2 to atrial fibrillation with RVR, HFpEF / mod-severe pulmonary HTN -Echocardiogram above -CXR neg for acute changes -Saturating well on RA -Stopped BB, no diuretics currently, on CRRT with fluid being taken off intermi ttently -Discussed case with cardiology. C/w current management above Acute rhabdomyolysis-improving -Peaked CK at 32K, trending down -Follow up CMP regularly -Nephrology following, CRRT DM type II -BS stable -ISS, AC/HS, consistent carb GERD/GI px -PPI DVT px -Stopped lovenox with worsening PLTs. Teds, scd Resolved issues: Hypomagnesemia, acute Hyperkalemia likely 2/2 to AMIRA TIA vs. transient focal deficits 2/2 to hypotension Elevated troponins possibly cytokine induced, cannot r/o Type II event DISPOSITION: ID, nephrology, general surgery, orthopedic surgery, hematology c onsulted. Condition is very guarded. Discussion above had with patient and family. Due to confusion with patient, will rely mostly on daughter to make major decisions. Remains DNR/DNI. TOTAL AMOUNT OF ICU TIME SPENT ON PATIENT'S CARE TODAY (nonprocedural): 90 MINS VS, I&O, 24H, Fishbone Vital Signs/I&O Vital Signs Date Time Temp Pulse Resp B/P (MAP) Pulse Ox O2 Delivery O2 Flow Rate FiO2 11/20/20 15:00 110 104/60 (75) 11/20/20 12:00 98.8 16 96 Room Air 11/18/20 12:00 2.0 I&O- Last 24 Hours up to 6 AM 11/20/20 06:00 Intake Total 2657 ml Output Total 1159 ml Balance 1498 ml Laboratory Data 24H LABS Laboratory Tests 2 11/19/20 16:48: Bedside Glucose (Misc Panel) 57L 11/19/20 17:24: Bedside Glucose (Misc Panel) 111H 11/19/20 17:56: Whole Blood Ionized Calcium 4.4L 11/19/20 17:59: Anion Gap 5L, Glomerular Filtration Rate > 60.0, Calcium Level 7.6L, Phosphorus Level 2.2L, Magnesium Level 2.0, Total Bilirubin 3.0#H, Aspartate Amino Transf (AST/SGOT) 627H, Alanine Aminotransferase (ALT/SGPT) 457H, Alkaline Phosphatase 221H, Total Protein 4.0L, Albumin 1.5L, Albumin/Globulin Ratio 0.6L 11/19/20 18:00: Immature Granulocyte % (Auto) , Neutrophils (%) (Auto) , Nucleated Red Blood Cells % (auto) 0.6H, Neutrophils 87H, Band Neutrophils 1, Lymphocytes (Manual) 3L, Monocytes (Manual) 2, Metamyelocytes 2H, Myelocytes 2H, Atypical Lymphocytes 3, Poikilocytosis 1+, Anisocytosis 1+, Platelet Estimate DECREASED 11/19/20 20:38: Bedside Glucose (Misc Panel) 128H 11/20/20 04:42: Immature Granulocyte % (Auto) , Neutrophils (%) (Auto) , Nucleated Red Blood Cells % (auto) 0.6H, Neutrophils 77H, Band Neutrophils 1, Lymphocytes (Manual) 11L, Monocytes (Manual) 3, Myelocytes 2H, Atypical Lymphocytes 3, Poikilocytosis 1+, Platelet Estimate MARKED DECREASE, Eosinophils (Manual) 3, Polychromasia 1+, Hypochromasia 1+, Immature Platelet Fraction 13.9H, Anion Gap 5L, Glomerular Filtration Rate > 60.0, Calcium Level 7.1L, Whole Blood Ionized Calcium 4.5, Phosphorus Level 3.0#, Magnesium Level 2.0, Total Bilirubin 2.5H, Aspartate Amino Transf (AST/SGOT) 468H, Alanine Aminotransferase (ALT/SGPT) 387H, Alkaline Phosphatase 239H, Total Creatine Kinase 1081H, Total Protein 3.6L, Albumin 1.4L, Albumin/Globulin Ratio 0.6L 11/20/20 06:53: Vancomycin Level Trough 20.2H 11/20/20 12:02: Bedside Glucose (Misc Panel) 129H 11/20/20 13:13: Activated Partial Thromboplast Time 34.3 CBC/BMP Laboratory Tests 11/19/20 17:59 11/19/20 18:00 11/20/20 04:42 Microbiology Microbiology 11/18/20 Blood Culture - Preliminary, Resulted No Growth after 48 hours. All Specime... 11/18/20 Blood Culture - Preliminary, Resulted No Growth after 48 hours. All Specime... 11/15/20 Urine Culture - Final, Complete 11/15/20 Blood Culture - Final, Complete NO GROWTH AFTER 5 DAYS 11/15/20 Blood Culture - Final, Complete NO GROWTH AFTER 5 DAYS Current Medications Current Medications Medications (Trade) Dose Ordered Sig/Sendy Route PRN Reason Start Time Stop Time Status Last Admin Dose Admin Acetaminophen (Tylenol Tab) 1,000 mg Q6HP PRN PO PAIN / FEVER 11/15/20 18:50 11/19/20 20:36 Amiodarone HCl (Pacerone, Cordarone) 200 mg QID PO 11/18/20 17:00 11/20/20 12:23 Amiodarone HCl (Pacerone, Cordarone) 200 mg TID PO 11/18/20 09:00 11/18/20 15:56 DC 11/18/20 12:16 Amiodarone HCl 150 mg/IV Miscellaneous Supplies 100 ml @ 600 mls/hr STAT STAT IV 11/17/20 08:58 11/17/20 09:07 DC 11/17/20 09:18 Amiodarone HCl 360 mg/IV Miscellaneous Supplies 200 ml @ 17 mls/hr [id number] IV 11/17/20 16:00 11/18/20 10:00 DC 11/18/20 04:29 Amiodarone HCl 360 mg/IV Miscellaneous Supplies 200 ml @ 33.333 mls/ hr Q6H IV 11/17/20 10:00 11/17/20 10:05 DC 11/17/20 11:11 Argatroban 250 mg/ Dextrose 250 ml @ 6.48 mls/hr Q24H IV 11/20/20 14:00 11/20/20 14:03 Aspirin (Aspirin Chewable) 81 mg DAILY PO 11/15/20 09:00 Cancel Aspirin (Aspirin Chewable) 81 mg DAILY PO 11/16/20 09:00 11/20/20 08:31 Calcium Gluconate 1000 mg/IV Miscellaneous Supplies 1 each/ Sodium Chloride 110 ml @ 110 mls/hr 0600,0700 IV 11/17/20 06:00 11/17/20 10:00 DC 11/17/20 09:18 Calcium Gluconate 1000 mg/IV Miscellaneous Supplies 1 each/ Sodium Chloride 110 ml @ 110 mls/hr 2200,2300 IV 11/17/20 22:00 11/18/20 02:00 DC 11/18/20 02:19 Calcium Gluconate 1000 mg/IV Miscellaneous Supplies 1 each/ Sodium Chloride 110 ml @ 110 mls/hr Q1H IV 11/18/20 09:00 11/18/20 10:59 DC 11/18/20 10:14 Ceftriaxone Sodium 1 gm/ Dextrose 50 ml @ 100 mls/hr Q24H IV 11/15/20 16:00 11/16/20 08:46 DC 11/15/20 16:53 Dextrose (Dextrose 50%) 25 ml ASDIRECTED PRN IV SEE LABEL COMMENTS 11/15/20 14:50 Dextrose (Dextrose 50%) 50 ml STAT STAT IV 11/16/20 02:51 11/16/20 02:57 DC 11/16/20 03:16 Digoxin (Lanoxin) 0.25 mg DAILY IV 11/19/20 12:15 11/20/20 08:31 Digoxin (Lanoxin) 0.25 mg STAT STAT IV 11/18/20 16:53 11/18/20 16:54 DC 11/18/20 17:07 Digoxin (Lanoxin) 0.25 mg STAT STAT IV 11/18/20 18:10 11/18/20 18:11 DC 11/18/20 18:22 Digoxin (Lanoxin) 0.5 mg STAT STAT IV 11/18/20 15:33 11/18/20 15:59 DC 11/18/20 15:59 Enoxaparin Sodium (Lovenox) 80 mg Q12H SC 11/15/20 18:00 11/16/20 19:06 DC 11/16/20 17:41 Enoxaparin Sodium (Lovenox) 90 mg Q24H SC 11/17/20 18:00 11/18/20 12:11 DC 11/17/20 17:59 Glucagon (Glucagon) 1 mg ASDIRECTED PRN SC SEE LABEL COMMENTS 11/15/20 14:50 Glucose (Glucose) 16 GM ASDIRECTED PRN PO SEE LABEL COMMENTS 11/15/20 14:50 Heparin Sodium (Heparin) ASDIRECTED PRN IV SEE LABEL COMMENTS 11/16/20 20:45 11/17/20 15:24 DC Heparin Sodium (Heparin) ASDIRECTED PRN IV SEE LABEL COMMENTS 11/17/20 15:30 11/18/20 11:57 DC Heparin Sodium (Heparin) ASDIRECTED PRN IV SEE LABEL COMMENTS 11/18/20 12:00 11/20/20 12:52 DC Heparin Sodium (Heparin) ASDIRECTED PRN IV SEE LABEL COMMENTS 11/19/20 11:10 11/20/20 12:52 DC Heparin Sodium (Heparin) ASDIRECTED PRN IV SEE LABEL COMMENTS 11/20/20 12:05 Heparin Sodium (Heparin) dose as per volume indica... ASDIRECTED PRN IV SEE LABEL COMMENTS 11/16/20 18:00 11/16/20 18:31 DC 11/16/20 18:22 Home Med (Med Rec Complete!) ASDIRECTED XX 11/15/20 13:20 11/15/20 13:22 DC Hydromorphone HCl (Dilaudid) 0.3 mg Q3HP PRN IV MILD PAIN (PS 1-4) 11/17/20 00:50 11/17/20 12:31 DC 11/17/20 01:07 Insulin Human Lispro (HumaLOG INSULIN) SEE PROTOCOL TABLE AC SC 11/15/20 17:30 11/20/20 12:23 Insulin Human Lispro (HumaLOG INSULIN) SEE PROTOCOL TABLE QHS SC 11/15/20 21:00 Insulin Human Regular (HumuLIN R INSULIN) 10 units STAT STAT IV 11/16/20 02:51 11/16/20 02:57 DC 11/16/20 03:17 Lactobacillus Acidophilus (Bacid) 1 ea BIDWM PO 11/16/20 08:00 11/20/20 08:31 Meropenem 1 gm/IV Miscellaneous Supplies 50 ml @ 100 mls/hr Q12H IV 11/20/20 01:00 11/20/20 12:23 Meropenem 2 gm/ Sodium Chloride 100 ml @ 200 mls/hr Q8H IV 11/17/20 12:15 11/17/20 12:24 DC Meropenem 500 mg/ IV Miscellaneous Supplies 50 ml @ 100 mls/hr Q12H IV 11/17/20 13:00 11/19/20 16:30 DC 11/19/20 13:29 Metoprolol Tartrate (Lopressor) 5 mg Q5M IV 11/15/20 12:55 11/15/20 13:06 DC 11/15/20 13:52 Metoprolol Tartrate (Lopressor) 25 mg Q6H PO 11/16/20 12:00 11/16/20 16:02 DC Metoprolol Tartrate (Lopressor) 50 mg Q6H PO 11/15/20 18:00 11/16/20 11:56 DC 11/15/20 17:36 Metronidazole 500 mg/IV Miscellaneous Supplies 100 ml @ 100 mls/hr Q8H IV 11/16/20 09:00 11/16/20 12:34 DC 11/16/20 10:13 Morphine Sulfate (Morphine Sulfate Inj) 1 mg Q4H PRN IV MODERATE PAIN (PS 5-7) 11/17/20 12:30 11/19/20 19:13 Morphine Sulfate (Morphine Sulfate Inj) 2 mg Q6H PRN IV SEVERE PAIN (PS 8-10) 11/17/20 12:30 11/20/20 02:00 Norepinephrine Bitartrate 8 mg/ Dextrose 500 ml @ 93.7 mls/hr Q5H21M IV 11/16/20 18:00 Hold 11/18/20 07:48 Ondansetron HCl (ZOFRAN INJection) 4 mg Q6HP PRN IV NAUSEA OR VOMITING 11/15/20 18:50 11/18/20 18:22 Pantoprazole Sodium (Protonix) 20 mg DAILY PO 11/18/20 09:00 11/18/20 12:13 DC Pantoprazole Sodium (Protonix) 40 mg DAILY PO 11/18/20 12:15 11/20/20 08:31 Piperacillin Sod/ Tazobactam Sod 3.375 gm/Dextrose 50 ml @ 50 mls/hr Q6H IV 11/16/20 10:00 11/17/20 12:16 DC 11/17/20 03:49 Potassium Chloride/Sodium Chloride 1,000 ml @ 125 mls/hr Q8H IV 11/15/20 15:30 11/16/20 02:57 DC 11/15/20 17:35 Simvastatin (Zocor) 40 mg QHS PO 11/15/20 21:00 11/16/20 08:49 DC 11/15/20 20:15 Sodium Bicarbonate 150 meq/Dextrose/Water 1,150 ml @ 150 mls/hr Q7H40M IV 11/16/20 16:00 11/16/20 20:56 DC 11/16/20 16:05 Sodium Bicarbonate 150 meq/Dextrose/Water 1,150 ml @ 150 mls/hr Q7H40M STAT IV 11/16/20 03:39 11/16/20 20:56 DC 11/16/20 04:03 Sodium Polystyrene Sulfonate (Kayexalate) 30 gm NOW STAT PO 11/16/20 02:51 11/16/20 03:05 DC 11/16/20 04:32 Sodium Chloride 1,000 ml @ 50 mls/hr Q20H IV 11/16/20 21:00 11/17/20 16:43 DC 11/16/20 22:00 Sodium Chloride (Saline Lock Flush) 10ML IN EACH LISANDRO... ASDIRECTED PRN IV SEE LABEL COMMENTS 11/16/20 20:45 11/17/20 15:24 DC Sodium Chloride (Saline Lock Flush) 10ML IN EACH LISANDRO... ASDIRECTED PRN IV SEE LABEL COMMENTS 11/17/20 15:30 11/18/20 11:57 DC Sodium Chloride (Saline Lock Flush) 10ML IN EACH LISANDRO... ASDIRECTED PRN IV SEE LABEL COMMENTS 11/18/20 12:00 11/20/20 12:52 DC Sodium Chloride (Saline Lock Flush) 10ML IN EACH LISANDRO... ASDIRECTED PRN IV SEE LABEL COMMENTS 11/19/20 11:10 11/20/20 12:52 DC Sodium Chloride (Saline Lock Flush) 10ML IN EACH LISANDRO... ASDIRECTED PRN IV SEE LABEL COMMENTS 11/20/20 12:05 Vancomycin HCl 500 mg/Dextrose 110 ml @ 110 mls/hr Q24H IV 11/17/20 21:00 11/18/20 08:55 DC 11/17/20 23:21 Vancomycin HCl 750 mg/IV Miscellaneous Supplies 1 each/ Sodium Chloride 275 ml @ 275 mls/hr Q12H IV 11/20/20 11:00 11/20/20 10:19 Vancomycin HCl 1000 mg/IV Miscellaneous Supplies 1 each/ Sodium Chloride 270 ml @ 270 mls/hr Q12H IV 11/18/20 09:00 11/20/20 07:54 DC 11/19/20 20:36 Vancomycin HCl 1000 mg/IV Miscellaneous Supplies 1 each/ Sodium Chloride 270 ml @ 270 mls/hr Q24H IV 11/17/20 20:00 11/18/20 08:55 DC 11/17/20 21:09 Vasopressin 20 units/Sodium Chloride 501 ml @ 60 mls/hr Q8H21M IV 11/17/20 06:03 Hold 11/18/20 07:48 Allergies Coded Allergies: Sulfa (Sulfonamide Antibiotics) (Verified Allergy, Unknown, 11/15/20) ciprofloxacin (Verified Adverse Reaction, Intermediate, visual hallucinations, falls, 11/15/20) CRHIST Inhibitors (Verified Adverse Reaction, Mild, cough, 11/15/20) Mayra Damico MD Nov 20, 2020 15:40
--- NOTE | 2020-11-20 17:22 | CCN ---
NEPHROLOGY CRITICAL CARE NOTE DATE: 11/20/2020 SUBJECTIVE: Mrs. Stack is seen this morning on her bedside in the intensive care unit. Since my visit yesterday, she had a CAT scan of abdomen and pelvis done along with a CAT scan of her left lower extremity. I have reviewed those and noted the reports. 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 She has been seen by general surgery and orthopedic surgery and both feel that patient is not suitable for exploratory surgery here locally at [facility] due to significant comorbid conditions and very high risk for not surviving the surgery. CAT scan of her left lower extremity showed extensive intramuscular myofascial and soft tissue emphysema along the left thigh from just above the knee to the hip and into the left pelvis consistent with mild fasciitis with gas-forming organism/gas gangrene. No teresa abscess seen. CAT scan of her abdomen and pelvis showed similar findings in the pelvis. Patient remains oliguric and has been on continuous renal replacement therapy (CRRT). She has not required pressors again and blood pressure remains soft, with mean arterial pressure 60s to 70s. Her oral intake is poor and we have not been able to remove any fluid from her due to low blood pressure. PHYSICAL EXAMINATION: She is awake and able to have a conversation. She is very weak and denies any chest pain or dyspnea. Blood pressure at present is about 96/50 mmHg and heart rate is about 112 per minute. Respiratory rate is 18 per minute. Her oxygen saturation has been 90s on room air. She is in positive fluid balance since admission for a total of about 17 liters. Her neck veins are not abnormally distended. Head is atraumatic. There is no oral thrush or ulcers. Heart sounds are tachycardic and irregular in rhythm. Lungs have diminished breath sounds at dependent parts. Abdomen is soft and there is no palpable organomegaly. Bowel sounds are normal. Extremities have extensive edema and blistering on her left thigh with oozing of fluid. Peripheral edema is noticed on all limbs. Neurologically, she is awake and able to answer questions. LABORATORY STUDIES: Today's labs are reviewed and noticed that her WBC is 12.5, hemoglobin 8.3 and hematocrit 26.8. Platelets are down to 32,000. PTT is 34.3 today. Her INR yesterday was 1.26. This morning's chemistry showed sodium 136, potassium 4.2, CO2 28, BUN 12, creatinine 0.61, glucose 140 and calcium 7.1. AST is down to 468, ALT 387 and alkaline phosphatase 239. CPK is 1081. Total protein 3.6 and albumin 1.4. PROBLEMS: 1. Septic shock. Most likely related to gas-forming myofasciitis of her left thigh area and pelvis. Patient remains on broad spectrum antibiotics and has not required pressors, but blood pressure is at best marginal. I discussed her care with the hospitalist and also with Dr. Franco. Unfortunately, she is not felt to be suitable for surgical intervention due to very high risk of morbidity and mortality. From a renal standpoint, her electrolytes and hemodynamics are reasonably well-corrected. 2. Oliguric acute renal failure. Patient remains dependent on CRRT. She has low blood pressure and will not be able to tolerate regular intermittent dialysis. In view of her significant volume overload and requirement for further fluids in the form of medications and antibiotics, we will continue with CRRT. At present, we are still trying to remove fluid, if allowed by her blood pressure. 3. Hypervolemia and peripheral edema. She has significant peripheral edema due to third spacing of the fluid caused by sepsis. Her serum albumin is only 1.4. She has not been on total parenteral nutrition (TPN) and currently not receiving any intravenous (IV) albumin due to lack of supply of IV albumin at this point. 4. Severe thrombocytopenia. Hematology/oncology service has been consulted and hospitalist service has discussed with the [place]. Argatroban infusion is being started. 5. Atrial fibrillation with rapid ventricular rate. Ventricular rate is slightly better controlled now and she remains on digoxin and amiodarone. Forty-six minutes of critical care time was spent at the bedside, during which no procedures were performed. New orders for CRRT written.
[2020-11-20 17:53] LABS: HEMATOCRIT 27.5 % (36.0-47.0); HEMOGLOBIN 8.8 g/dl (12.0-15.5); MEAN CORPUSCULAR HEMOGLOBIN 27.6 pg (27.0-33.0); MEAN CORPUSCULAR VOLUME 86.2 fl (80.0-96.0); RED BLOOD COUNT 3.19 10^6/uL (4.00-5.40)
[2020-11-20 18:01] LABS: PROTHROMBIN TIME 67.5 SECONDS (12.5-14.3)
[2020-11-20 18:02] LABS: PARTIAL THROMBOPLASTIN TIME 100.3 SECONDS (24.2-38.5)
[2020-11-20 18:05] LABS: PLATELET COUNT, AUTOMATED 40 10^3/uL (150-450)
[2020-11-20 18:10] LABS: EOSINOPHILS 1 % (0-3); LYMPHOCYTES 4 % (16-44); MONOCYTES 1 % (0-5); MYELOCYTES 3 % (0-0); NEUTROPHILS 89 % (28-66); PLATELET ESTIMATE DECREASED (NORMAL); POLYCHROMASIA 1+; PROMYELOCYTES 2 % (0-0)
[2020-11-20 18:11] LABS: ANISOCYTOSIS 1+
[2020-11-20 18:13] LABS: INR 7.8
[2020-11-20 18:41] LABS: PROTHROMBIN TIME 69.1 SECONDS (12.5-14.3)
[2020-11-20 18:43] LABS: INR 8.03
[2020-11-20 19:02] LABS: ALBUMIN 1.4 GM/DL (3.2-5.2); ALT/SGPT 359 U/L (12-78); BILIRUBIN,TOTAL 2.8 MG/DL (0.2-1.0); BLOOD UREA NITROGEN 11 MG/DL (7-18); CALCIUM LEVEL 7.6 MG/DL (8.8-10.2); CARBON DIOXIDE LEVEL 25 MEQ/L (21-32); CHLORIDE LEVEL 103 MEQ/L (98-107); CREATININE FOR GFR 0.62 MG/DL (0.55-1.30); GLOMERULAR FILTRATION RATE > 60.0 (>32); GLUCOSE, FASTING 126 MG/DL (70-100); MAGNESIUM LEVEL 2.1 MG/DL (1.8-2.4); PHOSPHORUS LEVEL 2.2 MG/DL (2.5-4.9); POTASSIUM SERUM 4.6 MEQ/L (3.5-5.1); SODIUM LEVEL 135 MEQ/L (136-145); TOTAL PROTEIN 4.2 GM/DL (6.4-8.2)
[2020-11-20] MEDS ORDERED: CALCIUM GLUCONATE 1,000 MG, VIAL MATE ADAPTER 1 EACH in NS 100 ML IV ONE (19:30)
[2020-11-20] MEDS ORDERED: CALCIUM GLUCONATE 1,000 MG in D5W MINI-BAG PLUS 100 ML IV SCH (20:15)
[2020-11-20] MEDS ORDERED: POTASSIUM PHOSPHATE INJ 30 MMOL in D5W 500 ML IV ONE ×2 (20:15→20:30)
[2020-11-20 20:30] LABS: PARTIAL THROMBOPLASTIN TIME 113.1 SECONDS (24.2-38.5)
[2020-11-20 20:35] LABS: INR 9.83
[2020-11-20] MEDS: ACETAMINOPHEN 500 MG TAB PO PRN (21:22)
--- NOTE | 2020-11-20 21:47 | REPVR ---
PROCEDURE INFORMATION: Exam: XR Chest Exam date and time: 11/20/2020 8:01 PM Age: 80 years old Clinical indication: Other vascular access device placement or adjustment; Central line, tunnelled; Additional info: S/P line placement TECHNIQUE: Imaging protocol: XR of the chest Views: 1 view. COMPARISON: [place] PORTABLE CHEST X-RAY 11/16/2020 6:24 PM FINDINGS: Tubes, catheters and devices: A left-sided central line is in place with its tip also in the superior vena cava and this is new since the examination of 11/16/2020. Lungs: The lungs appear clear. Pleural spaces: There is no evidence of pneumothorax. There is no evidence of pleural effusion. There is no pleural effusion. Heart/Mediastinum: There is prominence left side of the heart. There is a right-sided trans jugular line with its tip in the superior vena cava. Bones/joints: A total right shoulder prosthesis is in place. IMPRESSION: Clear appearing lungs. Electronically signed by: Diego Becker On 11/20/2020 21:47:20 PM
[2020-11-21] VITALS (92 sets, daily range): BP systolic 73–151; BP diastolic 34–78
[2020-11-21] MEDS: MEROPENEM INJ 1 GM in IV 1 EA IV SCH ×2 (00:54→13:35)
[2020-11-21 04:58] LABS: HEMATOCRIT 24.2 % (36.0-47.0); HEMOGLOBIN 7.6 g/dl (12.0-15.5); MEAN CORPUSCULAR HEMOGLOBIN 27.5 pg (27.0-33.0); MEAN CORPUSCULAR HGB CONC 31.4 g/dl (32.0-36.5); MEAN CORPUSCULAR VOLUME 87.7 fl (80.0-96.0); RED BLOOD COUNT 2.76 10^6/uL (4.00-5.40); WHITE BLOOD COUNT 14.8 10^3/uL (4.0-10.0)
[2020-11-21 05:00] LABS: PLATELET COUNT, AUTOMATED 34 10^3/uL (150-450)
[2020-11-21 05:12] LABS: INR 14.18; PARTIAL THROMBOPLASTIN TIME 134.2 SECONDS (24.2-38.5); PROTHROMBIN TIME 108.1 SECONDS (12.5-14.3)
[2020-11-21 05:17] LABS: EOSINOPHILS 1 % (0-3); LYMPHOCYTES 6 % (16-44); MONOCYTES 2 % (0-5); MYELOCYTES 4 % (0-0); NEUTROPHILS 87 % (28-66)
[2020-11-21 05:18] LABS: ANISOCYTOSIS 1+; HYPOCHROMASIA 1+; PLATELET ESTIMATE MARKED DECREASE (NORMAL); POIKILOCYTOSIS 1+; POLYCHROMASIA 1+
[2020-11-21] MEDS ORDERED: CALCIUM GLUCONATE 1,000 MG, VIAL MATE ADAPTER 1 EACH in NS 100 ML IV ONE (05:20)
[2020-11-21 05:55] LABS: ALBUMIN 1.2 GM/DL (3.2-5.2); ALT/SGPT 272 U/L (12-78); BILIRUBIN,TOTAL 2.7 MG/DL (0.2-1.0); BLOOD UREA NITROGEN 11 MG/DL (7-18); CALCIUM LEVEL 7.4 MG/DL (8.8-10.2); CARBON DIOXIDE LEVEL 28 MEQ/L (21-32); CHLORIDE LEVEL 103 MEQ/L (98-107); CPK CREATINE PHOSPHOKINASE 469 U/L (26-192); CREATININE FOR GFR 0.62 MG/DL (0.55-1.30); GLOMERULAR FILTRATION RATE > 60.0 (>32); GLUCOSE, FASTING 162 MG/DL (70-100); PHOSPHORUS LEVEL 3.2 MG/DL (2.5-4.9); POTASSIUM SERUM 4.4 MEQ/L (3.5-5.1); SODIUM LEVEL 134 MEQ/L (136-145); TOTAL PROTEIN 4.1 GM/DL (6.4-8.2)
[2020-11-21 07:37] LABS: PROTHROMBIN TIME 95.5 SECONDS (12.5-14.3)
[2020-11-21 07:39] LABS: D-DIMER QUANT 2458.47 ng/ml (<500)
[2020-11-21 07:45] LABS: INR 12.11
[2020-11-21] MEDS: AMIODARONE 200 MG TAB (PACERONE) PO SCH (07:56)
[2020-11-21] MEDS: NOREPINEPHRINE BITARTRATE 8 MG in D5W 492 ML IV SCH ×6 (08:23→23:42)
[2020-11-21] MEDS: HumaLOG INSULIN (NovoLOG) PER UNIT SC SCH ×4 (08:23→20:22)
[2020-11-21] MEDS: LACTOBACILLUS ACIDOPHILUS CAP (BACID) PO SCH ×2 (08:24→16:59)
[2020-11-21] MEDS: PANTOPRAZOLE 20 MG TAB PO SCH (08:24)
[2020-11-21] MEDS: ASPIRIN 81 MG CHEW TABLET PO SCH (08:24)
[2020-11-21] MEDS ORDERED: DIGOXIN 0.25 MG TAB PO SCH (09:00)
[2020-11-21] MEDS: MORPHINE 2 MG/ML 1ML VIAL (J2270) IV PRN ×3 (09:08→21:37)
[2020-11-21 10:39] LABS: PARTIAL THROMBOPLASTIN TIME 115.5 SECONDS (24.2-38.5)
[2020-11-21 10:40] LABS: PT 1:2 SUBSTITUTION 30.9 SECONDS
[2020-11-21 10:42] LABS: APTT 1:2 SUBSTITUTION 74.4 SECONDS
[2020-11-21] MEDS: VANCOMYCIN HCL 750 MG, VIAL MATE ADAPTER 1 EACH in NS 250 ML IV SCH ×2 (11:33→23:03)
--- NOTE | 2020-11-21 12:00 | IPNPDOC ---
Date Seen The patient was seen on 11/21/20. Progress Note SUBJECTIVE: Coags elevated, hematology thinks 2/2 to argatroban. Risks of elevated coags discuss with family, along with risks of being off if this is truly HIT. Mixing test ordered. H/H slightly lower, given 1 unit PRBC today. HR in 50-60's and amiodarone stopped, digoxin decreased after discussing with cardiology (Dr. Multani). Levophed restarted due to low BP's, not taking off with CRRT. There are no concerns for a bleed at this time, monitoring closely. New left-side IJ central line placed by surgery 11/20/20. Patient is intermittent confused but this has been her baseline for many days. She denies chest pain, shortness of breath, n/v/d. OBJECTIVE: PHYSICAL EXAMINATION: VITAL SIGNS: Please see below GENERAL APPEARANCE: NAD, resting, AAOx 3 HEENT: AT/NC, EOMI, PERRLA NECK: No masses, right trialysis catheter in place, left IJ central line LUNGS: CTAB, no wheezing, rhonchi, wheezing HEART: irregularly irregular rhythm, rapid. There is a 1/6 systolic ejection murmur. No rubs or gallops ABDOMEN: obese, soft, nontender. No guarding or rebound. No referred pain. No CVA tenderness. EXTREMITIES: Pain of left upper thigh- 2/10 on palpation . ROM not tested. No cyanosis or clubbing. Trace peripheral edema. Moves arms and legs with equal strength. Generally weak INTEGUMENTARY: bruising of right shoulder, down right arm-not new and not enlarging. Large left thigh scar extending from knee to high thigh, redness with no tenderness on palpation. No crepitus : macias catheter in place NEUROLOGIC: CN 2-12 intact, no focal deficits PSYCH: confused at times LABORATORY DATA: Please see below MICROBIOLOGY: BCx x 2 sets: NG 5 days Repeat BCx x 2 sets: NG at 48 H UCx NG IMAGING: CT femur with contrast 11/19/20: Extensive intramuscular myofascial and soft tissue emphysema along the left thigh from just above the knee to the hip and into the left pelvis consistent with mild fasciitis with gas-forming organism/gas gangrene. No teresa abscess is seen. Diffuse cellulitis pattern. Ileus pattern in the abdominal bowel gas CT abd/pelvis with contrast 11/19/20: Extensive soft tissue emphysema with edema and dermal thickening in the quadriceps musculature of the proximal thigh on the left extending along the left pelvic sidewall in the iliopsoas muscle. 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 These are new findings compared with the November 15, 2020 study. Gallstones are seen. An abdominal ileus pattern is noted in the bowel gas. CT head 11/17/20: Stable exam, no acute findings US abdomen: Suboptimal examination. If felt clinically indicated consider CT for further evaluation. CXR: Chronic changes without acute infiltrate or pleural effusion. 5 mm nodule left lower lobe, recommend follow-up CT chest in 6-12 months. Echocardiogram 11/15/20: EF 65-70% Study is of acceptable technical quality, patient is in sinus rhythm. Normal LV size with preserved LV systolic function and grade 2 diastolic dysfunction. Dilated hypokinetic right ventricle. No hemodynamically significant valvular disease. Likely elevated central venous pressure and moderately severe pulmonary hypertension. CT lumbar spine: 1. Worsening intramuscular gas extending into the left iliacus and psoas muscles, which overall these muscles appear asymmetrically thickened when compared with the right. Cannot exclude possibility of intramuscular abscess and/or hematoma in the setting of recent trauma. It is possible that this gas is extending from the level of the left SI joint, though no definite sacral fractur e is identified. Recommend orthopedic consultation. 2. Other chronic findings, as above. CT abd/pelvis: Numerous a small gallbladder calculi. No CT evidence of acute cholecystitis or biliary duct dilatation. The kidneys are unremarkable. Wall thickening of the sigmoid colon and rectosigmoid colon, nonspecific, but could represent infectious versus inflammatory colitis in the appropriate clinic al setting. 5.3 cm hiatal hernia. Appendix is unremarkable. Hysterectomy. Right hip arthroplasty. Grade 1 compression deformity of the L4 superior endplate and lumbar spine degenerative disc disease. CT chest: Chronic changes without acute infiltrate or pleural effusion. 5 mm nodule left lower lobe, recommend follow-up CT chest in 6-12 months. IMPRESSION/PLAN: Hypotension likely septic shock 2/2 gas/necrotizing fascitis/myofascitis seen in musculature of the proximal thigh on the left extending along the left pelvic sidewall in the iliopsoas muscle and left lower ext/thigh cellulitis. -WBC 14.8 K, bandemia improving, LA wnl (peaked 11/17/20 at 8.5) -At this time not suspecting a bleed as cause of hypotension ; however, patient is high risk with how high current coags are- watching closely -CRRT being kept even, no fluid being taken off -CT left femur/ abd/pelvis 11/19/20 above -General surgery (Dr. Franco) and orthopedic surgery (Dr. Hagan) reviewed scans, patient and case. Per general surgery, under ideal circumstances, the choice would be to take to surgery and debride any nonviable tissue or destroyed fascia and to drain the infection. The involved area in the lateral thigh is certainly more easily amenable to exploration and debridement than is the retroperitoneum. Dr. Hagan felt that if this were to be done it was best done at a larger facility. -Two options suggested by general surgery were presented to patient and family 11/20/20: 1. c/w abx and monitor (risks discussed in detail) or 2. attempt to transfer to institution with higher level of care to consider exploration and debridement of the thigh and possibly the retroperitoneum. Risks of doing and NOT doing both discussed in detail with family and patient. Ultimately family chose to keep here and c/w current treatment, monitoring. -Surgery, critical care to continue to follow -Repeating scans in several days per surgery -ID following closely, c/w meropenem, vancomycin -Restarting levophed to help keep MAP >65 mmHg -F/u daily labs Elevated coags likely 2/2 to argatroban gtt -Risks of bleed increased with incr PT/PTT and INR; however, also risks of clotting are high as well. Updated daughter Val today on this subjected and discussed in detail. -No s/s of bleeding -Mixing study ordered per hematology's request -Hematology monitoring closely -PT/PTT, CBC Q12 Hrs Anemia possibly 2/2 to dilutional effect, sepsis -No s/s of obvious bleeding, H/H dropped further today to 7.6/24.2 -Last CT above does not show bleed -S/p 1 unit PRBC earler this admission, to receive another one today -Follow CBC closely. If Hgb <8, consider transfusing Acute thrombocytopenia, r/o HIT vs. 2/2 to sepsis -PLTs still low at 34, waxing and waning -Lovenox started on 11/15/20, stopped 11/18/20. Likely prior exposures with prior surgeries, hospitalizations -Started argatroban gtt 11/20/20 -F/u CBC/PT/PTT/INR Q12 H , mixing study, HIT ab, peripheral smear -Heme/onc consulted and managing -Tranfuse PLTs if bleed or if PLTs <20 Atrial fibrillation -Bradycardic this AM with HR 50-60's -Stopped amiodarone, decreased digoxin dose to start 11/22/20 as dig level was high -Echo above -[place] goal HR < 110 but <120 ok with current sepsis -C/w treatment of sepsis above -Tele Oliguric AMIRA likely multifactorial 2/2 to hypotension/septic shock, acute rhabdomyolysis, poss contrast nephropathy, medications -CRRT began evening 11/16/20, remains having poor u/o with only 151 mL out /24H y -Cr wnl -Replace lytes PRN -F/u labs regularly, nephrology recs -Monitor u/o closely Hypocalcemia, acute -S/p calcium gluconate today -Following lytes closely with CRRT Acute transaminitis poss 2/2 to hypotension -AST/ALT continues to improve -Tx for hypotension above -Following CMP daily Elevated BNP likely 2/2 to atrial fibrillation with RVR, HFpEF / mod-severe pulmonary HTN -Echocardiogram above -CXR neg for acute changes -Saturating well on RA -Stopped BB, no diuretics currently, on CRRT previously having fluid taken off but still + -Discussed case with cardiology. -C/w current management above Acute rhabdomyolysis-improving -Peaked CK at 32K, trending down -Follow up CMP regularly -Nephrology following, CRRT DM type II -BS stable -ISS, AC/HS, consistent carb GERD/GI px -PPI DVT px -Stopped lovenox with worsening PLTs. Teds, scd Resolved issues: Hypomagnesemia, acute Hyperkalemia likely 2/2 to AMIRA TIA vs. transient focal deficits 2/2 to hypotension Elevated troponins possibly cytokine induced, cannot r/o Type II event DISPOSITION: ID, critical care, nephrology, general surgery, orthopedic surgery, hematology consulted. Condition is very guarded. Updated daughter Val today again. Due to confusion with patient, will rely mostly on daughter to make major decisions. Remains DNR/DNI. TOTAL AMOUNT OF ICU TIME SPENT ON PATIENT'S CARE TODAY (nonprocedural): 70 MINS VS, I&O, 24H, Fishbone Vital Signs/I&O Vital Signs Date Time Temp Pulse Resp B/P (MAP) Pulse Ox O2 Delivery O2 Flow Rate FiO2 11/21/20 11:17 96 124/54 (77) 97 Room Air 11/21/20 10:47 96.8 18 11/18/20 12:00 2.0 I&O- Last 24 Hours up to 6 AM 11/21/20 06:00 Intake Total 3055.0 ml Output Total 711 ml Balance 2344.0 ml Laboratory Data 24H LABS Laboratory Tests 2 11/20/20 12:02: Bedside Glucose (Misc Panel) 129H 11/20/20 13:13: Activated Partial Thromboplast Time 34.3 11/20/20 16:58: Bedside Glucose (Misc Panel) 116H 11/20/20 17:36: Activated Partial Thromboplast Time 100.3H, Immature Granulocyte % (Auto) , Neutrophils (%) (Auto) , Nucleated Red Blood Cells % (auto) 0.6H, Neutrophils 89H, Lymphocytes (Manual) 4L, Monocytes (Manual) 1, Eosinophils (Manual) 1, Myelocytes 3H, Promyelocytes 2H, Polychromasia 1+, Anisocytosis 1+, Platelet Estimate DECREASED, Prothrombin Time 67.5H, Prothromb Time International Ratio 7.80*H, Anion Gap 7L, Glomerular Filtration Rate > 60.0, Calcium Level 7.6L, Whole Blood Ionized Calcium 4.4L, Phosphorus Level 2.2#L, Magnesium Level 2.1, Total Bilirubin 2.8H, Aspartate Amino Transf (AST/SGOT) 417H, Alanine Aminotransferase (ALT/SGPT) 359H, Alkaline Phosphatase 351H, Total Protein 4.2L, Albumin 1.4L, Albumin/Globulin Ratio 0.5L, Digoxin Level 2.4H 11/20/20 18:20: Prothrombin Time 69.1H, Prothromb Time International Ratio 8.03*H 11/20/20 20:02: Prothrombin Time 81.0H, Prothromb Time International Ratio 9.83*H, Activated Partial Thromboplast Time 113.1H 11/20/20 21:27: Bedside Glucose (Misc Panel) 166H 11/21/20 04:38: Prothrombin Time 108.1H, Prothromb Time International Ratio 14.18*H, Activated Partial Thromboplast Time 134.2*H, Immature Granulocyte % (Auto) , Neutrophils (%) (Auto) , Nucleated Red Blood Cells % (auto) 0.6H, Neutrophils 87H, Lymphocytes (Manual) 6L, Monocytes (Manual) 2, Eosinophils (Manual) 1, Myelocytes 4H, Polychromasia 1+, Hypochromasia 1+, Poikilocytosis 1+, Anisocytosis 1+, Platelet Estimate MARKED DECREASE, Anion Gap 3L, Glomerular Filtration Rate > 60.0, Lactic Acid Level 1.5, Calcium Level 7.4L, Whole Blood Ionized Calcium 4.4L, Phosphorus Level 3.2#, Magnesium Level 2.0, Total Bi lirubin 2.7H, Aspartate Amino Transf (AST/SGOT) 292H, Alanine Aminotransferase (ALT/SGPT) 272H, Alkaline Phosphatase 446H, Total Creatine Kinase 469H, Total Protein 4.1L, Albumin 1.2L, Albumin/Globulin Ratio 0.4L 11/21/20 07:12: Prothrombin Time 95.5H, Prothromb Time International Ratio 12.11*H, Activated Partial Thromboplast Time 125.0*H, Fibrinogen 437, D-Dimer, Quantitative 2458.47H 11/21/20 07:30: Bedside Glucose (Misc Panel) 135H 11/21/20 09:49: Prothrombin Time 96.0H, Activated Partial Thromboplast Time 115.5H, Mix PT Patient/Normal 1:1 Immediate 30.9, Mix PTT Patient/Normal 1:1 74.4, Vancomycin Level Trough 18.5 11/21/20 11:07: Activated Partial Thromboplast Time 114.8H CBC/BMP Laboratory Tests 11/20/20 17:36 11/21/20 04:38 Microbiology Microbiology 11/18/20 Blood Culture - Preliminary, Resulted No Growth after 72 hours. All specime... 11/18/20 Blood Culture - Preliminary, Resulted No Growth after 72 hours. All specime... 11/15/20 Urine Culture - Final, Complete 11/15/20 Blood Culture - Final, Complete NO GROWTH AFTER 5 DAYS 11/15/20 Blood Culture - Final, Complete NO GROWTH AFTER 5 DAYS Current Medications Current Medications Medications (Trade) Dose Ordered Sig/Sendy Route PRN Reason Start Time Stop Time Status Last Admin Dose Admin Acetaminophen (Tylenol Tab) 1,000 mg Q6HP PRN PO PAIN / FEVER 11/15/20 18:50 11/20/20 21:22 Amiodarone HCl (Pacerone, Cordarone) 200 mg QID PO 11/18/20 17:00 11/21/20 08:25 DC 11/20/20 21:21 Amiodarone HCl (Pacerone, Cordarone) 200 mg TID PO 11/18/20 09:00 11/18/20 15:56 DC 11/18/20 12:16 Amiodarone HCl 150 mg/IV Miscellaneous Supplies 100 ml @ 600 mls/hr STAT STAT IV 11/17/20 08:58 11/17/20 09:07 DC 11/17/20 09:18 Amiodarone HCl 360 mg/IV Miscellaneous Supplies 200 ml @ 17 mls/hr [id number] IV 11/17/20 16:00 11/18/20 10:00 DC 11/18/20 04:29 Amiodarone HCl 360 mg/IV Miscellaneous Supplies 200 ml @ 33.333 mls/ hr Q6H IV 11/17/20 10:00 11/17/20 10:05 DC 11/17/20 11:11 Argatroban 250 mg/ Dextrose 250 ml @ 6.48 mls/hr Q24H IV 11/20/20 14:00 11/20/20 14:03 Aspirin (Aspirin Chewable) 81 mg DAILY PO 11/15/20 09:00 Cancel Aspirin (Aspirin Chewable) 81 mg DAILY PO 11/16/20 09:00 11/21/20 08:24 Calcium Gluconate 1000 mg/Dextrose 110 ml @ 110 mls/hr ASDIRECTED IV 11/20/20 20:15 UNV Calcium Gluconate 1000 mg/IV Miscellaneous Supplies 1 each/ Sodium Chloride 110 ml @ 110 mls/hr 0600,0700 IV 11/17/20 06:00 11/17/20 10:00 DC 11/17/20 09:18 Calcium Gluconate 1000 mg/IV Miscellaneous Supplies 1 each/ Sodium Chloride 110 ml @ 110 mls/hr 2200,2300 IV 11/17/20 22:00 11/18/20 02:00 DC 11/18/20 02:19 Calcium Gluconate 1000 mg/IV Miscellaneous Supplies 1 each/ Sodium Chloride 110 ml @ 110 mls/hr Q1H IV 11/18/20 09:00 11/18/20 10:59 DC 11/18/20 10:14 Ceftriaxone Sodium 1 gm/ Dextrose 50 ml @ 100 mls/hr Q24H IV 11/15/20 16:00 11/16/20 08:46 DC 11/15/20 16:53 Dextrose (Dextrose 50%) 25 ml ASDIRECTED PRN IV SEE LABEL COMMENTS 11/15/20 14:50 Dextrose (Dextrose 50%) 50 ml STAT STAT IV 11/16/20 02:51 11/16/20 02:57 DC 11/16/20 03:16 Digoxin (Lanoxin) 0.125 mg DAILY PO 11/22/20 09:00 Digoxin (Lanoxin) 0.25 mg DAILY IV 11/19/20 12:15 11/20/20 15:53 DC 11/20/20 08:31 Digoxin (Lanoxin) 0.25 mg DAILY PO 11/21/20 09:00 11/21/20 08:25 DC Digoxin (Lanoxin) 0.25 mg STAT STAT IV 11/18/20 16:53 11/18/20 16:54 DC 11/18/20 17:07 Digoxin (Lanoxin) 0.25 mg STAT STAT IV 11/18/20 18:10 11/18/20 18:11 DC 11/18/20 18:22 Digoxin (Lanoxin) 0.5 mg STAT STAT IV 11/18/20 15:33 11/18/20 15:59 DC 11/18/20 15:59 Enoxaparin Sodium (Lovenox) 80 mg Q12H SC 11/15/20 18:00 11/16/20 19:06 DC 11/16/20 17:41 Enoxaparin Sodium (Lovenox) 90 mg Q24H SC 11/17/20 18:00 11/18/20 12:11 DC 11/17/20 17:59 Glucagon (Glucagon) 1 mg ASDIRECTED PRN SC SEE LABEL COMMENTS 11/15/20 14:50 Glucose (Glucose) 16 GM ASDIRECTED PRN PO SEE LABEL COMMENTS 11/15/20 14:50 Heparin Sodium (Heparin) ASDIRECTED PRN IV SEE LABEL COMMENTS 11/16/20 20:45 11/17/20 15:24 DC Heparin Sodium (Heparin) ASDIRECTED PRN IV SEE LABEL COMMENTS 11/17/20 15:30 11/18/20 11:57 DC Heparin Sodium (Heparin) ASDIRECTED PRN IV SEE LABEL COMMENTS 11/18/20 12:00 11/20/20 12:52 DC Heparin Sodium (Heparin) ASDIRECTED PRN IV SEE LABEL COMMENTS 11/19/20 11:10 11/20/20 12:52 DC Heparin Sodium (Heparin) ASDIRECTED PRN IV SEE LABEL COMMENTS 11/20/20 12:05 Heparin Sodium (Heparin) dose as per volume indica... ASDIRECTED PRN IV SEE LABEL COMMENTS 11/16/20 18:00 11/16/20 18:31 DC 11/16/20 18:22 Home Med (Med Rec Complete!) ASDIRECTED XX 11/15/20 13:20 11/15/20 13:22 DC Hydromorphone HCl (Dilaudid) 0.3 mg Q3HP PRN IV MILD PAIN (PS 1-4) 11/17/20 00:50 11/17/20 12:31 DC 11/17/20 01:07 Insulin Human Lispro (HumaLOG INSULIN) SEE PROTOCOL TABLE AC SC 11/15/20 17:30 11/21/20 08:23 Insulin Human Lispro (HumaLOG INSULIN) SEE PROTOCOL TABLE QHS SC 11/15/20 21:00 Insulin Human Regular (HumuLIN R INSULIN) 10 units STAT STAT IV 11/16/20 02:51 11/16/20 02:57 DC 11/16/20 03:17 Lactobacillus Acidophilus (Bacid) 1 ea BIDWM PO 11/16/20 08:00 11/21/20 08:24 Meropenem 1 gm/IV Miscellaneous Supplies 50 ml @ 100 mls/hr Q12H IV 11/20/20 01:00 11/21/20 00:54 Meropenem 2 gm/ Sodium Chloride 100 ml @ 200 mls/hr Q8H IV 11/17/20 12:15 11/17/20 12:24 DC Meropenem 500 mg/ IV Miscellaneous Supplies 50 ml @ 100 mls/hr Q12H IV 11/17/20 13:00 11/19/20 16:30 DC 11/19/20 13:29 Metoprolol Tartrate (Lopressor) 5 mg Q5M IV 11/15/20 12:55 11/15/20 13:06 DC 11/15/20 13:52 Metoprolol Tartrate (Lopressor) 25 mg Q6H PO 11/16/20 12:00 11/16/20 16:02 DC Metoprolol Tartrate (Lopressor) 50 mg Q6H PO 11/15/20 18:00 11/16/20 11:56 DC 11/15/20 17:36 Metronidazole 500 mg/IV Miscellaneous Supplies 100 ml @ 100 mls/hr Q8H IV 11/16/20 09:00 11/16/20 12:34 DC 11/16/20 10:13 Morphine Sulfate (Morphine Sulfate Inj) 1 mg Q4H PRN IV MODERATE PAIN (PS 5-7) 11/17/20 12:30 11/19/20 19:13 Morphine Sulfate (Morphine Sulfate Inj) 2 mg Q6H PRN IV SEVERE PAIN (PS 8-10) 11/17/20 12:30 11/21/20 09:08 Norepinephrine Bitartrate 8 mg/ Dextrose 500 ml @ 93.7 mls/hr Q5H21M IV 11/16/20 18:00 11/21/20 09:01 Ondansetron HCl (ZOFRAN INJection) 4 mg Q6HP PRN IV NAUSEA OR VOMITING 11/15/20 18:50 11/18/20 18:22 Pantoprazole Sodium (Protonix) 20 mg DAILY PO 11/18/20 09:00 11/18/20 12:13 DC Pantoprazole Sodium (Protonix) 40 mg DAILY PO 11/18/20 12:15 11/21/20 08:24 Piperacillin Sod/ Tazobactam Sod 3.375 gm/Dextrose 50 ml @ 50 mls/hr Q6H IV 11/16/20 10:00 11/17/20 12:16 DC 11/17/20 03:49 Potassium Chloride/Sodium Chloride 1,000 ml @ 125 mls/hr Q8H IV 11/15/20 15:30 11/16/20 02:57 DC 11/15/20 17:35 Simvastatin (Zocor) 40 mg QHS PO 11/15/20 21:00 11/16/20 08:49 DC 11/15/20 20:15 Sodium Bicarbonate 150 meq/Dextrose/Water 1,150 ml @ 150 mls/hr Q7H40M IV 11/16/20 16:00 11/16/20 20:56 DC 11/16/20 16:05 Sodium Bicarbonate 150 meq/Dextrose/Water 1,150 ml @ 150 mls/hr Q7H40M STAT IV 11/16/20 03:39 11/16/20 20:56 DC 11/16/20 04:03 Sodium Polystyrene Sulfonate (Kayexalate) 30 gm NOW STAT PO 11/16/20 02:51 11/16/20 03:05 DC 11/16/20 04:32 Sodium Chloride 1,000 ml @ 50 mls/hr Q20H IV 11/16/20 21:00 11/17/20 16:43 DC 11/16/20 22:00 Sodium Chloride (Saline Lock Flush) 10ML IN EACH LISANDRO... ASDIRECTED PRN IV SEE LABEL COMMENTS 11/16/20 20:45 11/17/20 15:24 DC Sodium Chloride (Saline Lock Flush) 10ML IN EACH LISANDRO... ASDIRECTED PRN IV SEE LABEL COMMENTS 11/17/20 15:30 11/18/20 11:57 DC Sodium Chloride (Saline Lock Flush) 10ML IN EACH LISANDRO... ASDIRECTED PRN IV SEE LABEL COMMENTS 11/18/20 12:00 11/20/20 12:52 DC Sodium Chloride (Saline Lock Flush) 10ML IN EACH LISANDRO... ASDIRECTED PRN IV SEE LABEL COMMENTS 11/19/20 11:10 11/20/20 12:52 DC Sodium Chloride (Saline Lock Flush) 10ML IN EACH LISANDRO... ASDIRECTED PRN IV SEE LABEL COMMENTS 11/20/20 12:05 Vancomycin HCl 500 mg/Dextrose 110 ml @ 110 mls/hr Q24H IV 11/17/20 21:00 11/18/20 08:55 DC 11/17/20 23:21 Vancomycin HCl 750 mg/IV Miscellaneous Supplies 1 each/ Sodium Chloride 275 ml @ 275 mls/hr Q12H IV 11/20/20 11:00 11/21/20 11:25 DC 11/20/20 22:32 Vancomycin HCl 750 mg/IV Miscellaneous Supplies 1 each/ Sodium Chloride 275 ml @ 275 mls/hr Q12H IV 11/21/20 11:00 11/21/20 11:33 Vancomycin HCl 1000 mg/IV Miscellaneous Supplies 1 each/ Sodium Chloride 270 ml @ 270 mls/hr Q12H IV 11/18/20 09:00 11/20/20 07:54 DC 11/19/20 20:36 Vancomycin HCl 1000 mg/IV Miscellaneous Supplies 1 each/ Sodium Chloride 270 ml @ 270 mls/hr Q24H IV 11/17/20 20:00 11/18/20 08:55 DC 11/17/20 21:09 Vasopressin 20 units/Sodium Chloride 501 ml @ 60 mls/hr Q8H21M IV 11/17/20 06:03 Hold 11/18/20 07:48 Allergies Coded Allergies: Sulfa (Sulfonamide Antibiotics) (Verified Allergy, Unknown, 11/15/20) ciprofloxacin (Verified Adverse Reaction, Intermediate, visual hallucinations, falls, 11/15/20) CHRIST Inhibitors (Verified Adverse Reaction, Mild, cough, 11/15/20) Mayra Damico MD Nov 21, 2020 12:00
[2020-11-21 14:39] LABS: HEMATOCRIT 28.8 % (36.0-47.0); HEMOGLOBIN 9.2 g/dl (12.0-15.5); MEAN CORPUSCULAR HEMOGLOBIN 27.9 pg (27.0-33.0); MEAN CORPUSCULAR HGB CONC 31.9 g/dl (32.0-36.5); MEAN CORPUSCULAR VOLUME 87.3 fl (80.0-96.0); WHITE BLOOD COUNT 22.5 10^3/uL (4.0-10.0)
[2020-11-21 14:40] LABS: PLATELET COUNT, AUTOMATED 50 10^3/uL (150-450)
--- NOTE | 2020-11-21 15:24 | CCN ---
CRITICAL CARE NOTE DATE: 11/21/2020 SUBJECTIVE: I was called to the intensive care unit to evaluate this 80-year-old female admitted to the hospital on 11/14, after a fall. She was down on the floor for about four hours. In the emergency department, she was found to be in atrial fibrillation with rapid ventricular response. Reviewing the electronic record, there is a past medical history of diabetes, hypertension, dyslipidemia, osteoarthritis, she is post right hip replacement, left and right knee replacements, and she has B12 deficiency. In hospital, urinary retention was identified requiring Ware catheter placement. Imaging studies showed gas in the left iliopsoas and subsequently in the left thigh. The patient's potassium was elevated and blood pressure fell, prompting a transfer to the intensive care unit. She was initially requiring both Levophed and vasopressin and became oliguric. CRRT was started and the atrial fibrillation controlled with amiodarone and digoxin. Subsequently, the Levophed was able to be weaned off. An echocardiogram showed a normal ejection fraction with diastolic dysfunction. She developed profound thrombocytopenia. She was seen by hematology. Heparin-induced thrombocytopenia was diagnosed and she was started on Argatroban. Pressors initially weaned; however, earlier today, she had an episode of bradycardia, which resolved spontaneously. Subsequent to this, her blood pressure has been low and pressors have been reinitiated. She has received broad-spectrum antibiotic and been evaluated by orthopedic surgery, hematology, and nephrology. OBJECTIVE: VITAL SIGNS: At bedside, her temperature is 96.8, last temperature greater than 100 was on 11/15, pulse rate 96, respirations 18, blood pressure is 82/42, on pressors 124/54. INTAKE AND OUTPUT: Since admission she is 20 liters positive. Her central venous pressure was measured at bedside and found to be 8. HEENT: Her mucosa are dry. NECK: Supple. No meningismus. No jugular venous distention. No stridor. HEART: Sounds are irregularly irregular consistent with atrial fibrillation. Ventricular rate is now in the 90s. LUNGS: Breath sounds are clear, somewhat distant, but no focal adventitial breath sounds are appreciated. Chest is symmetric. She is not engaging accessory muscles at rest. ABDOMEN: Soft and morbidly obese. EXTREMITIES: There is a large hematoma on the right upper arm. The left thigh shows a hematoma and palpable air in the tissues. There also is blistering of the skin. DIAGNOSTIC STUDIES: Assessed for this critical care encounter included a CBC. Her white count is down from 17 to 14.8, hemoglobin is down from 8.8 to 7.6, platelet count is 34,000. Differential white cell count shows 87% neutrophils. Electrolytes are sodium 134, potassium 4.4, chloride 103, CO2 of 28, BUN 11, creatinine 0.62, glucose 162. Her calcium is 7.4. Phosphorus is 3.2. Magnesium 2. Her bilirubin is 2.7. AST is 292, ALT 272, alkaline phosphatase is up at 446. The CPK is 469 down from a high of 30,000. Albumin is 1.2. DIAGNOSTIC IMAGING STUDIES: Multiple imaging studies were reviewed. There is evidence of air in the tissues of the left high. Chest x-ray is clear. ASSESSMENT AND PLAN: 1. The primary problem requiring critical attention is septic shock. Levophed will be used to maintain a mean arterial pressure of 65 and we will follow central venous pressure (CVP). 2. Infectious disease. The source of the patient's infection is felt to be her left thigh. Antibiotic coverage is quite broad, but primary source control has not been accomplished. I have discussed this with general surgery. 3. Fluid volume. The patient is up 20 liters since admission, but her CVP is only 8. At this point, I will discuss with nephrology; but I believe, she would benefit from some IV albumin and perhaps this would allow us to wean away from pressors. 4. Thrombocytopenia. There is concern for heparin-induced thrombocytopenia and Argatroban has been started. Hematology is managing this. 5. Rhabdomyolysis. The patient's CPK is finally coming down. 6. Oliguric acute kidney injury. The patient remains on continuous renal replacement therapy (CRRT) and is oliguric. 7. Anemia. Transfusions are proceeding. Hemoglobin and hematocrit (H&H) is ordered to follow. 8. Abnormal liver enzymes. This was felt to be related to hypotension; however, primary liver injury is of concern given the elevated alkaline phosphatase. 9. Atrial fibrillation. The patient is now in a controlled ventricular response with amiodarone and digoxin. I have discussed the case with the hospitalist service who have been caring for her and surgery. I will reach out to nephrology and other consultants as needed. I have reviewed the patient's current status with ICU nursing team and goals of care for the day have been outlined. CRITICAL CARE TIME: 120 minutes was spent in the provision of bedside critical care and coordination, excluding any procedure time.
[2020-11-21] MEDS: ARGATROBAN 250 MG/250 ML IV SCH ×2 (15:37)
--- NOTE | 2020-11-21 16:27 | RO ---
OPERATIVE NOTE DATE OF OPERATION: 11/20/2020 PREOPERATIVE DIAGNOSIS: Need for additional venous access. POSTOPERATIVE DIAGNOSIS: Need for additional venous access. PROCEDURE PERFORMED: Placement of left internal jugular vein triple lumen central venous catheter with ultrasound guidance. SURGEON: Dylon Franco MD ANESTHESIA: Local. INDICATIONS FOR THE PROCEDURE: The patient is an 80-year-old woman critically ill in the intensive care unit. She is undergoing continuous renal replacement therapy via a dialysis catheter in the right IJ. She has no good peripheral access and needs additional IV access for additional medications. She is now for placement of a triple lumen catheter in the left IJ with ultrasound guidance. OPERATIVE PROCEDURE: The patient was placed supine in her bed and then tilted into Trendelenburg position. A brief examination of the neck with the ultrasound revealed the carotid artery clearly with an acceptable internal jugular vein low in the neck. The area was prepped with chlorhexidine gluconate and alcohol. I then gowned and gloved and draped the patient sterilely. The ultrasound probe was also draped sterilely. Inspection confirmed the location of the internal jugular vein and 1% Xylocaine was infiltrated into the skin overlying this area. An 18 gauge needle was inserted under ultrasound guidance without success at penetrating the vein. The second sheathed needle was then selected and this was advanced under ultrasound guidance into the vein without difficulty. There was excellent venous return. The guidewire was passed and seemed to pass appropriately. The skin was nicked at the guidewire insertion site and the dilator was passed. The triple lumen catheter, which had already been flushed with saline was then inserted over the guidewire and advanced to approximately 18 cm at the skin. The guidewire was removed. Blood aspirated easily from all ports and these were then flushed with saline. The catheter was then withdrawn to approximately the 14 to 15 cm hernesto at the skin surface. The suture wing was attached and the wing was sutured in place with two 3-0 silk sutures. The occlusive chlorhexidine gluconate dressing was applied. The patient tolerated the procedure well. She was taken out of Trendelenburg position after the catheter was in place. A follow up x-ray showed the catheter crossing the mediastinum to lie in the superior vena cava appropriately. [facility]
[2020-11-21] MEDS: ACETAMINOPHEN 500 MG TAB PO PRN (16:45)
--- NOTE | 2020-11-21 17:26 | IPN ---
PROGRESS NOTE DATE: 11/21/2020 HISTORY: The patient was seen yesterday for a history of septic shock recently improving, but still requiring continuous renal replacement therapy. She had been weaned off of pressors in the past 24 hours. She had imaging studies that showed air bubbles throughout one of the muscle compartments of the left thigh, as well as a few bubbles in the iliopsoas region of the retroperitoneum. Dr. Damico had held a family meeting with her daughter or daughters and at that point elected to continue antibiotic therapy and to not consider transfer elsewhere for possible debridement. She had a new left internal jugular vein central line placed last night and was started on argatroban because of concerns about her falling platelet count and whether this represented heparin-induced thrombocytopenia. Today, she became more hypotensive again and was started back on some Levophed. Vital signs: Apparently, the patient's pulse is 93 with a blood pressure recorded at 151/67 and a room air pulse oximetry of 95%. Intake and output for yesterday showed 2800 in with 723 out. Her urine output was recorded as a 151 with a ultrafiltration amount of 572 milliliters. Her weight is recorded today as 111.7 kg, which would indicate a rise of 3.5 kg from yesterday. PHYSICAL EXAMINATION: The patient is lying in the bed fairly comfortable in appearance. She has skin that is warm and dry. She is alert and seems grossly oriented. She denies any abdominal pain. Heart examination shows a irregular rhythm of about 100. Her lungs show somewhat distant breath sounds bilaterally. The abdomen is obese, but soft and without any tenderness. Examination of the left lower extremity reveals some weeping open bullae on the anterior lateral left thigh. There appears to be some marked edema in this area. I do not feel any definite crepitus in the tissues. LABORATORY STUDIES: Show that her white count today has gone up to 22,000. Hemoglobin is 9 with a hematocrit of 29 and her platelet count is at 50,000, which is actually up a bit from yesterday. She had a chemistry profile showing sodium 134, potassium 4.4, chloride 103, Co2 of 28, BUN of 11, creatinine 0.6 and a glucose of 162. Liver function tests continue to fall slowly with her AST at 292, ALT 272 and an alkaline phosphatase of 446. Total bilirubin is 2.7. Protein is 4.1 with an albumin of 1.2. She did receive 1 unit of packed red blood cells this morning. IMPRESSION: The patient appears fairly stable compared to yesterday. She did require restarting her norepinephrine this morning to boost her blood pressure. Her mental status seems about the same and her labs are, I think, slowly improving. Her white count went up significant today from yesterday, but there are no other significant changes on her blood work. RECOMMENDATIONS: It is certainly possible that her presumed infection of her left thigh and retroperitoneum are worsening and that is to account for her renewed need for pressors and her increased white count. The only way that we could reassess the degree of gas, which is probably going to be our measure of whether this is a worsening infection, would be to repeat a imaging study primarily a CT scan. At this point, since the decision was only made yesterday to continue antibiotics, I would continue that course and consider repeating her CT scan tomorrow or the next day. STEPH
--- NOTE | 2020-11-21 17:43 | IPN ---
CRITICAL CARE PROGRESS NOTE DATE: 11/21/2020 SUBJECTIVE: Ms. Stack is seen this morning on her bedside in the intensive care unit. She remains oliguric and requiring continuous renal replacement therapy (CRRT). She is back on Levophed due to low blood pressure since last evening. Her atrial fibrillation is relatively better controlled with heart rate just below 100 now. She remains afebrile. Her thrombocytopenia is essentially unchanged and she is currently on argatroban drip. She is sitting in the bed eating her lunch. Nursing staff reports that she did not have any bowel movement and she denies any abdominal pain. She looks somewhat more tachypneic today. PHYSICAL EXAMINATION: Temperature 97.8 degrees Fahrenheit, heart rate 98 per minute, respiratory rate about 22 per minute, blood pressure 94/52 mmHg, oxygen saturation 95% on room air. INTAKE AND OUTPUT: Intake and output records from yesterday show a positive fluid balance by 2 liters. She has gained a total of about 20 liters of fluid since admission. NECK: Neck veins are difficult to be assessed. HEART SOUNDS: Irregular and without a pericardial friction rub. LUNGS: Diminished breath sounds. ABDOMEN: Soft. Bowel sounds are normal. EXTREMITIES: Without any cyanosis or clubbing. Lower extremity edema is significantly increased. Left thigh blisters are essentially unchanged. NEUROLOGIC: She is awake and able to answer questions. LABORATORY DATA: Today's labs show increase in platelet count slightly from yesterday, up to 50,000. WBC this morning is 14.8, hemoglobin 7.6 and hematocrit 24.2. Sodium is 134, potassium 4.4, CO2 28, BUN 11, creatinine 0.62, glucose 162, calcium 7.4. AST is down to 292, ALT 272, alkaline phosphatase 446. CKP is 469. Total protein 4.1, albumin 1.2. A random vancomycin level this morning is 18.5. PROBLEMS: 1. Oliguric acute renal failure. Patient remains oliguric and dependent on continuous renal replacement therapy (CRRT) due to low blood pressure. We will continue CRRT on her bedside and orders are being renewed. Her electrolytes are currently within normal range. 2. Septic shock. She is on Levophed once again due to low blood pressure. Her albumin level is also low and Dr. Mcintyre is going to order some intravenous (IV) albumin for her. I think this would be a good idea and it is likely to help with her blood pressure. 3. Left leg myofasciitis. This is underlying cause of her septic shock and acute renal failure. She remains on antibiotics. She is not felt to be suitable for surgical intervention in view of multiple comorbid conditions and frail overall condition. 4. Anemia. Her anemia has worsened over the last 24 hours and she is receiving transfusion, which is appropriate. 5. Severe protein calorie malnutrition. Her serum albumin level is only 1.2. She is eating, but minimal protein intake. I think intravenous albumin infusion is likely to help her. 6. Generalized edema and hypervolemia. Unfortunately, we have not been able to remove any fluid due to worsening hypotension. She is now back on Levophed and blood pressure is low. If her blood pressure improves with IV albumin, then we might be able to remove fluid. Forty-three minutes of critical care time spent of which no procedures were performed. HAOD
[2020-11-21 18:23] LABS: HEMATOCRIT 26.6 % (36.0-47.0); HEMOGLOBIN 8.4 g/dl (12.0-15.5); MEAN CORPUSCULAR HEMOGLOBIN 27.9 pg (27.0-33.0); MEAN CORPUSCULAR HGB CONC 31.6 g/dl (32.0-36.5); MEAN CORPUSCULAR VOLUME 88.4 fl (80.0-96.0); RED BLOOD COUNT 3.01 10^6/uL (4.00-5.40); WHITE BLOOD COUNT 17.7 10^3/uL (4.0-10.0)
[2020-11-21 18:26] LABS: PLATELET COUNT, AUTOMATED 43 10^3/uL (150-450)
[2020-11-21 18:49] LABS: EOSINOPHILS 3 % (0-3); LYMPHOCYTES 5 % (16-44); METAMYELOCYTES 1 % (0-0); NEUTROPHILS 85 % (28-66)
[2020-11-21 18:51] LABS: HYPOCHROMASIA 1+; POLYCHROMASIA 1+
[2020-11-21 18:53] LABS: ANISOCYTOSIS 1+; PLATELET ESTIMATE MARKED DECREASE (NORMAL)
[2020-11-21] MEDS ORDERED: CALCIUM GLUCONATE 1,000 MG in NS 100 ML IV SCH (19:00)
[2020-11-21 19:01] LABS: ALBUMIN 1.4 GM/DL (3.2-5.2); ALT/SGPT 238 U/L (12-78); BILIRUBIN,TOTAL 3.3 MG/DL (0.2-1.0); BLOOD UREA NITROGEN 10 MG/DL (7-18); CALCIUM LEVEL 7.4 MG/DL (8.8-10.2); CARBON DIOXIDE LEVEL 28 MEQ/L (21-32); CHLORIDE LEVEL 103 MEQ/L (98-107); CREATININE FOR GFR 0.78 MG/DL (0.55-1.30); GLOMERULAR FILTRATION RATE > 60.0 (>32); GLUCOSE, FASTING 178 MG/DL (70-100); INR 12.52; MAGNESIUM LEVEL 2.1 MG/DL (1.8-2.4); PHOSPHORUS LEVEL 2.4 MG/DL (2.5-4.9); POTASSIUM SERUM 4.1 MEQ/L (3.5-5.1); SODIUM LEVEL 135 MEQ/L (136-145); TOTAL PROTEIN 4.3 GM/DL (6.4-8.2)
[2020-11-21 19:02] LABS: PARTIAL THROMBOPLASTIN TIME 121.8 SECONDS (24.2-38.5)
[2020-11-21] MEDS ORDERED: POTASSIUM PHOSPHATE INJ 15 MMOL in D5W 250 ML IV ONE (19:30)
[2020-11-21] MEDS: CALCIUM GLUCONATE 1,000 MG in D5W MINI-BAG PLUS 100 ML IV SCH ×2 (19:38→21:00)
[2020-11-22] VITALS (74 sets, daily range): BP systolic 77–164; BP diastolic 38–94
[2020-11-22] MEDS: MEROPENEM INJ 1 GM in IV 1 EA IV SCH ×2 (01:30→13:16)
[2020-11-22] MEDS: MORPHINE 2 MG/ML 1ML VIAL (J2270) IV PRN ×2 (03:30→20:03)
[2020-11-22 05:34] LABS: HEMATOCRIT 26.7 % (36.0-47.0); HEMOGLOBIN 8.5 g/dl (12.0-15.5); MEAN CORPUSCULAR HEMOGLOBIN 27.7 pg (27.0-33.0); MEAN CORPUSCULAR HGB CONC 31.8 g/dl (32.0-36.5); RED BLOOD COUNT 3.07 10^6/uL (4.00-5.40); WHITE BLOOD COUNT 20.8 10^3/uL (4.0-10.0)
[2020-11-22 05:35] LABS: PLATELET COUNT, AUTOMATED 58 10^3/uL (150-450)
[2020-11-22] MEDS ORDERED: CALCIUM GLUCONATE 1,000 MG in D5W MINI-BAG PLUS 100 ML IV ONE (05:35)
[2020-11-22 05:43] LABS: PROTHROMBIN TIME 93.7 SECONDS (12.5-14.3)
[2020-11-22 05:51] LABS: INR 11.83
[2020-11-22 05:52] LABS: PARTIAL THROMBOPLASTIN TIME 128.3 SECONDS (24.2-38.5)
[2020-11-22 06:04] LABS: EOSINOPHILS 1 % (0-3); LYMPHOCYTES 3 % (16-44); MONOCYTES 3 % (0-5); NEUTROPHILS 93 % (28-66)
[2020-11-22 06:05] LABS: PLATELET ESTIMATE MARKED DECREASE (NORMAL)
[2020-11-22 06:06] LABS: ALBUMIN 1.4 GM/DL (3.2-5.2); ALT/SGPT 218 U/L (12-78); BILIRUBIN,TOTAL 2.7 MG/DL (0.2-1.0); BLOOD UREA NITROGEN 10 MG/DL (7-18); CALCIUM LEVEL 7.7 MG/DL (8.8-10.2); CARBON DIOXIDE LEVEL 26 MEQ/L (21-32); CHLORIDE LEVEL 105 MEQ/L (98-107); CHOLESTEROL LEVEL 59 MG/DL (< 200); CPK CREATINE PHOSPHOKINASE 259 U/L (26-192); CREATININE FOR GFR 0.63 MG/DL (0.55-1.30); GLOMERULAR FILTRATION RATE > 60.0 (>32); GLUCOSE, FASTING 142 MG/DL (70-100); LDH LACTATE DEHYDROGENASE 388 U/L (84-246); MAGNESIUM LEVEL 2.1 MG/DL (1.8-2.4); PHOSPHORUS LEVEL 2.7 MG/DL (2.5-4.9); POTASSIUM SERUM 4.3 MEQ/L (3.5-5.1); SODIUM LEVEL 137 MEQ/L (136-145); TOTAL PROTEIN 4.2 GM/DL (6.4-8.2); TRIGLYCERIDES LEVEL 185 MG/DL (<150)
--- NOTE | 2020-11-22 07:38 | ECGEPIP ---
[facility] Test Date: 2020-11-22 Pat Name: SRIRAM JESSICA Department: Room: [place] [address] Gender: Female Patient Navigator: amelia : [id number] Requested By: Eddie Mcintyre [facility] Order Number: [id number] Reading MD: Eddie Andre Measurements Intervals [place] Rate: 61 P: [place]: QRS: 79 QRSD: 78 T: 234 QT: 458 QTc: 461 Interpretive Statements Junctional rhythm suspected baseed on baseline artifact Low voltage QRS Septal infarct , age undetermined Nonspecific ST-T wave abnormalities rhythm with increased regularity when compared to tracing done 11-17-20 Electronically Signed on 11-22-2020 7:38:05 EDT by Eddei Andre
[2020-11-22] MEDS: VASOPRESSIN INJ 20 UNITS in NS 500 ML IV SCH (08:37)
[2020-11-22] MEDS: PANTOPRAZOLE 20 MG TAB PO SCH (08:48)
[2020-11-22] MEDS: ASPIRIN 81 MG CHEW TABLET PO SCH (08:48)
[2020-11-22] MEDS: LACTOBACILLUS ACIDOPHILUS CAP (BACID) PO SCH ×2 (08:48→17:26)
[2020-11-22] MEDS: NOREPINEPHRINE BITARTRATE 8 MG in D5W 492 ML IV SCH ×3 (08:50→17:58)
[2020-11-22] MEDS: HumaLOG INSULIN (NovoLOG) PER UNIT SC SCH ×4 (08:52→20:02)
[2020-11-22] MEDS ORDERED: DIGOXIN 0.125 MG TAB PO SCH (09:00)
--- NOTE | 2020-11-22 09:17 | IPN ---
PROGRESS NOTE DATE: 11/19/2020 Angelia was seen today. She was undergoing continuous renal replacement therapy (CRRT). She still has very minimal urine output. She had a CT abdomen and pelvis as well as left high done with contrast after the approval from Dr. Zimmerman. The CT abdomen and pelvis findings were discussed with Dr. Land, who read the report. There was much worsening necrotizing infection, and there was a lot of air involving the psoas muscle iliacus, thigh, and hip area with most prominent findings around the hip area. Dr. Stein has been consulted and orthopedics was involved as well to discuss whether surgery would be of any benefit. The patient remains off pressors at this time. She has no nausea, vomiting, or diarrhea, no increase shortness of breath. Her only complaint is pain in her hip area whenever moved around. PHYSICAL EXAMINATION: Sick-looking female in the intensive care unit (ICU) on CRRT, alert and oriented but tired. Temperature is 97.2, pulse 125, respirations 16, blood pressure 98/54, up to 122/56, oxygen saturation 95% on room air. HEART: Irregularly irregular in atrial fibrillation with a systolic ejection murmur /6. No rubs or gallops. LUNGS: Diminished breath sounds at the bases but clear. No wheezes, rales, or rhonchi. ABDOMEN: Morbidly obese, soft, nontender. Left groin area: Slight erythema. GENITOURINARY: Normal. Ware catheter in place, and central line in right internal jugular (IJ). EXTREMITIES: Bilateral knee replacement. Large surgical scars. No clubbing or cyanosis. She has trace peripheral edema. Ecchymosis of the right upper arm into the shoulder from an infiltration of a blood transfusion. SKIN: She has erythema involving the left hip area all the way down to the left knee. There is large bullae of the left hip area, at least four that are non-tense. There is tenderness, especially tenderness of left hip especially with movement. Whenever I try to flex her hip to 20 degrees she has significant pain. The erythema extends all the way to the left knee prosthesis. I do not feel any crepitus, but there is tenderness to touch. NEUROLOGIC: Cranial nerves intact. The patient cannot move her left leg like her right leg due to pain but moves upper extremities. Affect is appropriate. LABORATORY DATA: White count is 11.2, improving from 32.8, hemoglobin 8.8, hematocrit 27.5, platelets 49, which has dropped from 178. Sodium 135, potassium 4, chloride 102, bicarbonate 29, BUN 14, creatinine 0.67, glucose 144. Lactic acid 1.9; it was up to 5.7 a couple days ago. Calcium 7.9, phosphorus 2.4, magnesium 2.1. CPK 1956; was up to 25,000 a couple of days ago. LDH 521. CRP 15.8. Blood cultures, two sets, no growth on November 15. On November 18, two other sets no growth either. Urine culture was negative. IMAGING STUDIES: Femur CT with contrast, abdominal CT, and pelvic CT all done today show extensive intramuscular, myofascia, and soft tissue emphysema long the left hip from above the knee to the hip into the left pelvis, consistent with necrotizing fasciitis from gas-forming organism. No teresa abscess is identified to be able to drain. Ileus in the abdomen. CT abdomen and pelvis shows a Ware catheter in place. Uterus is surgically absent. Extensive soft tissue emphysema with edema in the quadriceps musculature of the proximal thigh involving the iliopsoas muscle. Gallstones are present. Head CT showed no acute findings. Chest x-ray done on November 16 showed no active disease with the right IJ line in good position. ASSESSMENT AND PLAN: An 80-year-old female with insulin-dependent diabetes mellitus, morbid obesity, bilateral total knee replacements, and right total hip replacement, who had fallen, admitted with rhabdomyolysis and necrotizing fasciitis of the left hip areas, now has extended to the iliopsoas muscle and down to the thigh muscles all the way to the left knee prosthesis. CT followup shows worsening gas in these areas with necrotizing infection. Clinically there is tenderness to touch along the left thigh and the left hip muscle. Patient is currently on intravenous (IV) vancomycin and meropenem. Her fever has improved, her white count has improved, but the CT findings of necrosis have worsened. I believe the patient should be going to surgery for probably incision and drainage of the left hip muscles, but she is a very poor surgical candidate at this time, requiring CRRT, severe thrombocytopenia. PLAN: Consult with orthopedic surgery to discuss her options needsd surgical intervention bit she is very high risk for mortality with renal failure, thrombocytopenia, septic shock and morbid obesity. Dr. Damico has been discussing with her daughter the daughter's wishes and patient's wishes. At this point, from an infectious disease standpoint, will continue on same antibiotics with IV vancomycin and meropenem unless we have any other pathogens isolated. ALLERGIES: CHRIST INHIBITORS, SULFA, CIPROFLOXACIN. MEDICATIONS: - digoxin 0.25 mg IV daily - amiodarone 200 mg by mouth four times a day. - pantoprazole 40 mg daily - vancomycin 1 gram IV every 12 hours - meropenem 500 mg IV every 12 hours - probiotics one tablet by mouth twice a day Will discuss with pharmacy adjusting her dose of meropenem on CRRT, as I would suggest higher dosing. MTDD
[2020-11-22] MEDS: GASTROGRAFIN SOLUTION 30ML PO SCH ×2 (09:34→10:01)
[2020-11-22] MEDS ORDERED: ISOVUE-370 76% 100ML VIAL As Ordered ONE (11:17)
--- NOTE | 2020-11-22 11:23 | CCN ---
CRITICAL CARE NOTE DATE: 11/22/2020 SUBJECTIVE: The patient is seen in the intensive care unit critically ill. Heart rate fell this morning and the digoxin has been held. She was complaining of some abdominal pain and pain at the sites of her IV catheters. Levophed dose has been decreased to 2 mcg/min. OBJECTIVE: VITAL SIGNS: At bedside, she is ill-appearing. Temperature is 96, T-max for the past 24 hours 98, pulse rate is now 50, respirations 16, blood pressure 99/39. INTAKE AND OUTPUT: For the past 24 hours, 3835 in and 171 out. Since midnight, 387 in and 83 out. She remains anuric. Central venous pressure was just rechecked and found to be 9. GENERAL APPEARANCE: She is ill-appearing and mucosa is pink and dry. NECK: Supple. There is a left internal jugular catheter triple lumen and a right internal jugular dialysis catheter in place. The sites are reasonably clean with some old bleeding at the insertion site. Neck is otherwise supple. HEART: Sounds are irregularly irregular. LUNGS: Breath sounds are diminished, but clear. No focal sounds. ABDOMEN: Obese. EXTREMITIES: There is a large hematoma in the right arm little change from yesterday. The left thigh is dressed with a moist dressing. Blistering of the skin appreciated yesterday has improved. There is crepitants on palpation of the area. DIAGNOSTIC STUDIES: White cell count this morning is up to 20.8 and differential now shows 93% neutrophils. Hemoglobin is holding at 8.5, hematocrit 26.7, platelet count is 58,000. Electrolytes show a sodium of 137, potassium 4.3, chloride 105, CO2 of 26, BUN 10, creatinine 0.63, glucose 142. Calcium is 7.7, phosphorus 2.7, bilirubin 2.7. The AST is down to 189, ALT down to 218, but the alkaline phosphatase is up at 697. LDH is 388. Albumin is 1.4. Heparin-associated antibodies have been sent and the result is pending. We obtained an electrocardiogram, which shows a junctional rhythm at 50. MEDICATIONS: On review, she is receiving 81 mg of aspirin a day, Zofran 4 mg p.r.n., Levophed for mean arterial pressure of 65, morphine as needed for pain, meropenem 1 gram q. 12 hours, Argatroban drip, and vancomycin. This is day #2 of the meropenem and day #3 of vancomycin. ASSESSMENT AND PLAN: 1. The primary problem requiring critical attention is septic shock. Levophed dosing is somewhat less this morning. We will continue to attempt titration on the Levophed. 2. From an infectious disease standpoint, her white cell count is up further with a shift left. Reimaging of her left thigh is to be performed today. 3. Fluid volume. The patient remains on continuous renal replacement therapy (CRRT) without fluid removal. Central venous pressure (CVP) measures 9. I will discuss the possibility of additional albumin with nephrology. 4. Thrombocytopenia. Platelet count is slightly improved today. HIV antibodies are pending. Argatroban drip continues. 5. Acute kidney injury. The patient remains oliguric on CRRT. 6. Anemia. Hemoglobin and hematocrit (H&H) are holding. 7. Transaminitis. This was felt to be related to shock liver. At this point, the enzymes are slightly improved. 8. Atrial fibrillation. The patient reverted to a junctional rhythm earlier. I will hold the digoxin at this point and continue monitoring telemetry. The patient is very critically ill attended by multiple members of the medical staff. We will collaborate on best management, and I will update the ICU nursing regarding the care plan for the day. Her prognosis overall is poor given her multisystem disease. CRITICAL CARE TIME: 72 minutes was spent in the provision of bedside critical care and coordination, excluding any procedure time.
--- NOTE | 2020-11-22 12:08 | REP ---
INDICATION: r/o abscess, extension of gas in intramuscular tissues. COMPARISON: Comparison CT study abdomen pelvis November 19, 2020.. TECHNIQUE: Helical scanning is acquired and 3 mm axial images re-formatted. Coronal and sagittal MPR images are generated. The CT contrast enhancement dose is 100 mL of intravenous Isovue 370. FINDINGS: In comparison with recent prior study from November 19, 2020, bilateral pleural effusions have developed, right slightly greater than left. There is minimal ascites around the liver and in the pericolic gutters bilaterally. There are fewer air-fluid levels within the abdomen and pelvis. No free intraperitoneal air is observed. There is a small quantity of fluid in the cul-de-sac region. Ware catheter is in place. Gallstones are again noted. Soft tissue gas bubbles are again seen in the iliacus muscle and distal psoas muscle to the level of the superior pelvis and iliac crest. This is unchanged from the November 19, 2020 study. Soft tissue emphysema is also again noted in the quad musculature of the proximal thigh. There is associated diffuse edema in the upper thighs in the subcutaneous fat layer and along the flanks and lower abdomen. There is a little more cysts subcutaneous edema along the flanks but no other soft tissue gas bubbles are seen. IMPRESSION: The extent of the soft tissue gas in the left psoas and iliacus muscles is unchanged in the interval since the November 19, 2020 study. There is a small quantity of new abdominal ascites. There are bilateral pleural effusions which are new. <Electronically signed by Torin Land > 11/22/20 [id number]
--- NOTE | 2020-11-22 12:12 | REP ---
INDICATION: r/o abscess, extension of gas in intramuscular tissues. COMPARISON: Comparison study November 19, 2020.. TECHNIQUE: Helical scanning is acquired following the intravenous injection of 100 mL of Isovue 370. 3 mm axial images re-formatted. Coronal and sagittal MPR images are generated. FINDINGS: In comparison with the study done November 19, 2020, the gas bubbles associated with the patient's myofasciitis are essentially unchanged in extent and distribution. There is extensive diffuse subcutaneous fat streaking and this is more prominent. Associated skin thickening appears more prominent as well. No new fluid collection is seen. IMPRESSION: The extent of the soft tissue gas in the quadriceps musculature is essentially unchanged from the November 19, 2020 study. There is more diffuse subcutaneous and dermal edema. <Electronically signed by Torin Land > 11/22/20 [id number]
--- NOTE | 2020-11-22 12:27 | IPNPDOC ---
Date Seen The patient was seen on 11/22/20. Progress Note SUBJECTIVE: Repeat CT's done today with no change essentially. Increased erythema and swelling noted along the left lateral and anterior thigh, popped bullae seen. On levophed 2 mcg currently, not taking off with CRRT still. Grossly fluid overloaded. Patient remains intermittently confused but denies chest pain, shortness of breath, n/v/d. OBJECTIVE: PHYSICAL EXAMINATION: VITAL SIGNS: Please see below GENERAL APPEARANCE: NAD, resting, AAOx 3 HEENT: AT/NC, EOMI, PERRLA NECK: No masses, right trialysis catheter in place, left IJ central line LUNGS: CTAB, no wheezing, rhonchi, wheezing HEART: irregularly irregular rhythm, rapid. There is a 1/6 systolic ejection murmur. No rubs or gallops ABDOMEN: obese, soft, nontender. No guarding or rebound. No referred pain. No CVA tenderness. EXTREMITIES: Pain of left upper thigh- 2/10 on palpation . ROM not tested. No cyanosis or clubbing. Trace peripheral edema. Moves arms and legs with equal strength. Generally weak INTEGUMENTARY: bruising of right shoulder, down right arm-not new and not enlarging. Large left thigh scar extending from knee to high thigh, redness with no tenderness on palpation has increased with warmth compared to 11/22/20 . No crepitus : macias catheter in place NEUROLOGIC: CN 2-12 intact, no focal deficits PSYCH: confused at times LABORATORY DATA: Please see below MICROBIOLOGY: BCx x 2 sets: NG 5 days Repeat BCx x 2 sets: NG at 48 H UCx NG IMAGING: CT abd/pelvis with contrast 11/22/20: The extent of the soft tissue gas in the left psoas and iliacus muscles is unchanged in the interval since the November 19, 2020 study. There is a small quantity of new abdominal ascites. There are bilateral pleural effusions which are new. CT femur with contrast 11/22/20: The extent of the soft tissue gas in the quadriceps musculature is essentially unchanged from the November 19, 2020 study. There is more diffuse subcutaneous and dermal edema. CT femur with contrast 11/19/20: Extensive intramuscular myofascial and soft tissue emphysema along the left thigh from just above the knee to the hip and into the left pelvis consistent with mild fasciitis with gas-forming organism/gas gangrene. No teresa abscess is seen. Diffuse cellulitis pattern. Ileus pattern in the abdominal bowel gas CT abd/pelvis with contrast 11/19/20: Extensive soft tissue emphysema with edema and dermal thickening in the quadriceps musculature of the proximal thigh on the left extending along the left pelvic sidewall in the iliopsoas muscle. 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 These are new findings compared with the November 15, 2020 study. Gallstones are seen. An abdominal ileus pattern is noted in the bowel gas. CT head 11/17/20: Stable exam, no acute findings US abdomen: Suboptimal examination. If felt clinically indicated consider CT for further e valuation. CXR: Chronic changes without acute infiltrate or pleural effusion. 5 mm nodule left lower lobe, recommend follow-up CT chest in 6-12 months. Echocardiogram 11/15/20: EF 65-70% Study is of acceptable technical quality, patient is in sinus rhythm. Normal LV size with preserved LV systolic function and grade 2 diastolic dysfunction. Dilated hypokinetic right ventricle. No hemodynamically significant valvular disease. Likely elevated central venous pressure and moderately severe pulmonary hypertension. CT lumbar spine: 1. Worsening intramuscular gas extending into the left iliacus and psoas muscles, which overall these muscles appear asymmetrically thickened when compared with the right. Cannot exclude possibility of intramuscular abscess and/or hematoma in the setting of recent trauma. It is possible that this gas is extending from the level of the left SI joint, though no definite sacral fracture is identified. Recommend orthopedic consultation. 2. Other chronic findings, as above. CT abd/pelvis: Numerous a small gallbladder calculi. No CT evidence of acute cholecystitis or biliary duct dilatation. The kidneys are unremarkable. Wall thickening of the sigmoid colon and rectosigmoid colon, nonspecific, but could represent infectious versus inflammatory colitis in the appropriate clinical setting. 5.3 cm hiatal hernia. Appendix is unremarkable. Hysterectomy. Right hip arthroplasty. Grade 1 compression deformity of the L4 superior endplate and lumbar spine d egenerative disc disease. CT chest: Chronic changes without acute infiltrate or pleural effusion. 5 mm nodule left lower lobe, recommend follow-up CT chest in 6-12 months. IMPRESSION/PLAN: Hypotension likely septic shock 2/2 gas/necrotizing fascitis/myofascitis seen in musculature of the proximal thigh on the left extending along the left pelvic sidewall in the iliopsoas muscle and left lower ext/thigh cellulitis. -WBC increasing at 20.8, LA wnl (peaked 11/17/20 at 8.5), remains on levophed 2 mcg. S/p albumin overnight. CVP 9 -At this time not suspecting a bleed as cause of hypotension -CRRT being kept even, no fluid being taken off -Repeat CT left femur/ abd/pelvis done- no extension of infection but not improved also -To this date: General surgery (Dr. Franco) and orthopedic surgery (Dr. Hagan) reviewed scans, patient and case. Per general surgery, under ideal circumstances , the choice would be to take to surgery and debride any nonviable tissue or destroyed fascia and to drain the infection. The involved area in the lateral thigh is certainly more easily amenable to exploration and debridement than is the retroperitoneum. Dr. Hagan felt that if this were to be done it was best done at a larger facility. -Two options suggested by general surgery were presented to patient and family 11/20/20: 1. c/w abx and monitor (risks discussed in detail) or 2. attempt to transfer to institution with higher level of care to consider exploration and debridement of the thigh and possibly the retroperitoneum. Risks of doing and NOT doing both discussed in detail with family and patient. Ultimately family chose to keep here and c/w current treatment, monitoring. -Surgery, critical care continue to follow -ID following closely and remains on c/w meropenem, vancomycin -Will new scans above, will discuss with subspecialists above -C/w levophed to help keep MAP >65 mmHg, regular labs Atrial fibrillation with bradycardia -Bradycardic to 40's this AM -Stopped amiodarone 11/21/20 and digoxin stopped 11/22/20 -Dig level high but according to cardiology this can be from concomitant use of amiodarone -Echo above -[place] goal HR < 110 but <120 ok with current sepsis -C/w treatment of sepsis above -Tele Elevated coags likely 2/2 to argatroban gtt -Risks of bleed increased with incr PT/PTT and INR; however, also risks of clotting are high as well. Updated daughter Val on this subject and discussed in detail on 11/21/20. -No s/s of bleeding -Mixing study abnormal and could suggest an inhibitor. Lupus anticoagulant test ordered -Hematology monitoring closely -PT/PTT, CBC Q12 Hrs Anemia possibly 2/2 to dilutional effect, sepsis -S/p 2 units total this admission, last 1 unit PRBC 11/21/20, improved but dropped again today to 8.5/26 -Follow CBC closely. If Hgb <8, consider transfusing Acute thrombocytopenia, r/o HIT vs. 2/2 to sepsis -PLTs slightly improved to 58, waxing and waning -Lovenox started on 11/15/20, stopped 11/18/20. Likely prior exposures with prior surgeries, hospitalizations -Started argatroban gtt 11/20/20 -Mixing study abnormal -Peripheral smear done -F/u CBC/PT/PTT/INR Q12 H , HIT ab, lupus anticoagulant test -Heme/onc consulted and managing -Tranfuse PLTs if bleed or if PLTs <20 Oliguric AMIRA likely multifactorial 2/2 to hypotension/septic shock, acute rhabdomyolysis, poss contrast nephropathy, medications -CRRT began evening 11/16/20, remains having poor u/o with only 126 mL out /24H -Cr wnl -Replace lytes PRN -F/u labs regularly, nephrology recs -Monitor u/o closely Hypocalcemia, acute -S/p calcium gluconate -Following lytes closely with CRRT Acute transaminitis likely 2/2 to hypotension -AST/ALT continues to improve -Tx for hypotension above -Following CMP daily Elevated BNP likely 2/2 to atrial fibrillation with RVR, HFpEF / mod-severe pulmonary HTN -Echocardiogram above -CXR neg for acute changes -Saturating well on RA -Stopped BB, no diuretics currently, on CRRT previously having fluid taken off but still grossly + -Discussed case with cardiology. -C/w current management above Acute rhabdomyolysis-improving -Peaked CK at 32K, trending down -Follow up CMP regularly -Nephrology following, CRRT DM type II -BS stable -ISS, AC/HS, consistent carb GERD/GI px -PPI DVT px -Stopped lovenox with worsening PLTs, on argatroban gtt. Teds, scd Resolved issues: Hypomagnesemia, acute Hyperkalemia likely 2/2 to AMIRA TIA vs. transient focal deficits 2/2 to hypotension Elevated troponins possibly cytokine induced, cannot r/o Type II event DISPOSITION: ID, critical care, nephrology, general surgery, orthopedic surgery, hematology consulted. Condition is very guarded, remains in critical condition. Due to confusion with patient, will rely mostly on daughter to make major decisions. Remains DNR/DNI. TOTAL AMOUNT OF ICU TIME SPENT ON PATIENT'S CARE TODAY (nonprocedural): 80 MINS VS, I&O, 24H, Fishbone Vital Signs/I&O Vital Signs Date Time Temp Pulse Resp B/P (MAP) Pulse Ox O2 Delivery O2 Flow Rate FiO2 11/22/20 07:30 53 91/47 (62) 11/22/20 04:00 96.8 16 94 Room Air 11/18/20 12:00 2.0 I&O- Last 24 Hours up to 6 AM 11/22/20 06:00 Intake Total 3279.7 ml Output Total 202 ml Balance 3077.7 ml Laboratory Data 24H LABS Laboratory Tests 2 11/21/20 14:20: Nucleated Red Blood Cells % (auto) 0.5H, Immature Platelet Fraction 15.5H, Activated Partial Thromboplast Time 115.3H 11/21/20 16:43: Bedside Glucose (Misc Panel) 172H 11/21/20 18:08: Nucleated Red Blood Cells % (auto) 0.6H, Activated Partial Thromboplast Time 121.8*H, Immature Granulocyte % (Auto) , Neutrophils (%) (Auto) , Neutrophils 85H, Band Neutrophils 6, Lymphocytes (Manual) 5L, Eosinophils (Manual) 3, Metamyelocytes 1H, Polychromasia 1+, Hypochromasia 1+, Anisocytosis 1+, Platelet Estimate MARKED DECREASE, Prothrombin Time 98.0H, Prothromb Time International Ratio 12.52*H, Anion Gap 4L, Glomerular Filtration Rate > 60.0, Calcium Level 7.4L, Whole Blood Ionized Calcium 4.3L, Phosphorus Level 2.4#L, Magnesium Level 2.1, Total Bilirubin 3.3H, Aspartate Amino Transf (AST/SGOT) 226H, Alanine Aminotransferase (ALT/SGPT) 238H, Alkaline Phosphatase 567H, Total Protein 4.3L, Albumin 1.4L, Albumin/Globulin Ratio 0.5L 11/21/20 22:07: Activated Partial Thromboplast Time 122.2*H 11/22/20 05:05: Immature Granulocyte % (Auto) , Neutrophils (%) (Auto) , Nucleated Red Blood Cells % (auto) 0.3H, Neutrophils 93H, Lymphocytes (Manual) 3L, Monocytes (Manual) 3, Eosinophils (Manual) 1, Red Blood Cell Morphology NORMAL, Platelet Estimate MARKED DECREASE, Whole Blood Ionized Calcium 4.6 11/22/20 05:06: Prothrombin Time 93.7H, Prothromb Time International Ratio 11.83*H, Activated Partial Thromboplast Time 128.3*H, Anion Gap 6L, Glomerular Filtration Rate > 60.0, Calcium Level 7.7L, Phosphorus Level 2.7, Magnesium Level 2.1, Total Bilirubin 2.7H, Aspartate Amino Transf (AST/SGOT) 189H, Alanine Aminotransferase (ALT/SGPT) 218H, Alkaline Phosphatase 697H, Lactate Dehydrogenase 388H, Total Creatine Kinase 259H, Total Protein 4.2L, Albumin 1.4L, Albumin/Globulin Ratio 0.5L, Triglycerides Level 185H, Cholesterol Level 59, Digoxin Level 2.3H 11/22/20 10:11: Vancomycin Level Trough 21.8H 11/22/20 11:56: CBC/BMP Laboratory Tests 11/21/20 14:20 11/21/20 18:08 11/22/20 05:05 11/22/20 05:06 Microbiology Microbiology 11/21/20 Gram Stain - Final, Resulted 11/21/20 Wound Culture, Resulted Pending 11/18/20 Blood Culture - Preliminary, Resulted No Growth after 72 hours. All specime... 11/18/20 Blood Culture - Preliminary, Resulted No Growth after 72 hours. All specime... 11/15/20 Urine Culture - Final, Complete 11/15/20 Blood Culture - Final, Complete NO GROWTH AFTER 5 DAYS 11/15/20 Blood Culture - Final, Complete NO GROWTH AFTER 5 DAYS Current Medications Current Medications Medications (Trade) Dose Ordered Sig/Sendy Route PRN Reason Start Time Stop Time Status Last Admin Dose Admin Acetaminophen (Tylenol Tab) 1,000 mg Q6HP PRN PO PAIN / FEVER 11/15/20 18:50 11/21/20 16:45 Amiodarone HCl (Pacerone, Cordarone) 200 mg QID PO 11/18/20 17:00 11/21/20 08:25 DC 11/20/20 21:21 Amiodarone HCl (Pacerone, Cordarone) 200 mg TID PO 11/18/20 09:00 11/18/20 15:56 DC 11/18/20 12:16 Amiodarone HCl 150 mg/IV Miscellaneous Supplies 100 ml @ 600 mls/hr STAT STAT IV 11/17/20 08:58 11/17/20 09:07 DC 11/17/20 09:18 Amiodarone HCl 360 mg/IV Miscellaneous Supplies 200 ml @ 17 mls/hr [id number] IV 11/17/20 16:00 11/18/20 10:00 DC 11/18/20 04:29 Amiodarone HCl 360 mg/IV Miscellaneous Supplies 200 ml @ 33.333 mls/ hr Q6H IV 11/17/20 10:00 11/17/20 10:05 DC 11/17/20 11:11 Argatroban 250 mg/ Dextrose 250 ml @ 3.2 mls/hr Q24H IV 11/20/20 14:00 11/21/20 15:37 Aspirin (Aspirin Chewable) 81 mg DAILY PO 11/15/20 09:00 Cancel Aspirin (Aspirin Chewable) 81 mg DAILY PO 11/16/20 09:00 11/22/20 08:48 Calcium Gluconate 1000 mg/Dextrose 110 ml @ 110 mls/hr ASDIRECTED IV 11/20/20 20:15 UNV Calcium Gluconate 1000 mg/Dextrose 110 ml @ 110 mls/hr Q1H IV 11/21/20 19:00 11/21/20 20:59 DC 11/21/20 21:00 Calcium Gluconate 1000 mg/IV Miscellaneous Supplies 1 each/ Sodium Chloride 110 ml @ 110 mls/hr 0600,0700 IV 11/17/20 06:00 11/17/20 10:00 DC 11/17/20 09:18 Calcium Gluconate 1000 mg/IV Miscellaneous Supplies 1 each/ Sodium Chloride 110 ml @ 110 mls/hr 2200,2300 IV 11/17/20 22:00 11/18/20 02:00 DC 11/18/20 02:19 Calcium Gluconate 1000 mg/IV Miscellaneous Supplies 1 each/ Sodium Chloride 110 ml @ 110 mls/hr Q1H IV 11/18/20 09:00 11/18/20 10:59 DC 11/18/20 10:14 Calcium Gluconate 1000 mg/Sodium Chloride 110 ml @ 110 mls/hr Q1H IV 11/21/20 19:00 11/21/20 18:59 DC Ceftriaxone Sodium 1 gm/ Dextrose 50 ml @ 100 mls/hr Q24H IV 11/15/20 16:00 11/16/20 08:46 DC 11/15/20 16:53 Dextrose (Dextrose 50%) 25 ml ASDIRECTED PRN IV SEE LABEL COMMENTS 11/15/20 14:50 Dextrose (Dextrose 50%) 50 ml STAT STAT IV 11/16/20 02:51 11/16/20 02:57 DC 11/16/20 03:16 Diatrizoate Meglum/ Diatrizoate Sod (Gastrografin) 10 ml Q30M PO 11/22/20 09:10 11/22/20 09:41 DC 11/22/20 10:01 Digoxin (Lanoxin) 0.125 mg DAILY PO 11/22/20 09:00 11/22/20 06:20 DC Digoxin (Lanoxin) 0.25 mg DAILY IV 11/19/20 12:15 11/20/20 15:53 DC 11/20/20 08:31 Digoxin (Lanoxin) 0.25 mg DAILY PO 11/21/20 09:00 11/21/20 08:25 DC Digoxin (Lanoxin) 0.25 mg STAT STAT IV 11/18/20 16:53 11/18/20 16:54 DC 11/18/20 17:07 Digoxin (Lanoxin) 0.25 mg STAT STAT IV 11/18/20 18:10 11/18/20 18:11 DC 11/18/20 18:22 Digoxin (Lanoxin) 0.5 mg STAT STAT IV 11/18/20 15:33 11/18/20 15:59 DC 11/18/20 15:59 Enoxaparin Sodium (Lovenox) 80 mg Q12H SC 11/15/20 18:00 11/16/20 19:06 DC 11/16/20 17:41 Enoxaparin Sodium (Lovenox) 90 mg Q24H SC 11/17/20 18:00 11/18/20 12:11 DC 11/17/20 17:59 Glucagon (Glucagon) 1 mg ASDIRECTED PRN SC SEE LABEL COMMENTS 11/15/20 14:50 Glucose (Glucose) 16 GM ASDIRECTED PRN PO SEE LABEL COMMENTS 11/15/20 14:50 Heparin Sodium (Heparin) ASDIRECTED PRN IV SEE LABEL COMMENTS 11/16/20 20:45 11/17/20 15:24 DC Heparin Sodium (Heparin) ASDIRECTED PRN IV SEE LABEL COMMENTS 11/17/20 15:30 11/18/20 11:57 DC Heparin Sodium (Heparin) ASDIRECTED PRN IV SEE LABEL COMMENTS 11/18/20 12:00 11/20/20 12:52 DC Heparin Sodium (Heparin) ASDIRECTED PRN IV SEE LABEL COMMENTS 11/19/20 11:10 11/20/20 12:52 DC Heparin Sodium (Heparin) ASDIRECTED PRN IV SEE LABEL COMMENTS 11/20/20 12:05 Heparin Sodium (Heparin) dose as per volume indica... ASDIRECTED PRN IV SEE LABEL COMMENTS 11/16/20 18:00 11/16/20 18:31 DC 11/16/20 18:22 Home Med (Med Rec Complete!) ASDIRECTED XX 11/15/20 13:20 11/15/20 13:22 DC Hydromorphone HCl (Dilaudid) 0.3 mg Q3HP PRN IV MILD PAIN (PS 1-4) 11/17/20 00:50 11/17/20 12:31 DC 11/17/20 01:07 Insulin Human Lispro (HumaLOG INSULIN) SEE PROTOCOL TABLE AC SC 11/15/20 17:30 11/22/20 08:52 Insulin Human Lispro (HumaLOG INSULIN) SEE PROTOCOL TABLE QHS SC 11/15/20 21:00 Insulin Human Regular (HumuLIN R INSULIN) 10 units STAT STAT IV 11/16/20 02:51 11/16/20 02:57 DC 11/16/20 03:17 Lactobacillus Acidophilus (Bacid) 1 ea BIDWM PO 11/16/20 08:00 11/22/20 08:48 Meropenem 1 gm/IV Miscellaneous Supplies 50 ml @ 100 mls/hr Q12H IV 11/20/20 01:00 11/22/20 01:30 Meropenem 2 gm/ Sodium Chloride 100 ml @ 200 mls/hr Q8H IV 11/17/20 12:15 11/17/20 12:24 DC Meropenem 500 mg/ IV Miscellaneous Supplies 50 ml @ 100 mls/hr Q12H IV 11/17/20 13:00 11/19/20 16:30 DC 11/19/20 13:29 Metoprolol Tartrate (Lopressor) 5 mg Q5M IV 11/15/20 12:55 11/15/20 13:06 DC 11/15/20 13:52 Metoprolol Tartrate (Lopressor) 25 mg Q6H PO 11/16/20 12:00 11/16/20 16:02 DC Metoprolol Tartrate (Lopressor) 50 mg Q6H PO 11/15/20 18:00 11/16/20 11:56 DC 11/15/20 17:36 Metronidazole 500 mg/IV Miscellaneous Supplies 100 ml @ 100 mls/hr Q8H IV 11/16/20 09:00 11/16/20 12:34 DC 11/16/20 10:13 Morphine Sulfate (Morphine Sulfate Inj) 1 mg Q4H PRN IV MODERATE PAIN (PS 5-7) 11/17/20 12:30 11/19/20 19:13 Morphine Sulfate (Morphine Sulfate Inj) 2 mg Q6H PRN IV SEVERE PAIN (PS 8-10) 11/17/20 12:30 11/22/20 03:30 Norepinephrine Bitartrate 8 mg/ Dextrose 500 ml @ 7.5 mls/hr Q24H IV 11/16/20 18:00 11/22/20 08:50 Ondansetron HCl (ZOFRAN INJection) 4 mg Q6HP PRN IV NAUSEA OR VOMITING 11/15/20 18:50 11/18/20 18:22 Pantoprazole Sodium (Protonix) 20 mg DAILY PO 11/18/20 09:00 11/18/20 12:13 DC Pantoprazole Sodium (Protonix) 40 mg DAILY PO 11/18/20 12:15 11/22/20 08:48 Piperacillin Sod/ Tazobactam Sod 3.375 gm/Dextrose 50 ml @ 50 mls/hr Q6H IV 11/16/20 10:00 11/17/20 12:16 DC 11/17/20 03:49 Potassium Chloride/Sodium Chloride 1,000 ml @ 125 mls/hr Q8H IV 11/15/20 15:30 11/16/20 02:57 DC 11/15/20 17:35 Simvastatin (Zocor) 40 mg QHS PO 11/15/20 21:00 11/16/20 08:49 DC 11/15/20 20:15 Sodium Bicarbonate 150 meq/Dextrose/Water 1,150 ml @ 150 mls/hr Q7H40M IV 11/16/20 16:00 11/16/20 20:56 DC 11/16/20 16:05 Sodium Bicarbonate 150 meq/Dextrose/Water 1,150 ml @ 150 mls/hr Q7H40M STAT IV 11/16/20 03:39 11/16/20 20:56 DC 11/16/20 04:03 Sodium Polystyrene Sulfonate (Kayexalate) 30 gm NOW STAT PO 11/16/20 02:51 11/16/20 03:05 DC 11/16/20 04:32 Sodium Chloride 1,000 ml @ 50 mls/hr Q20H IV 11/16/20 21:00 11/17/20 16:43 DC 11/16/20 22:00 Sodium Chloride (Saline Lock Flush) 10ML IN EACH LISANDRO... ASDIRECTED PRN IV SEE LABEL COMMENTS 11/16/20 20:45 11/17/20 15:24 DC Sodium Chloride (Saline Lock Flush) 10ML IN EACH LISANDRO... ASDIRECTED PRN IV SEE LABEL COMMENTS 11/17/20 15:30 11/18/20 11:57 DC Sodium Chloride (Saline Lock Flush) 10ML IN EACH LISANDRO... ASDIRECTED PRN IV SEE LABEL COMMENTS 11/18/20 12:00 11/20/20 12:52 DC Sodium Chloride (Saline Lock Flush) 10ML IN EACH LISANDRO... ASDIRECTED PRN IV SEE LABEL COMMENTS 11/19/20 11:10 11/20/20 12:52 DC Sodium Chloride (Saline Lock Flush) 10ML IN EACH LISANDRO... ASDIRECTED PRN IV SEE LABEL COMMENTS 11/20/20 12:05 Vancomycin HCl 500 mg/Dextrose 110 ml @ 110 mls/hr Q24H IV 11/17/20 21:00 11/18/20 08:55 DC 11/17/20 23:21 Vancomycin HCl 750 mg/IV Miscellaneous Supplies 1 each/ Sodium Chloride 275 ml @ 275 mls/hr Q12H IV 11/20/20 11:00 11/21/20 11:25 DC 11/20/20 22:32 Vancomycin HCl 750 mg/IV Miscellaneous Supplies 1 each/ Sodium Chloride 275 ml @ 275 mls/hr Q12H IV 11/21/20 11:00 11/22/20 12:03 DC 11/21/20 23:03 Vancomycin HCl 1000 mg/IV Miscellaneous Supplies 1 each/ Sodium Chloride 270 ml @ 270 mls/hr Q12H IV 11/18/20 09:00 11/20/20 07:54 DC 11/19/20 20:36 Vancomycin HCl 1000 mg/IV Miscellaneous Supplies 1 each/ Sodium Chloride 270 ml @ 270 mls/hr Q24H IV 11/17/20 20:00 11/18/20 08:55 DC 11/17/20 21:09 Vasopressin 20 units/Sodium Chloride 501 ml @ 60 mls/hr Q8H21M IV 11/17/20 06:03 Hold 11/18/20 07:48 Allergies Coded Allergies: Sulfa (Sulfonamide Antibiotics) (Verified Allergy, Unknown, 11/15/20) ciprofloxacin (Verified Adverse Reaction, Intermediate, visual hallucinations, falls, 11/15/20) CHRIST Inhibitors (Verified Adverse Reaction, Mild, cough, 11/15/20) Mayra Damico MD Nov 22, 2020 12:27
[2020-11-22] MEDS ORDERED: VANCOMYCIN INTERMITTENT/PULSE DOSING BY CLINICAL PHARMACIST PER DOSING PROTOCOL XX SCH (15:35)
--- NOTE | 2020-11-22 17:51 | CCN ---
NEPHROLOGY CRITICAL CARE NOTE DATE: 11/22/2020 SUBJECTIVE: Ms. Stack is seen this morning on her bedside in the intensive care unit. She is feeling weak and nursing staff reports that at times she gets somewhat confused. Patient is awake and able to answer questions. However, she does not comprehend what we explain to her very well. She is again on Levophed since yesterday due to hypotension. Her ventricular rate is controlled in the 60s, though she is still in atrial fibrillation. She remains oliguric. She remains on continuous renal replacement therapy (CRRT) therapy; however, we are unable to remove any fluid due to hypotension. Yesterday she received intravenous (IV) albumin with only transient improvement in her blood pressure. PHYSICAL EXAMINATION: Temperature 96.8 degrees Fahrenheit, heart rate 60 per minute, respiratory rate 20 per minute, blood pressure 91/47 mmHg, oxygen saturation 95%. HEAD: Atraumatic. NECK: Dialysis catheter in right internal jugular vein is present. Neck veins are difficult to be assessed. Her central venous pressure (CVP) has been around 8 or 9. HEART SOUNDS: Much better now, but still irregular rhythm with atrial fibrillation. LUNGS: Diminished breath sounds. ABDOMEN: Obese and nontender. Bowel sounds are normal. EXTREMITIES: Increased edema and blisters on her left thigh. She has no cyanosis or clubbing on her upper extremities, but generalized edema has increased. NEUROLOGIC: She is awake and without focal deficits, but she does get somewhat confused at times. LABORATORY DATA: Today's labs show WBC up to 20.8, hemoglobin 8.5, hematocrit 26.7, platelets 58,000. Random vancomycin level is 21.8. Sodium 137, potassium 4.3, chloride 105, CO2 26, BUN 10, creatinine 0.63, glucose 142, calcium 7.7. AST 189, ALT 218, alkaline phosphatase 697, LDH 388, total CPK 259. Serum albumin is only 1.4. PROBLEMS: 1. Oliguric acute renal failure. Patient is still oliguric and remains on continuous renal replacement therapy (CRRT) therapy. We will continue with the same and orders are being renewed. We will try to remove fluid if tolerated by her blood pressure. 2. Septic shock. Most likely related to infection in left thigh and pelvis. Repeat CAT scan done this morning shows no change in the iliopsoas muscle gas bubbles and also in the left thigh myofasciitis. Patient remains on broad spectrum antibiotics with therapeutic vancomycin level. She is also on Levophed due to low blood pressure. 3. Significant hypovolemia and generalized anasarca. She is getting worsening anasarca with about 20 liters of positive fluid balance. Will try twice a day intravenous albumin and try with fluid removal with CRRT. I have advised nursing staff to continue to remove fluid if her blood pressure tolerates it. 4. Anemia and thrombocytopenia. Her anemia is essentially unchanged and thrombocytopenia persists. No urgent need for a transfusion. 5. Nutrition. I am going to start her on Nepro one can three times a day in order to give her better protein intake. She should remain on fluid restriction of 2000 mL per day otherwise. Thirty-eight minutes of critical care time spent on the bedside. Case was discussed with other providers and patient's questions were answered. No procedure performed during this period.
[2020-11-22] MEDS: ARGATROBAN 250 MG/250 ML IV SCH ×2 (17:59)
[2020-11-22] MEDS: ARGATROBAN 50MG/50ML for ESRD patients IV SCH ×2 (18:09)
[2020-11-22 18:51] LABS: HEMOGLOBIN 8.3 g/dl (12.0-15.5); MEAN CORPUSCULAR HEMOGLOBIN 28.2 pg (27.0-33.0); MEAN CORPUSCULAR HGB CONC 31.9 g/dl (32.0-36.5); MEAN CORPUSCULAR VOLUME 88.4 fl (80.0-96.0); RED BLOOD COUNT 2.94 10^6/uL (4.00-5.40); WHITE BLOOD COUNT 19.5 10^3/uL (4.0-10.0)
[2020-11-22 18:53] LABS: PLATELET COUNT, AUTOMATED 71 10^3/uL (150-450)
[2020-11-22 19:21] LABS: EOSINOPHILS 3 % (0-3); LYMPHOCYTES 3 % (16-44); MONOCYTES 1 % (0-5); NEUTROPHILS 92 % (28-66)
[2020-11-22 19:22] LABS: HYPOCHROMASIA 1+; PLATELET ESTIMATE DECREASED (NORMAL)
[2020-11-22 19:54] LABS: ALBUMIN 1.4 GM/DL (3.2-5.2); ALT/SGPT 204 U/L (12-78); BLOOD UREA NITROGEN 12 MG/DL (7-18); CALCIUM LEVEL 8.2 MG/DL (8.8-10.2); CARBON DIOXIDE LEVEL 26 MEQ/L (21-32); CHLORIDE LEVEL 105 MEQ/L (98-107); CREATININE FOR GFR 0.82 MG/DL (0.55-1.30); GLOMERULAR FILTRATION RATE > 60.0 (>32); GLUCOSE, FASTING 183 MG/DL (70-100); MAGNESIUM LEVEL 2.3 MG/DL (1.8-2.4); PHOSPHORUS LEVEL 2.6 MG/DL (2.5-4.9); POTASSIUM SERUM 4.7 MEQ/L (3.5-5.1); SODIUM LEVEL 137 MEQ/L (136-145); TOTAL PROTEIN 4.2 GM/DL (6.4-8.2)
[2020-11-22] MEDS ORDERED: CALCIUM GLUCONATE 1,000 MG in NS 100 ML IV ONE (21:00)
[2020-11-23] VITALS (34 sets, daily range): BP systolic 85–142; BP diastolic 41–79
[2020-11-23] MEDS: MEROPENEM INJ 1 GM in IV 1 EA IV SCH ×2 (00:04→13:12)
[2020-11-23] MEDS: MORPHINE 2 MG/ML 1ML VIAL (J2270) IV PRN ×4 (02:22→22:37)
[2020-11-23 06:23] LABS: BASO # 0.1 10^3/uL (0.0-0.2); BASO % 0.3 % (0.0-1.0); EOS # 0.2 10^3/uL (0.0-0.5); EOS % 0.9 % (0.0-3.0); HEMATOCRIT 25.3 % (36.0-47.0); LYMPH % 5.4 % (24.0-44.0); MEAN CORPUSCULAR HEMOGLOBIN 28.3 pg (27.0-33.0); MEAN CORPUSCULAR HGB CONC 31.6 g/dl (32.0-36.5); MEAN CORPUSCULAR VOLUME 89.4 fl (80.0-96.0); MONO # 0.8 10^3/uL (0.0-0.8); MONO % 4.3 % (2.0-8.0); NEUTROPHILS # 14.9 10^3/uL (1.5-8.5); NEUTROPHILS % 84.2 % (36.0-66.0); RED BLOOD COUNT 2.83 10^6/uL (4.00-5.40); WHITE BLOOD COUNT 17.6 10^3/uL (4.0-10.0)
[2020-11-23 06:25] LABS: PLATELET COUNT, AUTOMATED 72 10^3/uL (150-450)
[2020-11-23 06:49] LABS: MAGNESIUM LEVEL 2.2 MG/DL (1.8-2.4); PHOSPHORUS LEVEL 2.2 MG/DL (2.5-4.9)
[2020-11-23 07:10] LABS: ALBUMIN 1.3 GM/DL (3.2-5.2); ALT/SGPT 178 U/L (12-78); BILIRUBIN,TOTAL 2.4 MG/DL (0.2-1.0); BLOOD UREA NITROGEN 12 MG/DL (7-18); CALCIUM LEVEL 7.9 MG/DL (8.8-10.2); CARBON DIOXIDE LEVEL 28 MEQ/L (21-32); CHLORIDE LEVEL 105 MEQ/L (98-107); CHOLESTEROL LEVEL 67 MG/DL (< 200); CPK CREATINE PHOSPHOKINASE 218 U/L (26-192); CREATININE FOR GFR 0.61 MG/DL (0.55-1.30); GLOMERULAR FILTRATION RATE > 60.0 (>32); GLUCOSE, FASTING 164 MG/DL (70-100); LDH LACTATE DEHYDROGENASE 338 U/L (84-246); PHOSPHORUS LEVEL 2.2 MG/DL (2.5-4.9); POTASSIUM SERUM 4.1 MEQ/L (3.5-5.1); SODIUM LEVEL 136 MEQ/L (136-145); TOTAL PROTEIN 4.3 GM/DL (6.4-8.2); TRIGLYCERIDES LEVEL 159 MG/DL (<150)
[2020-11-23] MEDS ORDERED: ARGATROBAN 50 MG in IV 1 EA IV SCH (07:30)
[2020-11-23] MEDS: LACTOBACILLUS ACIDOPHILUS CAP (BACID) PO SCH ×2 (07:51→18:00)
[2020-11-23] MEDS: HumaLOG INSULIN (NovoLOG) PER UNIT SC SCH ×3 (07:53→17:30)
[2020-11-23] MEDS ORDERED: CALCIUM GLUCONATE 1,000 MG, VIAL MATE ADAPTER 1 EACH in NS 100 ML IV ONE (08:00)
[2020-11-23] MEDS: ARGATROBAN 50MG/50ML for ESRD patients IV SCH ×4 (08:00→14:21)
[2020-11-23] MEDS ORDERED: VANCOMYCIN HCL 500 MG in D5W MINI-BAG PLUS 100 ML IV ONE (08:00)
[2020-11-23] MEDS: ASPIRIN 81 MG CHEW TABLET PO SCH (08:06)
[2020-11-23] MEDS: PANTOPRAZOLE 20 MG TAB PO SCH (08:06)
[2020-11-23] MEDS: NOREPINEPHRINE BITARTRATE 8 MG in D5W 492 ML IV SCH ×2 (09:00→10:43)
--- NOTE | 2020-11-23 09:57 | IPN ---
PROGRESS NOTE DATE: 11/22/2020 Ms. Stack is still in the intensive care unit (ICU). Her granddaughter is at the bedside, who is a massage therapist. Her nurse is at the bedside with still taking care of her continuous renal replacement therapy. The patient is again on Levophed due to persistent hypotension. Patient has been in a positive 20 liter balance because they have not been able to remove any fluid due to her persistent hypotension. She has remained afebrile. She is alert and oriented but at times does not understand the severity of her illness or what we are trying to explain to her. She does not make decisions on her own. It is mostly her daughter who is making her decisions and her transfer to [facility] was being discussed between Dr. Franco, Dr. Damico, and surgery in [facility]. PHYSICAL EXAM: Temperature is 97.7, pulse 63, respiration rate is 20, blood pressure 112/57, oxygen saturation 97% on room air. Heart: Normal S1, S2, irregular but rate controlled. Lungs: Diminished breath sounds at the bases bilaterally. Abdomen: Morbidly obese, soft, nontender. Left thigh much larger than the right thigh with multiple large bullae that are soft, not tense, with clear serous fluid. There is fine crepitus along the thigh. Erythema that extends from the hip area all the way to the upper portion of the knee is persistent. There is no involvement of the knee joint. Patient is not able to move that left leg. Her tenderness is mostly prominent along the left sacroiliac joint and left trochanteric bursa but I cannot roll her over to examine that area. Right upper arm has diffuse ecchymosis and bruising from IV infiltration of blood. Dialysis catheter right internal jugular vein. Neck veins are difficult to assess, central venous pressure=9 Extremities with +2 pitting edema. Bilateral knee replacement with no redness along the knee incisions. LABORATORY DATA: White count 19.5, hemoglobin 8.3, hematocrit 26, platelets 71, slightly improved from a carlos of 34, 92% neutrophils, 3% lymphocytes, 3% monocytes, sodium 137, potassium 4.7, chloride 105, bicarbonate 26, BUN 12, creatinine 0.82, glucose 183, calcium 8.2, phosphorous 2.6, magnesium 2.3, bilirubin 3, AST 190, ALT 204, alkaline phosphatase 999, total protein 4.2, albumin 1.4. IMPRESSION: 1. Septic shock from necrotizing fasciitis of the left hip with secondary iliacus and iliopsoas necrotizing fasciitis. No evidence of abscess in her current CTs or previous CTs to drain but there seems like there is muscle necrosis. Patient has been too clinically unstable for surgical intervention and this has been discussed between surgery at [facility] and our locals, Dr. Franco and orthopaedic surgery. She remains on IV meropenem and vancomycin with minimal improvement in clinical status. Patient is back on Levophed as well. 2. Acute renal failure on continuous renal replacement therapy (CRRT). Difficult to diurese due to hypotension. Back on Levophed. 3. Thrombocytopenia, most likely related to sepsis, possibly also with heparin-induced thrombocytopenia. Her heparin-induced antibody although was 0.076 so patient is currently on Argatroban. PLAN: From an infectious disease standpoint, continue IV meropenem and vancomycin. Even though I agree this needed a surgical intervention, I do not think the patient would survive surgery. She is at very high surgical risk with multiple comorbidities including morbid obesity, renal failure, thrombocytopenia, hypotension, and shock. Transfer to a tertiary care hospital is being discussed MTDD
[2020-11-23] MEDS ORDERED: POTASSIUM PHOSPHATE INJ 30 MMOL in D5W 500 ML IV ONE (11:00)
--- NOTE | 2020-11-23 12:41 | CCN ---
CRITICAL CARE NOTE DATE: 11/23/2020 SUBJECTIVE: The patient is seen in the intensive care unit hypotensive on pressor support. This is hospital day #8. She remains somnolent and confused. OBJECTIVE: VITAL SIGNS: Temperature 97.8, pulse rate 99, respirations 18, blood pressure 108/54, saturation 97%. INTAKE AND OUTPUT: For the past 24 hours, 2184 in and 1007 out; since midnight 4289 in and 489 out. Since admission, accumulative I&O places her 23 liters positive. Central venous pressure measured 6 this morning. GENERAL APPEARANCE: She is ill-appearing and cachectic. HEENT: Oral mucosa is dry. NECK: Supple. There is a left internal jugular triple lumen catheter and a right internal jugular dialysis catheter in place. HEART: Sounds are irregularly irregular. Monitor showing atrial fibrillation. RESPIRATORY: Breath sounds mildly diminished, but essentially clear. ABDOMEN: Obese. EXTREMITIES: There is a large ecchymotic area on the right arm. Her left groin and thigh are dressed. There is subtle crepitants to palpation essentially unchanged. DIAGNOSTIC STUDIES: Her CBC shows a white count of 17.6 down from 19.5, hemoglobin is down slightly at 8.0, hematocrit 25.3, platelet count 72,000. Differential white cell count shows 84% neutrophils. The electrolytes sodium is 130, potassium 4.1, chloride 105, CO2 of 28, BUN is 12, creatinine is 0.61, glucose 164, calcium 7.9 on an albumin of 1.3. Her phosphorus is 2.2. AST is down to 171, ALT down to 178, alkaline phosphatase is up slightly at 1101. LDH is 338. CPK 218. PTT 112.7. MEDICATIONS: On review, she is receiving Levophed standard dose currently 3 mcg/min, Protonix 40 mg a day, meropenem 1 gram q. 12 hours, Argatroban drip. ASSESSMENT AND PLAN: 1. The primary problem requiring critical attention is septic shock. Patient continues to require Levophed at moderate to low doses. Her fluid volume is very positive, but the central venous pressure (CVP) is only 6. 2. Infectious disease. White cell count is slightly down. Continues on broad-spectrum antibiotics. Infectious disease service is following. 3. Acute kidney injury. The patient continues on continuous renal replacement therapy (CRRT) for renal replacement and nephrology is following the electrolytes. 4. Atrial fibrillation. The patient's rate is better now off digoxin. We will continue to monitor ventricular response rate. 5. Transaminitis. Liver enzyme numbers are slightly better. 6. Deep vein thrombosis (DVT) prophylaxis is in place. 7. Ulcer prophylaxis in place with Protonix. Conversations are ongoing regarding the most reasonable means of controlling her infection. The case has been reviewed with the hospitalist attending, as well as other specialty services. I have updated the ICU nursing team regarding plans of care for the day. CRITICAL CARE TIME: 64 minutes was spent in the provision of bedside critical care and coordination, exclusive of any time for the performance of procedures.
--- NOTE | 2020-11-23 13:43 | IPN ---
PROGRESS NOTE DATE: 11/23/2020 SUBJECTIVE: Mrs. Stack is seen this morning on her bedside in the Intensive Care Unit. She remains hypotensive requiring Levophed. She has been oliguric on CRRT. Her urine output has not changed. Patient is retaining more fluid and has become edematous. We have been unable to remove any fluid due to persistent hypotension and requirement for pressors. She has an infection in her left thigh and pelvis with gas forming organisms and surgery feels that she is too high risk for any surgical intervention. Patient remains on antibiotics with no change in her overall condition. OBJECTIVE: VITAL SIGNS: Temperature 97.6 degrees Fahrenheit, heart rate 98 per minute, and respiratory rate 16 per minute. Blood pressure as low as 91/42 mmHg and as high as 135/54 mmHg this morning. Her oxygen saturation is 97%. HEAD AND NECK: Head is atraumatic. Her face is slightly swollen. There is no oral thrush or ulcers. She has a dialysis catheter in the right internal jugular vein. HEART: Irregular in rhythm. LUNGS: Diminished breath sounds. ABDOMEN: Soft and nontender. Bowel sounds are present. EXTREMITIES: Without any cyanosis or clubbing. She has a large area of bruising on her right shoulder area and left arm. Her left thigh has erythema and blisters. She has generalized anasarca now. NEUROLOGIC: She is awake and without any focal deficit. LABORATORY DATA: Today's labs showed a WBC count of 17.6, hemoglobin 8.0 and hematocrit 25.3. Platelets are 72,000. Sodium 136, potassium is 4.1, CO2 28, BUN 12 and creatinine 0.61. Glucose 164 and calcium 7.9. AST 171, ALT 178. Alkaline phosphatase 1100. C-reactive protein is 8.96. Her serum albumin is only 1.3. PROBLEMS: 1. Oliguric acute renal failure. Patient remains on CRRT. She is still requiring pressors and not likely to respond to any diuretics. We will continue with CRRT. Her electrolytes are within normal range. 2. Septic shock related to left thigh and pelvis area myofasciitis. Patient remains on Levophed and antibiotics. Hospitalist service has tried to transfer her to [facility] per patient's family request, however, they have not accepted her for transfer. In the meantime, surgical service feels that the patient is too high risk for surgical intervention and not likely to survive the surgery. They have recommended to continue antibiotics. 3. Generalized hypovolemia and anasarca. This is related to low serum albumin and IV fluids. We are unable to remove fluid due to persistent hypotensive requiring pressors. At present, we will continue fluid removal when her blood pressure stabilizes, then we can remove 50 ml/hr. 4. Anemia and thrombocytopenia. Her platelets seem to be stable since yesterday. Anemia is also unchanged and at this point no emergent indication for a transfusion. 5. Protein calorie malnutrition. This is related to ongoing infection with sepsis and poor oral intake. We have started her on Nepro one can t.i.d. Forty-three minutes of critical care time spent. No procedures were performed.
--- NOTE | 2020-11-23 13:51 | IPNPDOC ---
Date Seen The patient was seen on 11/23/20. Progress Note SUBJECTIVE: Surgery to reach out to family today, will follow up on this conversation. Remains on levophed at 2 mcg, CRRT, argatroban gtt. OBJECTIVE: PHYSICAL EXAMINATION: VITAL SIGNS: Please see below GENERAL APPEARANCE: NAD, resting, AAOx2 (did not know time) HEENT: AT/NC, EOMI, PERRLA NECK: No masses, right trialysis catheter in place, left IJ central line LUNGS: CTAB, no wheezing, rhonchi, wheezing HEART: irregularly irregular rhythm. There is a 1/6 systolic ejection murmur. No rubs or gallops ABDOMEN: obese, soft, nontender. No guarding or rebound. No referred pain. No CVA tenderness. EXTREMITIES: No pain left upper thigh. ROM not tested. No cyanosis or clubbing. Trace peripheral edema. Moves arms and legs with equal strength - overall generally weak INTEGUMENTARY: Increased weeping from bullae on upper left thigh, bruising of right shoulder, down right arm-not new and not enlarging. Large left thigh scar extending from knee to high thigh, redness with no tenderness on palpation still present, not increased. + warmth . No crepitus appreciated : macias catheter in place NEUROLOGIC: CN 2-12 intact, no focal deficits PSYCH: confused at times LABORATORY DATA: Please see below MICROBIOLOGY: BCx x 2 sets: NG 5 days Repeat BCx x 2 sets: NG at 48 H UCx NG IMAGING: CT abd/pelvis with contrast 11/22/20: The extent of the soft tissue gas in the left psoas and iliacus muscles is unchanged in the interval since the November 19, 2020 study. There is a small quantity of new abdominal ascites. There are bilateral pleural effusions which are new. CT femur with contrast 11/22/20: The extent of the soft tissue gas in the quadriceps musculature is essentially unchanged from the November 19, 2020 study. There is more diffuse subcutaneous and dermal edema. CT femur with contrast 11/19/20: Extensive intramuscular myofascial and soft tissue emphysema along the left thigh from just above the knee to the hip and into the left pelvis consistent with mild fasciitis with gas-forming organism/gas gangrene. No teresa abscess is seen. Diffuse cellulitis pattern. Ileus pattern in the abdominal bowel gas CT abd/pelvis with contrast 11/19/20: Extensive soft tissue emphysema with edema and dermal thickening in the quadriceps musculature of the proximal thigh on the left extending along the left pelvic sidewall in the iliopsoas muscle. 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 These are new findings compared with the November 15, 2020 study. Gallstones are seen. An abdominal ileus pattern is noted in the bowel gas. CT head 11/17/20: Stable exam, no acute findings US abdomen: Suboptimal examination. If felt clinically indicated consider CT for further evaluation. CXR: Chronic changes without acute infiltrate or pleural effusion. 5 mm nodule left lower lobe, recommend follow-up CT chest in 6-12 months. Echocardiogram 11/15/20: EF 65-70% Study is of acceptable technical quality, patient is in sinus rhythm. Normal LV size with preserved LV systolic function and grade 2 diastolic dysfunction. Dilated hypokinetic right ventricle. No hemodynamically significant valvular disease. Likely elevated central venous pressure and moderately severe pulmonary hypertension. CT lumbar spine: 1. Worsening intramuscular gas extending into the left iliacus and psoas muscles, which overall these muscles appear asymmetrically thickened when compared with the right. Cannot exclude possibility of intramuscular abscess and/or hematoma in the setting of recent trauma. It is possible that this gas is extending from the level of the left SI joint, though no definite sacral fracture is identified. Recommend orthopedic consultation. 2. Other chronic findings, as above. CT abd/pelvis: Numerous a small gallbladder calculi. No CT evidence of acute cholecystitis or biliary duct dilatation. The kidneys are unremarkable. Wall thickening of the sigmoid colon and rectosigmoid colon, nonspecific, but c ould represent infectious versus inflammatory colitis in the appropriate clinical setting. 5.3 cm hiatal hernia. Appendix is unremarkable. Hysterectomy. Right hip arthroplasty. Grade 1 compression deformity of the L4 superior endplate and lumbar spine degenerative disc disease. CT chest: Chronic changes without acute infiltrate or pleural effusion. 5 mm nodule left lower lobe, recommend follow-up CT chest in 6-12 months. IMPRESSION/PLAN: Hypotension likely septic shock 2/2 gas/necrotizing fascitis/myofascitis seen in musculature of the proximal thigh on the left extending along the left pelvic sidewall in the iliopsoas muscle and left lower ext/thigh cellulitis. -WBC 17.6, remains on levophed 2 mcg. -At this time not suspecting a bleed as cause of hypotension -CRRT being kept even, no fluid being taken off -Repeat CT left femur/ abd/pelvis done- no extension of infection but not improved also -To this date: General surgery (Dr. Franco) and orthopedic surgery (Dr. Hagan) initially reviewed scans, patient and case. Per general surgery, under ideal circumstances, the choice would be to take to surgery and debride any nonviable tissue or destroyed fascia and to drain the infection. The involved area in the lateral thigh is certainly more easily amenable to exploration and debridement than is the retroperitoneum. Dr. Hagan felt that if this were to be done it was best done at a larger facility. At this time two options suggested by general surgery were presented to patient and family 11/20/20: 1. c/w abx and monitor (risks discussed in detail) or 2. attempt to transfer to institution with higher level of care to consider exploration and debridement of the thigh and possibly the retroperitoneum. Risks of doing and NOT doing both discussed in detail with family and patient. Ultimately family chose to keep here and c/w current treatment, monitoring. -On 11/22/20: Repeat CT scans did not show improvement. Family was updated and requested discussion to occur with another facility's surgery program to see if patient would be candidate for surgery. patient was not accepted at [facility] for reasons discussed in prior note. Plan was for our surge on Dr. Franco to speak with family today to discuss treatment plan going forward. -Surgery, critical care continue to follow -ID following closely and remains on c/w meropenem, vancomycin -C/w levophed to help keep MAP >65 mmHg, regular labs Atrial fibrillation, rate controlled -Resolved bradycardia -Stopped amiodarone 11/21/20 and digoxin stopped 11/22/20 -Dig level high but according to cardiology this can be from concomitant use of amiodarone -Echo above -[place] goal HR < 110 but <120 ok with current sepsis -C/w treatment of sepsis above -Tele Elevated coags likely 2/2 to argatroban gtt -Risks of bleed increased with incr PT/PTT and INR; however, also risks of clotting are high as well with likely HIT vs. Antiphospholipid Ab syndrome as concern -Updated daughter Val on this subject and discussed in detail on 11/21/20. -No s/s of bleeding -Mixing study abnormal and could suggest an inhibitor. Lupus anticoagulant test ordered -Hematology monitoring closely -PT/PTT, CBC Q12 Hrs Anemia possibly 2/2 to dilutional effect, sepsis -H/H 04/20, dropping slowly again -S/p 2 units total this admission -Follow CBC closely. If Hgb <8, consider transfusing Acute thrombocytopenia, r/o HIT vs. 2/2 to sepsis -PLTs slightly improved to 72 -HIT ab neg ;however, could still be positive per heme/onc -Mixing study abnormal -Peripheral smear done -Lovenox started on 11/15/20, stopped 11/18/20. Likely prior exposures with prior surgeries, hospitalizations -Started argatroban gtt 11/20/20, remains on this -F/u CBC/PT/PTT/INR Q12 H , lupus anticoagulant test -Heme/onc consulted and managing -Tranfuse PLTs if bleed or if PLTs <20 Oliguric AMIRA likely multifactorial 2/2 to hypotension/septic shock, acute rhabdomyolysis, poss contrast nephropathy, medications -CRRT began evening 11/16/20, remains having poor u/o with only 201 mL out /24H -Cr wnl -Replace lytes PRN -Taking fluid off occasionally but still grossly overloaded -F/u labs regularly, nephrology recs -Monitor u/o closely Hypocalcemia, acute -S/p calcium gluconate -Following lytes closely with CRRT Acute transaminitis likely 2/2 to hypotension -AST/ALT continues to improve -Tx for hypotension above -Following CMP daily Elevated BNP likely 2/2 to atrial fibrillation with RVR, HFpEF / mod-severe pulmonary HTN -Echocardiogram above -CXR neg for acute changes -Saturating well on RA -Stopped BB, no diuretics currently, on CRRT previously having fluid taken off but still grossly + -Discussed case with cardiology. -C/w current management above Acute rhabdomyolysis-improving -Peaked CK at 32K, trending down -Follow up CMP regularly -Nephrology following, CRRT DM type II -BS stable -ISS, AC/HS, consistent carb GERD/GI px -PPI DVT px -Stopped lovenox with worsening PLTs, on argatroban gtt. Teds, scd Resolved issues: Hypomagnesemia, acute Hyperkalemia likely 2/2 to AMIRA TIA vs. transient focal deficits 2/2 to hypotension Elevated troponins possibly cytokine induced, cannot r/o Type II event DISPOSITION: ID, critical care, nephrology, general surgery, orthopedic surgery, hematology consulted. Condition is very guarded, remains in critical condition. Due to confusion with patient, will rely mostly on daughter to make major decisions. General surgery to meet today. TOTAL AMOUNT OF ICU TIME SPENT ON PATIENT'S CARE TODAY (nonprocedural): 80 MINS VS, I&O, 24H, Fishbone Vital Signs/I&O Vital Signs Date Time Temp Pulse Resp B/P (MAP) Pulse Ox O2 Delivery O2 Flow Rate FiO2 11/23/20 12:00 97.6 100 16 109/42 (64) 97 Room Air 11/18/20 12:00 2.0 I&O- Last 24 Hours up to 6 AM 11/23/20 06:00 Intake Total 2215.8 ml Output Total 1362 ml Balance 853.8 ml Laboratory Data 24H LABS Laboratory Tests 2 11/22/20 17:17: Bedside Glucose (Misc Panel) 166H 11/22/20 17:19: Bedside Glucose (Misc Panel) 183H 11/22/20 18:30: Immature Granulocyte % (Auto) , Neutrophils (%) (Auto) , Nucleated Red Blood Cells % (auto) 0.2H, Neutrophils 92H, Band Neutrophils 1, Lymphocytes (Manual) 3L, Monocytes (Manual) 1, Eosinophils (Manual) 3, Hypochromasia 1+, Platelet Estimate DECREASED, Immature Platelet Fraction 11.5H, Activated Partial Thromboplast Time 116.2H, Anion Gap 6L, Glomerular Filtration Rate > 60.0, Calcium Level 8.2L, Whole Blood Ionized Calcium 4.5, Phosphorus Level 2.6, Magnesium Level 2.3, Total Bilirubin 3.0H, Aspartate Amino Transf (AST/SGOT) 190H, Alanine Aminotransferase (ALT/SGPT) 204H, Alkaline Phosphatase 999H, Total Protein 4.2L, Albumin 1.4L, Albumin/Globulin Ratio 0.5L 11/22/20 20:02: Bedside Glucose (Misc Panel) 169H 11/22/20 22:08: Activated Partial Thromboplast Time 113.2H 11/23/20 06:04: Activated Partial Thromboplast Time 112.7H, Immature Granulocyte % (Auto) 4.9H, Neutrophils (%) (Auto) 84.2H, Lymphocytes (%) (Auto) 5.4L, Monocytes (%) (Auto) 4.3, Eosinophils (%) (Auto) 0.9, Basophils (%) (Auto) 0.3, Neutrophils # (Auto) 14.9H, Lymphocytes # (Auto) 1.0L, Monocytes # (Auto) 0.8, Eosinophils # (Auto) 0.2, Basophils # (Auto) 0.1, Nucleated Red Blood Cells % (auto) 0.1H, Anion Gap 3L, Glomerular Filtration Rate > 60.0, Calcium Level 7.9L, Whole Blood Ionized Calcium 4.6, Phosphorus Level 2.2L, Magnesium Level 2.2, Total Bilirubin 2.4H, Aspartate Amino Transf (AST/SGOT) 171H, Alanine Aminotransferase (ALT/SGPT) 178H, Alkaline Phosphatase 1101H, Lactate Dehydrogenase 338H, Total Creatine Kinase 218H, C-Reactive Protein, Quantitative 8.96H, Total Protein 4.3L, Albumin 1.3L, Albumin/Globulin Ratio 0.4L, Triglycerides Level 159H, Cholesterol Level 67, Random Vancomycin Level 16.3 11/23/20 12:59: Bedside Glucose (Misc Panel) 201H CBC/BMP Laboratory Tests 11/22/20 18:30 11/23/20 06:04 Microbiology Microbiology 11/21/20 Gram Stain - Final, Complete 11/21/20 Wound Culture - Final, Complete 11/18/20 Blood Culture - Final, Complete NO GROWTH AFTER 5 DAYS 11/18/20 Blood Culture - Final, Complete NO GROWTH AFTER 5 DAYS 11/15/20 Urine Culture - Final, Complete 11/15/20 Blood Culture - Final, Complete NO GROWTH AFTER 5 DAYS 11/15/20 Blood Culture - Final, Complete NO GROWTH AFTER 5 DAYS Current Medications Current Medications Medications (Trade) Dose Ordered Sig/Sendy Route PRN Reason Start Time Stop Time Status Last Admin Dose Admin Acetaminophen (Tylenol Tab) 1,000 mg Q6HP PRN PO PAIN / FEVER 11/15/20 18:50 11/21/20 16:45 Amiodarone HCl (Pacerone, Cordarone) 200 mg QID PO 11/18/20 17:00 11/21/20 08:25 DC 11/20/20 21:21 Amiodarone HCl (Pacerone, Cordarone) 200 mg TID PO 11/18/20 09:00 11/18/20 15:56 DC 11/18/20 12:16 Amiodarone HCl 150 mg/IV Miscellaneous Supplies 100 ml @ 600 mls/hr STAT STAT IV 11/17/20 08:58 11/17/20 09:07 DC 11/17/20 09:18 Amiodarone HCl 360 mg/IV Miscellaneous Supplies 200 ml @ 17 mls/hr [id number] IV 11/17/20 16:00 11/18/20 10:00 DC 11/18/20 04:29 Amiodarone HCl 360 mg/IV Miscellaneous Supplies 200 ml @ 33.333 mls/ hr Q6H IV 11/17/20 10:00 11/17/20 10:05 DC 11/17/20 11:11 Argatroban 250 mg/ Dextrose 250 ml @ 2.77 mls/hr Q24H IV 11/20/20 14:00 11/22/20 14:59 DC 11/21/20 15:37 Argatroban 50 mg/ IV Miscellaneous Supplies 50 ml @ 3.4 mls/hr [id number] IV 11/22/20 15:00 11/22/20 18:09 Argatroban 50 mg/ IV Miscellaneous Supplies 50 ml @ 3.4 mls/hr [id number] IV 11/23/20 07:30 11/23/20 07:43 DC Aspirin (Aspirin Chewable) 81 mg DAILY PO 11/15/20 09:00 Cancel Aspirin (Aspirin Chewable) 81 mg DAILY PO 11/16/20 09:00 11/23/20 08:06 Calcium Gluconate 1000 mg/Dextrose 110 ml @ 110 mls/hr ASDIRECTED IV 11/20/20 20:15 UNV Calcium Gluconate 1000 mg/Dextrose 110 ml @ 110 mls/hr Q1H IV 11/21/20 19:00 11/21/20 20:59 DC 11/21/20 21:00 Calcium Gluconate 1000 mg/IV Miscellaneous Supplies 1 each/ Sodium Chloride 110 ml @ 110 mls/hr 0600,0700 IV 11/17/20 06:00 11/17/20 10:00 DC 11/17/20 09:18 Calcium Gluconate 1000 mg/IV Miscellaneous Supplies 1 each/ Sodium Chloride 110 ml @ 110 mls/hr 2200,2300 IV 11/17/20 22:00 11/18/20 02:00 DC 11/18/20 02:19 Calcium Gluconate 1000 mg/IV Miscellaneous Supplies 1 each/ Sodium Chloride 110 ml @ 110 mls/hr Q1H IV 11/18/20 09:00 11/18/20 10:59 DC 11/18/20 10:14 Calcium Gluconate 1000 mg/Sodium Chloride 110 ml @ 110 mls/hr Q1H IV 11/21/20 19:00 11/21/20 18:59 DC Ceftriaxone Sodium 1 gm/ Dextrose 50 ml @ 100 mls/hr Q24H IV 11/15/20 16:00 11/16/20 08:46 DC 11/15/20 16:53 Dextrose (Dextrose 50%) 25 ml ASDIRECTED PRN IV SEE LABEL COMMENTS 11/15/20 14:50 Dextrose (Dextrose 50%) 50 ml STAT STAT IV 11/16/20 02:51 11/16/20 02:57 DC 11/16/20 03:16 Diatrizoate Meglum/ Diatrizoate Sod (Gastrografin) 10 ml Q30M PO 11/22/20 09:10 11/22/20 09:41 DC 11/22/20 10:01 Digoxin (Lanoxin) 0.125 mg DAILY PO 11/22/20 09:00 11/22/20 06:20 DC Digoxin (Lanoxin) 0.25 mg DAILY IV 11/19/20 12:15 11/20/20 15:53 DC 11/20/20 08:31 Digoxin (Lanoxin) 0.25 mg DAILY PO 11/21/20 09:00 11/21/20 08:25 DC Digoxin (Lanoxin) 0.25 mg STAT STAT IV 11/18/20 16:53 11/18/20 16:54 DC 11/18/20 17:07 Digoxin (Lanoxin) 0.25 mg STAT STAT IV 11/18/20 18:10 11/18/20 18:11 DC 11/18/20 18:22 Digoxin (Lanoxin) 0.5 mg STAT STAT IV 11/18/20 15:33 11/18/20 15:59 DC 11/18/20 15:59 Enoxaparin Sodium (Lovenox) 80 mg Q12H SC 11/15/20 18:00 11/16/20 19:06 DC 11/16/20 17:41 Enoxaparin Sodium (Lovenox) 90 mg Q24H SC 11/17/20 18:00 11/18/20 12:11 DC 11/17/20 17:59 Glucagon (Glucagon) 1 mg ASDIRECTED PRN SC SEE LABEL COMMENTS 11/15/20 14:50 Glucose (Glucose) 16 GM ASDIRECTED PRN PO SEE LABEL COMMENTS 11/15/20 14:50 Heparin Sodium (Heparin) ASDIRECTED PRN IV SEE LABEL COMMENTS 11/16/20 20:45 11/17/20 15:24 DC Heparin Sodium (Heparin) ASDIRECTED PRN IV SEE LABEL COMMENTS 11/17/20 15:30 11/18/20 11:57 DC Heparin Sodium (Heparin) ASDIRECTED PRN IV SEE LABEL COMMENTS 11/18/20 12:00 11/20/20 12:52 DC Heparin Sodium (Heparin) ASDIRECTED PRN IV SEE LABEL COMMENTS 11/19/20 11:10 11/20/20 12:52 DC Heparin Sodium (Heparin) ASDIRECTED PRN IV SEE LABEL COMMENTS 11/20/20 12:05 Heparin Sodium (Heparin) dose as per volume indica... ASDIRECTED PRN IV SEE LABEL COMMENTS 11/16/20 18:00 11/16/20 18:31 DC 11/16/20 18:22 Home Med (Med Rec Complete!) ASDIRECTED XX 11/15/20 13:20 11/15/20 13:22 DC Hydromorphone HCl (Dilaudid) 0.3 mg Q3HP PRN IV MILD PAIN (PS 1-4) 11/17/20 00:50 11/17/20 12:31 DC 11/17/20 01:07 Insulin Human Lispro (HumaLOG INSULIN) SEE PROTOCOL TABLE AC SC 11/15/20 17:30 11/23/20 13:12 Insulin Human Lispro (HumaLOG INSULIN) SEE PROTOCOL TABLE QHS SC 11/15/20 21:00 Insulin Human Regular (HumuLIN R INSULIN) 10 units STAT STAT IV 11/16/20 02:51 11/16/20 02:57 DC 11/16/20 03:17 Lactobacillus Acidophilus (Bacid) 1 ea BIDWM PO 11/16/20 08:00 11/23/20 07:51 Meropenem 1 gm/IV Miscellaneous Supplies 50 ml @ 100 mls/hr Q12H IV 11/20/20 01:00 11/23/20 13:12 Meropenem 2 gm/ Sodium Chloride 100 ml @ 200 mls/hr Q8H IV 11/17/20 12:15 11/17/20 12:24 DC Meropenem 500 mg/ IV Miscellaneous Supplies 50 ml @ 100 mls/hr Q12H IV 11/17/20 13:00 11/19/20 16:30 DC 11/19/20 13:29 Metoprolol Tartrate (Lopressor) 5 mg Q5M IV 11/15/20 12:55 11/15/20 13:06 DC 11/15/20 13:52 Metoprolol Tartrate (Lopressor) 25 mg Q6H PO 11/16/20 12:00 11/16/20 16:02 DC Metoprolol Tartrate (Lopressor) 50 mg Q6H PO 11/15/20 18:00 11/16/20 11:56 DC 11/15/20 17:36 Metronidazole 500 mg/IV Miscellaneous Supplies 100 ml @ 100 mls/hr Q8H IV 11/16/20 09:00 11/16/20 12:34 DC 11/16/20 10:13 Morphine Sulfate (Morphine Sulfate Inj) 1 mg Q4H PRN IV MODERATE PAIN (PS 5-7) 11/17/20 12:30 11/19/20 19:13 Morphine Sulfate (Morphine Sulfate Inj) 2 mg Q6H PRN IV SEVERE PAIN (PS 8-10) 11/17/20 12:30 11/23/20 10:42 Non-Formulary Medication ( See Comment Field Below ) VANCO INTERMIT. DOSING ASDIRECTED XX 11/22/20 15:35 Norepinephrine Bitartrate 8 mg/ Dextrose 500 ml @ 7.5 mls/hr Q24H IV 11/16/20 18:00 11/23/20 10:43 Ondansetron HCl (ZOFRAN INJection) 4 mg Q6HP PRN IV NAUSEA OR VOMITING 11/15/20 18:50 11/18/20 18:22 Pantoprazole Sodium (Protonix) 20 mg DAILY PO 11/18/20 09:00 11/18/20 12:13 DC Pantoprazole Sodium (Protonix) 40 mg DAILY PO 11/18/20 12:15 11/23/20 08:06 Piperacillin Sod/ Tazobactam Sod 3.375 gm/Dextrose 50 ml @ 50 mls/hr Q6H IV 11/16/20 10:00 11/17/20 12:16 DC 11/17/20 03:49 Potassium Chloride/Sodium Chloride 1,000 ml @ 125 mls/hr Q8H IV 11/15/20 15:30 11/16/20 02:57 DC 11/15/20 17:35 Simvastatin (Zocor) 40 mg QHS PO 11/15/20 21:00 11/16/20 08:49 DC 11/15/20 20:15 Sodium Bicarbonate 150 meq/Dextrose/Water 1,150 ml @ 150 mls/hr Q7H40M IV 11/16/20 16:00 11/16/20 20:56 DC 11/16/20 16:05 Sodium Bicarbonate 150 meq/Dextrose/Water 1,150 ml @ 150 mls/hr Q7H40M STAT IV 11/16/20 03:39 11/16/20 20:56 DC 11/16/20 04:03 Sodium Polystyrene Sulfonate (Kayexalate) 30 gm NOW STAT PO 11/16/20 02:51 11/16/20 03:05 DC 11/16/20 04:32 Sodium Chloride 1,000 ml @ 50 mls/hr Q20H IV 11/16/20 21:00 11/17/20 16:43 DC 11/16/20 22:00 Sodium Chloride (Saline Lock Flush) 10ML IN EACH LISANDRO... ASDIRECTED PRN IV SEE LABEL COMMENTS 11/16/20 20:45 11/17/20 15:24 DC Sodium Chloride (Saline Lock Flush) 10ML IN EACH LISANDRO... ASDIRECTED PRN IV SEE LABEL COMMENTS 11/17/20 15:30 11/18/20 11:57 DC Sodium Chloride (Saline Lock Flush) 10ML IN EACH LISANDRO... ASDIRECTED PRN IV SEE LABEL COMMENTS 11/18/20 12:00 11/20/20 12:52 DC Sodium Chloride (Saline Lock Flush) 10ML IN EACH LISANDRO... ASDIRECTED PRN IV SEE LABEL COMMENTS 11/19/20 11:10 11/20/20 12:52 DC Sodium Chloride (Saline Lock Flush) 10ML IN EACH LISANDRO... ASDIRECTED PRN IV SEE LABEL COMMENTS 11/20/20 12:05 Vancomycin HCl 500 mg/Dextrose 110 ml @ 110 mls/hr Q24H IV 11/17/20 21:00 11/18/20 08:55 DC 11/17/20 23:21 Vancomycin HCl 750 mg/IV Miscellaneous Supplies 1 each/ Sodium Chloride 275 ml @ 275 mls/hr Q12H IV 11/20/20 11:00 11/21/20 11:25 DC 11/20/20 22:32 Vancomycin HCl 750 mg/IV Miscellaneous Supplies 1 each/ Sodium Chloride 275 ml @ 275 mls/hr Q12H IV 11/21/20 11:00 11/22/20 12:03 DC 11/21/20 23:03 Vancomycin HCl 1000 mg/IV Miscellaneous Supplies 1 each/ Sodium Chloride 270 ml @ 270 mls/hr Q12H IV 11/18/20 09:00 11/20/20 07:54 DC 11/19/20 20:36 Vancomycin HCl 1000 mg/IV Miscellaneous Supplies 1 each/ Sodium Chloride 270 ml @ 270 mls/hr Q24H IV 11/17/20 20:00 11/18/20 08:55 DC 11/17/20 21:09 Vasopressin 20 units/Sodium Chloride 501 ml @ 60 mls/hr Q8H21M IV 11/17/20 06:03 Hold 11/18/20 07:48 Allergies Coded Allergies: Sulfa (Sulfonamide Antibiotics) (Verified Allergy, Unknown, 11/15/20) ciprofloxacin (Verified Adverse Reaction, Intermediate, visual hallucinations, falls, 11/15/20) CHRIST Inhibitors (Verified Adverse Reaction, Mild, cough, 11/15/20) Mayra Damico MD Nov 23, 2020 13:51
[2020-11-23] MEDS: LORazepam 2 MG/ML VIAL IV PRN (19:34)
[2020-11-24] MEDS: MORPHINE 2 MG/ML 1ML VIAL (J2270) IV PRN ×2 (01:57→10:13)
--- NOTE | 2020-11-24 07:15 | IPN ---
PROGRESS NOTE DATE: 11/23/2020 SUBJECTIVE: The patient was admitted on the after suffering an event and fall at home. She apparently had been on the floor for several hours before being transported. She developed a picture of shock consistent with sepsis. She developed renal failure and has been supported with continuous renal replacement. She required resumption of pressors with Levophed. She has gas bubbles noted in the left thigh with a few in the retroperitoneum involving the iliac and psoas muscles. Platelet count has been low and she has been on Argatroban drip. I was asked to speak with the patient and her daughter about the issues surrounding possible debridement of her leg infection. Apparently, Dr. Damico had attempted to have the patient transferred yesterday without success. OBJECTIVE: VITAL SIGNS: Irregular pulse in the range of about 95 to 100. Her blood pressure is acceptable on Levophed. GENERAL: She is alert but perhaps not entirely oriented. She remains on continuous renal replacement therapy through a right internal jugular catheter. She has a left IJ catheter as well for medications. ABDOMEN: Obese but soft. EXTREMITIES: Her left thigh as well as the right both show significant edema. The bullae on the left anterolateral thigh have all ruptured. The skin has several small areas of faint redness but no evidence of skin necrosis. I cannot feel definite crepitants in the tissues. LABORATORY DATA: CBC with a white count of 18 which is down slightly from yesterday. Hemoglobin is 8 with a hematocrit of 25 and the platelet count is actually up to 72,000. The differential count shows 84% neutrophils with 5% lymphocytes and 4% monocytes. Chemistry profile includes normal electrolytes with a BUN of 12, creatinine 0.6 and a glucose of 164. Total bilirubin is still elevated at 2.4 with an AST of 171, ALT 178 and an alkaline phosphatase of 1101. The LDH is 338 and a total CK is 218. C-reactive protein is 9. Total protein is 4.3 with an albumin of 1.3. Most recent imaging was her CT scans of the abdomen and pelvis and her femur on the . These images show some scattered air bubbles quite numerous in the anterolateral aspect of the left thigh with a few small bubbles in the retroperitoneum on the left. Overall, these do not appear significantly changed from her imaging on the . IMPRESSION: 1. 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 2. Acute renal failure on renal replacement therapy. 3. Hypotension requiring pressors. 4. Atrial fibrillation. 5. Marked fluid overload. 6. Thrombocytopenia. 7. Malnutrition. RECOMMENDATIONS: I had a long conversation at the bedside with the patient and with her daughter Lori. Bae, the ICU nurse was present for the conversation. Primarily, I was speaking with the daughter but the patient was intermittently involved in the conversation. I explained to the daughter that there appears to be an infection in the thigh and possibly into the retroperitoneum in the pelvis. I advised her that the most effective approach to this infection would be to open the tissues widely and to remove any or infected tissue. This would involve perhaps a 1 foot long incision down the lateral aspect of the thigh which would not be closed. We would need to leave this open to drain and for possible reexploration and re-debridement. If we were to try approaching the retroperitoneum for debridement this would likely require some sort of abdominal incision. I advised the patient and her daughter that this sort of surgery would require that we put her under general anesthesia and I am certain that she would require an endotracheal tube. We would not be able to consider any sort of spinal anesthetic because of her platelet issues. She has previously expressed that she did not wish to be intubated and wished to remain a DNR. I advised that if she was intubated for the surgery it may well be that she would not be able to be extubated at the conclusion of the procedure and we would then have her in a position where she did not want to be. I advised them that because of her poor nutrition and all of the other medical issues that certainly the procedure would be extremely risky, but that even though I expect she would survive the operation I think her healing would be so impaired that this would be at best a very protracted course that would ultimately I believe end in her anyway. The patient asked several times if she was going to get better and I advised her that I thought she would not. At this point, the patient expressed that if that was the case then she would just as soon rather than continue all of the intensive management. The daughter assured the mother that it was her choice to make. The patient has therefore decided that she would like to focus on comfort. I think this is a very reasonable decision at this point. I contacted Dr. Damico to inform her of the results of our discussion and she will deal with the changes in the patient's orders. STEPH
[2020-11-24 10:24] LABS: DRVV SCREEN 256.2 SEC
[2020-11-24 10:32] LABS: PTT LUPUS TYPE ANTICOAG SCREEN 6.2 (0-1.2)
[2020-11-24 10:41] LABS: DRVV CONFIRM 171.9 SEC; LUPUS CONFIRM RATIO 4.5
[2020-11-24 10:46] LABS: NORMALIZED RATIO 1.38 (0.00-1.20)
[2020-11-24] MEDS: MORPHINE 10MG/0.5ML ORAL CONCENTRATE SOLUTION U/D SL PRN ×3 (13:01→21:54)
[2020-11-24] MEDS: LORazepam 2 MG/ML VIAL IV PRN ×2 (16:57→23:45)
[2020-11-25] MEDS: MORPHINE 10MG/0.5ML ORAL CONCENTRATE SOLUTION U/D SL PRN ×8 (00:37→23:42)
[2020-11-25] MEDS: LORazepam 2 MG/ML VIAL IV PRN ×3 (06:26→23:42)
[2020-11-26] MEDS: LORazepam 2 MG/ML VIAL IV PRN ×3 (02:53→21:29)
[2020-11-26] MEDS: MORPHINE 10MG/0.5ML ORAL CONCENTRATE SOLUTION U/D SL PRN ×5 (08:30→20:44)
[2020-11-26 12:07] LABS: HEXAGONAL PHASE PHOSPHOLIPID 8 sec (0-11)
[2020-11-27] MEDS: MORPHINE 10MG/0.5ML ORAL CONCENTRATE SOLUTION U/D SL PRN ×8 (00:52→23:45)
[2020-11-27] MEDS: LORazepam 2 MG/ML VIAL IV PRN ×7 (03:46→23:44)
[2020-11-27] MEDS: ATROPINE SULFATE 1% OP SOLN 2 ML BTL SL PRN ×4 (16:20→23:45)
[2020-11-28] MEDS: LORazepam 2 MG/ML VIAL IV PRN ×6 (02:13→22:43)
[2020-11-28] MEDS: ATROPINE SULFATE 1% OP SOLN 2 ML BTL SL PRN ×9 (02:13→22:42)
[2020-11-28] MEDS: MORPHINE 10MG/0.5ML ORAL CONCENTRATE SOLUTION U/D SL PRN ×9 (02:14→22:44)
[2020-11-29] MEDS: LORazepam 2 MG/ML VIAL IV PRN (00:51)
[2020-11-29] MEDS: MORPHINE 10MG/0.5ML ORAL CONCENTRATE SOLUTION U/D SL PRN (00:51)
[2020-11-29] MEDS: ATROPINE SULFATE 1% OP SOLN 2 ML BTL SL PRN (00:51)
--- NOTE | 2020-11-29 15:06 | DS.PDOC ---
Discharge Summary General Date of Admission Nov 15, 2020 at 14:44 Date of Discharge 11/29/2020 Discharge Summary ATTENDING AT TIME OF DISCHARGE: Dr. 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 Acute renal failure on renal replacement therapy Hypotension requiring pressors Atrial fibrillation with rapid ventricular response Marked fluid overload Thrombocytopenia Malnutrition Leukocytosis Hyperkalemia Metabolic acidosis Comorbid Conditions: Diabetes mellitus type 2 Chronic kidney disease stage II Hypertension Hypertensive heart disease Hyperlipidemia Osteoarthritis status post right hip replacement Vitamin B-12 deficiency Obesity History of some memory loss, most recent Mini-Mental status exam done on 11/14/2020 where she scored 28/30 points HPI & HOSPITAL COURSE: The patient apparently suffered a fall at home, per records she had been on the floor for several hours before being transported to the emergency department. She subsequently developed septic shock and renal failure requiring continuous renal replacement and pressors. It was found that she had extensive intramusc ular myofascial and soft tissue emphysema along the left thigh, extending from just proximal to the knee through the hip and up into the left hemipelvis and iliopsoas consistent with mild fasciitis with gas-forming organism. There was also diffuse cellulitis associated with the left thigh as well. The surgical team discussed with the patient and her daughter regarding their desires to go forward with what sounded to be a very invasive surgery with a low likelihood of success, the patient decided that she would prefer comfort measures instead. Aggressive supportive therapy was then discontinued and she was switched over to comfort measures only on 11/24/2020. She early in the morning on 11/29/2020. 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 DISPOSITION: May transport body to the [facility] [place] Vital Signs/I&Os Vital Signs Date Time Temp Pulse Resp B/P (MAP) Pulse Ox O2 Delivery O2 Flow Rate FiO2 11/28/20 18:46 14 11/23/20 18:05 Room Air 11/23/20 18:00 100 117/79 (92) 11/23/20 16:00 97.6 97 I&O- Last 24 Hours up to 6 AM 11/29/20 06:00 Intake Total 0 ml Output Total 0 ml Balance 0 ml Microbiology Microbiology 11/21/20 Gram Stain - Final, Complete 11/21/20 Wound Culture - Final, Complete Discharge Medications Scheduled Aspirin (Aspirin) 81 Mg Chw, 81 MG PO DAILY, (Reported) Calcium Carbonate (Calcium Carbonate) 500 Mg Tab, 1,000 MG PO DAILY, (Reported) Cyanocobalamin (Vitamin B-12) (Vitamin B-12) 1,000 Mcg Tablet, 1,000 MCG PO DAILY, (Reported) Insulin Glargine (Lantus) 100 Unit/1 Ml Vial, 20 UNITS SC QHS, (Reported) HOLD IF BS UNDER 120 Irbesartan/Hydrochlorothiazide (Irbesartan-Hctz 300-12.5 mg Tb) 1 Each Tablet, 1 TAB PO DAILY, (Reported) Lovastatin (Lovastatin) 40 Mg Tab, 40 MG PO DAILY, (Reported) Metformin HCl (Metformin HCl) 1,000 Mg Tablet, 1,500 MG PO DAILY, (Reported) Metformin HCl (Metformin HCl) 1,000 Mg Tablet, 1,000 MG PO QHS, (Reported) Multivit,Calc,Mins/Iron/Folic (Thera-M Tablet) 1 Each Tablet, 1 TAB PO DAILY, ( Reported) Scheduled PRN Acetaminophen (Tylenol) 325 Mg Tablet, 325 MG PO Q4HP PRN for PAIN, (Reported) Allergies Coded Allergies: Sulfa (Sulfonamide Antibiotics) (Verified Allergy, Unknown, 11/15/20) ciprofloxacin (Verified Adverse Reaction, Intermediate, visual hallucinations, falls, 11/15/20) CHRIST Inhibitors (Verified Adverse Reaction, Mild, cough, 11/15/20) JOON SPARKS DO Nov 29, 2020 15:06
== END 2020-11-29 03:05 | disposition expired | DRG 871 ==
LOC: M ED 08:03 → M ED INP 14:44 → ENRESERV 15:30 → M PCU 17:02 → M ICU 11-16 17:40 → M MSPAV 11-24 08:04
PROVIDERS: ADMIT Family Medicine; ATTEND Neuromusculoskeletal Medicine & OMM
PROC: 02HV33Z Insertion of Infusion Device into Superior Vena Cava, Percutaneous Approach (ICD-10-PCS; principal; 2020-11-16)
PROC: 5A1D90Z Performance of Urinary Filtration, Continuous, Greater than 18 hours Per Day (ICD-10-PCS; 2020-11-17)
PROC: 30233N1 Transfusion of Nonautologous Red Blood Cells into Peripheral Vein, Percutaneous Approach (ICD-10-PCS; 2020-11-17)
PROC: 30233J1 Transfusion of Nonautologous Serum Albumin into Peripheral Vein, Percutaneous Approach (ICD-10-PCS; 2020-11-21)
PROC: 02HV33Z Insertion of Infusion Device into Superior Vena Cava, Percutaneous Approach (ICD-10-PCS; 2020-11-29)
DX: A41.9 Sepsis, unspecified organism (principal); R65.21 Severe sepsis with septic shock; A48.0 Gas gangrene; K72.00 Acute and subacute hepatic failure without coma; M72.6 Necrotizing fasciitis; K68.12 Psoas muscle abscess; E43 Unspecified severe protein-calorie malnutrition; E87.2 Acidosis; M62.82 Rhabdomyolysis; N17.9 Acute kidney failure, unspecified; L03.116 Cellulitis of left lower limb; E87.1 Hypo-osmolality and hyponatremia; I50.32 Chronic diastolic (congestive) heart failure; I13.0 Hypertensive heart and chronic kidney disease with heart failure and stage 1 through stage 4 chronic kidney disease, or unspecified chronic kidney disease; I48.91 Unspecified atrial fibrillation; Z66 Do not resuscitate; Z51.5 Encounter for palliative care; E11.22 Type 2 diabetes mellitus with diabetic chronic kidney disease; E78.5 Hyperlipidemia, unspecified; M19.90 Unspecified osteoarthritis, unspecified site; Z96.641 Presence of right artificial hip joint; E53.8 Deficiency of other specified B group vitamins; Z96.643 Presence of artificial hip joint, bilateral; D69.6 Thrombocytopenia, unspecified; N18.2 Chronic kidney disease, stage 2 (mild); R33.9 Retention of urine, unspecified; K52.9 Noninfective gastroenteritis and colitis, unspecified; R74.01 Elevation of levels of liver transaminase levels; E83.42 Hypomagnesemia; E66.9 Obesity, unspecified; E87.5 Hyperkalemia; E87.70 Fluid overload, unspecified; E83.51 Hypocalcemia; I27.20 Pulmonary hypertension, unspecified; Z20.822 Contact with and (suspected) exposure to COVID-19; Z88.2 Allergy status to sulfonamides; Z88.1 Allergy status to other antibiotic agents; Z88.8 Allergy status to other drugs, medicaments and biological substances; Z79.4 Long term (current) use of insulin; Z79.899 Other long term (current) drug therapy; Z79.82 Long term (current) use of aspirin; Z68.37 Body mass index [BMI] 37.0-37.9, adult